=== PATIENT | female | born 1950 | race American Indian/Alaskan Native ===

== ENCOUNTER → 2020-02-19 08:21 | Outpatient (BNVA) | payer MEDICARE, MEDICAID, OTHER, SELFPAY | PROVIDERS: PCP Internal Medicine Geriatric Medicine; Referring Provider Internal Medicine Geriatric Medicine; Visit Provider Obstetrics & Gynecology | DX: N95.0 Postmenopausal bleeding (principal); N83.202 Unspecified ovarian cyst, left side | CPT/HCPCS: 99203; 99214 ==

== ENCOUNTER 2020-02-25 10:14 | Outpatient (REF) | payer MEDICARE, MEDICAID, SELFPAY ==
[2020-02-26 12:36] LABS: CA-125 8 U/mL (<35)
== END 2020-02-25 10:15 | disposition home or self-care (01) ==
LOC: HO.LAB 10:14
PROVIDERS: Visit Provider Obstetrics & Gynecology
DX: N83.202 Unspecified ovarian cyst, left side (principal)
CPT/HCPCS: 86304

== ENCOUNTER 2020-03-15 08:18 | Outpatient (REF) | payer MEDICARE, OTHER, SELFPAY ==
--- NOTE | 2020-03-15 08:23 | MM_ITS ---
EXAMINATION: MM SCREENING DIGITAL BREAST TOMOSYNTHESIS, BILATERAL CLINICAL INFORMATION: Screening. Asymptomatic. The lifetime risk of breast cancer based on the Tyrer-Cuzick Model is 4%. COMPARISON: Mammography: 12/26/2018, 05/30/2017 TECHNIQUE: Digital breast tomosynthesis is performed in both the craniocaudal and mediolateral oblique views along with computer-aided detection (CAD). Synthesized 2D images are generated from the tomosynthesis. FINDINGS: There are scattered areas of fibroglandular density (ACR BI-RADS breast composition Category b). Breast tissue composition borders on heterogeneously dense. There are the parenchymal pattern is similar to prior studies. There are scattered bilateral benign coarse round calcifications. There is no interval mass or architectural abnormality or developing density. No significant changes. MM/MM tomosynthesis screening BI IMPRESSION: No mammographic evidence of malignancy. ASSESSMENT: BI-RADS 2: Benign RECOMMENDATION: Routine annual mammography screening. This patient's information was entered into a reminder system with a target due date for their next mammogram.
== END 2020-03-15 08:19 | disposition home or self-care (01) ==
LOC: HO.MAMMO 08:18
PROVIDERS: PCP Internal Medicine Geriatric Medicine; Visit Provider Internal Medicine Geriatric Medicine
DX: Z12.31 Encounter for screening mammogram for malignant neoplasm of breast (principal)
CPT/HCPCS: 77063; 77067

== ENCOUNTER 2020-03-24 09:03 | Outpatient (REF) | payer MEDICARE, MEDICAID, OTHER, SELFPAY | END 2020-03-24 09:04 | disposition home or self-care (01) | LOC: HO.LAB 09:03 | PROVIDERS: Visit Provider Obstetrics & Gynecology | DX: N95.0 Postmenopausal bleeding (principal) | CPT/HCPCS: 58100; 88305 ==

== ENCOUNTER → 2020-04-26 13:14 | Outpatient (BNVA) | payer MEDICARE, MEDICAID, SELFPAY | PROVIDERS: Visit Provider Obstetrics & Gynecology | DX: N83.202 Unspecified ovarian cyst, left side (principal); N95.0 Postmenopausal bleeding | CPT/HCPCS: Q3014 ==

== ENCOUNTER 2020-09-20 12:50 | Outpatient (REF) | payer MEDICARE, OTHER, SELFPAY ==
--- NOTE | ~2020-09-20 | US_ITS ---
EXAMINATION: US PELVIS CLINICAL INFORMATION: Left-sided ovarian cyst. COMPARISON: Ultrasound pelvis 01/07/2020. TECHNIQUE: Transabdominal ultrasound of the pelvis is performed. FINDINGS: UTERUS: The uterus is anteverted and measures 8.3 cm in length, 3.9 cm in AP and 4.9 cm in transverse dimension. The double wall endometrial thickness is 0.4 mm. The uterus is smooth in contour and has normal myometrial echogenicity. No visible fibroid. ADNEXA: Both ovaries are visualized. There is normal color flow to the adnexa. There is no ovarian torsion. There is no pelvic ascites or fluid collection. Right ovary measures 2.0 x 1.8 x 1.1 cm. Volume 2.1 mL. The ovary appears unremarkable. Left ovary measures 6.7 x 7.1 x 4.7 cm. Volume 117.1 mL. There is an anechoic cyst measuring 4.5 x 4.5 x 4.6 cm. US/US pelvic complete IMPRESSION: Anechoic 4.6 cm cyst left ovary. Unremarkable right ovary and uterus.
== END 2020-09-20 12:51 | disposition home or self-care (01) ==
LOC: HO.US 12:50
PROVIDERS: PCP Internal Medicine Geriatric Medicine; Visit Provider Obstetrics & Gynecology
DX: N83.202 Unspecified ovarian cyst, left side (principal)
CPT/HCPCS: 76856

== ENCOUNTER → 2020-10-12 14:34 | Outpatient (BNVA) | payer MEDICARE, SELFPAY | PROVIDERS: PCP Internal Medicine Geriatric Medicine; Visit Provider Obstetrics & Gynecology | DX: N83.202 Unspecified ovarian cyst, left side (principal) | CPT/HCPCS: Q3014 ==

== ENCOUNTER 2021-01-10 13:55 | Outpatient (REF) | payer MEDICARE, SELFPAY ==
--- NOTE | ~2021-01-10 | XR_ITS ---
EXAMINATION: XR LUMBAR SPINE XR HIP, BILATERAL CLINICAL INFORMATION: Low back pain and bilateral hip pain. COMPARISON: None TECHNIQUE: 3 views lumbar spine and 2 views each hip. FINDINGS: LUMBAR SPINE: There is mild straightening of lumbar lordosis. The vertebral heights, alignment and the disc heights are normal. There is mild endplate spondylosis throughout lumbar spine. No visible acute fracture or lytic process seen. LEFT HIP: Left hip joint space is normal. No bony erosive changes or loose bodies. No fracture, sclerotic or lytic lesion. No soft tissue abnormality. RIGHT HIP: There is no visible acute fracture or dislocation. There is a small enthesophyte along the lateral acetabulum. No bony erosive changes. The soft tissues are normal. There are several phleboliths in the pelvis. XR/XR lumbar spine 2-3V IMPRESSION: LUMBAR SPINE: 1. Unremarkable lumbar spine exam. 2. Small enthesophyte along the lateral acetabulum. No visible acute fracture or dislocation seen. RIGHT HIP: In the right hip, no acute fracture or dislocation. LEFT HIP: Unremarkable left hip.
--- NOTE | ~2021-01-10 | XR_ITS ---
EXAMINATION: XR LUMBAR SPINE XR HIP, BILATERAL CLINICAL INFORMATION: Low back pain and bilateral hip pain. COMPARISON: None TECHNIQUE: 3 views lumbar spine and 2 views each hip. FINDINGS: LUMBAR SPINE: There is mild straightening of lumbar lordosis. The vertebral heights, alignment and the disc heights are normal. There is mild endplate spondylosis throughout lumbar spine. No visible acute fracture or lytic process seen. LEFT HIP: Left hip joint space is normal. No bony erosive changes or loose bodies. No fracture, sclerotic or lytic lesion. No soft tissue abnormality. RIGHT HIP: There is no visible acute fracture or dislocation. There is a small enthesophyte along the lateral acetabulum. No bony erosive changes. The soft tissues are normal. There are several phleboliths in the pelvis. XR/XR hip LT min 2V IMPRESSION: LUMBAR SPINE: 1. Unremarkable lumbar spine exam. 2. Small enthesophyte along the lateral acetabulum. No visible acute fracture or dislocation seen. RIGHT HIP: In the right hip, no acute fracture or dislocation. LEFT HIP: Unremarkable left hip.
--- NOTE | ~2021-01-10 | XR_ITS ---
EXAMINATION: XR LUMBAR SPINE XR HIP, BILATERAL CLINICAL INFORMATION: Low back pain and bilateral hip pain. COMPARISON: None TECHNIQUE: 3 views lumbar spine and 2 views each hip. FINDINGS: LUMBAR SPINE: There is mild straightening of lumbar lordosis. The vertebral heights, alignment and the disc heights are normal. There is mild endplate spondylosis throughout lumbar spine. No visible acute fracture or lytic process seen. LEFT HIP: Left hip joint space is normal. No bony erosive changes or loose bodies. No fracture, sclerotic or lytic lesion. No soft tissue abnormality. RIGHT HIP: There is no visible acute fracture or dislocation. There is a small enthesophyte along the lateral acetabulum. No bony erosive changes. The soft tissues are normal. There are several phleboliths in the pelvis. XR/XR hip RT min 2V IMPRESSION: LUMBAR SPINE: 1. Unremarkable lumbar spine exam. 2. Small enthesophyte along the lateral acetabulum. No visible acute fracture or dislocation seen. RIGHT HIP: In the right hip, no acute fracture or dislocation. LEFT HIP: Unremarkable left hip.
== END 2021-01-10 13:56 | disposition home or self-care (01) ==
LOC: HO.XRAY 13:55
PROVIDERS: Absent Provider Internal Medicine Geriatric Medicine; PCP Internal Medicine Geriatric Medicine; Visit Provider Emergency Medicine
DX: M25.551 Pain in right hip (principal); M25.552 Pain in left hip; M54.42 Lumbago with sciatica, left side
CPT/HCPCS: 72100; 73502

== ENCOUNTER 2021-02-10 10:35 | Outpatient (REF) | payer MEDICARE, SELFPAY ==
--- NOTE | ~2021-02-10 | XR_ITS ---
EXAMINATION: XR KNEE, RIGHT CLINICAL INFORMATION: Pain in right knee COMPARISON: Bilateral knee radiographs from 01/04/2016 TECHNIQUE: Four views of the right knee. FINDINGS: No acute visible fracture or dislocation. Multicompartment degenerative changes. Moderate narrowing of the lateral femorotibial compartment. Spurring of the tibial spines. Mild narrowing of the lateral patellofemoral compartment. Periarticular osteophyte along the superior pole of the patella. Joint spaces and alignment are otherwise maintained. No large knee joint effusion. Soft tissues are unremarkable. XR/XR knee RT 4V IMPRESSION: 1. No acute visible fracture or dislocation. 2. Mild to moderate multicompartment degenerative changes.
== END 2021-02-10 10:36 | disposition home or self-care (01) ==
LOC: HO.XRAY 10:35
PROVIDERS: PCP Internal Medicine Geriatric Medicine; Visit Provider Internal Medicine Geriatric Medicine
DX: M25.561 Pain in right knee (principal)
CPT/HCPCS: 73564

== ENCOUNTER 2021-03-22 07:00 | Outpatient (RCR) | payer MEDICARE, OTHER, SELFPAY | END 2021-04-20 12:39 | disposition home or self-care (01) | LOC: HO.PT 07:00 | PROVIDERS: PCP Internal Medicine Endocrinology, Diabetes & Metabolism; Visit Provider Internal Medicine Endocrinology, Diabetes & Metabolism | DX: M25.561 Pain in right knee (principal) | CPT/HCPCS: 97035; 97110; 97140; 97161; 97530 ==

== ENCOUNTER 2021-07-10 22:56 | Emergency (ER) | payer MEDICARE, OTHER, SELFPAY ==
--- NOTE | ~2021-07-10 | XR_ITS ---
EXAMINATION: XR KNEE, LEFT CLINICAL INFORMATION: Pain COMPARISON: None TECHNIQUE: Four views of the left knee. FINDINGS: No acute fracture or dislocation. Small tricompartmental marginal osteophytes. Articular surfaces are smooth. Small joint effusion. Soft tissues unremarkable. XR/XR knee LT 4V IMPRESSION: No acute fracture or dislocation.
[2021-07-10 23:21] VITALS: BP 138/66; PULSE 77; RESP 16; TEMP 36.6; O2SAT 98
[2021-07-10 23:37] VITALS: BP 138/66; PULSE 77; RESP 16; TEMP 36.6; O2SAT 98; BMI 26.4
--- NOTE | 2021-07-10 23:57 | ED_ITS ---
HPI - Extremity Injury (Lower) General Chief Complaint: Extremity Injury, Lower Stated Complaint: bones in knee crack? Time Seen by Provider: 07/10/21 23:38 Source: patient Mode of arrival: ambulatory History of Present Illness HPI Narrative: 70-year-old female presents with significant left knee pain after she attempted to sit down in a chair to approximately 15:00 this afternoon, she states she heard a crack just prior to feeling the left knee pain. Patient now reports that she is having discomfort on bearing weight and movement. She denies any fever, chills, or numbness/tingling into the distal extremity. Related Data Home Medications Medication Instructions Recorded Confirmed atenolol 25 mg tablet 25 mg PO DAILY 02/16/20 04/26/20 atorvastatin 40 mg tablet 40 mg PO DAILY 02/16/20 04/26/20 clopidogrel 75 mg tablet 75 mg PO DAILY 02/16/20 04/26/20 gabapentin 300 mg capsule 300 mg PO TID 02/16/20 04/26/20 glipizide 5 mg tablet 0 mg PO 02/16/20 04/26/20 guaifenesin 100 mg/5 mL oral liquid 200 mg PO Q4H PRN 02/16/20 04/26/20 hydrochlorothiazide 25 mg tablet 25 mg PO DAILY 02/16/20 04/26/20 losartan 100 mg tablet 100 mg PO DAILY 02/16/20 04/26/20 metformin 1,000 mg tablet 1,000 mg PO BID 02/16/20 04/26/20 pen needle, diabetic 32 gauge x #50 ea 02/16/20 04/26/20 5/32 alcohol swabs pad TOPICAL BID 02/19/20 04/26/20 lidocaine 5 % topical patch 0 patch TOPICAL 02/19/20 04/26/20 losartan 100 1 tab PO QAM 02/19/20 04/26/20 mg-hydrochlorothiazide 25 mg tablet peg [id number] 1 1 drp OPHTHALMIC (EYE) TID 02/19/20 04/26/20 %-0.2 %-0.2 % eye drops Previous Rx's Medication Instructions Recorded ketorolac 10 mg tablet 10 mg PO Q6H PRN 5 Days #7 tab 07/11/21 Allergies Allergy/AdvReac Type Severity Reaction Status Date / Time Sulfa (Sulfonamide Allergy Severe THROAT Verified 10/12/20 14:35 Antibiotics) CLOSES [SULFA (SULFONAMIDE ANTIBIOTICS)] Review of Systems Review of Systems: Pertinent positives and negatives as stated in HPI 10 point review of systems is otherwise negative. [facility] Past Medical History Source: nursing notes reviewed Medical History Diabetes Hammer toe Hypercholesteremia Hypertension Surgical History H/O section H/O knee surgery H/O tubal ligation Family History Family History Brother Prostate cancer Maternal Aunt Breast cancer Social History Social History Alcohol intake: never Advance Directives: No Sexual orientation: Straight/Heterosexual Gender identity: Female Physical Exam Vital Signs: Vital Signs: Last Vital Signs Temp 97.9 F 07/10/21 23:37 Pulse 71 07/11/21 01:09 Resp 16 07/11/21 01:09 BP 136/68 07/11/21 01:09 Pulse Ox 98 07/11/21 01:09 BMI result Body Mass Index 26.4 VITAL SIGNS: Reviewed. GENERAL: Well developed, well nourished, in no acute distress. HEAD: Normocephalic/atraumatic EYES: PERRLA, EOMI OROPHARYNX: no oral lesions noted, posterior pharynx clear LUNGS: Normal breath sounds. No adventitious sounds or accessory muscle use. SpO2<98> CARDIOVASCULAR: Regular rate and rhythm without noted murmurs ABDOMEN: Soft, non-tender, non-distended with bowel sounds. LEFT KNEE: No deformity, no swelling, no erythema/induration and no tenderness to palpation over the anterior aspect, when distracted patient has no pain on palpation over the popliteal fossa NEUROLOGIC: Alert and oriented x 4. Strength and sensation to light touch were grossly intact x 4. Course Course Course Narrative: 70-year-old female with history and clinical presentation consistent with acute on chronic arthritis as there is no evidence of infectious or traumatic injury. Patient was provided with combination analgesics as well as obtaining a left knee x-ray that was negative for any acute findings. On re-evaluation patient has had complete resolution of her left knee pain, she was provided with an [place] wrap and then discharged home in stable condition. Discharge Plan Discharge Clinical Impression: Acute pain of left knee, Arthritis Patient Disposition: Home, Self-Care Instructions: Osteoarthritis (ED), Knee Pain (ED) Additional Instructions: 1. Tylenol 1000 mg, orally, every 6 hours as needed for pain control. Do not exceed 4000 mg within 24 hours. 2. Follow-up with your primary care provider on Sunday morning. Return to the ER for worsening symptoms. Prescriptions: New ketorolac 10 mg tablet 10 mg PO Q6H PRN (Reason: pain) 5 Days Qty: 7 0RF No Action Dry Eye Relief 1-0.2-0.2 % drops 1 drp ophthalmic (eye) TID 0RF lidocaine 5 % adhesive patch,medicated 0 patch topical 0RF alcohol swabs Pads, Medicated topical BID 0RF losartan-hydrochlorothiazide 100-25 mg tablet 1 tab PO QAM 0RF atenolol 25 mg tablet 25 mg PO DAILY 0RF clopidogrel 75 mg tablet 75 mg PO DAILY 0RF gabapentin 300 mg capsule 300 mg PO TID 0RF guaifenesin 100 mg/5 mL liquid 200 mg PO Q4H PRN0RF (DME) pen needle, diabetic 32 gauge x 5/32 needle See Rx Instructions ea .ROUTE DAILY Qty: 50 0RF Rx Instructions: As directed atorvastatin 40 mg tablet 40 mg PO DAILY 0RF glipizide 5 mg tablet 0 mg PO 0RF hydrochlorothiazide 25 mg tablet 25 mg PO DAILY 0RF losartan 100 mg tablet 100 mg PO DAILY 0RF metformin 1,000 mg tablet 1,000 mg PO BID 0RF Referrals: Name,MD Howard [Primary Care Provider] - 2 days
[2021-07-11] MEDS: Acetaminophen 325 MG TABLET 975 MG PO (00:20)
[2021-07-11] MEDS: Ketorolac Tromethamine 15 MG/ML VIAL IM (00:20)
[2021-07-11 01:09] VITALS: BP 136/68; PULSE 71; RESP 16; O2SAT 98
--- NOTE | 2021-07-11 01:29 | PC.NURSE ---
LEXIE WRAP APPLIED TO LEFT KNEE.
== END 2021-07-11 01:53 | disposition home or self-care (01) ==
PROVIDERS: Emergency Provider Student in an Organized Health Care Education/Training Program; PCP Internal Medicine Geriatric Medicine
DX: M17.12 Unilateral primary osteoarthritis, left knee (principal); M25.562 Pain in left knee; Z79.899 Other long term (current) drug therapy
CPT/HCPCS: 73564; 96372; 99284; J1885

== ENCOUNTER 2021-07-27 10:30 | Outpatient (REF) | payer MEDICARE, OTHER, SELFPAY ==
--- NOTE | ~2021-07-27 | XR_ITS ---
EXAMINATION: XR knee LT 4V CLINICAL INFORMATION: Knee pain COMPARISON: Knee radiograph 07/11/2021 TECHNIQUE: 4 views of the knee XR/XR knee LT 4V FINDINGS/IMPRESSION: No acute fracture or dislocation. Joint spaces are maintained. Quadriceps tendon enthesopathy. No joint effusion. Soft tissues are unremarkable.
== END 2021-07-27 10:31 | disposition home or self-care (01) ==
LOC: HO.XRAY 10:30
PROVIDERS: PCP Internal Medicine Geriatric Medicine; Visit Provider Internal Medicine Geriatric Medicine
DX: M25.562 Pain in left knee (principal)
CPT/HCPCS: 73564

== ENCOUNTER → 2021-08-12 09:39 | Outpatient (BNVA) | payer MEDICARE, OTHER, SELFPAY | PROVIDERS: PCP Internal Medicine Geriatric Medicine; Visit Provider Physician Assistant | DX: M23.92 Unspecified internal derangement of left knee (principal) | CPT/HCPCS: 20610; 99202; J1020 ==

== ENCOUNTER 2021-08-19 12:42 | Outpatient (REF) | payer MEDICARE, OTHER, SELFPAY ==
--- NOTE | ~2021-08-19 | MM_ITS ---
EXAMINATION: BONE DENSITOMETRY CLINICAL INDICATION: Screening for osteoporosis with history of osteopenia. Postmenopausal. COMPARISON: None (current study represents initial baseline exam). TECHNIQUE: Using a [employer] DXA System (software version: 13.1) manufactured by [employer], dual-energy x-ray absorptiometry was performed of the lumbar spine and left hip. The images are of good technical quality. Summary results are attached. FINDINGS: AP SPINE L1-L4: BMD 1.174 g/cm2, Z-score 1.7, T-score 0.0, normal. LEFT FEMUR, NECK: BMD 0.786 g/cm2, Z-score -0.1, T-score -1.8, osteopenia. LEFT FEMUR, TOTAL: BMD 1.001 g/cm2, Z-score 1.4, T-score -0.1, normal. IDENTIFIED RISK FACTORS: Osteoporosis. Renal disease. Recurrent falls. Height loss. Anticonvulsants. Secondary osteoporosis. Menopause. HISTORY OF FRACTURE: Ribs MEDICATIONS: Vitamin D. MM/XR DEXA axial skeleton IMPRESSION: 1. DIAGNOSIS: Osteopenia based on the lowest T-score value of -1.8 in the femoral neck applying World Health Organization criteria. 2. 10-YEAR FRACTURE RISK PREDICTION, FRAX: Major osteoporotic fracture (clinical spine, forearm, hip or shoulder) 9.8%. Hip fracture 1.5%. 3. Treatment Recommendations: NOF guidelines recommend consideration for treatment in postmenopausal women and men age 50 and older presenting with the following: -A hip or vertebral (clinical or morphometric) fracture. -T-score less than or equal to -2.5 at the femoral neck or spine after appropriate evaluation to exclude secondary causes. -Low bone mass at the hip or spine and a 10-year fracture probability by FRAX of greater than or equal to 3% for hip fracture or greater than or equal to 20% for major osteoporotic fracture based on the [place] adapted WHO algorithm. 4. Other Recommendations: All treatment decisions require clinical judgment and consideration of individual patient factors, including patient preferences, comorbidities, previous drug use, risk factors not captured in the FRAX model (e.g. frailty, falls, vitamin D deficiency, increased bone turnover, interval significant decline in bone density) and possible under or overestimation of fracture risk by FRAX. Additional medical evaluation for secondary cause of low bone mineral density may be appropriate. FUTURE SCAN RECOMMENDATION: People with diagnosed cases of osteoporosis or at high risk for fracture should have regular bone mineral density tests. For patients eligible for Medicare, routine testing is allowed once every 2 years. The testing frequency can be increased to one year for patients who have rapidly progressing disease, those who are receiving or discontinuing medical therapy to restore bone mass, or have additional risk factors.
--- NOTE | ~2021-08-19 | MM_ITS ---
EXAMINATION: MM SCREENING DIGITAL BREAST TOMOSYNTHESIS, BILATERAL CLINICAL INFORMATION: Screening. Asymptomatic. The lifetime risk of breast cancer based on the Tyrer-Cuzick Model is 4%. COMPARISON: Mammography: 03/15/2020, 12/26/2018, 05/30/2017 TECHNIQUE: Digital breast tomosynthesis is performed in both the craniocaudal and mediolateral oblique views along with computer-aided detection (CAD). Synthesized 2D images are generated from the tomosynthesis. FINDINGS: There are scattered areas of fibroglandular density (ACR BI-RADS breast composition Category b). There are no significant masses, abnormal calcifications, or other abnormalities. Breast tissue composition borders on heterogeneously dense. Parenchymal pattern is similar to prior studies. There are scattered bilateral benign round, coarse, and ductal secretory calcifications. MM/MM tomosynthesis screening BI IMPRESSION: No mammographic evidence of malignancy. ASSESSMENT: BI-RADS 2: Benign RECOMMENDATION: Routine annual mammography screening. This patient's information was entered into a reminder system with a target due date for their next mammogram.
== END 2021-08-19 12:43 | disposition home or self-care (01) ==
LOC: HO.MAMMO 12:42
PROVIDERS: Visit Provider Internal Medicine Geriatric Medicine
DX: Z13.820 Encounter for screening for osteoporosis (principal); Z78.0 Asymptomatic menopausal state; Z12.31 Encounter for screening mammogram for malignant neoplasm of breast; M85.80 Other specified disorders of bone density and structure, unspecified site; M25.561 Pain in right knee; Z79.899 Other long term (current) drug therapy
CPT/HCPCS: 77063; 77067; 77080

== ENCOUNTER 2022-03-20 08:44 | Emergency (ER) | payer OTHER, SELFPAY ==
--- NOTE | ~2022-03-20 | CT_ITS ---
CT head/brain wo IV con CLINICAL INFORMATION: Reason for Exam Headache, HTN COMPARISON: No prior CT scan available for comparison. TECHNIQUE: Department standard protocol. This CT examination was performed using dose optimization techniques as appropriate, variously including the following: *Automated exposure control *Adjustment of mA and/or kV according to patient size (this includes techniques or standardized protocols for targeted exams where dose is matched to indication/reason for exam; i.e. extremities or head) *Use of iterative reconstruction technique DLP: 667 mGy-cm FINDINGS: CEREBRAL HEMISPHERES: There is no evidence of intra-axial or extra-axial mass, hemorrhage or acute infarct. BRAIN PARENCHYMA: Normal mensah-white matter differentiation. SUBDURAL SPACE: No bleed. BASAL GANGLIA AND PINEAL GLAND: Unremarkable VENTRICLES: Symmetric and normal in size. CEREBELLUM AND BRAINSTEM: No space-occupying mass, hemorrhage or acute infarct. CEREBELLOPONTINE ANGLES: No lesion found. ORBITS: No intraorbital mass. VESSELS: Unremarkable SKULL BASE: Unremarkable INCLUDED SINUSES AT SKULL BASE: Clear SKULL AND SKIN: No fracture or bone lesion found. CT/CT head/brain wo IV con IMPRESSION: No CT evidence of intracranial space-occupying mass, bleed or infarct. Normal CT scan does not rule out the possibility of hyperacute infarct in the first 12 hours. If patient symptoms persist may consider correlation with MRI, which is more sensitive for early acute infarct.
[2022-03-20 08:49] VITALS: BP 182/82; PULSE 79; RESP 18; TEMP 36.6; O2SAT 98; BMI 25.4
--- NOTE | 2022-03-20 10:02 | ECG_ITS ---
Test Reason : HEADACHE Blood Pressure : / mmHG Vent. Rate : 063 BPM Atrial Rate : 063 BPM P-R Int : 132 ms QRS Dur : 072 ms QT Int : 420 ms P-R-T Axes : 047 -07 042 degrees QTc Int : 429 ms Normal sinus rhythm RSR' or QR pattern in V1 suggests right ventricular conduction delay Low voltage QRS precordial leads Borderline ECG When compared with ECG of 19-JUL-2016 17:44, No significant change was found Referred By: Jenn Corey Electronically Signed By:BETTYE WAGONER MD
--- NOTE | 2022-03-20 10:11 | ED_ITS ---
HPI - Headache General Chief Complaint: Headache Stated Complaint: Stroke? Time Seen by Provider: 03/20/22 10:02 Source: patient Mode of arrival: ambulatory History of Present Illness HPI Narrative: 71-year-old female with history of hypertension and diabetes presents with 1 day of headache located at the ?top of her head? with some mild dizziness and patient took Tylenol with minor resolution but was able to sleep throughout the night. She denies any associated fever, chills, nausea, vomiting, urinary symptoms and denies any shortness of breath or chest pain/palpitations. Patient denies any visual/auditory/speech changes in states that when she woke up this morning she still had the headache although it was ?a little bit less?. Related Data Home Medications Medication Instructions Recorded Confirmed atenolol 25 mg tablet 25 mg PO DAILY 02/16/20 04/26/20 atorvastatin 40 mg tablet 40 mg PO DAILY 02/16/20 04/26/20 clopidogrel 75 mg tablet 75 mg PO DAILY 02/16/20 04/26/20 gabapentin 300 mg capsule 300 mg PO TID 02/16/20 04/26/20 glipizide 5 mg tablet 0 mg PO 02/16/20 04/26/20 guaifenesin 100 mg/5 mL oral liquid 200 mg PO Q4H PRN 02/16/20 04/26/20 hydrochlorothiazide 25 mg tablet 25 mg PO DAILY 02/16/20 04/26/20 losartan 100 mg tablet 100 mg PO DAILY 02/16/20 04/26/20 metformin 1,000 mg tablet 1,000 mg PO BID 02/16/20 04/26/20 pen needle, diabetic 32 gauge x #50 ea 02/16/20 04/26/20 alcohol swabs pad topical BID 02/19/20 04/26/20 lidocaine 5 % topical patch 0 patch topical 02/19/20 04/26/20 losartan 100 1 tab PO QAM 02/19/20 04/26/20 mg-hydrochlorothiazide 25 mg tablet peg [id number] 1 1 drp ophthalmic (eye) TID 02/19/20 04/26/20 %-0.2 %-0.2 % eye drops sitagliptin 25 mg tablet (Januvia) 25 mg PO DAILY 08/12/21 Previous Rx's Medication Instructions Recorded ketorolac 10 mg tablet 10 mg PO Q6H PRN pain 5 days #7 07/11/21 tabs Allergies Allergy/AdvReac Type Severity Reaction Status Date / Time Sulfa (Sulfonamide Allergy Severe THROAT Verified 01/10/22 11:07 Antibiotics) CLOSES [SULFA (SULFONAMIDE ANTIBIOTICS)] Review of Systems Review of Systems: Pertinent positives and negatives as stated in HPI 10 point review of systems is otherwise negative. [facility] Past Medical History Source: nursing notes reviewed Medical History Diabetes Hammer toe Hypercholesteremia Hypertension Surgical History H/O section H/O knee surgery H/O tubal ligation Family History Family History Brother Prostate cancer Maternal Aunt Breast cancer Social History Social History Alcohol intake: never Advance Directives: Yes Advance Directives Information Provided: Yes Advance Directives on File: No Sexual orientation: Straight/Heterosexual Gender identity: Female Physical Exam Vital Signs: Vital Signs: Last Vital Signs Temp 97.6 F 03/20/22 11:12 Pulse 63 03/20/22 11:12 Resp 18 03/20/22 11:12 BP 166/84 H 03/20/22 11:12 Pulse Ox 98 03/20/22 11:12 O2 Del Method 03/20/22 11:12 BMI result Body Mass Index 25.4 VITAL SIGNS: Reviewed. GENERAL: Well developed, well nourished, in no acute distress. HEAD: Normocephalic/atraumatic EYES: PERRLA, EOMI EARS: Ext canals without abnormality OROPHARYNX: no oral lesions noted, posterior pharynx clear LUNGS: Normal breath sounds. No adventitious sounds or accessory muscle use. SpO2<98> CARDIOVASCULAR: Regular rate and rhythm without noted murmurs, no JVD or lower extremity edema. ABDOMEN: Soft, non-tender, non-distended with bowel sounds. MUSCULOSKELETAL: No tenderness, deformities, or effusions noted on gross inspection. EXTREMITIES: No cyanosis, clubbing or edema. SKIN: Inspection of the skin reveals no rashes NEUROLOGIC: Alert and oriented x 4. Strength and sensation to light touch were grossly intact x 4, no facial asymmetry, no pronator drift, cranial nerves 2-12 are grossly intact, cerebellar testing is without deficit, and patient ambulates with a steady gait.. Course Course Course Narrative: 71-year-old female with history and clinical presentation suggestive of possible headache secondary to elevated blood pressure and will evaluate further with CT of the head, EKG and basic labs. There were no neurologic findings. Review of all investigations negative for acute findings other than suspected blood pressure related headache without evidence of infarct or intracranial bleed. Patient has no neurologic findings, has remained hemodynamically stable, will receive combination analgesics is otherwise discharged home in stable condition with instructions to follow-up with her primary care provider for more stringent blood pressure control. MDM - Headache Lab Data Result diagrams: 03/20/22 10:03/20/22 10: Labs: Lab Results 03/20/22 03/20/22 03/20/22 Range/Units 10:21 10: 10:26 WBC 7.2 (4.8-10.8) X10*3/uL RBC 4.32 (4.20-5.50) X10*6/uL Hgb 11.6 L (12.0-16.0) g/dl Hct 35.6 L (37.0-47.0) % MCV 82.4 (80.0-98.0) fL MCH 26.9 L (27.0-33.0) pg MCHC 32.6 (31.0-35.0) g/dl RDW 13.4 (11.0-16.0) % Plt Count 339 (160-400) X10*3/uL MPV 10.6 (9.4-12.3) fL Immature Gran % (Auto) 0.3 (0.0-0.4) % Neut % (Auto) 61.3 (45-73) % Lymph % (Auto) 28.7 (20-40) % [place] % (Auto) 8.1 (2-11) % Eos % (Auto) 1.0 (0-4) % Baso % (Auto) 0.6 (0-2) % Lymph # (Auto) 2.1 (1.2-4.9) X10*3/uL [place] # (Auto) 0.6 (0.1-1.2) X10*3/uL Eos # (Auto) 0.1 (0.0-0.4) X10*3/uL Baso # (Auto) 0.0 (0.0-0.2) X10*3/uL Abs Immat Gran (auto) 0.02 (0.00-0.03) X10*3/uL Absolute Neuts (auto) 4.4 (2.0-8.3) x10*3/uL Absolute Nucleated RBC 0.000 (0.0-0.012) X10*3/uL Nucleated RBC % (auto) 0.0 (0.0-0.2) /100WBC PT 11.0 (10.0-13.1) SEC INR 1.0 (0.9-1.1) Sodium (135-145) mmol/L Potassium (3.3-5.1) mmol/L Chloride (96-108) mmol/L Carbon Dioxide (22-29) mmol/L Anion Gap (12-20) BUN (9-16) mg/dL Creatinine (0.5-1.4) mg/dL Estim Creat Clear Calc Estimated GFR Random Glucose (60-115) mg/dL Calcium (8.4-10.2) mg/dL Total Bilirubin (0.0-1.0) mg/dL AST (5-31) U/L ALT (0-31) U/L Alkaline Phosphatase (39-117) U/L Troponin I High Sens (<3.5-17.0) ng/L Total Protein (6.5-8.0) g/dL Albumin (3.5-5.0) g/dL Urine Color Urine Appearance Urine pH (5.0-9.0) Ur Specific [place] (1.005-1.025) Urine Protein (Neg-Trace) mg/dL Urine Glucose (UA) (Negative) mg/dL Urine Ketones (Negative) mg/dL Urine Blood (Negative) Urine Nitrite (Negative) Ur Leukocyte Esterase (Negative) COVID-19 (MISTY) Negative (Negative) COVID-19 Clin Com See Note 03/20/22 03/20/22 03/20/22 Range/Units 10:26 10:26 11:54 WBC (4.8-10.8) X10*3/uL RBC (4.20-5.50) X10*6/uL Hgb (12.0-16.0) g/dl Hct (37.0-47.0) % MCV (80.0-98.0) fL MCH (27.0-33.0) pg MCHC (31.0-35.0) g/dl RDW (11.0-16.0) % Plt Count (160-400) X10*3/uL MPV (9.4-12.3) fL Immature Gran % (Auto) (0.0-0.4) % Neut % (Auto) (45-73) % Lymph % (Auto) (20-40) % [place] % (Auto) (2-11) % Eos % (Auto) (0-4) % Baso % (Auto) (0-2) % Lymph # (Auto) (1.2-4.9) X10*3/uL [place] # (Auto) (0.1-1.2) X10*3/uL Eos # (Auto) (0.0-0.4) X10*3/uL Baso # (Auto) (0.0-0.2) X10*3/uL Abs Immat Gran (auto) (0.00-0.03) X10*3/uL Absolute Neuts (auto) (2.0-8.3) x10*3/uL Absolute Nucleated RBC (0.0-0.012) X10*3/uL Nucleated RBC % (auto) (0.0-0.2) /100WBC PT (10.0-13.1) SEC INR (0.9-1.1) Sodium 140 (135-145) mmol/L Potassium 3.6 (3.3-5.1) mmol/L Chloride 100 (96-108) mmol/L Carbon Dioxide 27 (22-29) mmol/L Anion Gap 17 (12-20) BUN 20 H (9-16) mg/dL Creatinine 0.78 (0.5-1.4) mg/dL Estim Creat Clear Calc 54.7 Estimated GFR > 60 Random Glucose 196 H (60-115) mg/dL Calcium 9.8 (8.4-10.2) mg/dL Total Bilirubin 0.5 (0.0-1.0) mg/dL AST 14 (5-31) U/L ALT 14 (0-31) U/L Alkaline Phosphatase 58 (39-117) U/L Troponin I High Sens < 3.5 (<3.5-17.0) ng/L Total Protein 6.9 (6.5-8.0) g/dL Albumin 4.2 (3.5-5.0) g/dL Urine Color Yellow Urine Appearance Clear Urine pH 5.5 (5.0-9.0) Ur Specific [place] 1.020 (1.005-1.025) Urine Protein Negative (Neg-Trace) mg/dL Urine Glucose (UA) Negative (Negative) mg/dL Urine Ketones Negative (Negative) mg/dL Urine Blood Negative (Negative) Urine Nitrite Negative (Negative) Ur Leukocyte Esterase Negative (Negative) COVID-19 (MISTY) (Negative) COVID-19 Clin Com ECG Data Attestation: I personally reviewed and interpreted this ECG as follows: Prior ECG tracings: available for review Interpretation: Normal sinus rhythm, HR-63, no STEMI, MO/QRS/QTC is within normal limits. Discharge Plan Discharge Clinical Impression: Hypertension, Headache Patient Disposition: Home, Self-Care Instructions: General Headache (ED), Hypertension (ED), DASH Eating Plan (ED) Additional Instructions: 1. Resume all home medications as prescribed. 2. Recommend [id number] Tylenol 1000 mg, orally, every 6 hours as needed for headache control. Do not exceed 4000 mg within 24 hours. You will also need improved blood pressure control. 3. Please follow-up with your primary care provider by calling the office today and setting up an appointment to further discuss your blood pressure control. Return to the ER for worsening symptoms. Prescriptions: No Action ketorolac 10 mg tablet 10 mg PO Q6H PRN (Reason: pain) 5 Days Qty: 7 0RF Dry Eye Relief 1-0.2-0.2 % drops 1 drp ophthalmic (eye) TID lidocaine 5 % adhesive patch,medicated 0 patch topical alcohol swabs Pads, Medicated topical BID losartan-hydrochlorothiazide 100-25 mg tablet 1 tab PO QAM atenolol 25 mg tablet 25 mg PO DAILY clopidogrel 75 mg tablet 75 mg PO DAILY gabapentin 300 mg capsule 300 mg PO TID guaifenesin 100 mg/5 mL liquid 200 mg PO Q4H PRN (DME) pen needle, diabetic 32 gauge x needle See Rx Instructions .ROUTE DAILY Qty: 50 Rx Instructions: As directed atorvastatin 40 mg tablet 40 mg PO DAILY glipizide 5 mg tablet 0 mg PO hydrochlorothiazide 25 mg tablet 25 mg PO DAILY losartan 100 mg tablet 100 mg PO DAILY metformin 1,000 mg tablet 1,000 mg PO BID Januvia 25 mg tablet 25 mg PO DAILY Referrals: Name,MD Howard [Primary Care Provider] -
[2022-03-20 10:34] LABS: MANUAL DIFF FLAG NO
[2022-03-20 10:36] LABS: Basophils Percent Auto 0.6 % (0-2); Eosinophils Absolute Auto 0.1 X10*3/uL (0.0-0.4); Hematocrit 35.6 % (37.0-47.0); Hemoglobin 11.6 g/dl (12.0-16.0); Imm Gran Abs Auto 0.02 X10*3/uL (0.00-0.03); Imm Gran Pct Auto 0.3 % (0.0-0.4); Lymphocytes Absolute Auto 2.1 X10*3/uL (1.2-4.9); Lymphocytes Percent Auto 28.7 % (20-40); Mean Corpuscular HGB Conc 32.6 g/dl (31.0-35.0); Mean Corpuscular Hemoglobin 26.9 pg (27.0-33.0); Mean Corpuscular Volume 82.4 fL (80.0-98.0); Mean Platelet Volume 10.6 fL (9.4-12.3); Monocytes Absolute Auto 0.6 X10*3/uL (0.1-1.2); Monocytes Percent Auto 8.1 % (2-11); Neutrophils Absolute Auto 4.4 x10*3/uL (2.0-8.3); Neutrophils Percent Auto 61.3 % (45-73); Platelet Count 339 X10*3/uL (160-400); Red Blood Count 4.32 X10*6/uL (4.20-5.50); Red Cell Distribution Width 13.4 % (11.0-16.0); White Blood Count 7.2 X10*3/uL (4.8-10.8)
[2022-03-20 10:48] LABS: COVID-19 Test Negative (Negative)
[2022-03-20 11:01] LABS: Alanine Aminotransferase 14 U/L (0-31); Albumin Level 4.2 g/dL (3.5-5.0); Alkaline Phosphatase 58 U/L (39-117); Anion Gap 17 (12-20); Aspartate Amino Transferase 14 U/L (5-31); Bilirubin Total 0.5 mg/dL (0.0-1.0); Blood Urea Nitrogen 20 mg/dL (9-16); Calcium 9.8 mg/dL (8.4-10.2); Carbon Dioxide 27 mmol/L (22-29); Chloride 100 mmol/L (96-108); Creatinine Clr Calc Pharmacy 54.7; Estimated Glomerular Filt Rate > 60; Glucose Random 196 mg/dL (60-115); Potassium 3.6 mmol/L (3.3-5.1); Sodium 140 mmol/L (135-145); Total Protein 6.9 g/dL (6.5-8.0)
[2022-03-20 11:03] LABS: Troponin-I High Sensitivity < 3.5 ng/L (<3.5-17.0)
[2022-03-20 11:12] VITALS: BP 166/84; PULSE 63; RESP 18; TEMP 36.4; O2SAT 98
[2022-03-20 12:06] LABS: Appearance Urine Clear; Color Urine Yellow; Glucose Urine UA Negative (Negative); Leukocyte Esterase Urine Negative (Negative); Nitrite Urine Negative (Negative); PH 5.5 (5.0-9.0); Urine Blood Negative (Negative); Urine Ketones Negative (Negative); Urine Protein Negative (Neg-Trace)
== END 2022-03-20 12:34 | disposition home or self-care (01) ==
PROVIDERS: Emergency Provider Student in an Organized Health Care Education/Training Program; PCP Internal Medicine Geriatric Medicine
DX: R51.9 Headache, unspecified (principal); I10 Essential (primary) hypertension; Z20.822 Contact with and (suspected) exposure to COVID-19; Z79.899 Other long term (current) drug therapy
CPT/HCPCS: 70450; 80053; 81003; 84484; 85025; 85610; 87635; 93005; 99284

== ENCOUNTER 2022-03-29 21:21 | Emergency (ER) | payer OTHER, SELFPAY ==
--- NOTE | ~2022-03-29 | XR_ITS ---
EXAMINATION: XR CHEST CLINICAL INFORMATION: Chest pain COMPARISON: Chest radiograph 05/13/2017 TECHNIQUE: Frontal view of the chest was obtained. FINDINGS: No significant abnormality is noted involving the heart, lungs, mediastinum, bony thorax or soft tissues. XR/XR chest 1V IMPRESSION: Unremarkable examination.
[2022-03-29 21:31] VITALS: BP 177/71; PULSE 71; RESP 18; TEMP 36.1; O2SAT 100; BMI 26.6
--- NOTE | 2022-03-29 21:31 | ED_ITS ---
HPI - General Adult General Chief complaint: General Medical Stated complaint: High BP, blood sugar prob, chest pain Time Seen by Provider: 03/30/22 01:16 Related Data Home Medications Medication Instructions Recorded Confirmed atenolol 25 mg tablet 25 mg PO DAILY 02/16/20 04/26/20 atorvastatin 40 mg tablet 40 mg PO DAILY 02/16/20 04/26/20 clopidogrel 75 mg tablet 75 mg PO DAILY 02/16/20 04/26/20 gabapentin 300 mg capsule 300 mg PO TID 02/16/20 04/26/20 glipizide 5 mg tablet 0 mg PO 02/16/20 04/26/20 guaifenesin 100 mg/5 mL oral liquid 200 mg PO Q4H PRN 02/16/20 04/26/20 hydrochlorothiazide 25 mg tablet 25 mg PO DAILY 02/16/20 04/26/20 losartan 100 mg tablet 100 mg PO DAILY 02/16/20 04/26/20 metformin 1,000 mg tablet 1,000 mg PO BID 02/16/20 04/26/20 pen needle, diabetic 32 gauge x #50 ea 02/16/20 04/26/2032 alcohol swabs pad topical BID 02/19/20 04/26/20 lidocaine 5 % topical patch 0 patch topical 02/19/20 04/26/20 losartan 100 1 tab PO QAM 02/19/20 04/26/20 mg-hydrochlorothiazide 25 mg tablet peg [id number] 1 1 drp ophthalmic (eye) TID 02/19/20 04/26/20 %-0.2 %-0.2 % eye drops sitagliptin 25 mg tablet (Januvia) 25 mg PO DAILY 08/12/21 Previous Rx's Medication Instructions Recorded ketorolac 10 mg tablet 10 mg PO Q6H PRN pain 5 days #7 07/11/21 tabs Allergies Allergy/AdvReac Type Severity Reaction Status Date / Time Sulfa (Sulfonamide Allergy Severe THROAT Verified 01/10/22 11:07 Antibiotics) CLOSES [SULFA (SULFONAMIDE ANTIBIOTICS)] [facility] Past Medical History Medical History Diabetes Hammer toe Hypercholesteremia Hypertension Surgical History H/O section H/O knee surgery H/O tubal ligation Family History Family History Brother Prostate cancer Maternal Aunt Breast cancer Social History Social History Alcohol intake: former Smoked in Last 30 Days: No Use of substances other than those prescribed or required for medical reasons: No Advance Directives: No Sexual orientation: Straight/Heterosexual Gender identity: Female Physical Exam ED Vital Signs: Vital Signs - 24 hr 03/30/22 00:46 03/30/22 01:33 03/30/22 01:54 Temperature 97.9 F 97.7 F Pulse Rate 71 67 Respiratory Rate 16 16 Blood Pressure 174/72 H 145/72 H Pulse Oximetry 99 99 Oxygen Delivery Method Room Air 03/30/22 04:01 Temperature 97.8 F Pulse Rate 64 Respiratory Rate 15 Blood Pressure 144/66 H Pulse Oximetry 100 Oxygen Delivery Method Room Air BMI result Body Mass Index 26.6 Course Course Course Narrative: triage -c/o BS 342 and c/o BP 177/103 -pt c/o nausea and CP. CP started 1 hr ago while sitting down, at thsi time pain c/o pressure, no pain, c/o blurred vision bilaterally -pt took 10mg glipizide after checking her BS around 730pm. pt walked to the ED 30 minutes -vitals BP 177/71, HR 68, O2 99RA -pt takes losartan 125mg ? atenolol 5mg, pt states she takes her meds as prescribed PE: clear lung sounds, HR around 70, anxious appearing, hands shaking Medications Administered Discontinued Medications Generic Name Dose Route Start Last Admin Trade Name Jaret PRN Reason Stop Dose Admin Acetaminophen 650 mg 03/30/22 00:28 03/30/22 00:38 Acetaminophen 325 Mg Tablet PO 03/30/22 00:29 650 mg ONCE ONE Administration Medical Decision Making Lab Data Result diagrams: 03/29/22 23:31 03/29/22 23:31 Labs: Lab Results 03/29/22 03/29/22 03/29/22 Range/Units 23:31 23:31 23:31 WBC 12.9 H (4.8-10.8) X10*3/uL RBC 4.52 (4.20-5.50) X10*6/uL Hgb 12.2 (12.0-16.0) g/dl Hct 37.2 (37.0-47.0) % MCV 82.3 (80.0-98.0) fL MCH 27.0 (27.0-33.0) pg MCHC 32.8 (31.0-35.0) g/dl RDW 13.7 (11.0-16.0) % Plt Count 354 (160-400) X10*3/uL MPV 10.8 (9.4-12.3) fL Immature Gran % (Auto) 0.5 H (0.0-0.4) % Neut % (Auto) 75.2 H (45-73) % Lymph % (Auto) 17.0 L (20-40) % [place] % (Auto) 6.3 (2-11) % Eos % (Auto) 0.5 (0-4) % Baso % (Auto) 0.5 (0-2) % Lymph # (Auto) 2.2 (1.2-4.9) X10*3/uL [place] # (Auto) 0.8 (0.1-1.2) X10*3/uL Eos # (Auto) 0.1 (0.0-0.4) X10*3/uL Baso # (Auto) 0.1 (0.0-0.2) X10*3/uL Abs Immat Gran (auto) 0.06 H (0.00-0.03) X10*3/uL Absolute Neuts (auto) 9.7 H (2.0-8.3) x10*3/uL Absolute Nucleated RBC 0.000 (0.0-0.012) X10*3/uL Nucleated RBC % (auto) 0.0 (0.0-0.2) /100WBC Sodium 140 (135-145) mmol/L Potassium 3.8 (3.3-5.1) mmol/L Chloride 100 (96-108) mmol/L Carbon Dioxide 25 (22-29) mmol/L Anion Gap 19 (12-20) BUN 21 H (9-16) mg/dL Creatinine 0.89 (0.5-1.4) mg/dL Estim Creat Clear Calc 46.9 Estimated GFR > 60 POC Glucose (60-115) mg/dL Random Glucose 170 H (60-115) mg/dL Calcium 9.9 (8.4-10.2) mg/dL Total Bilirubin 0.6 (0.0-1.0) mg/dL Direct Bilirubin 0.2 (0.0-0.5) mg/dL AST 18 (5-31) U/L ALT 20 (0-31) U/L Alkaline Phosphatase 66 (39-117) U/L Troponin I High Sens < 3.5 (<3.5-17.0) ng/L Total Protein 7.5 (6.5-8.0) g/dL Albumin 4.5 (3.5-5.0) g/dL Acetone, Qual Negative (Negative) 03/30/22 03/30/22 Range/Units 02:01 02:25 WBC (4.8-10.8) X10*3/uL RBC (4.20-5.50) X10*6/uL Hgb (12.0-16.0) g/dl Hct (37.0-47.0) % MCV (80.0-98.0) fL MCH (27.0-33.0) pg MCHC (31.0-35.0) g/dl RDW (11.0-16.0) % Plt Count (160-400) X10*3/uL MPV (9.4-12.3) fL Immature Gran % (Auto) (0.0-0.4) % Neut % (Auto) (45-73) % Lymph % (Auto) (20-40) % [place] % (Auto) (2-11) % Eos % (Auto) (0-4) % Baso % (Auto) (0-2) % Lymph # (Auto) (1.2-4.9) X10*3/uL [place] # (Auto) (0.1-1.2) X10*3/uL Eos # (Auto) (0.0-0.4) X10*3/uL Baso # (Auto) (0.0-0.2) X10*3/uL Abs Immat Gran (auto) (0.00-0.03) X10*3/uL Absolute Neuts (auto) (2.0-8.3) x10*3/uL Absolute Nucleated RBC (0.0-0.012) X10*3/uL Nucleated RBC % (auto) (0.0-0.2) /100WBC Sodium (135-145) mmol/L Potassium (3.3-5.1) mmol/L Chloride (96-108) mmol/L Carbon Dioxide (22-29) mmol/L Anion Gap (12-20) BUN (9-16) mg/dL Creatinine (0.5-1.4) mg/dL Estim Creat Clear Calc Estimated GFR POC Glucose 124 H (60-115) mg/dL Random Glucose (60-115) mg/dL Calcium (8.4-10.2) mg/dL Total Bilirubin (0.0-1.0) mg/dL Direct Bilirubin (0.0-0.5) mg/dL AST (5-31) U/L ALT (0-31) U/L Alkaline Phosphatase (39-117) U/L Troponin I High Sens < 3.5 (<3.5-17.0) ng/L Total Protein (6.5-8.0) g/dL Albumin (3.5-5.0) g/dL Acetone, Qual (Negative) Discharge Plan Discharge Clinical Impression: Hypertension, Chest pain Patient Disposition: Home, Self-Care Instructions: Chest Pain (DC), Hypertension (ED) Prescriptions: No Action ketorolac 10 mg tablet 10 mg PO Q6H PRN (Reason: pain) 5 Days Qty: 7 0RF Dry Eye Relief 1-0.2-0.2 % drops 1 drp ophthalmic (eye) TID lidocaine 5 % adhesive patch,medicated 0 patch topical alcohol swabs Pads, Medicated topical BID losartan-hydrochlorothiazide 100-25 mg tablet 1 tab PO QAM atenolol 25 mg tablet 25 mg PO DAILY clopidogrel 75 mg tablet 75 mg PO DAILY gabapentin 300 mg capsule 300 mg PO TID guaifenesin 100 mg/5 mL liquid 200 mg PO Q4H PRN (DME) pen needle, diabetic 32 gauge x 5/32 needle See Rx Instructions .ROUTE DAILY Qty: 50 Rx Instructions: As directed atorvastatin 40 mg tablet 40 mg PO DAILY glipizide 5 mg tablet 0 mg PO hydrochlorothiazide 25 mg tablet 25 mg PO DAILY losartan 100 mg tablet 100 mg PO DAILY metformin 1,000 mg tablet 1,000 mg PO BID Januvia 25 mg tablet 25 mg PO DAILY Referrals: Name,MD Howard [Primary Care Provider] - Interventions: ED Discharge Assessment Last Done: 03/30/22 05:20 Discharge Date/Time: 03/30/22 05:21
--- NOTE | 2022-03-29 21:37 | ECG_ITS ---
Test Reason : CHEST PAIN Blood Pressure : / mmHG Vent. Rate : 065 BPM Atrial Rate : 065 BPM P-R Int : 130 ms QRS Dur : 074 ms QT Int : 428 ms P-R-T Axes : 053 005 050 degrees QTc Int : 445 ms Normal sinus rhythm Normal ECG When compared with ECG of 20-MAR-2022 10:14, No significant change was found Referred By: Sheila Dowell Electronically Signed By:BETTYE WAGONER MD
[2022-03-29 23:41] LABS: MANUAL DIFF FLAG NO
[2022-03-29 23:47] LABS: Basophils Absolute Auto 0.1 X10*3/uL (0.0-0.2); Basophils Percent Auto 0.5 % (0-2); Eosinophils Absolute Auto 0.1 X10*3/uL (0.0-0.4); Eosinophils Percent Auto 0.5 % (0-4); Hematocrit 37.2 % (37.0-47.0); Hemoglobin 12.2 g/dl (12.0-16.0); Imm Gran Abs Auto 0.06 X10*3/uL (0.00-0.03); Imm Gran Pct Auto 0.5 % (0.0-0.4); Lymphocytes Absolute Auto 2.2 X10*3/uL (1.2-4.9); Mean Corpuscular HGB Conc 32.8 g/dl (31.0-35.0); Mean Corpuscular Volume 82.3 fL (80.0-98.0); Mean Platelet Volume 10.8 fL (9.4-12.3); Monocytes Absolute Auto 0.8 X10*3/uL (0.1-1.2); Monocytes Percent Auto 6.3 % (2-11); Neutrophils Absolute Auto 9.7 x10*3/uL (2.0-8.3); Neutrophils Percent Auto 75.2 % (45-73); Platelet Count 354 X10*3/uL (160-400); Red Blood Count 4.52 X10*6/uL (4.20-5.50); Red Cell Distribution Width 13.7 % (11.0-16.0); White Blood Count 12.9 X10*3/uL (4.8-10.8)
[2022-03-29 23:53] LABS: Acetone, serum QL Negative (Negative)
[2022-03-29 23:59] LABS: Alanine Aminotransferase 20 U/L (0-31); Albumin Level 4.5 g/dL (3.5-5.0); Alkaline Phosphatase 66 U/L (39-117); Anion Gap 19 (12-20); Aspartate Amino Transferase 18 U/L (5-31); Bilirubin Direct 0.2 mg/dL (0.0-0.5); Bilirubin Total 0.6 mg/dL (0.0-1.0); Blood Urea Nitrogen 21 mg/dL (9-16); Calcium 9.9 mg/dL (8.4-10.2); Carbon Dioxide 25 mmol/L (22-29); Chloride 100 mmol/L (96-108); Creatinine Clr Calc Pharmacy 46.9; Estimated Glomerular Filt Rate > 60; Glucose Random 170 mg/dL (60-115); Potassium 3.8 mmol/L (3.3-5.1); Sodium 140 mmol/L (135-145); Total Protein 7.5 g/dL (6.5-8.0)
[2022-03-30 00:01] LABS: Troponin-I High Sensitivity < 3.5 ng/L (<3.5-17.0)
[2022-03-30] MEDS: Acetaminophen 325 MG TABLET 650 MG PO (00:38)
[2022-03-30 00:46] VITALS: BP 174/72; PULSE 71; TEMP 36.6; O2SAT 99
--- OUTSIDE RECORDS SUMMARY | 2022-03-30 01:16 | XMS_ITS | Continuity of Care Document ---
:1950 Author Organization [facility] Address [address] [place] [id number]- Care Team Providers Name Role Phone Name Howard BRENNER Primary Care Physician Encounter [facility] [place] Date(s): 10/15/19 - 11/20/19 [place] [id number]- [facility] Attending Physician: Howard Lovett MD Admitting Physician: Howard Lovett MD Referring Physician: Dina Samaniego MD Allergies, Adverse Reactions, Alerts Substance Reaction Severity Status sulfa drugs Active
--- OUTSIDE RECORDS SUMMARY | 2022-03-30 01:16 | XMS_ITS | Continuity of Care Document ---
:1950 Author Organization [facility] Address [address] [place] [address], [address] Floor, [address] [place] [id number]- Care Team Providers Name Role Phone Name Howard BRENNER Primary Care Physician Encounter [facility] [place] Date(s): 10/07/19 - 10/14/19 [facility] [address] [place] [address], 3rd [facility], [address] [place] [address]- [facility] Attending Physician: Dina Samaniego MD Referring Physician: Howard Lovett MD Allergies, Adverse Reactions, Alerts Substance Reaction Severity Status sulfa drugs Active
--- OUTSIDE RECORDS SUMMARY | 2022-03-30 01:16 | XMS_ITS | Continuity of Care Document ---
:1950 Author Organization [facility] Address [address] [facility], 3rd [facility], [address] [place] [id number]- Care Team Providers Name Role Phone Name Howard BRENNER Primary Care Physician Encounter [facility] [place] Date(s): 08/17/20 - 09/16/20 [facility] [address] [place], [address]rd Floor, [address] [place] [address] Attending Physician: Kamryn Pompa Admitting Physician: Kamryn Pompa Referring Physician: Kamryn Pompa Allergies, Adverse Reactions, Alerts Substance Reaction Severity Status sulfa drugs Active Medications Atenolol By Mouth, Daily, 0 Refills, Maintenance, 05/20/20 8:40:00 EST, Partial fill upon patient request if the prescription is for a schedule II opioid drug. Start Date: 05/20/20 Status: OrderedGlipiZIDE By Mouth, Daily, 0 Refills, Maintenance, 05/20/20 8:43:00 EST, Partial fill upon patient request if the prescription is for a schedule II opioid drug. Start Date: 05/20/20 Status: Orderedlosartan 125mg losartan 125mg, Refills 0, Maintenance, 05/20/20 8:39:00 EST, Supply Start Date: 05/20/20 Status: Orderedmetformin 1,000mg BID metformin 1,000mg BID, Refills 0, Maintenance, 05/20/20 8:40:00 EST, Supply Start Date: 05/20/20 Status: Orderedomeprazole 20mg omeprazole 20mg, Refills 0, Maintenance, 05/20/20 8:41:00 EST, Supply Start Date: 05/20/20 Status: OrderedPlavix 75 mg oral tablet 75 mg, 1, tablet, By Mouth, Daily, Refills 0, Maintenance, 05/20/20 8:40:00 EST, Partial fill upon patient request if the prescription is for a schedule II opioid drug. Start Date: 05/20/20 Status: Orderedpravastatin pravastatin, Refills 0, Maintenance, 05/20/20 8:42:00 EST, Supply Start Date: 05/20/20 Status: Ordered
--- OUTSIDE RECORDS SUMMARY | 2022-03-30 01:16 | XMS_ITS | Continuity of Care Document ---
:1950 Author Organization [facility] Address [address] [place] [address], 3rd Floor, [address] [place] [id number]- Care Team Providers Name Role Phone Name Howard BRENNER Primary Care Physician [place] [facility] [place] 10[place]19 [facility] [address] [place] [address], 3rd [facility], [address] [place] [id number]- [facility] Attending Physician: Dina Samaniego MD Admitting Physician: Dina Samaniego MD Referring Physician: Name Howard BRENNER Allergies, Adverse Reactions, Alerts Substance Reaction Severity Status sulfa drugs Active
--- OUTSIDE RECORDS SUMMARY | 2022-03-30 01:16 | XMS_ITS | Continuity of Care Document ---
:[address] [facility] Address [address] [place] [id number]- Care Team Providers Name Role Phone Name Howard BRENNER Primary Care Physician Encounter [facility] [place] Date(s): 11/03/19 - 12/03/19 [place] [id number]- [facility] Attending Physician: Kamryn Pompa Admitting Physician: trKamryn Referring Physician: Admtr, Ar8 Allergies, Adverse Reactions, Alerts Substance Reaction Severity Status sulfa drugs Active
--- OUTSIDE RECORDS SUMMARY | 2022-03-30 01:16 | XMS_ITS | Continuity of Care Document ---
:1950 Author Organization [facility] Address [address] [place] [id number]- Care Team Providers Name Role Phone Name Howard BRENNER Primary Care Physician [place] [facility] [place]19 - 12/03/[address] [address]- [facility] Attending Physician: Howard Lovett MD Admitting Physician: Name Howard BRENNER Referring Physician: Name Howard BRENNER Allergies, Adverse Reactions, Alerts Substance Reaction Severity Status sulfa drugs Active
[2022-03-30 01:33] VITALS: BP 145/72; PULSE 67; RESP 16; TEMP 36.5; O2SAT 99
--- NOTE | 2022-03-30 01:34 | PC.NURSE ---
Pt's is at bedside, pt has left ankle +1 enema. pt V/S are stable and lungs sounds are clear. +skin turgor. will continue to monitor.
--- NOTE | 2022-03-30 01:46 | ED.GENADULT ---
HPI - General Adult General Chief complaint: General Medical Stated complaint: High BP, blood sugar prob, chest pain Time Seen by Provider: 03/30/22 01:16 Source: patient and family Mode of arrival: ambulatory Limitations: no limitations History of Present Illness HPI narrative: 71-year-old female came in for evaluation of high blood pressure and chest pain. Patient with known history of high blood pressure taking losartan 100 mg and atenolol 5 mg daily, patient is compliant with her medication, been sustaining high blood pressure lately. Patient felt light mid chest tightness. With no radiation, lasted for about 15 minutes started 6 hours ago, pain has resolved completely now a blood pressure has improved work she is in the emergency department, no SOB, no CP at this point. Related Data Home Medications Medication Instructions Recorded Confirmed atenolol 25 mg tablet 25 mg PO DAILY 02/16/20 04/26/20 atorvastatin 40 mg tablet 40 mg PO DAILY 02/16/20 04/26/20 clopidogrel 75 mg tablet 75 mg PO DAILY 02/16/20 04/26/20 gabapentin 300 mg capsule 300 mg PO TID 02/16/20 04/26/20 glipizide 5 mg tablet 0 mg PO 02/16/20 04/26/20 guaifenesin 100 mg/5 mL oral liquid 200 mg PO Q4H PRN 02/16/20 04/26/20 hydrochlorothiazide 25 mg tablet 25 mg PO DAILY 02/16/20 04/26/20 losartan 100 mg tablet 100 mg PO DAILY 02/16/20 04/26/20 metformin 1,000 mg tablet 1,000 mg PO BID 02/16/20 04/26/20 pen needle, diabetic 32 gauge x #50 ea 02/16/20 04/26/20 5/32 alcohol swabs pad topical BID 02/19/20 04/26/20 lidocaine 5 % topical patch 0 patch topical 02/19/20 04/26/20 losartan 100 1 tab PO QAM 02/19/20 04/26/20 mg-hydrochlorothiazide 25 mg tablet peg [id number] 1 1 drp ophthalmic (eye) TID 02/19/20 04/26/20 %-0.2 %-0.2 % eye drops sitagliptin 25 mg tablet (Januvia) 25 mg PO DAILY 08/12/21 Previous Rx's Medication Instructions Recorded ketorolac 10 mg tablet 10 mg PO Q6H PRN pain 5 days #7 07/11/21 tabs Allergies Allergy/AdvReac Type Severity Reaction Status Date / Time Sulfa (Sulfonamide Allergy Severe THROAT Verified 01/10/22 11:07 Antibiotics) CLOSES [SULFA (SULFONAMIDE ANTIBIOTICS)] Review of Systems Review of Systems: All other systems are reviewed and are negative Constitutional: Reports as per HPI and Reports no additional constitutional complaints Eyes: Reports as per HPI and Reports no additional eye complaints Reports system reviewed and no additional complaints, except as documented Cardiovascular: Reports as per HPI and Reports no additional cardiovascular complaints Respiratory: Reports as per HPI and Reports no additional respiratory complaints Gastrointestinal: Reports as per HPI and Reports no additional gastrointestinal complaints Genitourinary: Reports no additional female genitourinary complaints Musculoskeletal: Reports no additional musculoskeletal complaints Skin/Breast: Reports system reviewed and no additional complaints, except as docu Psychiatric: Reports no additional psychiatric complaints Endocrine: Reports no additional endocrine complaints Hematologic/Lymphatic: Reports no additional hematologic/lymphatic complaints Allergic/Immunologic: Reports no additional allergic/immunologic complaints Reports system reviewed and no additional complaints, except as documented and Reports Abnormal speech present [facility] Past Medical History Medical History Diabetes Hammer toe Hypercholesteremia Hypertension Surgical History H/O section H/O knee surgery H/O tubal ligation Family History Family History Brother Prostate cancer Maternal Aunt Breast cancer Social History Social History Alcohol intake: former Smoked in Last 30 Days: No Use of substances other than those prescribed or required for medical reasons: No Advance Directives: No Sexual orientation: Straight/Heterosexual Gender identity: Female Physical Exam ED Vital Signs: Vital Signs - 24 hr 03/29/22 21:31 03/30/22 00:46 03/30/22 01:33 Temperature 97.0 F 97.9 F 97.7 F Pulse Rate 71 71 67 Respiratory Rate 18 16 Blood Pressure 177/71 H 174/72 H 145/72 H Pulse Oximetry 100 99 99 Oxygen Delivery Method Room Air Room Air 03/30/22 01:54 03/30/22 04:01 Temperature 97.8 F Pulse Rate 64 Respiratory Rate 16 15 Blood Pressure 144/66 H Pulse Oximetry 100 Oxygen Delivery Method Room Air BMI result Body Mass Index 26.6 Vital signs have been reviewed as appeared to be correct. Blood pressure normal. Heart rate normal. Respiration rate normal. Temperature normal. Oxygen saturation normal. Appearance: Alert. Oriented X3. No acute distress. Head: Normal external exam. Normocephalic. Atraumatic. No Roach signs noted. No raccoon eyes noted Eyes: PERRLA. EOMI. Conjunctiva and sclera normal. Eyelids normal. ENT: TM's Normal. Pharynx normal. Uvula midline. Moist mucous membranes. No trismus noted. No drooling noted. No muffled voice noted. Neck: Normal inspection. Neck supple. FROM. No adenopathy. Thyroid Normal. No meningeal signs. No neck mass noted. CVS: Normal heart rate and rhythm. Heart sound normal. No murmurs noted. Pulses normal throughout. Respiratory: No respiratory distress. Painless inspiration. Breath sounds normal. No wheezes/rales/rhonchi noted. Chest nontender. No accessory muscle usage noted or decreased air movement noted. Abdomen: Soft and nontender. Bowel sounds normal in all 4 quadrants. No distention noted. No organomegaly noted. No visible injury noted. Back: No CVA tenderness. Full range of motion noted. Skin: Skin warm and dry. Normal skin color. Normal skin turgor. No rashes/lesions/lacerations noted. Extremities: No lower extremity edema. Extremities exhibit normal range of motion. Extremities nontender. Neuro: Oriented X 3. Cranial nerve exam: II-XII are grossly intact No motor deficit. No sensory deficit. Reflexes normal. Course Course Course Narrative: 71-year-old female came in for evaluation of elevated high blood pressure at home despite patient is compliant with her medication patient takes losartan/atenolol. Patient been evaluated also for chest pain with -2 troponins, leukocytosis which could be reactionary and anxiety related. unremarkable EKG, blood pressure improved without intervention in the emergency department. Patient will be safe to discharge home and follow-up with PCP. Medications Administered Discontinued Medications Generic Name Dose Route Start Last Admin Trade Name Freq PRN Reason Stop Dose Admin Acetaminophen 650 mg 03/30/22 00:28 03/30/22 00:38 Acetaminophen 325 Mg Tablet PO 03/30/22 00:29 650 mg ONCE ONE Administration Medical Decision Making Lab Data Lab results reviewed: Yes I reviewed the patient's lab results. Result diagrams: 03/29/22 23:31 03/29/22 23:31 Labs: Lab Results 03/29/22 03/29/22 03/29/22 Range/Units 23:31 23:31 23:31 WBC 12.9 H (4.8-10.8) X10*3/uL RBC 4.52 (4.20-5.50) X10*6/uL Hgb 12.2 (12.0-16.0) g/dl Hct 37.2 (37.0-47.0) % MCV 82.3 (80.0-98.0) fL MCH 27.0 (27.0-33.0) pg MCHC 32.8 (31.0-35.0) g/dl RDW 13.7 (11.0-16.0) % Plt Count 354 (160-400) X10*3/uL MPV 10.8 (9.4-12.3) fL Immature Gran % (Auto) 0.5 H (0.0-0.4) % Neut % (Auto) 75.2 H (45-73) % Lymph % (Auto) 17.0 L (20-40) % [place] % (Auto) 6.3 (2-11) % Eos % (Auto) 0.5 (0-4) % Baso % (Auto) 0.5 (0-2) % Lymph # (Auto) 2.2 (1.2-4.9) X10*3/uL [place] # (Auto) 0.8 (0.1-1.2) X10*3/uL Eos # (Auto) 0.1 (0.0-0.4) X10*3/uL Baso # (Auto) 0.1 (0.0-0.2) X10*3/uL Abs Immat Gran (auto) 0.06 H (0.00-0.03) X10*3/uL Absolute Neuts (auto) 9.7 H (2.0-8.3) x10*3/uL Absolute Nucleated RBC 0.000 (0.0-0.012) X10*3/uL Nucleated RBC % (auto) 0.0 (0.0-0.2) /100WBC Sodium 140 (135-145) mmol/L Potassium 3.8 (3.3-5.1) mmol/L Chloride 100 (96-108) mmol/L Carbon Dioxide 25 (22-29) mmol/L Anion Gap 19 (12-20) BUN 21 H (9-16) mg/dL Creatinine 0.89 (0.5-1.4) mg/dL Estim Creat Clear Calc 46.9 Estimated GFR > 60 POC Glucose (60-115) mg/dL Random Glucose 170 H (60-115) mg/dL Calcium 9.9 (8.4-10.2) mg/dL Total Bilirubin 0.6 (0.0-1.0) mg/dL Direct Bilirubin 0.2 (0.0-0.5) mg/dL AST 18 (5-31) U/L ALT 20 (0-31) U/L Alkaline Phosphatase 66 (39-117) U/L Troponin I High Sens < 3.5 (<3.5-17.0) ng/L Total Protein 7.5 (6.5-8.0) g/dL Albumin 4.5 (3.5-5.0) g/dL Acetone, Qual Negative (Negative) 03/30/22 03/30/22 Range/Units 02:01 02:25 WBC (4.8-10.8) X10*3/uL RBC (4.20-5.50) X10*6/uL Hgb (12.0-16.0) g/dl Hct (37.0-47.0) % MCV (80.0-98.0) fL MCH (27.0-33.0) pg MCHC (31.0-35.0) g/dl RDW (11.0-16.0) % Plt Count (160-400) X10*3/uL MPV (9.4-12.3) fL Immature Gran % (Auto) (0.0-0.4) % Neut % (Auto) (45-73) % Lymph % (Auto) (20-40) % [place] % (Auto) (2-11) % Eos % (Auto) (0-4) % Baso % (Auto) (0-2) % Lymph # (Auto) (1.2-4.9) X10*3/uL [place] # (Auto) (0.1-1.2) X10*3/uL Eos # (Auto) (0.0-0.4) X10*3/uL Baso # (Auto) (0.0-0.2) X10*3/uL Abs Immat Gran (auto) (0.00-0.03) X10*3/uL Absolute Neuts (auto) (2.0-8.3) x10*3/uL Absolute Nucleated RBC (0.0-0.012) X10*3/uL Nucleated RBC % (auto) (0.0-0.2) /100WBC Sodium (135-145) mmol/L Potassium (3.3-5.1) mmol/L Chloride (96-108) mmol/L Carbon Dioxide (22-29) mmol/L Anion Gap (12-20) BUN (9-16) mg/dL Creatinine (0.5-1.4) mg/dL Estim Creat Clear Calc Estimated GFR POC Glucose 124 H (60-115) mg/dL Random Glucose (60-115) mg/dL Calcium (8.4-10.2) mg/dL Total Bilirubin (0.0-1.0) mg/dL Direct Bilirubin (0.0-0.5) mg/dL AST (5-31) U/L ALT (0-31) U/L Alkaline Phosphatase (39-117) U/L Troponin I High Sens < 3.5 (<3.5-17.0) ng/L Total Protein (6.5-8.0) g/dL Albumin (3.5-5.0) g/dL Acetone, Qual (Negative) Imaging Data Chest x-ray: Attestation: I personally reviewed and interpreted this imaging study as follows: Radiologist's impression: Unremarkable examination. ECG Data Attestation: I personally reviewed and interpreted this ECG as follows: Interpretation: Normal sinus rhythm at 65 beats per minutes, left axis deviation, normal intervals, no change from previous EKG. Discharge Plan Discharge Clinical Impression: Hypertension, Chest pain Patient Disposition: Home, Self-Care Instructions: Chest Pain (DC), Hypertension (ED) Prescriptions: No Action ketorolac 10 mg tablet 10 mg PO Q6H PRN (Reason: pain) 5 Days Qty: 7 0RF Dry Eye Relief 1-0.2-0.2 % drops 1 drp ophthalmic (eye) TID lidocaine 5 % adhesive patch,medicated 0 patch topical alcohol swabs Pads, Medicated topical BID losartan-hydrochlorothiazide 100-25 mg tablet 1 tab PO QAM atenolol 25 mg tablet 25 mg PO DAILY clopidogrel 75 mg tablet 75 mg PO DAILY gabapentin 300 mg capsule 300 mg PO TID guaifenesin 100 mg/5 mL liquid 200 mg PO Q4H PRN (DME) pen needle, diabetic 32 gauge x 5/32 needle See Rx Instructions .ROUTE DAILY Qty: 50 Rx Instructions: As directed atorvastatin 40 mg tablet 40 mg PO DAILY glipizide 5 mg tablet 0 mg PO hydrochlorothiazide 25 mg tablet 25 mg PO DAILY losartan 100 mg tablet 100 mg PO DAILY metformin 1,000 mg tablet 1,000 mg PO BID Januvia 25 mg tablet 25 mg PO DAILY Referrals: Name,MD Howard [Primary Care Provider] -
[2022-03-30 01:54] VITALS: RESP 16
[2022-03-30 02:29] LABS: Glucose, Whole Blood 124 mg/dL (60-115)
[2022-03-30 02:34] LABS: Troponin-I High Sensitivity < 3.5 ng/L (<3.5-17.0)
[2022-03-30 04:01] VITALS: BP 144/66; PULSE 64; RESP 15; TEMP 36.6; O2SAT 100
== END 2022-03-30 05:21 | disposition home or self-care (01) ==
PROVIDERS: Emergency Medicine; Emergency Provider Emergency Medicine; PCP Internal Medicine Geriatric Medicine
DX: I10 Essential (primary) hypertension (principal); R07.9 Chest pain, unspecified; E11.9 Type 2 diabetes mellitus without complications; E78.5 Hyperlipidemia, unspecified; Z79.02 Long term (current) use of antithrombotics/antiplatelets; Z79.84 Long term (current) use of oral hypoglycemic drugs; Z79.899 Other long term (current) drug therapy
CPT/HCPCS: 36415; 71045; 80048; 80076; 82009; 82947; 84484; 85025; 93005; 99283; 99285

== ENCOUNTER 2022-05-11 11:06 | Outpatient (REF) | payer MEDICARE, SELFPAY ==
--- NOTE | ~2022-05-11 | XR_ITS ---
EXAMINATION: XR CHEST CLINICAL INFORMATION: Respiratory crackles in the right lung base. Question pneumonia. COMPARISON: Chest radiograph dated 03/29/2022. TECHNIQUE: 2 views of the chest were obtained. FINDINGS: The lungs are clear. The cardiomediastinal silhouette is normal in size. There is no pleural effusion or pneumothorax. No acute osseous abnormality. XR/XR chest 2V IMPRESSION: No acute cardiopulmonary findings.
== END 2022-05-11 11:07 | disposition home or self-care (01) ==
LOC: HO.XRAY 11:06
PROVIDERS: PCP Pediatrics; Visit Provider Pediatrics
DX: R09.89 Other specified symptoms and signs involving the circulatory and respiratory systems (principal)
CPT/HCPCS: 71046

== ENCOUNTER 2022-06-29 10:52 | Outpatient (REF) | payer OTHER, MEDICAID, SELFPAY ==
--- NOTE | ~2022-06-29 | XR_ITS ---
EXAMINATION: XR CERVICAL SPINE CLINICAL INFORMATION: Chronic pain radiating to the shoulders. COMPARISON: Radiographs dated 01/24/2019. TECHNIQUE: Frontal, odontoid, bilateral oblique and lateral views of the cervical spine are obtained. FINDINGS: Vertebral body heights and alignment are normal. There is mild posterior disc space narrowing at C4-C5. The remaining spaces are well-maintained. No acute fracture or spondylolisthesis is seen. The posterior elements are intact. There is left neural foraminal narrowing at C3-C4, bilateral right neural foraminal narrowing at C4-C5 and right neural foraminal narrowing C5-C6. The dens and C7-T1 interface are normal. There is no prevertebral soft tissue swelling. XR/XR cervical spine 5V IMPRESSION: 1. There is very mild degenerative disc disease at C4-C5. 2. There is multi-level bilateral neural foraminal narrowing, as detailed.
--- NOTE | ~2022-06-29 | XR_ITS ---
EXAMINATION: XR RIBS, LEFT CLINICAL INFORMATION: Left lower rib cage pain. COMPARISON: Chest radiographs dated 05/11/2022. TECHNIQUE: 3 views of the left ribs were obtained. FINDINGS: Lungs are clear. No consolidation, pneumothorax, or pleural effusion. The cardiomediastinal silhouette and pulmonary vasculature are normal. Osseous structures are unremarkable. Ribs are intact. No fractures are identified. XR/XR ribs LT 2V IMPRESSION: Unremarkable examination.
== END 2022-06-29 10:53 | disposition home or self-care (01) ==
LOC: HO.XRAY 10:52
PROVIDERS: PCP Internal Medicine Geriatric Medicine; Visit Provider Internal Medicine
DX: R07.81 Pleurodynia (principal); M54.2 Cervicalgia
CPT/HCPCS: 71100; 72050

== ENCOUNTER → 2022-07-28 09:50 | Outpatient (BNVA) | payer OTHER, MEDICAID, SELFPAY | PROVIDERS: PCP Internal Medicine Geriatric Medicine; Visit Provider Nurse Practitioner Family | DX: Z13.89 Encounter for screening for other disorder (principal) ==

== ENCOUNTER → 2022-09-27 14:20 | Outpatient (BNVA) | payer OTHER, MEDICAID, SELFPAY | PROVIDERS: PCP Internal Medicine Geriatric Medicine; Referring Provider Internal Medicine Geriatric Medicine; Visit Provider Internal Medicine ==

== ENCOUNTER → 2022-10-26 07:42 | Outpatient (REF) | payer OTHER, MEDICAID, SELFPAY ==
--- NOTE | ~2022-10-26 | NM_ITS ---
Exercise Myocardial perfusion study Indication: Precordial chest pain Technique: The patient was brought in for an exercise perfusion study on 10/26/2022. Patient performed exercise as per Simeon protocol and was injected 25 mCi of sestamibi was given intravenously one target HR was achieved. Images were obtained using the SPECT gamma camera interlaced with the gating device. Images were obtained in supine position. Resting perfusion study was performed on 10/30/2022. Patient was administered 25 mCi of sestamibi intravenously at rest. Images were then obtained in supine position. Images obtained with and without CT attenuation. Total DLP 85 mGy-cm. Images were processed with the software and compared side to side in short axis, horizontal long axis and vertical long axis views. Findings: The stress perfusion study showed non attenuated images show minimal thinning of the basal lateral wall of the LV myocardium. Remainder of the LV myocardium is normally perfused. Attenuation corrected images show normal uptake of radiotracer in all segments of LV myocardium. The gated study shows normal LV systolic function with calculated LVEF of 75%. LV cavity is normal in size. The gated study shows normal systolic wall thickening and contraction of all segments. There is no transient ischemic dilation. Resting study shows non attenuated images show no changes in perfusion pattern compared to stress perfusion study. Attenuated corrected images show mildly reduced uptake in the apex of the LV myocardium.. Gating at rest reveals normal systolic wall motion with ejection fraction at 70%. The findings are consistent with normal myocardial perfusion. NM/NM cardiolite stress test Impression: 1. Normal myocardial perfusion 2. Gated LVEF is 70% 3. Transient ischemic dilatation not present Stress EKG is suggestive of ischemia
--- NOTE | 2022-10-26 07:45 | CA_ITS ---
Acquisition Time: 2022-10-26 09:18:48 Total Exercise Time: 00:05:00 Test Indications: CP, SOB Medications: SEE H Protocol: PAULETTE Max HR: 160 BPM 105% of Pred: 151 BPM Max BP: 188/068 mmHG Max Work Load: 5.9 METS Exercise stress test exercise 5 min of Paulette protocol (stage 2 reduced speed to 2mph) achieiving 105% MPHR, with mild SOB, no chest discomfort, without arrhythymias, with resting hypertension, normotensive response to exercise, with EKG changes meeting criteria for ischemia. Nuclear images pending. Test reviewed with Dr. Desir. Referred By: Erick Vicente Overread By: YUKO PENA
--- NOTE | 2022-10-26 07:45 | CA_ITS ---
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 Study Quality: Fair ECG Rhythm: Sinus Conclusions: - 1. Normal LV systolic function with impaired relaxation filling pattern 2. Normal cardiac valvular Dopplers 3. Normal RV systolic pressure 4. No pericardial effusion Findings Procedure Information Contrast agent, definity, is being given per protocol without apparent complications. Left Ventricle Normal left ventricular size, thickness, and systolic function. The visually estimated ejection fraction is between 65-70%. Spectral Doppler is indicative of an impaired relaxation filling pattern. E/E prime ratio is between 8 and 15 consistent with indeterminate filling pressures. Right Ventricle Normal right ventricular cavity size and systolic function. Atria Both atria are normal in size. Interatrial shunt cannot be excluded. Aortic Valve There is mild calcification of the aortic valve. There is no aortic valve stenosis. There is no aortic valve regurgitation. Mitral Valve There is mild anterior and posterior mitral leaflet thickening. There is mild mitral annular calcification. There is trace mitral valve regurgitation. There is no mitral valve stenosis. Pulmonic Valve The pulmonic valve was not well visualized. Tricuspid Valve Normal tricuspid valve structure. There is trace tricuspid valve regurgitation. The right ventricular systolic pressure is normal. The right ventricular systolic pressure is 26 mmHg. Normal right atrial pressure. There is no evidence of pulmonary hypertension. Great Vessels All visible segments of the aorta are normal in size. The pulmonary artery was not well visualized. Venous The inferior vena cava is normal in size and collapses greater than 50% with inspiration. Pericardium/Pleural There is no evidence of pericardial effusion. Prior Study Comparison No prior study available for comparison. Measurements 2D Linear Measurements IVSd: 0.96 0.6-0.9/0.6-1.0 cm LVIDd: 4.05 3.9-5.3/4.2-5.9 cm LVIDd Index: 2.65 2.4-3.2/2.2-3.1 cm/m2 LVIDs: 2.52 2.0-3.6 cm LVPWd: 0.87 0.7-1.1 cm LA Diam: 3.10 2.7-3.8/3.0-4.0 cm LAIDs Index: 2.03 1.5-2.3 cm/m2 LV Mass: 142.23 67-162/88-224 g LV Mass Index: 92.96 43-95/49-115 g/m2 LVOT Diam: 1.90 3.0+(-)1.3 cm 2D Systolic Function EF 4C: 66.00 >55% EF 2C: 66.30 >55% EF BiP: 66.50 >55% Mitral Valve MV Pk E: 0.79 MV PK A: 0.99 MV Decel Time: 293.00 E/A: 0.80 E'Lateral: 5.87 E'Medial: 4.68 E/E' Med: 16.90 E/E' Lat: 13.50 PHT: 86.00 MVA PHT: 2.56 Decel Davis: 2.70 Aortic Valve AoV Pk Gigi: 1.52 AoV Mn Gigi: 0.91 AoV VTI: 0.34 AoV Pk Grad: 9.00 Aov Mn Grad: 4.00 NESTOR Cont.VTI: 2.28 LVOT LVOT Pk Gigi: 1.07 LVOT Mn Gigi: 0.66 LVOT VTI: 0.27 LVOT Pk Grad: 5.00 LVOT Mn Grad: 2.00 LVOT Diam: 1.90 LVOT Area: 2.84 Diastolic Function MV Pk E: 0.79 MV Pk A: 0.99 E/A: 0.80 E'Medial: 4.68 E/E' Med: 16.90 E' Laterial: 5.87 E/E' Lat: 13.50 Tricuspid Valve TR Pk Gigi: 2.39 TR Pk Grad: 23.00 RA Press: 3.00 RVSP: 26.00 Great Vessels Aorta Ao Asc: 3.20 2.1-3.4 cm Updated in Other Vendor System with Status of Final Fred Ross MD electronically signed on 10/26/2022 4:01:28 PM with status of Final
== END ==
LOC: HO.CARD 07:42
PROVIDERS: PCP Internal Medicine Geriatric Medicine; Visit Provider Internal Medicine
DX: R07.2 Precordial pain (principal); I25.10 Atherosclerotic heart disease of native coronary artery without angina pectoris
CPT/HCPCS: 78452; 93017; 93306; A9500; Q9957

== ENCOUNTER 2023-01-24 14:25 | Outpatient (AMB) | payer OTHER, MEDICAID, SELFPAY ==
[2023-01-24 14:37] VITALS: BP 118/60; PULSE 70; BMI 25.5
--- NOTE | 2023-01-24 14:37 | MHC.OFFVIS ---
Intake Vital Signs 01/24/23 14:37 Height 4 ft 11 in Weight 126 lb 1.671 oz BMI 25.5 BP 118/60 Blood Pressure Location Lt brachial Position Sitting Pulse 70 Intake Visit Reasons: s/p echo/ stress Intake Note: follow up testing Supervisor Furnace Process Required: Yes Supervisor Furnace Process Language: Shipping And Receiving Associate Name: Herman [id number] Accompanied by: Self / Same As Patient Allergies Sulfa (Sulfonamide Antibiotics) [SULFA (SULFONAMIDE ANTIBIOTICS)] Allergy (Severe, Verified 01/24/23 14:39) THROAT CLOSES Medication List - Last Reconciled 01/24/23 by Erick Vicente MD acetaminophen 500 mg PO Q6H PRN alcohol swabs pad topical BID amlodipine 5 mg PO QAM atenolol 25 mg PO DAILY atorvastatin 40 mg PO DAILY clopidogrel 75 mg PO DAILY diclofenac sodium 1% grams topical empagliflozin (Jardiance) 25 mg PO DAILY gabapentin 300 mg PO TID glipizide 5 mg PO guaifenesin 200 mg PO Q4H PRN ketorolac 10 mg PO Q6H PRN 5 days lidocaine 5% 0 patches topical lidocaine-prilocaine 2.5-2.5 % grams topical losartan-hydrochlorothiazide 100-25 mg 1 tab PO QAM metformin 1,000 mg PO BID pantoprazole 40 mg PO QAM peg [id number] 1-0.2-0.2 % 1 drp ophthalmic (eye) TID pen needle, diabetic As directed HPI HPI Comments History of Present Illness Details Kimberly returns for follow-up. Recently seen in consultation regarding chest discomfort and shortness of breath. No documented coronary disease myocardial infarction or cardiomyopathy. However, she has got multiple cardiovascular risk factors including diabetes, hypertension, dyslipidemia. She underwent workup with echocardiogram and stress test. Now she states that she feels okay. She really has not had any further chest pain since last visit. Otherwise, getting along okay. [facility] Medical History Diabetes Hammer toe Hypercholesteremia Hypertension Surgical History H/O section H/O knee surgery H/O tubal ligation Family History Brother Prostate cancer Maternal Aunt Breast cancer Social History Alcohol intake: former Sexual orientation: Straight/Heterosexual Gender identity: Female Female Reproductive History Menstrual Age of Menarche: 15 Review of Systems Const Denies weakness ENT Denies dizziness Card Denies chest pain, Denies chest pain with activity, Denies syncope, Denies rapid heart rate, Denies pedal edema, Denies edema, Denies leg edema, Denies lightheadedness, Denies palpitations, Denies dyspnea, Denies dyspnea on exertion and Denies orthopnea Resp Denies cough, Denies dyspnea and Denies dyspnea on exertion GI Denies hematochezia and Denies change in stool character Musc Denies abnormal gait, Denies muscle cramps, Denies muscle weakness, Denies numbness, Denies radiating pain into limb and Denies tingling Neuro Denies abnormal gait, Denies dizziness, Denies syncope, Denies numbness, Denies tingling and Denies weakness Endo Denies palpitations Physical Exam Vital Signs: Last Vital Signs Pulse 70 01/24/23 14:37 BP 118/60 01/24/23 14:37 BMI result Body Mass Index 25.5 Const General: comfortable and no acute distress Orientation/consciousness: patient oriented x3 HEENT Other: Unremarkable Head: Yes normal to inspection Neck Neck: Yes normal visual inspection Chest Chest palpation & inspection: normal inspection of the chest Resp Auscultation: clear to auscultation bilaterally Cardio Palpation: normal PMI Heart sounds: S1 normal heart sound present, S2 normal heart sound present, no gallops, no murmurs and no rubs GI Palpation (GI): Soft to palpation Back/Spine/Pelvis Other: unremarkable Skin General skin exam: no rashes or lesions noted Neuro General: patient oriented x3 Extrem General: Yes normal to inspection Psych Mental Status: mental status grossly normal Assessment & Plan Assessment & Plan (1) Precordial chest pain: Code(s): R07.2 - Precordial pain (2) SOB (shortness of breath): Code(s): R06.02 - Shortness of breath (3) Diabetes: Code(s): E11.9 - Type 2 diabetes mellitus without complications (4) Hypertension: Code(s): I10 - Essential (primary) hypertension (5) Hypercholesteremia: Code(s): E78.00 - Pure hypercholesterolemia, unspecified Plan Cardiac studies reviewed. EKG with sinus rhythm at 65/Min; no significant ST-T changes and otherwise unremarkable. Echocardiogram with LVEF of 65-70%; mild diastolic dysfunction; mild mitral annular calcification/leaflet thickening; mild aortic valve calcification. In the exercise stress test, she was able to exercise 5 minutes on Simeon protocol and reached target heart rate but no chest discomfort. There was suggestion of ischemia on the EKG but the perfusion component was normal. Overall, no clear evidence of obstructive CAD based on the above. Also, she has not had any further chest pains or in fact any symptoms at all. Mainly recommend aggressive risk factor modification. If any recurrence of symptoms, then possibly consider coronary CTA. Otherwise, we will see her in 1 year. In the interim, to call with concerns. Coding Level of Care Code Est Pt Level 3 (89562) Diagnoses Precordial chest pain R07.2 SOB (shortness of breath) R06.02 Diabetes E11.9 Hypertension I10 Hypercholesteremia E78.00
== END 2023-01-24 15:08 | disposition home or self-care (01) ==
PROVIDERS: Visit Provider Internal Medicine
DX: R07.2 Precordial pain (principal); R06.02 Shortness of breath; E11.9 Type 2 diabetes mellitus without complications; I10 Essential (primary) hypertension; E78.00 Pure hypercholesterolemia, unspecified
CPT/HCPCS: 99213

== ENCOUNTER → 2023-01-24 14:25 | Outpatient (BNVA) | payer OTHER, MEDICAID, SELFPAY | PROVIDERS: Visit Provider Internal Medicine ==

== ENCOUNTER 2023-04-23 08:53 | Outpatient (REF) | payer OTHER, MEDICAID, SELFPAY ==
[2023-04-23 12:17] LABS: Creatinine Urine 65.67 mg/dL; Microalbum/Creatinine Ratio Ur 21.3 ug/mg cr (<30)
== END 2023-04-23 08:54 | disposition home or self-care (01) ==
LOC: HO.HHCL 08:53
PROVIDERS: Visit Provider Internal Medicine Geriatric Medicine
DX: E11.69 Type 2 diabetes mellitus with other specified complication (principal)
CPT/HCPCS: 82043; 82570

== ENCOUNTER 2023-08-02 13:08 | Outpatient (REF) | payer OTHER, MEDICAID, SELFPAY ==
[2023-08-03 13:56] LABS: BV Int Neg Control Negative (Negative); BV Int Pos Control Positive (Positive)
== END 2023-08-02 13:09 | disposition home or self-care (01) ==
LOC: HO.LAB 13:08
PROVIDERS: PCP Internal Medicine Geriatric Medicine; Visit Provider Advanced Practice Midwife
DX: Z01.419 Encounter for gynecological examination (general) (routine) without abnormal findings (principal); N89.8 Other specified noninflammatory disorders of vagina
CPT/HCPCS: 87480; 87510; 87660

== ENCOUNTER 2023-08-02 13:08 | Outpatient (AMB) | payer OTHER, MEDICAID, SELFPAY ==
--- NOTE | 2023-08-02 13:11 | MHC.OFFVIS ---
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 She is doing well with concerns: external itching due to her medications. Attempting to eat a healthy diet with calcium and vitamin D and stays active with exercise. Currently sexually active. STI testing offered; she declines. Last mammogram; 2021. Colonoscopy is UTD. Denies any family history of ovarian or colon cancer. FH maternal aunt-breat cancer. [facility] Medical History Hypercholesteremia Diabetes Hypertension Hammer toe Surgical History H/O tubal ligation H/O knee surgery H/O section Family History Brother Prostate cancer Maternal Aunt Breast cancer Social History Alcohol intake: former Sexual orientation: Straight/Heterosexual Gender identity: Female Female Reproductive History Menstrual Age of Menarche: 15 Total pregnancies: 5 Full term: 3 Number of Living Children: 3 Date of Mammogram: 08/19/21 (Birad 2) Date of last Bone Density Screenin08/19/21 Review of Systems Const All systems reviewed & are unremarkable except as noted in HPI and below Reports as per HPI Eyes Reports no additional complaints ENT Reports no additional complaints Card Reports no additional complaints Resp Reports no additional complaints GI Reports as per HPI and Reports no additional complaints Reports as per HPI Musc Reports no additional complaints Skin/Breast Reports as per HPI Neuro Reports no additional complaints Psych Reports no additional complaints Endo Reports no additional complaints Sai/Lymph Reports no additional complaints Aller/Immun Reports no additional complaints Physical Exam Vital Signs: Last Vital Signs BP 106/64 08/02/23 13:12 BMI result Body Mass Index 24.6 Const General: cooperative, healthy appearing, no acute distress, well developed and alert Orientation/consciousness: patient oriented x3 HEENT Head: Yes normal to inspection Eyes General: appearance normal, both eyes and all related structures Neck Neck: Yes normal visual inspection Thyroid: Thyroid normal Chest Chest palpation & inspection: normal inspection of the chest and other (no puckering, dimpling, peau de orange, retraction, discharge, masses) Breast/axilla inspection: normal inspection of the breasts Breast/axilla palpation: normal palpation of the breasts Resp Effort & Inspection: normal respiratory effort GI Inspection: Yes normal to inspection Palpation (GI): Soft to palpation Rectal Exam - Female: deferred General: Yes bladder normal to palpation External Female Exam: normal external appearance, normal appearance of the urethra and other ( Bilateral labial erythema) Speculum Exam - Vagina: normal appearance of the vagina, normal palpation, normal vaginal discharge and vagina atrophic Speculum Exam - Cervix: normal appearance of the cervix and normal palpation Bimanual exam- vagina & uterus: normal bimanual exam, normal palpation, uterine size normal, bladder normal to palpation, normal palpation and non-tender Bimanual Exam- Adnexa, other: no masses Skin General skin exam: no rashes or lesions noted Rashes: no rashes Neuro General: patient oriented x3 Cognition (Neuro): normal cognition Extrem General: Yes normal to inspection Psych Attitude: cooperative Thought process: Normal thought process present Assessment & Plan Assessment & Plan (1) Encounter for well woman exam with routine gynecological exam: Code(s): Z01.419 - Encounter for gynecological examination (general) (routine) without abnormal findings Plan Discussed: Current recommendations for pap smears per ASCCP guidelines. Breast awareness, periodic self breast exams and yearly mammogram. Maintain a healthy lifestyle, well balanced diet including Calcium 1,200 mg and Vitamin D 600 IU daily, and routine exercise. Contact the office with any postmenopausal bleeding. Await BV panel results. Patient verbalizes understanding and agrees to the plan of care. She was given opportunity to ask questions and all questions were answered to the best of my ability. RTO in 1-2 year for annual primary care nurse exam. This note is constructed using voice recognition software. While every effort has been made to ensure accuracy, milling machine tender errors may have been included. Orders: Orders MM tomosynthesis screening BI Today Z12.31 - Encounter for screening mammogram for malignant neoplasm of breast Bacterial Vaginosis Panel Today N89.8 - Other specified noninflammatory disorders of vagina Coding Level of Care Code Est Pt Prev Care >65y(37741) Diagnoses Encounter for well woman exam with routine gynecological exam Z01.419
[2023-08-02 13:12] VITALS: BP 106/64; BMI 24.6
== END 2023-08-02 13:42 | disposition home or self-care (01) ==
PROVIDERS: PCP Internal Medicine Geriatric Medicine; Visit Provider Advanced Practice Midwife
DX: Z01.419 Encounter for gynecological examination (general) (routine) without abnormal findings (principal)
CPT/HCPCS: 99397

== ENCOUNTER 2023-08-28 08:44 | Outpatient (REF) | payer MEDICARE, SELFPAY ==
[2023-08-28 12:10] LABS: Alanine Aminotransferase 15 U/L (0-31); Albumin Level 4.3 g/dL (3.5-5.0); Alkaline Phosphatase 82 U/L (39-117); Anion Gap 13 (12-20); Aspartate Amino Transferase 16 U/L (5-31); Bilirubin Total 0.6 mg/dL (0.0-1.0); Blood Urea Nitrogen 22 mg/dL (9-16); Carbon Dioxide 28 mmol/L (22-29); Chloride 104 mmol/L (96-108); Cholesterol 146 mg/dL (<200); Estimated Glomerular Filt Rate > 60; Glucose Random 143 mg/dL (60-115); HDL Cholesterol 57 mg/dL (>40); LDL Cholesterol Calculated 55 mg/dL (<100); Potassium 4.2 mmol/L (3.3-5.1); Sodium 141 mmol/L (135-145); Total Protein 7.7 g/dL (6.5-8.0); Triglycerides 172 mg/dL (<150)
[2023-08-28 12:40] LABS: Vitamin B12 265 pg/mL (200-900)
== END 2023-08-28 08:45 | disposition home or self-care (01) ==
LOC: HO.HHCL 08:44
PROVIDERS: Visit Provider Internal Medicine Geriatric Medicine
DX: E11.69 Type 2 diabetes mellitus with other specified complication (principal); E11.42 Type 2 diabetes mellitus with diabetic polyneuropathy; E78.00 Pure hypercholesterolemia, unspecified
CPT/HCPCS: 36415; 80053; 80061; 82607

== ENCOUNTER 2023-08-31 12:57 | Outpatient (REF) | payer MEDICARE, SELFPAY ==
--- NOTE | ~2023-08-31 | MM_ITS ---
EXAMINATION: MM SCREENING DIGITAL BREAST TOMOSYNTHESIS, BILATERAL CLINICAL INFORMATION: Screening. Asymptomatic. COMPARISON: Mammography: This study is compared with prior exams dating back to 2019. TECHNIQUE: Digital breast tomosynthesis is performed in both the craniocaudal and mediolateral oblique views along with computer-aided detection (CAD). Synthesized 2D images are generated from the tomosynthesis. FINDINGS: The breasts are heterogeneously dense, which may obscure small masses (ACR BI-RADS breast composition Category c). There are no significant masses, abnormal calcifications, or other abnormalities. There are scattered, bilateral benign calcifications. MM/MM tomosynthesis screening BI IMPRESSION: No mammographic evidence of malignancy. ASSESSMENT: BI-RADS BI-RADS 2 - Benign Findings RECOMMENDATION: Routine annual mammography screening. 1 year F/U This examination should not preclude the clinical evaluation of a suspicious palpable abnormality. This patient's information was entered into a reminder system with a target due date for their next mammogram.
== END 2023-08-31 12:58 | disposition home or self-care (01) ==
LOC: HO.MAMMO 12:57
PROVIDERS: PCP Internal Medicine; Visit Provider Advanced Practice Midwife
DX: Z12.31 Encounter for screening mammogram for malignant neoplasm of breast (principal)
CPT/HCPCS: 77063; 77067

== ENCOUNTER → 2023-08-31 13:15 | Outpatient (BNV) | payer MEDICARE, SELFPAY | PROVIDERS: PCP Internal Medicine; Visit Provider Radiology Diagnostic Radiology | DX: Z12.31 Encounter for screening mammogram for malignant neoplasm of breast (principal) | CPT/HCPCS: 77063; 77067 ==

== ENCOUNTER 2023-11-26 12:04 | Outpatient (REF) | payer MEDICARE, SELFPAY ==
--- NOTE | ~2023-11-26 | XR_ITS ---
EXAMINATION: XR HIP, RIGHT CLINICAL INFORMATION: Order states pain of right hip, no trauma. Pain with every step and with internal/external rotation. Patient states 2.5 weeks of pain, denies injury. Unable to get leg full lateral for frog. COMPARISON: 01/10/2021 TECHNIQUE: Two views of the right hip. FINDINGS: Right hip alignment maintained. Mild degenerative changes in the right hip with mild hypertrophic change and joint space narrowing. Degenerative changes on limited images of the lower lumbar spine. XR/XR hip RT min 2V IMPRESSION: Mild degenerative changes in the right hip. This study was presented today November 28, 2023 for interpretation. Stat results provided at this time as requested by referring provider.
== END 2023-11-26 12:05 | disposition home or self-care (01) ==
LOC: HO.HHCX 12:04
PROVIDERS: Visit Provider Nurse Practitioner Family
DX: M25.551 Pain in right hip (principal)
CPT/HCPCS: 73502

== ENCOUNTER 2023-11-26 15:15 | Outpatient (REF) | payer MEDICARE, SELFPAY ==
--- NOTE | ~2023-11-26 | US_ITS ---
EXAMINATION: US PELVIS CLINICAL INFORMATION: Ovarian mass-left COMPARISON: 09/20/2020 TECHNIQUE: Ultrasound of the pelvis is performed using transabdominal transducer with Doppler. Transvaginal imaging was not performed. FINDINGS: Uterus: The uterus is anteverted and measures 8.5 x 3.4 x 5.1 cm. Calcifications within the myometrium may reflect fibroids. The double wall endometrial thickness is 0.3 mm. Adnexa: The right ovary is not visualized, no adnexal masses. In the left adnexa, there is a 5.7 x 5.0 x 3.0 cm hypoechoic lesion with possible cystic components. There is normal arterial and venous spectral waveforms in this lesion. Its unclear if this represents the ovary with a mixed cystic and solid component on transabdominal imaging. Of note a similar appearing structure was seen in the left ovary on the prior exam from 09/20/2020. US/US pelvic complete IMPRESSION: 1. In the left adnexa, there is a 5.7 x 5.0 x 3.0 cm hypoechoic lesion with possible cystic components. Its unclear if this represents the left ovary with a mixed cystic and solid component on transabdominal imaging. Of note, a similar appearing structure was seen in the left ovary on the prior exam from 09/20/2020. Recommend further evaluation with MRI of the pelvis with and without contrast. 2. The right ovary is not visualized.
== END 2023-11-26 15:16 | disposition home or self-care (01) ==
LOC: HO.US 15:15
PROVIDERS: PCP Nurse Practitioner Family; Visit Provider Nurse Practitioner Family
DX: N83.8 Other noninflammatory disorders of ovary, fallopian tube and broad ligament (principal)
CPT/HCPCS: 76856

== ENCOUNTER 2023-12-31 09:48 | Outpatient (AMB) | payer MEDICARE, SELFPAY ==
[2023-12-31 10:11] VITALS: BP 122/70; BMI 23.6
--- NOTE | 2023-12-31 10:11 | A.OFFVIS_ITS ---
Vital Signs 12/31/23 10:11 Height 4 ft 11 in Weight 117 lb BMI 23.6 BP 122/70 Intake Visit Reasons: Pelvic pain Court Messenger Required: No Information Interpreted: non-clinical & clinical Department Traffic Freight Router: Department Traffic Freight Router Present (Sophia CASSIDY) Accompanied by: Spouse Allergies Sulfa (Sulfonamide Antibiotics) [SULFA (SULFONAMIDE ANTIBIOTICS)] Allergy (Severe, Verified 12/31/23 10:16) THROAT CLOSES Post menopausal: Yes HPI Comments Details: Presenting complaining of a months history of pelvic pain. The patient went to the emergency room at call a [facility] when she had a CT scan and according to her, the report is not available had a left adnexal mass. Addition the patient went to the emergency room at [facility] had another CT scan which showed a left adnexal mass measuring 6.2 x 3.2 x 3.5 cm complex cystic and solid likely ovarian origin Pelvic ultrasound done in 12/11 showed the following: IMPRESSION: 1. In the left adnexa, there is a 5.7 x 5.0 x 3.0 cm hypoechoic lesion with possible cystic components. Its unclear if this represents the left ovary with a mixed cystic and solid component on transabdominal imaging. Of note, a similar appearing structure was seen in the left ovary on the prior exam from 09/20/2020. Recommend further evaluation with MRI of the pelvis with and without contrast. 2. The right ovary is not visualized [facility] Medical History Hypercholesteremia Diabetes Hypertension Hammer toe Surgical History H/O tubal ligation H/O knee surgery H/O section Family History Brother Prostate cancer Maternal Aunt Breast cancer Social History Alcohol intake: former Sexual orientation: Straight/Heterosexual Gender identity: Female Female Reproductive History Menstrual Age of Menarche: 15 Review of Systems Const All systems reviewed & are unremarkable except as noted in HPI and below Physical Exam Vital Signs: Last Vital Signs BP 122/70 12/31/23 10:11 BMI result Body Mass Index 23.6 General: Yes no CVA tenderness External Female Exam: normal external appearance and normal appearance of the urethra Speculum Exam - Vagina: normal appearance of the vagina, normal palpation, no lesions and no masses Speculum Exam - Cervix: normal appearance of the cervix, normal palpation, no lesions, no masses and nontender Bimanual exam- vagina & uterus: normal bimanual exam, normal palpation, uterine size normal, normal palpation, uterine shape normal, No Cervical tenderness present and non-tender Bimanual Exam- Adnexa, other: Other (Left adnexal enlargement) Back/Spine/Pelvis Back: no CVA tenderness Assessment & Plan Assessment & Plan (1) Adnexal mass: Comment: Left complex and solid 6.2 cm Code(s): N94.89 - Other specified conditions associated with female genital organs and menstrual cycle Category: Medical Plan: Discussed with the patient the results the ultrasound and CT scan findings. Differential diagnosis of the finding discussed with the patient including but not limited to benign adnexal pathology, premalignant or malignant. CA 125 and CEA and CA 19-9 ordered and the patient was referred to multi operation machine operator Oncology. All questions answered, the patient verbalized understanding Orders: Orders Carbohydrate Antigen 19-9 Today N83.299 - Other ovarian cyst, unspecified side CA-125 Today N83.299 - Other ovarian cyst, unspecified side Carcinoembryonic Antigen Today N83.299 - Other ovarian cyst, unspecified side Referrals Gynecologic Oncology Referral N83.299 - Other ovarian cyst, unspecified side Coding Level of Care Code Est Pt Level 3 (98054) Diagnoses Adnexal mass N94.89
== END 2023-12-31 12:39 | disposition home or self-care (01) ==
LOC: HO.HWS 09:49
PROVIDERS: PCP Nurse Practitioner Family; Visit Provider Obstetrics & Gynecology
DX: N94.89 Other specified conditions associated with female genital organs and menstrual cycle (principal)
CPT/HCPCS: 99213

== ENCOUNTER 2023-12-31 09:48 | Outpatient (REF) | payer MEDICARE, SELFPAY ==
[2024-01-01 10:13] LABS: CA-125 9 U/mL (<35)
[2024-01-02 12:13] LABS: Carbohydrate Antigen 19-9 8 U/mL (<34)
== END 2023-12-31 09:49 | disposition home or self-care (01) ==
LOC: HO.LAB 09:48
PROVIDERS: PCP Nurse Practitioner Family; Visit Provider Obstetrics & Gynecology
DX: N83.299 Other ovarian cyst, unspecified side (principal); N94.89 Other specified conditions associated with female genital organs and menstrual cycle
CPT/HCPCS: 36415; 82378; 86301; 86304; 99212

== ENCOUNTER 2024-01-17 08:22 | Outpatient (AMB) | payer MEDICARE, SELFPAY ==
--- NOTE | 2024-01-17 08:26 | MHC.OFFVIS ---
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 Kelsey from the [facility] for right sided back pain with right sided sciatica that began October,. Patient reports, since then, pain has traveled to her entire lower back as well as her right shoulder. Patient denies prior injuries to her back as well as trying steroids or physical therapy. Allergies Sulfa (Sulfonamide Antibiotics) [SULFA (SULFONAMIDE ANTIBIOTICS)] Allergy (Severe, Verified 01/17/24 08:35) THROAT CLOSES HPI Comments Details: She says November 19 started to have right sided lower back pain, that she had to go to different ERs. She says xray done at [facility], showed arthritis. Hip xray per record showed mild DJD. PCP didn't think it was the hip and therefore, referred to us. She denies trauma or inciting injuries. The pain takes the whole thing indicating that pain has also affected arms, left side, all over . More specifically goes to groin and thigh. She reports leg swelling. History of DM. On gabapentin on neuropathy, feet numbness. She has tried lidoderm patches. She was also found to have left adnexal mass. Seen by OBGYN. Further workup being done. [facility] Medical History Hypercholesteremia Diabetes Hypertension Hammer toe Surgical History H/O tubal ligation H/O knee surgery H/O section Family History Brother Prostate cancer Maternal Aunt Breast cancer Social History Alcohol intake: former Sexual orientation: Straight/Heterosexual Gender identity: Female Female Reproductive History Menstrual Age of Menarche: 15 Review of Systems Const All systems reviewed & are unremarkable except as noted in HPI and below Physical Exam Vital Signs: BMI result Body Mass Index 23.6 Constitutional: Patient appears to be in no acute distress, well nourished and well developed. Patient was appropriately conversant and oriented. Good historian. MSK: No specific abnormalities found on inspection of the spine and all extremities. No pain with palpation over the lumbar area. No tenderness in GT. Tender on right SI joint. Lumbar ROM was full. Bilateral hip, knee and ankle ROM WNL. No ligamentous laxity or crepitance. No increased effusion. Straight-leg raising test negative. FABERE test positive right. Strength is 5/5 in all muscle groups tested. No increased tone noted. Neurological: Neurologic examination of the upper and lower extremities was nonfocal with intact sensation, muscle stretch reflexes and without focal motor deficits . Cortes?s negative bilaterally. Babinski was down going bilaterally. Clonus was negative. Gait is non-antalgic without loss of balance. Results Reviewed Results Reviewed: Ordering Physician: SUNSHINE ARAUJO NP Date of Service: 01/10/21 Procedure(s): XR lumbar spine 2-3V Accession Number(s): [id number] cc: SUNSHINE ARAUJO NP~ EXAMINATION: XR LUMBAR SPINE XR HIP, BILATERAL CLINICAL INFORMATION: Low back pain and bilateral hip pain. COMPARISON: None TECHNIQUE: 3 views lumbar spine and 2 views each hip. FINDINGS: LUMBAR SPINE: There is mild straightening of lumbar lordosis. The vertebral heights, alignment and the disc heights are normal. There is mild endplate spondylosis throughout lumbar spine. No visible acute fracture or lytic process seen. LEFT HIP: Left hip joint space is normal. No bony erosive changes or loose bodies. No fracture, sclerotic or lytic lesion. No soft tissue abnormality. RIGHT HIP: There is no visible acute fracture or dislocation. There is a small enthesophyte along the lateral acetabulum. No bony erosive changes. The soft tissues are normal. There are several phleboliths in the pelvis. XR/XR lumbar spine 2-3V IMPRESSION: LUMBAR SPINE: 1. Unremarkable lumbar spine exam. 2. Small enthesophyte along the lateral acetabulum. No visible acute fracture or dislocation seen. RIGHT HIP: In the right hip, no acute fracture or dislocation. LEFT HIP: Unremarkable left hip. I reviewed records from the following: OBGYN Pain management Assessment & Plan Assessment & Plan (1) Sacroiliac joint dysfunction of right side: Code(s): M53.3 - Sacrococcygeal disorders, not elsewhere classified Category: Medical (2) Right lumbar radiculitis: Code(s): M54.16 - Radiculopathy, lumbar region Category: Medical (3) Degenerative joint disease of right hip: Code(s): M16.11 - Unilateral primary osteoarthritis, right hip Category: Medical Qualifiers: Osteoarthritis type: primary Qualified Code(s): M16.11 - Unilateral primary osteoarthritis, right hip Plan Her tenderness today is focal on right SI joint. Discussed with sacroiliac joint dysfunction is with patient. Offered referral to PT but she defers. She would rather go straight to injection. Referring to pain management for right SI joint injection under ultrasound or fluoroscopy. Ruling out lumbar radiculitis. Getting lumbar x-rays today to evaluate for foraminal stenosis right L5-S1. X-ray does show mild DJD. Patient complains of hip pain that goes into groin. Assessment and plan discussed with patient, and patient was agreeable. All questions were answered thoroughly. Belkis Morrison MD, ANDIE Board Certified, [place] Board [employer] and Rehabilitation (ABPMR) Board Certified, [place] Board [employer] Electro[employer] (ABEM) Orders: Orders XR lumbar spine 2-3V Today M54.9 - Dorsalgia, unspecified Referrals Pain Management Referral M53.3 - Sacrococcygeal disorders, not elsewhere classified Coding Level of Care Code New Pt Level 4 (59646) Diagnoses Sacroiliac joint dysfunction of right side M53.3 Right lumbar radiculitis M54.16 Primary osteoarthritis of right hip M16.11 Osteoarthritis type: primary
[2024-01-17 08:27] VITALS: BMI 23.6
== END 2024-01-17 08:57 | disposition home or self-care (01) ==
PROVIDERS: PCP Nurse Practitioner Family; Visit Provider Physical Medicine & Rehabilitation
DX: M53.3 Sacrococcygeal disorders, not elsewhere classified (principal); M54.16 Radiculopathy, lumbar region; M16.11 Unilateral primary osteoarthritis, right hip
CPT/HCPCS: 99203; 99213

== ENCOUNTER 2024-01-17 08:22 | Outpatient (REF) | payer MEDICARE, SELFPAY ==
--- NOTE | ~2024-01-17 | XR_ITS ---
EXAMINATION: XR LUMBOSACRAL SPINE CLINICAL INFORMATION: Dorsalgia COMPARISON: None available. TECHNIQUE: Three views of the lumbosacral spine. FINDINGS: Degenerative changes are present in the spine with scoliosis convex to the right. Changes are most prominent in the lower thoracic spine and from L1 through L3. There is relative sparing from L3 through S1. No bony destructive lesions or fractures are seen. XR/XR lumbar spine 2-3V IMPRESSION: Degenerative changes and scoliosis as described above. Electronically signed by: Lucius Snow MD 01/28/2024 09:31 AM EDT
== END 2024-01-17 08:23 | disposition home or self-care (01) ==
LOC: HO.HOSX 08:22
PROVIDERS: PCP Nurse Practitioner Family; Visit Provider Physical Medicine & Rehabilitation
DX: M53.3 Sacrococcygeal disorders, not elsewhere classified (principal); M54.16 Radiculopathy, lumbar region; M16.11 Unilateral primary osteoarthritis, right hip; M54.31 Sciatica, right side
CPT/HCPCS: 72100; 99202

== ENCOUNTER 2024-01-22 13:18 | Outpatient (AMB) | payer MEDICARE, SELFPAY ==
--- NOTE | 2024-01-22 13:25 | MHC.OFFVIS ---
Vital Signs 01/22/24 13:26 Height 4 ft 11 in Weight 116 lb BMI 23.4 BP 118/60 Blood Pressure Location Lt brachial Position Sitting Pulse 70 Pulse Source Monitor Intake Visit Reasons: 1 year f/u Allergies Sulfa (Sulfonamide Antibiotics) [SULFA (SULFONAMIDE ANTIBIOTICS)] Allergy (Severe, Verified 01/17/24 08:35) THROAT CLOSES Medication List - Last Reconciled 01/22/24 by Erick Vicente MD acetaminophen 500 mg PO Q6H PRN amlodipine 5 mg PO QAM atenolol 25 mg PO DAILY atorvastatin 40 mg PO DAILY clopidogrel 75 mg PO DAILY empagliflozin (Jardiance) 25 mg PO DAILY gabapentin 300 mg PO TID glipizide 5 mg PO losartan-hydrochlorothiazide 100-25 mg 1 tab PO QAM metformin 1,000 mg PO BID pantoprazole 40 mg PO QAM pen needle, diabetic As directed HPI Comments Details: Kimberly returns for follow-up. Originally seen in consultation regarding chest discomfort and shortness of breath. No documented coronary disease myocardial infarction or cardiomyopathy. However, she has got multiple cardiovascular risk factors including diabetes, hypertension and dyslipidemia. She underwent workup with echocardiogram and stress test. She is still describing episodes of chest pain in different areas including the chest, shoulders, clavicle, arms extra. Lot of it could be musculoskeletal, but not clear. [facility] Medical History Hypercholesteremia Diabetes Hypertension Hammer toe Surgical History H/O tubal ligation H/O knee surgery H/O section Family History Brother Prostate cancer Maternal Aunt Breast cancer Social History Alcohol intake: former Sexual orientation: Straight/Heterosexual Gender identity: Female Female Reproductive History Menstrual Age of Menarche: 15 Review of Systems Const Denies weakness ENT Denies dizziness Card Denies chest pain, Denies chest pain with activity, Denies syncope, Denies rapid heart rate, Denies pedal edema, Denies edema, Denies leg edema, Denies lightheadedness, Denies palpitations, Denies dyspnea, Denies dyspnea on exertion and Denies orthopnea Resp Denies cough, Denies dyspnea and Denies dyspnea on exertion GI Denies hematochezia and Denies change in stool character Musc Denies abnormal gait, Denies muscle cramps, Denies muscle weakness, Denies numbness, Denies radiating pain into limb and Denies tingling Neuro Denies abnormal gait, Denies dizziness, Denies syncope, Denies numbness, Denies tingling and Denies weakness Endo Denies palpitations Physical Exam Vital Signs: Last Vital Signs Pulse 70 01/22/24 13:26 BP 118/60 01/22/24 13:26 BMI result Body Mass Index 23.4 Const General: comfortable and no acute distress Orientation/consciousness: patient oriented x3 HEENT Other: Unremarkable Head: Yes normal to inspection Neck Neck: Yes normal visual inspection Chest Chest palpation & inspection: normal inspection of the chest Resp Auscultation: clear to auscultation bilaterally Cardio Palpation: normal PMI Heart sounds: S1 normal heart sound present, S2 normal heart sound present, no gallops, no murmurs and no rubs GI Palpation (GI): Soft to palpation Back/Spine/Pelvis Other: unremarkable Skin General skin exam: no rashes or lesions noted Neuro General: patient oriented x3 Extrem General: Yes normal to inspection Psych Mental Status: mental status grossly normal Office Procedures EKG Details: EKG with underlying sinus rhythm at 70/Min; no significant ST-T changes and otherwise [place]remark[place] [address]-[id number], Complete Assessment & Plan Assessment & Plan (1) Precordial chest pain: Code(s): R07.2 - Precordial pain Category: Medical (2) Diabetes: Code(s): E11.9 - Type 2 diabetes mellitus without complications Category: Medical (3) Hypertension: Code(s): I10 - Essential (primary) hypertension Category: Medical (4) Hypercholesteremia: Code(s): E78.00 - Pure hypercholesterolemia, unspecified Category: Medical Plan Cardiac studies reviewed. Baseline EKGs unremarkable. Echocardiogram with LVEF of 65-70%; mild diastolic dysfunction; mild mitral annular calcification/leaflet thickening; mild aortic valve calcification. In the exercise stress test, she was able to exercise 5 minutes on Simeon protocol and reached target heart rate but no chest discomfort. There was suggestion of ischemia on the EKG, but the perfusion component was normal. Overall, multiple risk factors for coronary disease, atypical chest pain, stress test findings as above with positive EKG but negative perfusion. Will get coronary CTA for further evaluation. Total time spent including review of data, counseling, documentation, coordination of care-31 minutes. Orders: Orders CT Cardiac Coronary Angio Today I25.10 - Atherosclerotic heart disease of [place] coronary artery without angina pectoris, R07.2 - Precordial pain Basic Metabolic Panel Today R07.2 - Precordial pain Coding Level of Care Code Est Pt Level 4 (10379) Diagnoses Precordial chest pain R07.2 Diabetes E11.9 Hypertension I10 Hypercholesteremia E78.00 CPT Codes EKG - CPT: 81572-Brfieziedbuwbnedm, Complete ([id number])
[2024-01-22 13:26] VITALS: BP 118/60; PULSE 70; BMI 23.4
== END 2024-01-22 13:50 | disposition home or self-care (01) ==
PROVIDERS: PCP Nurse Practitioner Family; Visit Provider Internal Medicine
DX: R07.2 Precordial pain (principal); E11.9 Type 2 diabetes mellitus without complications; I10 Essential (primary) hypertension; E78.00 Pure hypercholesterolemia, unspecified
CPT/HCPCS: 93010; 99214

== ENCOUNTER → 2024-01-22 13:18 | Outpatient (BNVA) | payer MEDICARE, SELFPAY | PROVIDERS: PCP Nurse Practitioner Family; Visit Provider Internal Medicine | DX: R07.2 Precordial pain (principal); E11.9 Type 2 diabetes mellitus without complications; E78.00 Pure hypercholesterolemia, unspecified; I10 Essential (primary) hypertension | CPT/HCPCS: 93005; 99212 ==

== ENCOUNTER 2024-02-12 08:41 | Outpatient (REF) | payer MEDICARE, SELFPAY ==
--- NOTE | ~2024-02-12 | XR_ITS ---
EXAMINATION: CERVICAL SPINE, LEFT SHOULDER CLINICAL INFORMATION: Left anterior shoulder pain and left-sided cervical algia COMPARISON: None available. TECHNIQUE: 4 view cervical spine, 4 views left shoulder FINDINGS: Shoulder: Some mild degenerative changes are seen at the AC joint with some minimal sclerosis at the inferior glenoid without significant glenohumeral narrowing. No tendinous calcifications. No fractures or dislocations. C-spine: There is no prevertebral soft tissue swelling, fractures or subluxations. There is some minimal degenerative changes seen with some minimal disc space narrowing at C4-C5 and to a lesser extent C5-C6. There is 2 mm of anterolisthesis of C6 upon C7. XR/XR cervical spine 3V IMPRESSION: Mild degenerative changes in the shoulder and cervical spine as described above. Mild anterolisthesis of C6 upon C7. Electronically signed by: Lucius Snow MD 02/12/2024 11:06 AM EDT
--- NOTE | ~2024-02-12 | XR_ITS ---
EXAMINATION: CERVICAL SPINE, LEFT SHOULDER CLINICAL INFORMATION: Left anterior shoulder pain and left-sided cervical algia COMPARISON: None available. TECHNIQUE: 4 view cervical spine, 4 views left shoulder FINDINGS: Shoulder: Some mild degenerative changes are seen at the AC joint with some minimal sclerosis at the inferior glenoid without significant glenohumeral narrowing. No tendinous calcifications. No fractures or dislocations. C-spine: There is no prevertebral soft tissue swelling, fractures or subluxations. There is some minimal degenerative changes seen with some minimal disc space narrowing at C4-C5 and to a lesser extent C5-C6. There is 2 mm of anterolisthesis of C6 upon C7. XR/XR shoulder LT min 2V IMPRESSION: Mild degenerative changes in the shoulder and cervical spine as described above. Mild anterolisthesis of C6 upon C7. Electronically signed by: Lucius Snow MD 02/12/2024 11:06 AM EDT
== END 2024-02-12 08:42 | disposition home or self-care (01) ==
LOC: HO.HHCX 08:41
PROVIDERS: Visit Provider Nurse Practitioner Family
DX: M25.512 Pain in left shoulder (principal); M54.2 Cervicalgia
CPT/HCPCS: 72040; 73030

== ENCOUNTER 2024-02-18 11:31 | Outpatient (REF) | payer MEDICARE, SELFPAY ==
[2024-02-18 13:46] LABS: Anion Gap 15 (12-20); Blood Urea Nitrogen 17 mg/dL (9-16); Calcium 10.5 mg/dL (8.4-10.2); Carbon Dioxide 24 mmol/L (22-29); Chloride 107 mmol/L (96-108); Estimated Glomerular Filt Rate > 60; Glucose Random 141 mg/dL (60-115); Sodium 142 mmol/L (135-145)
== END 2024-02-18 11:32 | disposition home or self-care (01) ==
LOC: HO.HHCL 11:31
PROVIDERS: Visit Provider Internal Medicine
DX: R07.2 Precordial pain (principal)
CPT/HCPCS: 36415; 80048

== ENCOUNTER 2024-02-21 09:05 | Outpatient (AMB) | payer MEDICARE, SELFPAY ==
--- NOTE | 2024-02-21 09:15 | A.OFFVIS_ITS ---
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 She was initially seen in our office last year as noted below with no further follow up. Patient was referred back to our office for chronic low back pain with sciatica. However, patient reports left shoulder pain has been more significant. She also reports undergoing recent uneventful oophorectomy 3 weeks ago at [facility]. 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 Her left lower quadrant wound incision with skin glue is healing well. Left shoulder pain radiates to the neck and left upper extremity with mild weakness. She also reports lower back pain with radiation to the left leg posteriorly is associated numbness and tingling and left hip pain radiates to the groin. Recent imaging reviewed with patient and her family and noted for degenerative changes of left shoulder and spine with scoliosis convex to the right. Pain affects her daily functioning, ROM, mobility, sleep and social activities. She is interested to undergo therapeutic injection for her left shoulder as initial steps. Denies any fever or chills, abdominal pain, dizziness, chest pain, shortness of breaths, bladder or bowel dysfunction or saddle anesthesia. Oswestry Low Back Disability Score=43 (complete disability) PRIOR 07/28/22: Patient is a pleasant 71 years old female with a history of diabetes and depression presents today for chronic neck pain that radiates to both of her shoulders. Patient reports many years of chronic neck pain and has been managed in [place] with physical therapy, cortisone injections, and acupuncture over 8 years ago. Denies history of whiplash injury or any recent trauma, injury or falls. Neck pain is axial with radiation to both of her shoulders but not her elbows, hands, or fingers. Her pain is worse with flexion than extension and lateral movements as well as cold weather changes. Patient reports severe pain while washing her dishes with prolonged looking down or sitting upright, watching TV. Reports occasional headaches and tenderness in her occipital regions bilaterally. Pain is described as intermittent stabbing, lancinating, dull, sore, hurting, aching, heavy, tiring and exhausting. Pain interferes with her daily activities, functions, mood, sleep and social activities. She has tried to manage her pain with Tylenol, gabapentin, lidocaine, ketorolac, magnesium spray, ice and heat applications. Currently, she reports being active with physical therapy and establishing independence with home exercise therapy. Cervical spine xray showed degenerative disc disease at C4-C5 and multi-level bilateral neural foraminal narrowing. Denies previous chiropractic manipulation, deep tissue massage, aqua therapy or TENS unit. Patient denies any fever, cough, vision changes, shortness of breaths, chest pain, gait issues, bladder or bowel incontinence or saddle anesthesia. Patient's recent A1C was 06/19/22 was 7.9. Denies episodes of hypo or hyperglycemia. She is also has been taking Plavix for over 15 years but cannot state what for. Patient denies any history of stroke, TIA, DVTs but reports high cholesterol and diabetes. 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 Chart review noted for multiple ER visits for HTN and chest pain. [facility] Medical History Hypercholesteremia Diabetes Hypertension Hammer toe Surgical History H/O tubal ligation H/O knee surgery H/O section Family History Brother Prostate cancer Maternal Aunt Breast cancer Social History Alcohol intake: former Sexual orientation: Straight/Heterosexual Gender identity: Female Female Reproductive History Menstrual Age of Menarche: 15 Review of Systems Const All systems reviewed & are unremarkable except as noted in HPI and below Physical Exam On exam today: Appears afebrile. Alert and oriented. Mood and affect appropriate. Follows and participates in conversation appropriately. Respiratory effort is unlabored. No cough. No nasal discharge. Able to transition from sit to stand unassisted. Ambulates with bilaterally normal heel strike and toe off. Able to stand and walk on toes and heels. Neck Neck: Yes normal visual inspection, Yes no lymphadenopathy, Yes no meningeal signs, Yes supple, No anterior neck swelling, Yes no JVD and No prominent dorsocervical fat pad GI Inspection: Yes normal to inspection, No distended and Yes scar (LLQ wound incision w/skin glue intact, healing well. No erythema or redness) Palpation (GI): Soft to palpation, nontender and no guarding General: Yes no CVA tenderness Back/Spine/Pelvis Other: Mild groin pain bilaterally, left>right with I/E hip rotations. Back: no CVA tenderness Cervical Spine: normal cervical lordosis, cervical muscular tenderness, pain with cervical ROM, No Cervical spine scars present, No Cervical spine tenderness and No step off deformity Thoracic/Lumbar Spine: thoracic and lumbar spine normal to inspection, Lasegue's sign positive bilateral and diffuse, pain with thoraco-lumbar ROM, paraspinal muscle tenderness, thoraco-lumbar ROM limited, thoracic spinal tenderness (lower thoracic) and lumbar spinal tenderness (L3-S1) Pelvis: buttock tenderness on the left Sacroiliac joints: bilaterally tender to palpation Neuro General: no meningeal signs Extrem General: Yes capillary refill normal, Yes no pedal edema and Yes no calf tenderness Left upper extremity: shoulder/upper arm (Limited ROM due to pain.) Details: tenderness Location: of the A-C joint, over the biceps tendon and over the subacromial bursa and crepitus; no swelling, no ecchymosis, no deformity and no unsual warmth Results Reviewed Results Reviewed: XR CERVICAL SPINE 06/29/22 CLINICAL INFORMATION: Chronic pain radiating to the shoulders. FINDINGS: Vertebral body heights and alignment are normal. There is mild posterior disc space narrowing at C4-C5. The remaining spaces are well-maintained. No acute fracture or spondylolisthesis is seen. The posterior elements are intact. There is left neural foraminal narrowing at C3-C4, bilateral right neural foraminal narrowing at C4-C5 and right neural foraminal narrowing C5-C6. The dens and C7-T1 interface are normal. There is no prevertebral soft tissue swelling. IMPRESSION: 1. There is very mild degenerative disc disease at C4-C5. 2. There is multi-level bilateral neural foraminal narrowing, as detailed. CERVICAL SPINE, LEFT SHOULDER 02/12/24 CLINICAL INFORMATION: Left anterior shoulder pain and left-sided cervical algia FINDINGS: Shoulder: Some mild degenerative changes are seen at the AC joint with some minimal sclerosis at the inferior glenoid without significant glenohumeral narrowing. No tendinous calcifications. No fractures or dislocations. C-spine: There is no prevertebral soft tissue swelling, fractures or subluxations. There is some minimal degenerative changes seen with some minimal disc space narrowing at C4-C5 and to a lesser extent C5-C6. There is 2 mm of anterolisthesis of C6 upon C7. IMPRESSION: Mild degenerative changes in the shoulder and cervical spine as described above. Mild anterolisthesis of C6 upon C7. XR LUMBOSACRAL SPINE 02/12/24 CLINICAL INFORMATION: Dorsalgia FINDINGS: Degenerative changes are present in the spine with scoliosis convex to the right. Changes are most prominent in the lower thoracic spine and from L1 through L3. There is relative sparing from L3 through S1. No bony destructive lesions or fractures are seen. IMPRESSION: Degenerative changes and scoliosis as described above. Assessment & Plan Assessment & Plan (1) Degenerative joint disease of right hip: Code(s): M16.11 - Unilateral primary osteoarthritis, right hip Category: Medical Qualifiers: Osteoarthritis type: primary Qualified Code(s): M16.11 - Unilateral primary osteoarthritis, right hip (2) Right lumbar radiculitis: Code(s): M54.16 - Radiculopathy, lumbar region Category: Medical (3) Chronic left shoulder pain: Code(s): M25.512 - Pain in left shoulder; G89.29 - Other chronic pain Category: Medical (4) Sacroiliitis: Code(s): M46.1 - Sacroiliitis, not elsewhere classified Category: Medical (5) Lumbar degenerative disc disease: Code(s): M51.369 - Other intervertebral disc degeneration, lumbar region without mention of lumbar back pain or lower extremity pain Category: Medical (6) Low back pain: Code(s): M54.50 - Low back pain, unspecified Category: Medical Plan Patient presents today with multiple pain generators, including lower back pain with bilateral sciatica symptoms, worse on the left, left hip pain, sacroiliac joint pain, and most severe left shoulder pain. Limited back exam today due to pain after recent abdominal LLQ surgery with well healing incision. Patient would like to undergo interventional treatments for left shoulder pain as initial steps. Schedule left shoulder intra-articular steroid injection with local and fluoroscopy. Expectations, risks and benefits were reviewed. Patient is aware she will be contacted to schedule this procedure. All questions were answered and the patient is in agreement of plan. Follow-up after injections and sooner as needed. Coding Level of Care Code Est Pt Level 4 (93555) Complex EM visit Add On G2211 Diagnoses Primary osteoarthritis of right hip M16.11 Osteoarthritis type: primary Right lumbar radiculitis M54.16 Chronic left shoulder pain M25.512; G89.29 Sacroiliitis M46.1 Lumbar degenerative disc disease M51.369 Low back pain M54.50
[2024-02-21 09:21] VITALS: BP 172/79; PULSE 74; O2SAT 97; BMI 23.0
== END 2024-02-21 09:40 | disposition home or self-care (01) ==
PROVIDERS: PCP Nurse Practitioner Family; Visit Provider Nurse Practitioner Family
DX: M16.11 Unilateral primary osteoarthritis, right hip (principal); M54.16 Radiculopathy, lumbar region; M25.512 Pain in left shoulder; G89.29 Other chronic pain; M46.1 Sacroiliitis, not elsewhere classified; M51.369 Other intervertebral disc degeneration, lumbar region without mention of lumbar back pain or lower extremity pain; M54.50 Low back pain, unspecified
CPT/HCPCS: 99214; G2211

== ENCOUNTER → 2024-02-21 09:05 | Outpatient (BNVA) | payer MEDICARE, SELFPAY | PROVIDERS: PCP Nurse Practitioner Family; Visit Provider Nurse Practitioner Family | DX: M16.11 Unilateral primary osteoarthritis, right hip (principal); M54.16 Radiculopathy, lumbar region; M25.512 Pain in left shoulder; M46.1 Sacroiliitis, not elsewhere classified; M51.369 Other intervertebral disc degeneration, lumbar region without mention of lumbar back pain or lower extremity pain; M54.50 Low back pain, unspecified; G89.29 Other chronic pain | CPT/HCPCS: 99212 ==

== ENCOUNTER 2024-05-16 13:25 | Outpatient (REF) | payer MEDICARE, SELFPAY ==
--- NOTE | ~2024-05-16 | XR_ITS ---
EXAMINATION: XR SHOULDER, LEFT CLINICAL INFORMATION: Status post fall onto left upper body with localized pain over left scapula. COMPARISON: Left shoulder radiographs dated 02/12/2024. TECHNIQUE: Three views of the left shoulder. FINDINGS: No acute fracture or dislocation. Mild acromioclavicular osteophyte arthritis, unchanged. No glenohumeral joint space narrowing or marginal osteophytes. No osseous erosion. No abnormal soft tissue calcification. XR/XR shoulder LT min 2V IMPRESSION: 1. No acute fracture or dislocation. 2. Mild acromioclavicular osteoarthritis, unchanged. Electronically signed by: Lit Avina MD 05/16/2024 02:30 PM PATRICIA OGLESBY
== END 2024-05-16 13:26 | disposition home or self-care (01) ==
LOC: HO.HHCX 13:25
PROVIDERS: Visit Provider Internal Medicine
DX: M25.512 Pain in left shoulder (principal); G89.11 Acute pain due to trauma
CPT/HCPCS: 73030

== ENCOUNTER 2024-05-27 06:25 | Outpatient (REF) | payer MEDICARE, SELFPAY ==
--- NOTE | ~2024-05-27 | FL_ITS ---
EXAMINATION: FLUOROSCOPY GUIDANCE FOR NEEDLE PLACEMENT CLINICAL INFORMATION: M25.512 - Pain in left shoulder COMPARISON: None available. TECHNIQUE: Intraoperative fluoroscopy guidance for treatment, left shoulder. 1 static image obtained, nondiagnostic. Patient's positioning, prone. FINDINGS: Nondiagnostic intraoperative fluoroscopy guidance, left shoulder. FLUOROSCOPY TIME: 0.2 minutes. DOSE AREA PRODUCT: 0.474 uGy-m2 (microgray-meter squared) FL/FL guidance in treatment room IMPRESSION: Nondiagnostic Intraoperative fluoroscopy guidance for treatment procedure in the left shoulder. Electronically signed by: Gabriel Davidson MD 06/05/2024 09:35 AM PATRICIA
== END 2024-05-27 06:26 | disposition home or self-care (01) ==
LOC: CF 06:25
PROVIDERS: Visit Provider Anesthesiology
DX: M25.512 Pain in left shoulder (principal); G89.29 Other chronic pain
CPT/HCPCS: 20610; J2003; J2795; J3301; Q9967

== ENCOUNTER 2024-05-27 13:11 | Outpatient (AMB) | payer MEDICARE, SELFPAY ==
[2024-05-27 13:28] VITALS: BP 127/62; PULSE 80; O2SAT 98
--- NOTE | 2024-05-27 13:28 | MHC.OFFVIS ---
Vital Signs 05/27/24 13:28 05/27/24 14:16 BP 127/62 146/75 H Blood Pressure Location Rt brachial Rt brachial Position Sitting Sitting Pulse 80 76 Pulse Source Pulse Oximeter Pulse Oximeter Pulse Oximetry (%) 98 99 Oxygen Delivery Method Room Air Room Air Comment Pre procedure Post Procedure Intake Visit Reasons: LEFT INTRA-ARTICULAR SHOULDER INJECTION Allergies Sulfa (Sulfonamide Antibiotics) [SULFA (SULFONAMIDE ANTIBIOTICS)] Allergy (Severe, Verified 02/21/24 09:23) THROAT CLOSES PFSH Medical History Hypercholesteremia Diabetes Hypertension Hammer toe Surgical History H/O tubal ligation H/O knee surgery H/O section Family History Brother Prostate cancer Maternal Aunt Breast cancer Social History Alcohol intake: former Sexual orientation: Straight/Heterosexual Gender identity: Female Female Reproductive History Menstrual Age of Menarche: 15 Physical Exam Vital Signs: Last Vital Signs Pulse 76 05/27/24 14:16 BP 146/75 H 05/27/24 14:16 Pulse Ox 99 05/27/24 14:16 Oxygen Delivery Method Room Air 05/27/24 14:16 Assessment & Plan Assessment & Plan (1) Degenerative joint disease of right hip: Code(s): M16.11 - Unilateral primary osteoarthritis, right hip Category: Medical Qualifiers: Osteoarthritis type: primary Qualified Code(s): M16.11 - Unilateral primary osteoarthritis, right hip (2) Right lumbar radiculitis: Code(s): M54.16 - Radiculopathy, lumbar region Category: Medical (3) Chronic left shoulder pain: Code(s): M25.512 - Pain in left shoulder; G89.29 - Other chronic pain Category: Medical (4) Sacroiliitis: Code(s): M46.1 - Sacroiliitis, not elsewhere classified Category: Medical (5) Lumbar degenerative disc disease: Code(s): M51.369 - Other intervertebral disc degeneration, lumbar region without mention of lumbar back pain or lower extremity pain Category: Medical (6) Low back pain: Code(s): M54.50 - Low back pain, unspecified Category: Medical Plan Intra-articular left shoulder joint steroid injection. Informed consent was explained to the patient. All questions were explained and? answered.? The patient was taken inside the operating room where he was positioned left lateral decubitus on the operating table.? Time-out was performed delineating correct site, side, the nature of the procedure, patient's allergy, preoperative antibiotic if needed.? All operating room staff was participating in OR time-out procedure.? The patient stated his name. The patient was positioned prone on the operating table. The C-arm was brought over the operating field and the picture of left shoulder joint was obtained on the screen.? The skin was anesthetized using 2% lidocaine at the trochanter area.? 22 gauge 3.5 in needle was inserted through the skin and advanced to the left shoulder joint joint silhouette on anterior posterior view.? When needle entered the joint the injection of the contrast was performed demonstrating intra-articular spread of the contrast.? After that 4 cc of ropivacaine 0.5% mixed with Kenalog 30 mg was injected into the area.? The needle was removed sterile dressing was applied. The patient tolerated procedure well. Orders: Orders FL guidance in treatment room Today G89.29 - Other chronic pain, M25.512 - Pain in left shoulder Coding Level of Care Code Procedure Only Diagnoses Primary osteoarthritis of right hip M16.11 Osteoarthritis type: primary Right lumbar radiculitis M54.16 Chronic left shoulder pain M25.512; G89.29 Sacroiliitis M46.1 Lumbar degenerative disc disease M51.369 Low back pain M54.50
[2024-05-27 14:16] VITALS: BP 146/75; PULSE 76; O2SAT 99
== END 2024-05-27 14:20 | disposition home or self-care (01) ==
LOC: HO.PMCPRC 13:11
PROVIDERS: PCP Nurse Practitioner Family; Visit Provider Anesthesiology
DX: M25.512 Pain in left shoulder (principal); G89.29 Other chronic pain
CPT/HCPCS: 20610; 77002

== ENCOUNTER 2024-06-07 13:41 | Outpatient (REF) | payer MEDICARE, SELFPAY ==
[2024-06-08 11:42] LABS: Bacterial Vaginosis PCR NEGATIVE (Negative); Candida Group PCR DETECTED (Not Detect); Candida glab krusei PCR NOT DETECTED (Not Detect); Trichomonas vaginalis PCR NOT DETECTED (Not Detect)
== END 2024-06-07 13:42 | disposition home or self-care (01) ==
LOC: HO.HHCLNP 13:41
PROVIDERS: Visit Provider Family Medicine
DX: B37.31 Acute candidiasis of vulva and vagina (principal); R39.9 Unspecified symptoms and signs involving the genitourinary system
CPT/HCPCS: 81515; 87086

== ENCOUNTER 2024-06-12 13:18 | Outpatient (AMB) | payer MEDICARE, SELFPAY ==
[2024-06-12 13:20] VITALS: BP 128/62; PULSE 70; BMI 24.2
--- NOTE | 2024-06-12 13:20 | A.OFFVIS_ITS ---
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: No Allergies Sulfa (Sulfonamide Antibiotics) [SULFA (SULFONAMIDE ANTIBIOTICS)] Allergy (Severe, Verified 06/12/24 13:23) THROAT CLOSES Medication List - Last Reconciled 06/12/24 by Erendira Rowley, IVETTE-C acetaminophen 500 mg PO Q6H PRN amlodipine 5 mg PO QAM atenolol 25 mg PO DAILY atorvastatin 40 mg PO DAILY clopidogrel 75 mg PO DAILY empagliflozin (Jardiance) 25 mg PO DAILY gabapentin 300 mg PO TID glipizide 5 mg PO glipizide ER 2.5 mg PO DAILY losartan 100 mg PO QAM metformin 1,000 mg PO BID pantoprazole 40 mg PO QAM pen needle, diabetic As directed HPI HPI f/up CTA [facility]: Details: Kimberly is a 73-year-old female past medical history of hypertension, hyperlipidemia, diabetes who underwent cardiac evaluation for chest discomfort. She recently had a CTA of the coronary arteries and now presents for follow-up. Today she reports that she she does have soreness in the chest and shoulders at times. Overall this symptom is better than when previously reported. She has some shortness of breath with exertional activities which is unchanged. No palpitations, lightheadedness, presyncope, syncope, falls. No PND, orthopnea or edema. No chest discomfort clearly brought on by exertion. She reports compliance with meds. Does only light physical activities. [facility] Medical History Hypercholesteremia Diabetes Hypertension Hammer toe Surgical History H/O tubal ligation H/O knee surgery H/O section Family History Brother Prostate cancer Maternal Aunt Breast cancer Social History Alcohol intake: former Sexual orientation: Straight/Heterosexual Gender identity: Female Female Reproductive History Menstrual Age of Menarche: 15 Review of Systems Const All systems reviewed & are unremarkable except as noted in HPI and below ENT Denies dizziness Card Denies chest pain, Denies chest pain at rest, Denies chest pain with activity, Denies rapid heart rate, Denies pedal edema, Denies edema, Denies leg edema, Denies lightheadedness, Denies palpitations, Denies dyspnea, Denies dyspnea on exertion and Denies orthopnea Resp Denies cough, Denies dyspnea and Denies dyspnea on exertion GI Denies hematochezia and Denies change in stool character Musc Denies abnormal gait, Denies limited range of motion, Denies muscle cramps, Denies muscle weakness, Denies numbness, Denies radiating pain into limb, Denies stiffness and Denies tingling Neuro Denies abnormal gait, Denies dizziness, Denies numbness and Denies tingling Endo Denies palpitations Physical Exam Vital Signs: Last Vital Signs Pulse 70 06/12/24 13:20 BP 128/62 06/12/24 13:20 BMI result Body Mass Index 24.2 Const General: cooperative, healthy appearing, comfortable and no acute distress Orientation/consciousness: patient oriented x3 Neck Neck: Yes normal visual inspection and Yes no JVD Resp Effort & Inspection: normal respiratory effort Auscultation: clear to auscultation bilaterally, no crackles, no rales, no rhonchi and no wheezes Cardio Jugular venous distension: no JVD Rate: regular rate Rhythm: regular rhythm Heart sounds: S1 normal heart sound present, S2 normal heart sound present, no murmurs and no rubs Neuro General: patient oriented x3 Extrem General: Yes normal to inspection, No no pedal edema and No calf tenderness Psych Appearance: grossly normal Mental Status: mental status grossly normal Speech and movement: Normal speech and movement present Assessment & Plan Assessment & Plan (1) Precordial chest pain: Code(s): R07.2 - Precordial pain Category: Medical Plan: Reports of atypical sounding chest discomfort. EKG done on last visit showed sinus rhythm with no acute ST or T-wave abnormalities. Echocardiogram done 10/26/2022 showed EF 65-70%, no significant valve abnormalities and no regional wall motion abnormalities. Exercise nuclear stress test 10/26/2022 with exercise 5 minutes, no anginal symptoms, EKGs with changes meeting criteria for ischemia however normal myocardial perfusion imaging. For further evaluation he underwent a CTA of the coronary arteries on 02/27/2024 showing mild nonobstructive coronary artery disease in the left main, proximal to mid LAD, proximal left circumflex and OM1. Test results reviewed with her in detail. Finding of mild coronary artery disease discussed. Signs and symptoms of true angina reviewed. She is not on aspirin but she is on Plavix. She is on atorvastatin with ideal LDL goal less than 70. She is also on atenolol. Vital signs well controlled. No med changes made at this time. Cardiology follow-up 1 year, sooner if needed (2) Coronary arteriosclerosis: Comment: CTA of the coronary arteries 02/27/2024, left main mild stenosis, percentage listed 25-49%, proximal to mid LAD 1-24% stenosis, distal 1-24% stenosis, proximal circumflex 1-24% stenosis, OM1 1 -24% stenosis Code(s): I25.10 - Atherosclerotic heart disease of [place] coronary artery without angina pectoris Category: Medical Plan: Mild nonobstructive coronary artery disease (3) Hypertension: Code(s): I10 - Essential (primary) hypertension Category: Medical Plan: Well controlled at present. Continue atenolol, losartan, amlodipine. (4) Hypercholesteremia: Code(s): E78.00 - Pure hypercholesterolemia, unspecified Category: Medical Plan: [place] LDL goal less than 70 in patient with diabetes and CAD. Labs done 08/28/2023 showed LDL 55. Continue atorvastatin 40 mg daily. Plan Time spent on chart review, documentation, interview and assessment Coding Level of Care Code Est Pt Level 4 (67635) Complex EM visit Add On G2211 Diagnoses Precordial chest pain R07.2 Coronary arteriosclerosis I25.10 Hypertension I10 Hypercholesteremia E78.00 Time Spent (min) 28
--- OUTSIDE RECORDS SUMMARY | 2024-06-12 15:38 | XMS_ITS | Clinical Summary ---
Author Organization [employer] [facility] Address [address] [place] [address] Care Team Providers Care Hot Kettle Tender Name Role Phone Laura Jones MD Primary Care Provider Surgical History Surgery Date Site/Laterality Comments HAND SURGERY Left PROCEDURE: HISTORICAL HAND SURGERY; COMMENT: carpal tunnel EYE SURGERY Bilateral PROCEDURE: HISTORICAL EYE SURGERY; COMMENT: blepharoplasty FOOT SURGERY Bilateral PROCEDURE: HISTORICAL FOOT SURGERY; COMMENT: hammer toes SECTION PROCEDURE: HISTORICAL ; COMMENT: x3 COLONOSCOPY 05/03/2015 PROCEDURE: HISTORICAL COLONOSCOPY; COMMENT: colon polyps, polypectomy-told to repeat in 3 years; no report Medical History Medical History Date Comments Essential hypertension 12/27/2017 DX:Essent ial hypertension Hyperlipidemia 12/27/2017 DX:Hyperlipidemi a TIA (transient ischemic attack) 12/27/2017 DX:TIA (transient ischemic attack); COMMENT: X3 (2002) DJD (degenerative joint dise ase) of knee 02/25/2018 DX:DJD (degenerative joint d isease) of knee; COMMENT: left Type 2 diabetes mellitus wit h cataract (CMS/HCC) 02/25/2018 DX:Type 2 diabetes mellitus with cataract (HCC) Cataract 02/25/2018 DX:Cataract Diabetic neuropathy (CMS/HCC) 12/27/2017 DX :Diabetic neuropathy (HCC) GERD (gastroesophageal reflux disease) 02/25/2018 DX:GERD (gastroesophageal reflux disease) Colon polyps 02/25/2018 DX:Colon polyps; COMMENT: 04/2015, told to repeat in 3 years Diabetes mellitus with neuro logical manifestation (CMS/HCC) 02/25/2018 DX:Diabetes mellitus with neurological manifestation (HCC) Family History Medical History Relation Name Comments Other cancer Aunt Coronary artery disease Brother Diabetes Brother Hypertension Brother Diabetes Daughter Hypertension Daughter Arthritis Father Hypertension Father CAD Other: Other Mother heart, ulcers Other cancer Other niece Coronary artery disease Sister (2 s isters) Diabetes Sister Hypertension Sister Relation Name Status Comments Aunt Brother Daughter Alive Father Mother Other niece Alive Sister Son 1 Alive Son 2 Alive Social History Tobacco Use Types Packs/Day Years Used Date Smoking Tobacco: Never Smokeless Tobacco: Never Sex and Gender Information Value Date Recorded Sex Assigned at Not on file Gender Identity Not on file Sexual Orientation Not on file Obstetrics History Plan of Treatment Health Maintenance Due Date Last Done Comments Breast Cancer Screening 1950 DTaP,Tdap,and Td Vaccines (1 - Tdap) 11/30/1971 Zoster Vaccines (1 of 2) 2002 Pneumococcal Vaccine: 65+ Ye ars (1 of 1 - PCV) 2017 COVID-19 Vaccine ( - 2023-2 5 season) 2024 Influenza Vaccine (#1) 2024 03/04/2018 RSV Immunization Patients 60 + Years Old (1 - 1-dose 75+ series) 11/30/2027 HIB Vaccines Aged Out No longer eligi ble based on patient's age to complete this topic HPV Vaccines Aged Out No longer eligi ble based on patient's age to complete this topic Hepatitis A Vaccines Aged Out No long er eligible based on patient's age to complete this topic Hepatitis B Vaccines Aged Out No long er eligible based on patient's age to complete this topic IPV Vaccines Aged Out No longer eligi ble based on patient's age to complete this topic MMR Vaccines Aged Out No longer eligi ble based on patient's age to complete this topic Meningococcal ACWY Vaccine Aged Out N o longer eligible based on patient's age to complete this topic RSV Immunization Patients Un fredo 20 months Aged Out No longer eligible b ased on patient's age to complete this topic Varicella Vaccines Aged Out No longer eligible based on patient's age to complete this topic Care Teams Hot Kettle Tender Relationship Specialty Start Date End Date Laura Jones MD [address] [place] [id number] PCP - General Internal Medicine 12/14/17
== END 2024-06-12 13:44 | disposition home or self-care (01) ==
PROVIDERS: PCP Nurse Practitioner Family; Visit Provider Nurse Practitioner Family
DX: R07.2 Precordial pain (principal); I25.10 Atherosclerotic heart disease of native coronary artery without angina pectoris; I10 Essential (primary) hypertension; E78.00 Pure hypercholesterolemia, unspecified
CPT/HCPCS: 99214; G2211

== ENCOUNTER → 2024-06-12 13:18 | Outpatient (BNVA) | payer MEDICARE, SELFPAY | PROVIDERS: PCP Nurse Practitioner Family; Visit Provider Nurse Practitioner Family | DX: R07.2 Precordial pain (principal); I25.10 Atherosclerotic heart disease of native coronary artery without angina pectoris; I10 Essential (primary) hypertension; E78.00 Pure hypercholesterolemia, unspecified | CPT/HCPCS: 99212 ==

== ENCOUNTER 2024-06-17 12:59 | Outpatient (AMB) | payer MEDICARE, SELFPAY ==
--- NOTE | 2024-06-17 13:02 | A.OFFVIS_ITS ---
Vital Signs 06/17/24 13:05 Height 4 ft 11 in Weight 118 lb BMI 23.8 BP 133/60 Blood Pressure Location Lt brachial Position Sitting Pulse 83 Pulse Source Pulse Oximeter Intake Visit Reasons: LEFT INTRA-ARTICULAR SHOULDER INJECTION Intake Note: Pain today 8/10 Varnishing Unit Operator Required: No Accompanied by: Spouse Allergies Sulfa (Sulfonamide Antibiotics) [SULFA (SULFONAMIDE ANTIBIOTICS)] Allergy (Severe, Verified 06/17/24 13:06) THROAT CLOSES HPI Comments Details: Patient presents today to assess response to left shoulder intra-articular steroid injection on 05/27/[address] Devi. Patient reports 100% pain relief since procedure with increased left shoulder ROM, decreased pain, improvement in sleep and functioning. She reports increased right shoulder pain with movements, lifting, cold weather or sleeping on right side. Right shoulder pain is rated at 8/10 and radiates into her right biceps area. Denies any weakness, numbness or tingling, swelling, locking or popping sounds. Denies any recent cough, cold, infection, fever or other significant changes in medical history since last office visit. Past Procedures: 05/27/24: Left shoulder intra-articular steroid injection-100% ongoing pain relief PRIOR: Patient presents today for follow up for left shoulder pain. She was initially seen in our office last year as noted below with no further follow up. Patient was referred back to our office for chronic low back pain with sciatica. Howev er, patient reports left shoulder pain has been more significant. She also reports undergoing recent uneventful oophorectomy 3 weeks ago [address] [facility]. 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 Her left lower quadrant wound incision with skin glue is healing well. Left shoulder pain radiates to the neck and left upper extremity with mild weakness. She also reports lower back pain with radiation to the left leg posteriorly is associated numbness and tingling and left hip pain radiates to the groin. Recent imaging reviewed with patient and her family and noted for degenerative changes of left shoulder and spine with scoliosis convex to the right. Pain affects her daily functioning, ROM, mobility, sleep and social activities. She is interested to undergo therapeutic injection for her left shoulder as initial steps. Denies any fever or chills, abdominal pain, dizziness, chest pain, shortness of breaths, bladder or bowel dysfunction or saddle anesthesia. Oswestry Low Back Disability Score=43 (complete disability) PRIOR 07/28/22: Patient is a pleasant 71 years old female with a history of diabetes and depression presents today for chronic neck pain that radiates to both of her shoulders. Patient reports many years of chronic neck pain and has been managed in [place] with physical therapy, cortisone injections, and acupuncture over 8 years ago. Denies history of whiplash injury or any recent trauma, injury or falls. Neck pain is axial with radiation to both of her shoulders but not her elbows, hands, or fingers. Her pain is worse with flexion than extension and lateral movements as well as cold weather changes. Patient reports severe pain while washing her dishes with prolonged looking down or sitting upright, watching TV. Reports occasional headaches and tenderness in her occipital regions bilaterally. Pain is described as intermittent stabbing, lancinating, dull, sore, hurting, aching, heavy, tiring and exhausting. Pain interferes with her daily activities, functions, mood, sleep and social activities. She has tried to manage her pain with Tylenol, gabapentin, lidocaine, ketorolac, magnesium spray, ice and heat applications. Currently, she reports being active with physical therapy and establishing independence with home exercise therapy. Cervical spine xray showed degenerative disc disease at C4-C5 and multi-level bilateral neural foraminal narrowing. Denies previous chiropractic manipulation, deep tissue massage, aqua therapy or TENS unit. Patient denies any fever, cough, vision changes, shortness of breaths, chest pain, gait issues, bladder or bowel incontinence or saddle anesthesia. Patient's recent A1C was 06/19/22 was 7.9. Denies episodes of hypo or hyperglycemia. She is also has been taking Plavix for over 15 years but cannot state what for. Patient denies any history of stroke, TIA, DVTs but reports high cholesterol and diabetes. Patient also requests referral to our [facility] group as she use to see corn husk baler back [place] for many years but has not established this here since moving to [place] 8 years ago. Chart review noted for multiple ER visits for HTN and chest pain. [facility] Medical History Hypercholesteremia Diabetes Hypertension Hammer toe Surgical History H/O tubal ligation H/O knee surgery H/O section Family History Brother Prostate cancer Maternal Aunt Breast cancer Social History Alcohol intake: former Sexual orientation: Straight/Heterosexual Gender identity: Female Female Reproductive History Menstrual Age of Menarche: 15 Review of Systems Const All systems reviewed & are unremarkable except as noted in HPI and below Physical Exam Vital Signs: Last Vital Signs Pulse 83 06/17/24 13:05 BP 133/60 06/17/24 13:05 BMI result Body Mass Index 23.8 On exam today: Appears afebrile. Alert and oriented. Mood and affect appropriate. Follows and participates in conversation appropriately. Respiratory effort is unlabored. No cough. Able to transition from sit to stand unassisted. Ambulates with bilaterally normal heel strike and toe off. Able to stand and walk on toes and heels. Neck Neck: Yes normal visual inspection, Yes no lymphadenopathy, Yes supple, No anterior neck swelling, Yes no JVD and No prominent dorsocervical fat pad Extrem Right upper extremity: shoulder/upper arm (Limited ROM due to pain, worse with internal rotation. Empty can negative.) Details: normal to inspection, tenderness Location: of the A-C joint, over the biceps tendon and over the subacromial bursa and crepitus; no swelling, no ecchymosis, no deformity and no unusual warmth Left upper extremity: shoulder/upper arm Details: inspection abnormal, normal ROM and crepitus; no tenderness, no swelling and no ecchymosis Results Reviewed Results Reviewed: CERVICAL SPINE, LEFT SHOULDER 02/12/24 CLINICAL INFORMATION: Left anterior shoulder pain and left-sided cervical algia FINDINGS: Shoulder: Some mild degenerative changes are seen at the AC joint with some minimal sclerosis at the inferior glenoid without significant glenohumeral narrowing. No tendinous calcifications. No fractures or dislocations. C-spine: There is no prevertebral soft tissue swelling, fractures or subluxations. There is some minimal degenerative changes seen with some minimal disc space narrowing at C4-C5 and to a lesser extent C5-C6. There is 2 mm of anterolisthesis of C6 upon C7. IMPRESSION: Mild degenerative changes in the shoulder and cervical spine as described above. Mild anterolisthesis of C6 upon C7. XR SHOULDER, RIGHT 01/24/2019 CLINICAL INFORMATION: Right shoulder pain FINDINGS: Minimal degenerative spurring of the greater tuberosity and inferomedial aspect of the humeral head. Mild acromioclavicular osteoarthritis. No fracture. Normal alignment. No suspicious soft tissue calcification or bone lesion. IMPRESSION: Mild glenohumeral and acromioclavicular osteoarthritis. Assessment & Plan Assessment & Plan (1) Bilateral shoulder pain: Code(s): M25.511 - Pain in right shoulder; M25.512 - Pain in left shoulder Category: Medical (2) Osteoarthritis of shoulders, bilateral: Code(s): M19.011 - Primary osteoarthritis, right shoulder; M19.012 - Primary osteoarthritis, left shoulder Category: Medical Plan Patient is 3 weeks s/p left shoulder steroid injection with complete pain relief, increased ROM, improved functioning and sleep on the left. Patient will monitor her left shoulder symptoms and notify our office when her pain returns to baseline. Patient is aware that she can not receive another injection in this area for another three months. Schedule right shoulder intra-articular steroid injection with local and fluoroscopy for chronic right shoulder pain due to OA. Expectations, risks and benefits were reviewed. Patient is aware she will be contacted to schedule this procedure. All questions were answered and the patient is in agreement of plan. Follow-up after injection and sooner as needed. Coding Level of Care Code Est Pt Level 4 (43564) Complex EM visit Add On G2211 Diagnoses Bilateral shoulder pain M25.511; M25.512 Osteoarthritis of shoulders, bilateral M19.011; M19.012
[2024-06-17 13:05] VITALS: BP 133/60; PULSE 83; BMI 23.8
--- OUTSIDE RECORDS SUMMARY | 2024-06-17 13:53 | XMS_ITS | Encounter Summary ---
Author Organization [employer] Address [address] [place] [address] Care Team Providers Care Configuration Technician Name Role Phone Name, Howard BRENNER Primary Care Provider [phone] Reason for Visit * Reason Onset Date Comments Results 07/03/2022 Encounter Details Date Type Department Care Team (Late st Contact Info) Description 07/03/2022 Telephone [facility] MEDICINE [address] [place], [place] [id number] Name, MD Howard [address] [place] [address] Results Social History Tobacco Use Types Packs/Day Years Used Date Smoking Tobacco: Never Passive Smoke Exposure: Never Smokeless Tobacco: Never Alcohol Use Standard Drinks/Week Comments Never 0 (1 standard drink = 0.6 oz pur e alcohol) Depression Answer Date Recorded Patient Health Questionnaire-9 Score 0 06/19/2022 Depression Answer Date Recorded Patient Health Questionnaire-2 Score 0 06/19/2022 Comments Unknown Sex and Gender Information Value Date Recorded Sex Assigned at Female 03/20/2022 10:29 AM EDT Legal Sex Female 10:29 AM EDT Gender Identity Female 03/20/2022 10:29 AM EDT Sexual Orientation Straight 03/20/2022 10 :29 AM EDT COVID-19 Exposure Response Date Recorded In the last 10 days, have yo u been in contact with someone who was confirmed or suspected to have Coronavirus/COVID-19? No / Unsure 06/29/2022 9:30 AM EST documented as of this encounter Miscellaneous Notes * Telephone Encounter - Brigette Toribio RN - 07/11/2022 10:46 AM EST Returned call to pt regarding message below. Pt informed of XR results and Dr Arguello's recommendations. Pt states rib pain is better but states since fall 3 weeks ago, she has intermittent SOB. Pt thinks it's d/t her rib pain that restricts her ability to inspirate. Pt agrees to appt on 07/19/22 todiscuss her SOB. Pt declined any sooner appts. Pt then requested a f/u with PCP to discuss her XR results of her cervical OA and PCP recommendations. Pt agrees to see PCP on 08/02/22. Appt reminders sent to pt. * Telephone Encounter - Aura Can RN - 07/05/2022 1:21 PM EST Reports printed and sent to HIM to scan for provider to review. * Telephone Encounter - Kyle Plascencia - 07/03/2022 3:56 PM EST Tc from pt requesting a call back regarding xray results Please contact pt at [phone] documented in this encounter Plan of Treatment Upcoming Encounters Date Type Department Care Team (Late st Contact Info) Description 11/28/2024 10:00 AM EDT Office Visit [facility] ADULT DENTAL [address] [place] [address] Anna, Ting [address] [place] [address] documented as of this encounter Visit Diagnoses Not on filedocumented in this encounter Additional Health Concerns Assessment Noted Time PHQ-9 Depression Total Score: 0 06/19/19 23 2:59 PM EST documented as of this encounter Care Teams Configuration Technician Relationship Specialty Start Date End Date Name, MD Howard [address] [place] [address] PCP - General Family Medicine 03/13/19 documented as of this encounter
--- OUTSIDE RECORDS SUMMARY | 2024-06-17 13:53 | XMS_ITS | Encounter Summary ---
Author Organization [employer] [facility] Address [address] [place] [address] Care Team Providers Care Interior Horticulturist Name Role Phone Name, Howard BRENNER Primary Care Provider [phone] Encounter Details Date Type Department Care Team (Late Contact Info) Description 10/23/2022 Abstract [facility] MEDICINE [address] [place], [place] [phone] Name, MD Howard [address] [place] [address] Social History Tobacco Use Types Packs/Day Years [...] suspected to have Coronavirus/COVID-19? No / Unsure 10/12/2022 9:29 AM EDT documented as of this encounter Plan of Treatment Upcoming Encounters Date Type Department Care Team (Late Contact Info) Description 11/28/2024 10:00 AM EDT Office Visit [facility] ADULT DENTAL [address] [place], [place] [phone] Ting Castillo [address] [place] [address] documented as of this encounter Procedures Procedure Name Priority Date/Time Associated Diagnosis Comments COLONOSCOPY Routine 10/26/2015 10:13 AM EDT documented in this encounter Results * Colonoscopy (10/26/2015 10:13 AM EDT) Colonoscopy Normal Normal Narrative Radha Henry - 10/26/2015 10:13 AM EDT Recommended 5 year follow up Historical Provider HEALTH MAINTENANCE Final Result documented in this encounter Visit Diagnoses Not on filedocumented in this encounter Additional Health Concerns Assessment Noted Time PHQ-9 Depression Total Score: 0 06/19/19 23 2:59 PM EST documented as of this encounter Care Teams Interior Horticulturist Relationship Specialty Start Date End Date Name, MD Howard [address] [place] [address] PCP - General Family Medicine 03/13/19 documented as of this encounter
--- OUTSIDE RECORDS SUMMARY | 2024-06-17 13:53 | XMS_ITS | Encounter Summary ---
Author Organization [employer] Address [address] [facility] 7t [place] [address] Care Team Providers Care Poultry Packer Name Role Phone Name, Howard BRENNER Primary Care Provider [phone] Encounter Details Date Type Department Care Team ([facility] Contact Info) Description 06/01/2022 Orders Only [facility] MED & PEDS [address] [place], [place] [phone] Cynthia Yun LPN Social History Tobacco Use Types Packs/Day Years Used Date Smoking Tobacco: Never Alcohol Use Standard Drinks/Week Comments Never 0 (1 standard drink = 0.6 oz pur e alcohol) Comments Unknown Sex and Gender Information Value [...] suspected to have Coronavirus/COVID-19? No / Unsure 05/11/2022 9:46 AM EST documented as of this encounter Plan of Treatment Upcoming Encounters Date Type Department Care Team (Late Contact Info) Description 11/28/2024 10:00 AM EDT Office Visit [facility] ADULT DENTAL [address] [place], [place] [phone] Anna, Ting [address] [place], [place] [phone] documented as of this encounter Procedures Procedure Name Priority Date/Time Associated Diagnosis Comments XR CERVICAL SPINE 5 VIEW Routine 06/29/2022 11:27 AM EST XR RIBS 2 VIEWS LEFT Routine 06/29/2022 11:27 AM EST documented in this encounter Results * XR Ribs 2 Views Left (06/29/2022 11:27 AM EST) Anatomical Region Laterality Modality Rib, Abdomen Left Radiographic Lucrecia ging 06/29/2022 11:2 7 AM EST Narrative 07/04/2022 6:18 PM EST ? [facility] ?[address] ?[place] [address] ?XRay Report ? Signed ? Patient: Kimberly Randhawa ?MR#: [id number] ?? [id number] ? : 1950 ?Acct:[id number] ? Age/Sex: 71 / F ?ADM Date: 06/29/22 ? Loc: HO.XRAY ? Attending Dr: Rubin Arguello MD ? Ordering Physician: Rubin Arguello MD ?? Date of Service: 06/29/22 ?? Procedure(s): XR ribs LT 2V ?? Accession Number(s): [id number] ? cc: Rubin Arguello MD ? EXAMINATION: ?? XR RIBS, LEFT ? CLINICAL INFORMATION: ?? Left lower rib cage pain. ? COMPARISON: ?? Chest radiographs dated 05/11/2022. ? TECHNIQUE: ?? 3 views of the left ribs were obtained. ? FINDINGS: ?? Lungs are clear. No consolidation, pneumothorax, or pleural effusion. ?? The cardiomediastinal silhouette and pulmonary vasculature are normal. ? Osseous structures are unremarkable. Ribs are intact. No fractures are ?? identified. ? XR/XR ribs LT 2V ?? IMPRESSION: ?? Unremarkable examination. ? Dictated By: ?Jaya Montana MD ? Signed By: ?<Electronically signed by Jaya Montana MD in OV> ? 07/04/221814 ? DD/ ? TD/TT: ? Registered Nurse Step Down: JOVITA ? Procedure Note Pilar, Ishan - 10/09/2022 [facility] [address] [place] [address]. [place] [address] XRay Report Signed Patient: Marlena Randhawa#: [id number] : 3Acct:[id number] Age/Sex: 71 / FADM Date: 06/29/22 Loc: HO.SAIKELSEY Attending Dr: Rubin Arguello MD Ordering Physician: Rubin Arguello MD Date of Service: 06/29/22 Procedure(s): XR ribs LT 2V Accession Number(s): [id number] cc: Rubin Arguello MD EXAMINATION: XR RIBS, LEFT CLINICAL INFORMATION: Left lower rib cage pain. COMPARISON: Chest radiographs dated 05/11/2022. TECHNIQUE: 3 views of the left ribs were obtained. FINDINGS: Lungs are clear. No consolidation, pneumothorax, or pleural effusion. The cardiomediastinal silhouette and pulmonary vasculature are normal. Osseous structures are unremarkable. Ribs are intact. No fractures are identified. XR/XR ribs LT 2V IMPRESSION: Unremarkable examination. Dictated By: Jaya Montana MD Signed By: <Electronically signed by Jaya Montana MD in OV> 07/04/22 1815 DD/ 1127 TD/TT: Registered Nurse Step Down: JOVITA [facility] External Provider IMG XR PROCEDURES Edited Result - Final * XR Cervical Spine 5 View (06/29/2022 11:27 AM EST) Anatomical Region Laterality Modality Spine, C-spine Radiographic Lucrecia ging 06/29/2022 11:2 7 AM EST Narrative 07/04/2022 8:39 PM EST ? [facility] ?[address] ?[place] [address] ?XRay Report ? Signed ? Patient: Elvira Mauricio,Kimberly ?MR#: [id number] ? : 1950 ?Acct:[id number] ? Age/Sex: 71 / F ?ADM Date: // ? Loc: HO.XRAY ? Attending Dr: Rubin Arguello MD ? Ordering Physician: Rubin Arguello MD ?? Date of Service: 06/29/22 ?? Procedure(s): XR cervical spine 5V ?? Accession Number(s): [id number] ? cc: Rubin Arguello MD ? EXAMINATION: ?? XR CERVICAL SPINE ? CLINICAL INFORMATION: ?? Chronic pain radiating to the shoulders. ? COMPARISON: ?? Radiographs dated 01/24/2019. ? TECHNIQUE: ?? Frontal, odontoid, bilateral oblique and lateral views of the cervical ?? spine are obtained. ? FINDINGS: ?? Vertebral body heights and alignment are normal. There is mild ?? posterior disc space narrowing at C4-C5. The remaining spaces are ?? well-maintained. No acute fracture or spondylolisthesis is seen. The ?? posterior elements are intact. There is left neural foraminal narrowing ?? at C3-C4, bilateral right neural foraminal narrowing at C4-C5 and right ?? neural foraminal narrowing C5-C6. The dens and C7-T1 interface are ?? normal. There is no prevertebral soft tissue swelling. ? XR/XR cervical spine 5V ?? IMPRESSION: ? 1. There is very mild degenerative disc disease at C4-C5. ? 2. There is multi-level bilateral neural foraminal narrowing, as ?? detailed. ? Dictated By: ?Jaya Montana MD ? Signed By: ?<Electronically signed by Jaya Montana MD in OV> ? 07/04/222035 ? DD/ 26 ? TD/TT: ? Registered Nurse Step Down: JOVITA ? Procedure Note Pilar, Ishan - 07/04/[address] [address] XRay Report Signed Patient: Marlena Randhawa#: [id number] : 3Acct:[id number] Age/Sex: 71 / FADM Date: 06/29/22 Loc: JACQUELYN Attending Dr: Rubin Arguello MD Ordering Physician: Rubin Arguello MD Date of Service: 06/29/22 Procedure(s): XR cervical spine 5V Accession Number(s): [id number] cc: Rubin Arguello MD EXAMINATION: XR CERVICAL SPINE CLINICAL INFORMATION: Chronic pain radiating to the shoulders. COMPARISON: Radiographs dated 01/24/2019. TECHNIQUE: Frontal, odontoid, bilateral oblique and lateral views of the cervical spine are obtained. FINDINGS: Vertebral body heights and alignment are normal. There is mild posterior disc space narrowing at C4-C5. The remaining spaces are well-maintained. No acute fracture or spondylolisthesis is seen. The posterior elements are intact. There is left neural foraminal narrowing at C3-C4, bilateral right neural foraminal narrowing at C4-C5 and right neural foraminal narrowing C5-C6. The dens and C7-T1 interface are normal. There is no prevertebral soft tissue swelling. XR/XR cervical spine 5V IMPRESSION: 1. There is very mild degenerative disc disease at C4-C5. 2. There is multi-level bilateral neural foraminal narrowing, as detailed. Dictated By: Jaya Montana MD Signed By: <Electronically signed by Jaya Montana MD in OV> 07/04/222035 DD/ 1127 TD/TT: Registered Nurse Step Down: JOVITA Authoranton Provider Result Type Result Stat [facility] External Provider IMG XR PROCEDURES Edited Result - Final documented in this encounter Visit Diagnoses Not on filedocumented in this encounter Care Teams Poultry Packer Relationship Specialty Start Date End Date Name, MD Howard [address] [place] [address] PCP - General Family Medicine 03/13/19 documented as of this encounter
--- OUTSIDE RECORDS SUMMARY | 2024-06-17 13:53 | XMS_ITS | Encounter Summary ---
Author Organization [employer] Address [address] [place] [address] Care Team Providers Care Commercial Service Technician Name Role Phone Name, Howard BRENNER Primary Care Provider [phone] Encounter Details Date Type Department Care Team (Latest Contact Info) Description 05/22/2024 10:00 AM EST Office Visit [facility] [address] [place], [place] [phone] Olvin Pimentel MD [address] [place], [place] [phone] Acute conjunctivitis of left eye, unspecified acute conjunctivitis type (Primary Dx) Social History Tobacco Use Types Packs/Day Years Used Date Smoking Tobacco: Never Passive Smoke Exposure: Never Smokeless Tobacco: Never Alcohol Use Standard Drinks/Week Comments Never 0 (1 standard drink = 0.6 oz pur e alcohol) Depression Answer Date Recorded Patient Health Questionnaire-9 Score 6 08/27/2023 Patient Health Questionnaire-9 Score 6 08/27/2023 Last PHQ-9: Questionnaire Data Not on file 0 08/27/2023 Housing Stability Answer Date Recorded What is your housing situation today? I have rosaline bello 08/27/[address] you li ve. Do you have problems with any of the following? None of the above 08/27/2023 Food Insecurity Answer Date Recorded Within the past 12 months, y ou worried that your food would run out before you got money to buy more: Never True 08/27/2023 Within the past 12 months,th e food you bought just didn't last and you didn't have enough money to get more: Never True 12/2023 Transportation Answer Date Recorded In the past 12 months, has l ack of transportation kept you from medical appts, meetings, work or from getting things needed for daily living? Yes, it has kept me from medical appointments or getting medications. 08/27/2023 Utilities Answer Date Recorded In the past 12 months, has t he electric, gas, oil or water company threatened to shut off services in your home? No 08/27/2023 Depression Answer Date Recorded Patient Health Questionnaire-2 Score 2 08/27/2023 Comments Unknown Sex and Gender Information Value Date Recorded Sex Assigned at Female 03/20/2022 10:29 AM EDT Legal Sex Female 10:29 AM EDT Gender Identity Female 03/20/2022 10:29 AM EDT Sexual Orientation Straight 03/20/2022 10 :29 AM EDT documented as of this encounter Last Filed Vital Signs Vital Sign Reading Time Taken Comments Blood Pressure 146/79 05/22/2024 9:24 AM EST Pulse 78 05/22/2024 9:24 AM EST Temperature 36.1 ??C (96.9 ??F) 05/22/2024 9:24 AM ES T Respiratory Rate 18 05/22/2024 9:24 AM EST Oxygen Saturation 94% 05/22/2024 9:24 AM EST Inhaled Oxygen Concentration - - Weight 55.3 kg (122 lb) 05/22/2024 9:24 AM EST Height 149.9 cm (4' 11 ) 05/22/2024 9:24 AM EST Body Mass Index 24.64 05/22/2024 9:24 AM EST documented in this encounter Progress Notes * Olvin Pimentel MD - 05/22/2024 10:00 AM EST Subjective History was provided by the patient. Kimberly Mauricio is a 73 y.o. female who presents for evaluation of 3-day duration of left eyelid edema, left conjunctival injection, and itching. Woke up this morning with purulent discharge. Denies URI symptoms. Denies cough or congestion. Denies F/C/N/V/D. Denies eye pain or vision change. Objective Vitals: 05/22/24923 BP: (!) 146/79 BP Location: Right arm Patient Position: Sitting BP Cuff Size: Adult Pulse: 78 Resp: 18 Temp: 96.9 ??F (36.1 ??C) TempSrc: Temporal SpO2: 94% Weight: 122 lb (55.3 kg) Height: 4' 11 (1.499 m) Physical Exam Vitals reviewed. Constitutional: Appearance: Normal appearance. She is normal weight. HENT: Head: Normocephalic and atraumatic. Right Ear: Tympanic membrane, ear canal and external ear normal. Left Ear: Tympanic membrane, ear canal and external ear normal. Nose: Nose normal. No congestion or rhinorrhea. Mouth/Throat: Mouth: Mucous membranes are dry. Pharynx: Oropharynx is clear. No oropharyngeal exudate or posterior oropharyngeal erythema. Eyes: Extraocular Movements: Extraocular movements intact. Pupils: Pupils are equal, round, and reactive to light. Comments: Mild left conjunctival injection; left upper/lower eyelid edema without erythema. Cardiovascular: Rate and Rhythm: Normal rate and regular rhythm. Heart sounds: Normal heart sounds. Pulmonary: Effort: Pulmonary effort is normal. Breath sounds: Normal breath sounds. Musculoskeletal: General: Normal range of motion. Cervical back: Normal range of motion and neck supple. Lymphadenopathy: Cervical: No cervical adenopathy. Skin: General: Skin is warm and dry. Neurological: General: No focal deficit present. Mental Status: She is alert and oriented to person, place, and time. Mental status is at baseline. Psychiatric: Mood and Affect: Mood normal. Behavior: Behavior normal. Thought Content: Thought content normal. Judgment: Judgment normal. Diagnoses and all orders for this visit: Acute conjunctivitis of left eye, unspecified acute conjunctivitis type (Primary) - erythromycin (Romycin) 5 MG/GM ophthalmic ointment; Apply to affected eye(s) 4 times daily for 7 days. Apply Amount per Dose: 0.25 inch (~0.5 cm) per dose. Patient with a clinical presentation of left eye conjunctivitis Normal pulmonary exam and no respiratory distress No clinical evidence of septal or preseptal cellulitis Discussed supportive care with ample hydration, sleep position and rest Encouraged warm compress prn Rx Erythromycin ophthalmic ointment OTC supportive medications reviewed Advised to contact the clinic if no improvement of symptoms Indications for UC/ER use reviewed documented in this encounter Plan of Treatment Upcoming Encounters Date Type Department Care Team (Late st Contact Info) Description 11/28/2024 10:00 AM EDT Office Visit [facility] ADULT DENTAL [address] [place] [address] Ting Castillo [address] [place] [address] documented as of this encounter Visit Diagnoses Diagnosis Acute conjunctivitis of left eye, unspecified acute conjunctivitis type- Primary documented in this encounter Additional Health Concerns Assessment Noted Time PHQ-9 Depression Total Score: 6 08/27/19 24 3:42 PM EDT documented as of this encounter Care Teams Commercial Service Technician Relationship Specialty Start Date End Date Name, MD Howard [address] [place] [address] PCP - General Family Medicine 03/13/19 documented as of this encounter
--- OUTSIDE RECORDS SUMMARY | 2024-06-17 13:53 | XMS_ITS | Encounter Summary ---
Author Organization [employer] [facility] Address [address] [facility] [address] h Floor [place] [phone] Care Team Providers Care Podiatric Physician Name Role Phone Name, Howard BRENNER Primary Care Provider [phone] Encounter Details Date Type Department Care Team (Latest Contact Info) Description 10/13/2021 Abstract [facility] CONVERSIONS Dental, Provider, DDS Social History Tobacco Use Types Packs/Day Years Used Date Smoking Tobacco: Never Assessed Comments Unknown Sex and Gender Information Value [...] Description 11/28/2024 10:00 AM EDT Office Visit [facility] ADULT DENTAL [address] [place] [address] Anna, Ting [address] [place] [address] documented as of this encounter Visit Diagnoses Not on filedocumented in this encounter Care Teams Podiatric Physician Relationship Specialty Start Date End Date Name, MD Howard [address] [place] [address] PCP - General Family Medicine 03/13/19 documented as of this encounter
--- OUTSIDE RECORDS SUMMARY | 2024-06-17 13:53 | XMS_ITS | Encounter Summary ---
Author Organization [employer] [facility] Address [address] [facility] [address]t [place] [address] Care Team Providers Care Physical Therapist Center Manager Name Role Phone Name, Howard BRENNER Primary Care Provider [phone] Encounter Details Date Type Department Care Team (Late Contact Info) Description 05/12/2022 Orders Only [facility] [address] [place] [address] Arlene Simon LPN Social History Tobacco Use Types Packs/Day [...] Description 11/28/2024 10:00 AM EDT Office Visit [facility] ADULT DENT[facility] [address] [place] [address] Anna, Ting [address] [place] [address] documented as of this encounter Visit Diagnoses Not on filedocumented in this encounter Care Teams Physical Therapist Center Manager Relationship Specialty Start Date End Date Name, MD Howard [address] [place] [address] PCP - General Family Medicine 03/13/19 documented as of this encounter
--- OUTSIDE RECORDS SUMMARY | 2024-06-17 13:54 | XMS_ITS | Clinical Summary ---
Author Organization [facility] [facility] Address [address] [place] [address] Care Team Providers Care Grizzlyman Name Role Phone Laura Jones MD Primary [...] age to complete this topic Care Teams Grizzlyman Relationship Specialty Start Date End Date Laura Jones MD [address] [place] [id number] PCP - General Internal Medicine 12/14/17
--- OUTSIDE RECORDS SUMMARY | 2024-06-17 13:54 | XMS_ITS | Clinical Summary ---
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 Name Role Phone Name, Howard BRENNER Primary Care Provider [phone] Allergies Active Allergy Reactions Criticality Noted Date Comments Sulfa Antibiotics 05/03/2015 Other reaction(s): swelling of throat Medications Diclofenac Sodium (Voltaren) 1 % gelIndications:Chr onic neck pain Apply once a day to the affected area 150 g 2 07/20/19 23 Active Lancet Devices (TRUEdraw Lancing Device) [facility] Use to test blood sugar 3 to 4 times per day 1 each 10/13/19 23 Active ramelteon (Rozerem) 8 MG tabletIndications: Insomnia, unspecified type TAKE 1 TABLET BY MOUTH AT BEDTIME 30 tablet 1 01/19/20 23 Active TRUEplus Lancets 33G misc TEST BLOOD SUGAR THREE OR FOUR TIMES DAILY 100 each 11 03/12/20 23 Active OneTouch Ultra test strip TEST BLOOD SUGAR 3 TO 4 TIMES PER DAY 100 strip 11 04/24/20 23 Active Blood Glucose Monitoring Suppl (ONE TOUCH ULTRA 2) w/Device kit TEST BLOOD SUGAR TWICE DAILY 1 kit 06/01/19 24 Active topiramate (Topamax) 25 MG tablet TAKE 1/2 TABLET BY MOUTH EVERY DAY AT BEDTIME FOR 1 WEEK THEN INCREASE TO TAKE 1 TABLET BY MOUTH EVERY DAY AT BEDTIME 08/08/19 24 Active Jardiance 25 MG TAKE 1 TABLET BY MOUTH EVERY MORNING 30 tablet 11 10/12/19 24 Active Multiple Vitamin (Multivitamin) tablet TAKE 1 TABLET BY MOUTH EVERY MORNING 90 tablet 3 10/17/19 24 Active atorvastatin (Lipitor) 40 MG tabletIndications: High cholesterol TAKE 1 TABLET BY MOUTH AT BEDTIME 90 tablet 3 10/17/19 24 Active losartan (Cozaar) 100 MG tabletIndications: Hypertension, unspecified type TAKE 1 TABLET BY MOUTH EVERY MORNING 90 tablet 3 10/17/19 24 Active metFORMIN (Glucophage) 1000 MG tablet TAKE 1 TABLET BY MOUTH TWICE DAILY IN THE MORNING AND AT BEDTIME WITH FOOD 180 tablet 3 10/17/19 24 Active gabapentin (Neurontin) 300 MG capsule TAKE 1 CAPSULE BY MOUTH ONCE DAILY 30 capsule 5 12/06/19 24 Active lidocaine (Lidoderm) 5 % patchIndications:A cute right-sided low back pain with right-sided sciatica Apply 1 patch topically Once per day. Remove & discard patch within 12 hours or as directed by MD. 30 patch 2 12/10/19 24 025 Active amLODIPine (Norvasc) 5 MG tablet TAKE 1 TABLET BY MOUTH EVERY MORNING 90 tablet 3 01/31/20 24 Active diazePAM (Valium) 2 MG tabletIndications: Muscle spasm Take 1 tablet (2 mg) by mouth if needed in the morning and at bedtime for muscle spasms (for muscle spasm) for up to 5 days. 10 tablet 02/11/20 24 Active nabumetone (Relafen) 500 MG tablet Take 1 tablet (500 mg) by mouth 2 times daily. 60 tablet 2 02/12/20 24 025 Active atenolol (Tenormin) 25 MG tabletIndications: Hypertension, unspecified type TAKE 1 TABLET BY MOUTH EVERY MORNING 90 tablet 1 02/29/20 24 Active glipiZIDE XL (Glucotrol XL) 2.5 MG 24 hr tablet TAKE 1 TABLET BY MOUTH EVERY DAY IN THE MORNING. DO NOT BREAK, CRUSH, DISSOLVE OR CHEW 30 tablet 11 03/05/20 24 Active methocarbamol (Robaxin) 750 MG tablet Take 1 tablet (750 mg) by mouth if needed in the morning, at noon, and at bedtime for muscle spasms. 30 tablet 1 03/05/20 24 Active pantoprazole (ProtoNix) 40 MG EC tabletIndications: Heartburn TAKE 1 TABLET BY MOUTH EVERY MORNING 90 tablet 1 03/28/20 24 Active clopidogrel (Plavix) 75 MG tablet TAKE 1 TABLET BY MOUTH EVERY MORNING 90 tablet 1 04/29/20 24 Active naproxen sodium (Aleve) 220 MG tabletIndications: Acute pain of left shoulder due to trauma Take 1 tablet (220 mg) by mouth if needed in the morning and at bedtime for mild pain. 30 tablet 1 05/16/20 24 Active clotrimazole (Lotrimin) 1 % vaginal creamIndications:V ulvovaginal Candidiasis Insert one applicator per vagina at bedtime for 7 nights 45 g 06/07/19 25 Active erythromycin (Romycin) 5 MG/GM ophthalmic ointmentIndication s:Acute conjunctivitis of left eye, unspecified acute conjunctivitis type Apply to affected eye(s) 4 times daily for 7 days. Apply Amount per Dose: 0.25 inch (~0.5 cm) per dose. 3.5 g 05/22/19 25 025 Active Problems Problem Noted Date Diagnosed Date Normal oral exam 05/29/2024 Open fracture of tooth 03/19/2024 Chronic bilateral low back pain with right-sided sciatica 03/05/2024 Left anterior shoulder pain 02/11/2024 Assessment & Plan (02/13/2024 5:44 PM EDT): Films of neck and left shoulder ordered, pt cannot recall any trauma or change in activity but msk tension is sig enough to keep pt awake, has follow up tomorrow with pcp. Muscle spasm 02/11/2024 Assessment & Plan (02/13/2024 5:46 PM EDT): Due to palpable muscle spasm, reviewed options, possible nerve entrapment in which case pt may benefit from PT, prednisone/or cortisone injection Due to severity of muscle spasm and associated pain low dose diazepam offered.. risks including over use, dependence reviewed. X-rays will be scheduled for tomorrow Ovarian mass, left 11/26/2023 Pain of right hip 11/26/2023 Assessment & Plan (11/27/2023 12:21 PM EDT): Concerning for occult fracture, x-ray ordered, consider CT if negative. Reviewed options for pain management, pt would like to try a stronger medication. PRN usage reviewed. Risks/benefits reviewed Hearing loss of right ear due to cerumen impacti on 11/26/2023 Assessment & Plan (11/27/2023 12:21 PM EDT): Ear irrigated in clinic with relief Continuous RLQ abdominal pain 11/20/2023 Assessment & Plan (11/20/2023 2:38 PM EDT): 72 year old diabetic female with a pNhx significant fir diverticulosis here with c/o new onset of moderate to severe RLQ abdominal pain intensity 8-10/10. On exam patient is tender to palaption RLQ, no rebound or guarding . Etiology ? Acute diverticulitis Given the severity of the pain , she needs to be evaluated in the ER. Needs a CT of abdomen and CBC as well as CRP. Will likely need admission for antibiotic treatment Pt will be transported by her to [facility] ER. Diabetic polyneuropathy 08/27/2023 Generalized gingival recession 02/28/2023 Missing teeth, acquired 02/28/2023 History of TIAs 10/12/2022 Chronic neck pain 07/19/2022 Overview (07/19/2022): Voltaren gel for pain, recheck X-ray and referral to pain clinic Assessment & Plan (07/19/2022 11:57 AM EST): PT has known DDD/ DJD probably exacerbated by recent falls. No neurologcal symptoms. Counseled to use gabapentin every night as opposed to PRN use tylenol 100mg BID x1 week and then PRN. Use diclofenac gell once per day x 1 week then PRN. Recommended walk in clinic acupuncture. Refer to PT and FU with PCP. Cyst of ovary 07/18/2022 Assessment & Plan (11/27/2023 12:20 PM EDT): Stat ultrasound ordered, may need MRI Tremor 07/18/2022 Dental plaque on multiple teeth 07/13/2022 Solar urticaria 07/15/2018 Cataract 02/25/2018 Colon polyps 02/25/2018 Overview (11/23/2023): 04/2015, told to repeat in 3 years Diabetes mellitus with neurological manifestatio n 02/25/2018 DJD (degenerative joint disease) of knee 018 Overview (11/23/2023): left Hyperlipidemia 12/27/2017 TIA (transient ischemic attack) 12/27/2017 Overview (11/23/2023): X3 (1994, 2002) Age-related nuclear cataract of both eyes 2017 Presbyopia 10/11/2017 Type 2 diabetes mellitus 11/06/2016 Essential hypertension 05/03/2015 Gastroesophageal reflux disease without esophagi tis 05/03/2015 Resolved Problems Problem Noted Date Diagnosed Date Resolved Date Accidental fall 07/18/2022 10/12/2022 Contusion of rib 07/18/2022 10/12/2022 Assessment & Plan (07/19/2022 11:56 AM EST): No rib fracture, reassurance. Counseled to put heat to affected area, take Tylenol PRN. Contusion of upper limb 07/18/202209/19 Laceration of right forearm 07/18/2022 10/12/2022 Postmenopausal bleeding 07/18/202209/19 Respiratory crackles at right lung base 05/11/2022 10/12/2022 Encounters Date Type Department Care Team Description 06/17/2024 1:45 PM EST Office Visit [facility] [address] [place] [phone] Name, MD Howard Type 2 diabetes mellitus with other specified complication, without long-term current use of insulin ([facility]) 06/17/2024 Travel 06/07/2024 10:20 AM EST Office Visit [facility] [address] [place] [phone] Olvin Pimentel MD Vaginal candidiasis 06/07/2024 Travel 05/29/2024 1:00 PM EST Office Visit [facility] [address] [place] [address] Anna, Ting Missing teeth, acquired (Primary Dx); Dental plaque on multiple teeth; Normal oral exam 05/22/2024 10:00 AM EST Office Visit [facility] [address] [phone] Olvin Pimentel MD Acute conjunctivitis of left eye, unspecified acute conjunctivitis type (Primary Dx) 05/19/2024 [facility] [address] [phone] Juana Donnelly MD 05/19/2024 Telephone [facility] [address] [place] [phone] Howard Lovett MD Nurse Triage 05/16/2024 1:00 PM EST [facility] [address] [address] Juana Donnelly MD Acute pain of left shoulder due to trauma (Primary Dx) 04/29/2024 Refill [facility] [address] [place], [place] [phone] NameHoward MD 03/28/2024 Refill [facility] [address] [place] [phone] Howard Lovett MD Heartburn 03/21/[address] [address] Edgar Wilhelm [place] oumou recalls 03/19/2024 2:00 PM EDT Office Visit [facility] [address] [place] [phone] Keshav Ricketts DDS Open fracture of tooth, sequela (Primary Dx) 03/19/2024 11:30 AM EDT Office Visit [facility] [address] [place] [phone] Keshav Ricketts DDS Open fracture of tooth, initial encounter (Primary Dx) from Last 3 Months Immunizations Name Administration Dates Next Due Influenza injectable quadriv alent IIV4 with preservative 03/13/2017,05/03/2015 Influenza, High Dose Seasona l, Preservative Free 03/31/2019,03/04/2018 Influenza, seasonal, injecta ble, preservative free 02/10/2016 Pfizer Covid-19 Vaccine 12+ 06/13/2021,,12/01/2020 Pneumococcal Conjugate PCV 13 03/31/2019 Pneumococcal Polysaccharide PPSV23 03/13/2017 Tdap 05/03/2015 Social History Tobacco Use Types Packs/Day Years Used Date Smoking Tobacco: Never Passive Smoke Exposure: Never Smokeless Tobacco: Never Tobacco Cessation:Counseling Given: Not Answered Alcohol Use Standard Drinks/Week Comments Never 0 (1 standard drink = 0.6 oz pur e alcohol) Depression Answer Date Recorded Patient Health Questionnaire-9 Score 6 08/27/2023 Patient Health Questionnaire-9 Score 6 08/27/2023 Last PHQ-9: Questionnaire Data Not on file 0 08/27/2023 Housing Stability Answer Date Recorded What is your housing situation today? I have rosaline eugenia 08/27/[address] you li [...] Orientation Straight 03/20/2022 10 :29 AM EDT Last Filed Vital Signs Vital Sign Reading Time Taken Comments Blood Pressure 130/60 06/17/2024 1:44 PM EST Pulse 79 06/17/2024 1:44 PM EST Temperature 36.9 ??C (98.5 ??F) 06/17/2024 1:44 PM ES T Respiratory Rate 18 06/17/2024 1:44 PM EST Oxygen Saturation 98% 06/17/2024 1:44 PM EST Inhaled Oxygen Concentration - - Weight 53.5 kg (118 lb) 06/17/2024 1:44 PM EST Height 149.9 cm (4' 11 ) 06/17/2024 1:44 PM EST Body Mass Index 23.83 06/17/2024 1:44 PM EST Plan of Treatment Upcoming Encounters Date Type Department Care Team (Late st Contact Info) Description 11/28/2024 10:00 AM EDT Office Visit [facility] [address] [place] [address] Anna, Ting [address] [place] [address] Health Maintenance Due Date Last Done Comments CT Colonography 1950 FIT DNA/Cologuard 1950 FIT 1950 FOBT 1950 Sigmoidoscopy 1950 Alcohol/Substance Use Screening 1964 Hepatitis C Screening 1970 Zoster Vaccines (1 of 2) 2002 RSV Patients and Patients Aged 60 years or older (1 - Risk 60-74 years 1-dose series) 2012 Colonoscopy 10/25/2020 10/26/2015 Colorectal Cancer Screening 10/25/2020 Pneumococcal Vaccine: 65+ Years (3 of 3 - PPSV23 or PCV20) 03/13/2022 03/31/2019, 03/13/2017 Dental Oral Exam 08/31/2023 02/28/2023, , 07/13/2022 COVID-19 Vaccine ( season) 2024 06/13/2021, 12/28/2020, 12/01/2020 Influenza Vaccine (#1) 2024 9, 03/04/2018, 03/13/2017, Additional history exists Diabetes: Urine Protein Screening 04/23/2024 04/23/2023, 01/05/2021, 07/15/2019 Depression Screening 08/26/2024 08/27/2023, 04/08/20 24 Diabetes: Foot Exam 08/26/2024 08/27/2023, 08/27/2023, 08/27/2023, Additional history exists SDOH Screening 08/26/2024 08/27/2023 Lipid Panel 08/27/2024 08/28/2023, 020 05/2022, 01/05/2021 Diabetes: Hemoglobin A1C 09/15/2024 025, 02/12/2024, 08/27/2023, Additional history exists Dental Prophylaxis 11/27/2024 05/29/2024, 0 10/29/2023, 02/28/2023, Additional history exists Eye Exam 03/02/2025 03/02/2023 DTaP/Tdap/Td Vaccines (2 - Td or Tdap) 05/03/2025 05/03/2015 Dental X-Ray: Bitewings 05/30/2025 05/29/2024, 07/13 Tobacco Screening 06/07/2025 06/07/2024 Dental X-Ray: Full Mouth 07/14/2025 07/13/2022 Mammogram 08/30/2025 08/31/2023, 040 05/2021, 08/19/2021, Additional history exists HIB Vaccines Aged Out No longer eligi [...] patient's age to complete this topic Meningococcal Vaccine Aged Out No nickie linda eligible based on patient's age to complete this topic RSV under 20 months Aged Out No longe r eligible based on patient's age to complete this topic Rotavirus Vaccines Aged Out No longer eligible based on patient's age to complete this topic Procedures Procedure Name Priority Date/Time Associated Diagnosis Comments POCT GLUCOSE Routine 06/17/2024 1:47 PM EST Type 2 diabetes mellitus with other specified complication, without long-term current use of insulin ([facility]) POCT GLYCATED HEMOGLOBIN, TOTAL Routine 06/17/2024 1:47 PM EST Type 2 diabetes mellitus with other specified complication, without long-term current use of insulin ([facility]) BACTERIAL VAGINOSIS PANEL Routine 06/07/2024 10:59 AM EST Vaginal candidiasis CULTURE, URINE, ROUTINE Routine 06/07/2024 10:59 AM EST Vaginal candidiasis POCT URINALYSIS DIPSTICK Routine 06/07/2024 9:56 AM EST Vaginal candidiasis INTRAORAL - PERIAPICAL EACH ADDITIONAL RADIOGRAPHIC IMAGE Routine 05/29/2024 1:00 PM EST Missing teeth, acquired Dental plaque on multiple teeth PROPHYLAXIS - ADULT Routine 05/29/2024 1 :00 PM EST INTRAORAL - PERIAPICAL EACH ADDITIONAL RADIOGRAPHIC IMAGE Routine 05/29/2024 1:00 PM EST INTRAORAL - PERIAPICAL FIRST RADIOGRAPHIC IMAGE Routine 05/29/2024 1:00 PM EST BITEWINGS - 4 RADIOGRAPHIC IMAGES Routine 05/29/2024 1:00 PM EST ORAL HYGIENE INSTRUCTIONS Routine 05/29/2024 1:00 PM EST XR SHOULDER 2+ VIEWS LEFT Routine 05/16/2024 1:25 PM EST Acute pain of left shoulder due to trauma 13 EXTRACTION, ERUPTED TOOTH OR EXPOSED ROOT (ELEVATION AND/OR FORCEPS REMOVAL) Routine 03/19/2024 2:00 PM EDT ADJUNCTIVE GENERAL SERVICES - UNCLASSIFIED TREATMENT - PALLIATIVE TREATMENT OF DENTAL PAIN - PER VISIT Routine 03/19/2024 11:30 AM EDT INTRAORAL - PERIAPICAL FIRST RADIOGRAPHIC IMAGE Routine 03/19/2024 11:30 AM EDT BI MAMMOGRAM SCREENING TOMOSYNTHESIS BILATERAL Routine 08/31/2023 1:20 PM EDT LIPID PANEL, STANDARD Routine 08/28/2023 8:50 AM EDT Type 2 diabetes mellitus with other specified complication, without long-term current use of insulin ([facility]) Diabetic polyneuropathy associated with other specified diabetes mellitus ([facility]) High cholesterol ALBUMIN, RANDOM URINE W/CREATININE Routine 04/23/2023 8:58 AM EST DIABETES EYE EXAM Routine 03/02/2023 PERIODIC ORAL EVALUATION - ESTABLISHED PATIENT Routine 02/28/2023 8:00 AM EDT DIAGNOSTIC - DIAGNOSTIC IMAGING - INTRAORAL - COMPREHENSIVE SERIES OF RADIOGRAPHIC IMAGES Routine 07/13/2022 11:00 AM EST Dental plaque on multiple teeth HM COLONOSCOPY Routine 10/26/2015 10:13 AM EDT from Last 3 Months or Most Recently Relevant to Health Maintenance Results * (ABNORMAL) POCT HGB A1C (06/17/2024 1:47 PM EST) Hemoglobin A1C 8.7(A) 4.0 - 6.0 % QC Media Lot # [id number] Lot# Expiration Date [id number] Blood 06/17/2024 1:47 PM EST us Howard Lovett MD POINT OF CARE TEST ENTER/EDIT OR DERABLES Final Result * POCT Glucose (06/17/2024 1:47 PM EST) Glucose Blood, POC 165 60 - 200 mg/dL QC Media Lot # [id number] Lot# Expiration Date 53,025 Blood Capillary blood specimen / Unknown 06/17/2024 1:47 PM EST us Howard Lovett MD POINT OF CARE TEST ENTER/EDIT OR DERABLES Final Result * (ABNORMAL) Bacterial Vaginosis Panel (06/07/2024 10:59 AM EST) TRICHOMONAS VAGINALIS DETECTION BY PCR NOT DETECTED Not Detect [facility] BACTERIAL VAGINOSIS DETECTION BY PCR NEGATIVE Negative [facility] Comment:The BV organism targ ets of the Xpert Xpress MVP test can becommensal in women; Xpert Xpress MVP positive results forbacterial vaginosis should be considered in conjunction withother clinical and patient information to determine thedisease status. Organisms that are not detected by the XpertXpress MVP test have also been reported to be associatedwith BV and aerobic vaginitis.The Xpert Xpress MVP test performance has not been evaluatedin patients under the age of 14. NICOLE GROUP DETECTION BY PCR DETECTED(A) Not Detect [facility] Nicole glab krusei PCR NOT DETECTED Not Detect [facility] Swab Vaginal structure / Unknown 06/07/2024 10:59 AM EST 06/07/2024 1:43 PM EST Olvin Pimentel MD LAB MICROBIOLOGY - GENERAL ORDER MELINA Final Result Performing Organization Address [facility] Co de Phone Number [facility] [address] [place] [phone] * Culture, Urine, Routine (06/07/2024 10:59 AM EST) Urine Urine specimen obtained by clean catch procedure / Unknown 06/07/2024 10:59 AM EST 06/07/2024 1:43 PM EST Comment:UACC Narrative [facility] - 06/08/2024 12:59 PM EST Urine Culture Report Result Urine Culture 10,000 to 50,000 cfu/ml Urine Culture Mixed bacterial kinza characteristic of Urine Culture urogenital contamination. Specimen Source: Urine clean catch Olvin Pimentel MD LAB MICROBIOLOGY - GENERAL ORDER MELINA Final Result Performing Organization Address [facility] Co de Phone Number [facility] [address] [place] [phone] * POCT Urinalysis (06/07/2024 9:56 AM EST) Color, UA Yellow Clarity, UA Clear Glucose, UA 4+ >500 Comment:1000mg Bilirubin, UA Negative Ketones, UA Positive Comment:trace Spec Grav, UA 1.010 Blood, UA Negative Negative, None Detected pH, UA 5.5 Protein, UA Negative Urobilinogen, UA 0.2 Leukocytes, UA Negative Negative, Rare, Trace Nitrite, UA Negative Negative, None Detected Appearance, UA clear QC Media Lot # [id number] Lot# Expiration Date Urine 06/07/2024 9:56 AM EST us Olvin Pimentel MD POINT OF CARE TEST ENTER/EDIT OR DERABLES Final Result * XR Shoulder 2+ Views Left (05/16/2024 1:25 PM EST) Anatomical Region Laterality Modality Upper Extremities, Shoulder Left Radi ographic Imaging 05/16/2024 1:25 PM EST Narrative 05/16/2024 2:33 PM EST ?[facility] ?[address] ?[place] [address] ?XRay Report ? Signed ? Patient: Kimberly Randhawa ?MR#: [id number] ?? [id number] ? : 1950 ?Acct:[id number] ? Age/Sex: 73 / F ?ADM Date: 05/16/24 ? Loc: HO.HHCX ? Attending Dr: Juana Donnelly MD ? Ordering Physician: Juana Donnelly MD ?? Date of Service: 05/16/24 ?? Procedure(s): XR shoulder LT min 2V ?? Accession Number(s): [id number] ? cc: Juana Donnelly MD ? EXAMINATION: ?? XR SHOULDER, LEFT ? CLINICAL INFORMATION: ?? Status post fall onto left upper body with localized pain over left ?? scapula. ? COMPARISON: ?? Left shoulder radiographs dated 02/12/2024. ? TECHNIQUE: ?? Three views of the left shoulder. ? FINDINGS: ?? No acute fracture or dislocation. Mild acromioclavicular osteophyte ?? arthritis, unchanged. No glenohumeral joint space narrowing or marginal ?? osteophytes. No osseous erosion. No abnormal soft tissue calcification. ? XR/XR shoulder LT min 2V ?? IMPRESSION: ?? 1. No acute fracture or dislocation. ?? 2. Mild acromioclavicular osteoarthritis, unchanged. ? Electronically signed by: ??Lit Avina MD ??05/16/2024 02:30 PM EST ?? RP ? Dictated By: ?Lit Avina MD ? Signed By: ?<Electronically signed by Lit Avina MD in OV> ?05/16/24 1430 ? DD/ 1325 ? TD/TT: 05/16/24 1340 ? Facialist: SR ? Procedure Note Donotuseinterpreter, Image - 05/16/2024 [facility] [address] [place] [address] XRay Report Signed Patient: Marlena Randhawa#: [id number] : 3Acct:[id number] Age/Sex: 73 / FADM Date: 05/16/24 Loc: HO.HHCX Attending Dr: Juana Donnelly MD Ordering Physician: Juana Donnelly MD Date of Service: 05/16/24 Procedure(s): XR shoulder LT min 2V Accession Number(s): [id number] cc: Juana Donnelly MD EXAMINATION: XR SHOULDER, LEFT CLINICAL INFORMATION: Status post fall onto left upper body with localized pain over left scapula. COMPARISON: Left shoulder radiographs dated 02/12/2024. TECHNIQUE: Three views of the left shoulder. FINDINGS: No acute fracture or dislocation. Mild acromioclavicular osteophyte arthritis, unchanged. No glenohumeral joint space narrowing or marginal osteophytes. No osseous erosion. No abnormal soft tissue calcification. XR/XR shoulder LT min 2V IMPRESSION: 1. No acute fracture or dislocation. 2. Mild acromioclavicular osteoarthritis, unchanged. Electronically signed by: Lit Avina MD 05/16/2024 02:30 PM [facility] Dictated By: Lit Avina MD Signed By: <Electronically signed by Lit Avina MD in OV> 05/16/24 1430 DD/ 1325 TD/TT: 05/16/24 1340 Facialist: SR Juana Donnelly MD IMG XR PROCEDURES Final Resul t * BI Mammogram Screening Tomosynthesis Bilateral (08/31/2023 1:20 PM EDT) Anatomical Region Laterality Modality Breast Bilateral Mammography 08/31/2023 1:20 PM EDT Narrative 09/27/2023 10:20 PM EDT ? [place] [facility] ? [address] ?[place] [address] ? Mammography Report ? Signed ? Patient: Elvira Mauricio,Kimberly ?MR#: [id number] ?? [id number] ? : 1950 ?Acct:[id number] ? Age/Sex: 72 / F ?ADM Date: 08/31/23 ? Loc: HO.MAMMO ? Attending Dr: Kelsie Simpson CNM ? Ordering Physician: Kelsie Simpson CNArleth ?Results: 2Beni ?? gn Findings ? Date of Service: 08/31/23 ?Follow Up: 1 Year From Orig ?? inal Mammogram ? Procedure(s): MM tomosynthesis screening BI ?? Accession Number(s): [id number] ? cc: Rubin Arguello MD; Kelsei Simpson CNM ? EXAMINATION: ?? MM SCREENING DIGITAL BREAST TOMOSYNTHESIS, BILATERAL ? CLINICAL INFORMATION: ? Screening. Asymptomatic. ? COMPARISON: ?? Mammography: This study is compared with prior exams dating back to ?? 2019. ? TECHNIQUE: ?? Digital breast tomosynthesis is performed in both the craniocaudal and ?? mediolateral oblique views along with computer-aided detection (CAD). ?? Synthesized 2D images are generated from the tomosynthesis. ? FINDINGS: ?? The breasts are heterogeneously dense, which may obscure small masses ?? (ACR BI-RADS breast composition Category c). ? There are no significant masses, abnormal calcifications, or other ?? abnormalities. ?? There are scattered, bilateral benign calcifications. ? MM/MM tomosynthesis screening BI ?? IMPRESSION: ?? No mammographic evidence of malignancy. ? ASSESSMENT: ? BI-RADS BI-RADS 2 - Benign Findings ? RECOMMENDATION: ?? Routine annual mammography screening. ? 1 year F/U ? This examination should not preclude the clinical evaluation of a ?? suspicious palpable abnormality. ? This patient's information was entered into a reminder system with a ?? target due date for their next mammogram. ? Dictated By: ?Beronica Holguin MD ? Signed By: ?<Electronically signed by Beronica Holguin MD in OV> ? 09/27/232215 ? DD/ 1320 ? TD/TT: ? Facialist: ? Procedure Note Ishan Quezada - 09/27/2023 Crist[facility] [address] [place] [address] Mammography Report Signed Patient: Marlena Randhawa#: [id number] : 3Acct:[id number] Age/Sex: 72 / FADM Date: 08/31/23 Loc: HO.MAMMO Attending Dr: Kelsie Simpson CNM Ordering Physician: Kelsie Simpsonesults: 2Beni gn Findings Date of Service: 08/31/23Follow Up: 1 Year From Orig inal Mammogram Procedure(s): MM tomosynthesis screening BI Accession Number(s): [id number] cc: Rubin Arguello MD; Kelsie Simpson CNM EXAMINATION: MM SCREENING DIGITAL BREAST TOMOSYNTHESIS, BILATERAL CLINICAL INFORMATION: Screening. Asymptomatic. COMPARISON: Mammography: This study is compared with prior exams dating back to 2019. TECHNIQUE: Digital breast tomosynthesis is performed in both the craniocaudal and mediolateral oblique views along with computer-aided detection (CAD). Synthesized 2D images are generated from the tomosynthesis. FINDINGS: The breasts are heterogeneously dense, which may obscure small masses (ACR BI-RADS breast composition Category c). There are no significant masses, abnormal calcifications, or other abnormalities. There are scattered, bilateral benign calcifications. MM/MM tomosynthesis screening BI IMPRESSION: No mammographic evidence of malignancy. ASSESSMENT: BI-RADS BI-RADS 2 - Benign Findings RECOMMENDATION: Routine annual mammography screening. 1 year F/U This examination should not preclude the clinical evaluation of a suspicious palpable abnormality. This patient's information was entered into a reminder system with a target due date for their next mammogram. Dictated By: Beronica Holguin MD Signed By: <Electronically signed by Beronica Holguin MD in OV> 09/27/23 2216 DD/ 1320 TD/TT: Facialist: [facility] External Provider IMG BI PROCEDURES Edited Result - Final * (ABNORMAL) Lipid Panel, Standard (08/28/2023 8:50 AM EDT) Triglycerides 172(H) <150 mg/dL [facility] Comment:Desirable Triglyceri de: less than 150 mg/dLBorderline High Triglyceride 150-199 mg/dLHigh Triglyceride: 200-499 mg/dLVery High Triglyceride: greater than or equal to 5OO mg/dL Cholesterol 146 <200 mg/dL [facility] Comment:Desirable Cholestero l: less than 200 mg/dLBorderline High Cholesterol: 200-239 mg/dLHigh Cholesterol: greater than 239 mg/dL LDL Cholesterol Calculated 55 <100 mg/dL [facility] Comment:Desirable LDL: less than 100 mg/dLNear Optimal/Above Optimal LDL: 110- 129 mg/dLBorderline High LDL: 130-159 mg/dLHigh LDL: 160-189 mg/dLVery High LDL: greater than or equal to 190 mg/dL HDL Cholesterol 57 >40 mg/dL [facility] Comment:Desirable HDL: great er than 40 mg/dL Note: This HDL assay may give artificially low results in patients with liver disease. Blood Venous blood specimen / Unknown 08/28/2023 8:50 AM EDT 08/28/2023 11:20 AM EDT us Howard Lovett MD LAB BLOOD ORDERABLES Final Resul t Performing Organization Address [facility] Co de Phone Number [facility] [address] [place] [address] [phone] * Albumin, Random Urine W/Creatinine (04/23/2023 8:58 AM EST) Creatinine, Urine 65.67 mg/dL [facility] Microalbumin Urine 14.0 mg/L [facility] Microalbum Creatinine Ratio Ur 21.3 <30 ug/mg cr [facility] Comment:Albumin/Creatinine R atio Reference Ranges: Normal: < 30 ug/mg creatinine Microalbuminuria: 30 - 300 ug/mg creatinineClinical Albuminuria: > 300 ug/mg creatinine 04/23/2023 8:58 AM EST 04/23/2023 11:06 AM EST us Howard Lovett MD LAB URINE ORDERABLES Final Resul t Performing Organization Address [facility] Co de Phone Number [facility] [address] [place] [phone] * Diabetes Eye Exam (03/02/2023) Eye Exam Normal Normal us Howard Lovett MD HEALTH MAINTENANCE Final Result * Hm Colonoscopy (10/26/2015 10:13 AM EDT) Colonoscopy Normal Normal Narrative Radha Henry - 10/26/2015 10:13 AM EDT Recommended 5 year follow up us Chi Provider HEALTH MAINTENANCE Final Result from Last 3 Months or Most Recently Relevant to Health Maintenance Insurance [facility] STANDARD [facility] MEDICARE ADVANTAGE HMO [facility] DENTAL - N FULL (MEDICAID) Care Teams Art Studio Teacher Relationship Specialty Start Date End Date Name, MD Howard [address] [place] [address] [place] [address] PCP - General Family Medicine 03/13/19
--- OUTSIDE RECORDS SUMMARY | 2024-06-17 13:54 | XMS_ITS | Encounter Summary ---
Author Organization [employer] Address [address] [facility] 7t [place] [address] Care Team Providers Care Hull Molder Name Role Phone Name, Howard BRENNER Primary Care Provider [phone] Encounter Details Date Type Department Care Team (Late st Contact Info) Description 11/27/2023 Orders Only [facility] [address] [place], [place] [phone] ProviderAlon MD Social History Tobacco Use Types Packs/Day Years [...] Description 11/28/2024 10:00 AM EDT Office Visit [facility]ULT [facility] [address] [place] [address] Anna Ting [address] [place] [address] documented as of this encounter Procedures Procedure Name Priority Date/Time Associated Diagnosis Comments CT ABDOMEN PELVIS W CONTRAST Routine 11/20/2023 4:12 PM EDT documented in this encounter Results * CT Abdomen Pelvis w/ Contrast (11/20/2023 4:12 PM EDT) Anatomical Region Laterality Modality Body, Pelvis, Abdomen Computed T omography us Historical Provider MD BOGGS CT PROCEDURES Final R esult documented in this encounter Visit Diagnoses Not on filedocumented in this encounter Additional Health Concerns Assessment Noted Time PHQ-9 Depression Total Score: 6 08/27/19 24 3:42 PM EDT documented as of this encounter Care Teams Hull Molder Relationship Specialty Start Date End Date Name, MD Howard [address] [place] [address] PCP - General Family Medicine 03/13/19 documented as of this encounter
--- OUTSIDE RECORDS SUMMARY | 2024-06-17 13:54 | XMS_ITS | Encounter Summary ---
Author Organization [employer] [facility] Address [address] [facility] [address] h Floor [place] [id number] Care Team Providers Care Insurance Marketing Specialist Name Role Phone Name, Howard BRENNER Primary Care Provider [phone] Encounter Details Date Type Department Care Team (Latest Contact Info) Description 09/29/2020 Abstract [facility] CONVERSIONS Dental, Provider, DDS Social History Tobacco [...] Description 11/28/2024 10:00 AM EDT Office Visit [facility] ADULT DENTAL [address] [place] [address] Anna, Ting [address] [place] [address] documented as of this encounter Visit Diagnoses Not on filedocumented in this encounter Care Teams Insurance Marketing Specialist Relationship Specialty Start Date End Date Name, MD Howard [address] [place] [address] PCP - General Family Medicine 03/13/19 documented as of this encounter
--- OUTSIDE RECORDS SUMMARY | 2024-06-17 13:54 | XMS_ITS | Encounter Summary ---
Author Organization [employer] Address [address] [facility] 7t [place] [address] Care Team Providers Care Engineering Equipment Operator Name Role Phone Name, Howard BRENNER Primary Care Provider [phone] Encounter Details Date Type Department Care Team (Latest Contact Info) Description 06/07/2024 Travel Social History Tobacco Use Types Packs/Day Years [...] Description 11/28/2024 10:00 AM EDT Office Visit [facility] ADULT D[facility] [address] [place] [address] Anna, Ting [address] [place] [address] documented as of this encounter Visit Diagnoses Not on filedocumented in this encounter Additional Health Concerns Assessment Noted Time PHQ-9 Depression Total Score: 6 08/27/19 24 3:42 PM EDT documented as of this encounter Care Teams Engineering Equipment Operator Relationship Specialty Start Date End Date Name, MD Howard [address] [place] [address] PCP - General Family Medicine 03/13/19 documented as of this encounter
--- OUTSIDE RECORDS SUMMARY | 2024-06-17 13:54 | XMS_ITS | Encounter Summary ---
Author Organization [employer] Address [address] [facility] 7t [place] [address] Care Team Providers Care Title I Math Tutor Name Role Phone Name, Howard BRENNER Primary Care Provider [phone] Reason for Visit * Reason Comments Follow-up Encounter Details Date Type Department Care Team ([facility] st Contact Info) Description 06/17/2024 1:45 PM EST Office Visit [facility] [address] [place], [place] [phone] Name, MD Howard [address] [place] [address] Type 2 diabetes mellitus with other specified complication, without long-term current use of insulin ([facility]) Social History Tobacco Use Types Packs/Day Years [...] Mass Index 23.83 06/17/2024 1:44 PM EST documented in this encounter Plan of Treatment Upcoming Encounters Date Type Department Care Team (Late st Contact Info) Description 11/28/2024 10:00 AM EDT Office Visit [facility] [address] [place] [address] Anna Ting [address] [place] [address] documented as of this encounter Procedures Procedure Name Priority Date/Time Associated Diagnosis Comments POCT GLYCATED HEMOGLOBIN, TOTAL Routine 06/17/2024 1:47 PM EST Type 2 diabetes mellitus with other specified complication, without long-term current use of insulin ([facility]) POCT GLUCOSE Routine 06/17/2024 1:47 PM EST Type 2 diabetes mellitus with other specified complication, without long-term current use of insulin ([facility]) documented in this encounter Results * POCT Glucose (06/17/2024 1:47 PM EST) Glucose Blood, POC 165 60 - 200 mg/dL QC Media Lot # [id number] Lot# Expiration Date 53,025 Blood Capillary blood specimen / Unknown 06/17/2024 1:47 PM EST Howard Lovett MD POINT OF CARE TEST ENTER/EDIT OR DERABLES Final Result * (ABNORMAL) POCT HGB A1C (06/17/2024 1:47 PM EST) Hemoglobin A1C 8.7(A) 4.0 - 6.0 % QC Media Lot # [id number] Lot# Expiration Date 101,826 Blood 06/17/2024 1:47 PM EST Howard Lovett MD POINT OF CARE TEST ENTER/EDIT OR DERABLES Final Result documented in this encounter Visit Diagnoses Diagnosis Type 2 diabetes mellitus with other specified complication, without long-term current use of insulin ([facility]) documented in this encounter Additional Health Concerns Assessment Noted Time PHQ-9 Depression Total Score: 6 08/27/19 24 3:42 PM EDT documented as of this encounter Care Teams Title I Math Tutor Relationship Specialty Start Date End Date Name, MD Howard [address] [place] [address] PCP - General Family Medicine 03/13/19 documented as of this encounter
--- OUTSIDE RECORDS SUMMARY | 2024-06-17 13:54 | XMS_ITS | Encounter Summary ---
Author Organization [employer] Address [address] [facility] [address] [place] [address] Care Team Providers Care Body And Fender Mechanic Name Role Phone Name, Howard BRENNER Primary Care Provider [phone] Encounter Details Date Type Department Care Team (Late st Contact Info) Description 05/19/2024 Telephone [facility] [address] [place], [place] [phone] Juana Donnelly MD [address] [place], [place] [phone] Social History Tobacco Use Types Packs/Day Years [...] AM EDT documented as of this encounter Miscellaneous Notes * Telephone Encounter - Luma Simon RN - 05/19/2024 1:17 PM EST TC placed to pt regarding message below per Dr. Donnelly. Pt verbalized understanding. No questions or concerns expressed at this time. Pt to F/U as needed. ----- Message from Juana Donnelly MD sent at 05/19/2024 12:23 PM EST ----- Please inform Kimberly her left shoulder x ray did not demonstrate any fracture or swelling of her leftshoulder blade. 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 documented in this encounter Plan of Treatment Upcoming Encounters Date Type Department Care Team (Late st Contact Info) Description 11/28/2024 10:00 AM EDT Office Visit [facility] ADULT [facility] [address] [place] [address] Royer Castilloaris [address] [place] [address] documented as of this encounter Visit Diagnoses Not on filedocumented in this encounter Additional Health Concerns Assessment Noted Time PHQ-9 Depression Total Score: 6 08/27/19 24 3:42 PM EDT documented as of this encounter Care Teams Body And Fender Mechanic Relationship Specialty Start Date End Date Name, MD Howard [address] [place] [address] PCP - General Family Medicine 03/13/19 documented as of this encounter
--- OUTSIDE RECORDS SUMMARY | 2024-06-17 13:54 | XMS_ITS | Encounter Summary ---
Author Organization [employer] Address [address] [facility] 7[address] [place] [address] Care Team Providers Care Millinery Designer Name Role Phone Name, Howard BRENNER Primary Care Provider [phone] Reason for Visit * Reason Comments UTI Encounter Details Date Type Department Care Team ([facility] st Contact Info) Description 06/07/2024 10:20 AM EST Office Visit [facility] [address] [place], [place] [phone] Olvin Pimentel MD [address] [place], [place] [phone] Vaginal candidiasis Social History Tobacco Use Types Packs/Day Years [...] Sign Reading Time Taken Comments Blood Pressure 153/76 06/07/2024 9:44 AM EST Pulse 83 06/07/2024 9:44 AM EST Temperature 36.8 ??C (98.2 ??F) 06/07/2024 9:44 AM ES T Respiratory Rate 16 06/07/2024 9:44 AM EST Oxygen Saturation 98% 06/07/2024 9:44 AM EST Inhaled Oxygen Concentration - - Weight 54.5 kg (120 lb 4 oz) 06/07/2024 9:44 AM EST Height 149.9 cm (4' 11 ) 06/07/2024 9:44 AM EST Body Mass Index 24.29 06/07/2024 9:44 AM EST documented in this encounter Progress Notes * Olvin Pimentel MD - 06/07/2024 10:20 AM EST Subjective History was provided by the patient. Kimberly Mauricio is a 73 y.o. female who presents for evaluation of vaginal itching and discharge for 3-4 days. Denies dysuria or hematuria. Discharge described as thick and white. Foul-smelling. Denies F/C/N/V/D. Denies abdominal pain. Last Hgb A1c 8.2 (01/2024); recent dental work, but denies using antibiotic recently. Objective Vitals: 06/07/24 0944 BP: (!) 153/76 BP Location: Left arm Patient Position: Sitting BP Cuff Size: Adult Pulse: 83 Resp: 16 Temp: 98.2 ??F (36.8 ??C) TempSrc: Temporal SpO2: 98% Weight: 120 lb 4 oz (54.5 kg) Height: 4' 11 (1.499 m) Physical Exam Vitals reviewed. Constitutional: Appearance: Normal appearance. She is normal weight. HENT: Head: Normocephalic and atraumatic. Right Ear: External ear normal. Left Ear: External ear normal. Nose: Nose normal. Mouth/Throat: Mouth: Mucous membranes are moist. Pharynx: Oropharynx is clear. Eyes: Extraocular Movements: Extraocular movements intact. Conjunctiva/sclera: Conjunctivae normal. Cardiovascular: Rate and Rhythm: Normal rate and regular rhythm. Heart sounds: Normal heart sounds. Pulmonary: Effort: Pulmonary effort is normal. Breath sounds: Normal breath sounds. Abdominal: General: Abdomen is flat. There is no distension. Palpations: Abdomen is soft. Tenderness: There is no abdominal tenderness. There is no right CVA tenderness, left CVA tenderness, guarding or rebound. Genitourinary: Comments: Wet Mount (with MAKSIM): No Clue cells or Trich. Hyphae noted. Musculoskeletal: General: Normal range of motion. Cervical back: Normal range of motion and neck supple. Skin: General: Skin is warm and dry. Neurological: General: No focal deficit present. Mental Status: She is alert and oriented to person, place, and time. Mental status is at baseline. Psychiatric: Mood and Affect: Mood normal. Behavior: Behavior normal. Thought Content: Thought content normal. Judgment: Judgment normal. Office Visit on 06/07/2024 Component Date Value Ref Range Status Color, UA 06/07/2024 Yellow Final Clarity, UA 06/07/2024 Clear Final Glucose, UA 06/07/2024 4+ >500 Final 1000mg Bilirubin, UA 06/07/2024 Negative Final Ketones, UA 06/07/2024 Positive Final trace Spec Grav, UA 06/07/2024 1.010 Final Blood, UA 06/07/2024 Negative Negative, None Detected Final pH, UA 06/07/2024 5.5 Final Protein, UA 06/07/2024 Negative Final Urobilinogen, UA 06/07/2024 0.2 Final Leukocytes, UA 06/07/2024 Negative Negative, Rare, Trace Final Nitrite, UA 06/07/2024 Negative Negative, None Detected Final Appearance, UA 06/07/2024 clear Final QC Media Lot # 06/07/2024 [id number] Final Lot# Expiration Date 06/07/2024 93,025 Final Kimberly was seen today for uti. Diagnoses and all orders for this visit: Vaginal candidiasis - POCT Urinalysis - Culture, Urine, Routine - clotrimazole (Lotrimin) 1 % vaginal cream; Insert one applicator per vagina at bedtime for 7 nights - Bacterial Vaginosis Panel Patient presents to [facility] with S/Sx of vaginal Candidiasis Wet mount evidence of hyphae Glucosuria, but reports BS 180 this AM Negative blood, leukocytes, and nitrite on POC UA today Patient currently on Jardiance Discussed increased risk of Candidiasis with Jardiance, but also informed the risk is increased with uncontrolled diabetes Encouraged to discuss further with PCP for shared decision making Will treat with Gyne-Lotrimin 1% suppository Send out VB panel Potential adverse effects of the medication reviewed Indications for UC/ER use reviewed Advised to contact the clinic if any worsening or persistent symptoms documented in this encounter Plan of Treatment Upcoming Encounters Date Type Department Care Team (Late st Contact Info) Description 11/28/2024 10:00 AM EDT Office Visit [facility] [address] [place] [address] Anna, Ting [address] [place] [address] documented as of this encounter Procedures Procedure Name Priority Date/Time Associated Diagnosis Comments BACTERIAL VAGINOSIS PANEL Routine 06/07/2024 10:59 AM EST Vaginal candidiasis CULTURE, URINE, ROUTINE Routine 06/07/2024 10:59 AM EST Vaginal candidiasis POCT URINALYSIS DIPSTICK Routine 06/07/2024 9:56 AM EST Vaginal candidiasis documented in this encounter Results * (ABNORMAL) Bacterial Vaginosis Panel (06/07/2024 10:59 AM EST) TRICHOMONAS VAGINALIS DETECTION BY PCR NOT DETECTED Not Detect [facility] BACTERIAL VAGINOSIS DETECTION BY PCR NEGATIVE Negative [facility] Comment:The BV organism targ ets of [...] GROUP DETECTION BY PCR DETECTED(A) Not Detect [facility] Nicole glab krusei PCR NOT DETECTED Not Detect [facility] Swab Vaginal structure / Unknown 06/07/2024 10:59 AM EST 06/07/2024 1:43 PM EST Olvin Pimentel MD LAB MICROBIOLOGY - GENERAL ORDER MELINA Final Result Performing Organization Address City/[facility] Co de Phone Number [facility] [address] [place] [phone] * Culture, Urine, Routine (06/07/2024 10:59 AM EST) Urine Urine specimen obtained by clean catch procedure / Unknown 06/07/2024 10:59 AM EST 06/07/2024 1:43 PM EST Comment:UACC Narrative [facility] - 06/08/2024 12:59 PM EST Urine Culture Report Result Urine Culture 10,000 to 50,000 cfu/ml Urine Culture Mixed bacterial kinza characteristic of Urine Culture urogenital contamination. Specimen Source: Urine clean catch Olvin Pimentel MD LAB MICROBIOLOGY - GENERAL ORDER MELINA Final Result Performing Organization Address [facility] Co de Phone Number [facility] [address] [place] [phone] * POCT Urinalysis (06/07/2024 9:56 AM [...] Expiration Date Urine 06/07/2024 9:56 AM EST Olvin Pimentel MD POINT OF CARE TEST ENTER/EDIT OR DERABLES Final Result documented in this encounter Visit Diagnoses Diagnosis Vaginal candidiasis Candidiasis of vulva and vagina documented in this encounter Additional Health Concerns Assessment Noted Time PHQ-9 Depression Total Score: 6 08/27/19 24 3:42 PM EDT documented as of this encounter Care Teams Millinery Designer Relationship Specialty Start Date End Date Name, MD Howard [address] [place] [address] PCP - General Family Medicine 03/13/19 documented as of this encounter
--- OUTSIDE RECORDS SUMMARY | 2024-06-17 13:54 | XMS_ITS | Encounter Summary ---
Author Organization [employer] Address [address] [facility] 7t [place] [address] Care Team Providers Care Pole Truck Driver Name Role Phone Name, Howard BRENNER Primary Care Provider [phone] Encounter Details Date Type Department Care Team (Latest Contact Info) Description 06/17/2024 Travel Social History Tobacco Use Types Packs/Day [...] 11/28/2024 10:00 AM EDT Office Visit [facility]ULT [facility] [address] [place] [address] Anna, Tnig [address] [place] [address] documented as of this encounter Visit Diagnoses Not on filedocumented in this encounter Additional Health Concerns Assessment Noted Time PHQ-9 Depression Total Score: 6 08/27/19 24 3:42 PM EDT documented as of this encounter Care Teams Pole Truck Driver Relationship Specialty Start Date End Date Name, MD Howard [address] [place] [address] PCP - General Family Medicine 03/13/19 documented as of this encounter
--- OUTSIDE RECORDS SUMMARY | 2024-06-17 13:54 | XMS_ITS | Encounter Summary ---
Author Organization [employer] Address [address] [facility] 7t [place] [address] Care Team Providers Care House Superintendent Name Role Phone Name, Howard BRENNER Primary Care Provider [phone] Reason for Visit * Reason Comments Routine Cleaning Dental Exam x-rays Encounter Details Date Type Department Care Team (Late st Contact Info) Description 05/29/2024 1:00 PM EST Office Visit [facility] [address], [place] [phone] Anna, Ting [address] [place] [address] Missing teeth, acquired (Primary Dx); Dental plaque on multiple teeth; Normal oral exam Social History Tobacco Use Types Packs/Day Years [...] Sign Reading Time Taken Comments Blood Pressure 138/70 05/29/2024 1:01 PM EST Pulse - - Temperature - - Respiratory Rate - - Oxygen Saturation - - Inhaled Oxygen Concentration - - Weight - - Height - - Body Mass Index - - documented in this encounter Progress Notes * Ting Castillo - 05/29/2024 1:00 PM EST Patient ID: Kimberly Mauricio is a 73 y.o. female. Time Out: Timeout Date: 05/29/24, Timeout Time: 1307 (P. Exam, X-rays, prophy, Perio chart) Location: [facility] Tooth: Maxilla and Mandible Procedure: Exam, X-rays, Prophylaxis, and Perio chart Verified the above with patient, medical billing assistant, and provider. Confirmed via patient's chart, intraorally and by radiographs. Roll Hauler: not applicable Medical Hx: Vitals: Blood pressure 138/70. Medications, Med Hx reviewed with patient and updated in chart. Treatment Provided Dental procedures in this visit D1330 - ORAL HYGIENE INSTRUCTIONS (Completed) Service provider: Ting Castillo [place] provider: Keshav Ricketts DDS D0274 - BITEWINGS - 4 RADIOGRAPHIC IMAGES (Completed) Service provider: Ting Castillo [place] provider: Keshav Ricketts DDS D0220 - INTRAORAL - PERIAPICAL FIRST RADIOGRAPHIC IMAGE (Completed) Service provider: Ting Castillo Billing provider: Keshav Ricketts DDS D0230 - INTRAORAL - PERIAPICAL EACH ADDITIONAL RADIOGRAPHIC IMAGE (Completed) Service provider: Ting Castillo Billing provider: Keshav Ricketts DDS D1110 - PROPHYLAXIS - ADULT (Completed) Service provider: Ting Castillo Billing provider: Keshav Ricketts DDS D0230 - INTRAORAL - PERIAPICAL EACH ADDITIONAL RADIOGRAPHIC IMAGE (Completed) Service provider: Ting Castillo Billing provider: Keshav Ricketts DDS Instruments Used: Ultrasonic Scalers and Prophy angle Fluoride: N/A Oral Cancer Screening: No lesions Head/Neck Exam: raised moles on face Calculus: trace Plaque: Light, Moderate, and Generalized Stain: discolored teeth Bleeding: Light Gingiva: Recession- generalized and [place]: Good Perio Chart: Completed Oral hygiene instructions provided to patient including brushing technique and flossing. Recommendations: [place] two times daily, modified castro technique, Floss daily, Electric toothbrush, Soft bristle toothbrush, [place] Tongue, Anti-sensitivity toothpaste Recall Frequency: 6 mo NV: 6 mo. dian Hygienist: Ting Castillo RDH * Keshav Ricketts DDS - 05/29/2024 1:00 PM EST Dental procedures in this visit D1330 - ORAL HYGIENE INSTRUCTIONS (Completed) Service provider: Ting Castillo Billing provider: Keshav Ricketts DDS D0274 - BITEWINGS - 4 RADIOGRAPHIC IMAGES (Completed) Service provider: Ting Castillo Billing provider: Keshav Ricketts DDS D0220 - INTRAORAL - PERIAPICAL FIRST RADIOGRAPHIC IMAGE (Completed) Service provider: Ting Castillo Billing provider: Keshav Ricketts DDS D0230 - INTRAORAL - PERIAPICAL EACH ADDITIONAL RADIOGRAPHIC IMAGE (Completed) Service provider: Ting Castillo Billing provider: Keshav Ricketts DDS D1110 - PROPHYLAXIS - ADULT (Completed) Service provider: Ting Castillo Billing provider: Keshav Ricketts DDS D0230 - INTRAORAL - PERIAPICAL EACH ADDITIONAL RADIOGRAPHIC IMAGE (Completed) Service provider: Ting Catsillo [place] provider: Keshav Ricketts DDS Patient ID: Kimberly Mauricio is a 73 y.o. female. Time Out: Timeout Date: 05/29/24, Timeout Time: 1307 (P. Exam, X-rays, prophy, Perio chart) Location: [facility] Tooth: Maxilla and Mandible Procedure: Exam, X-rays, and Prophylaxis Verified the above with patient, medical billing assistant, and provider. Confirmed via patient's chart, intraorally and by radiographs. Roll Hauler: not applicable Chief Complaint Patient presents with Routine Cleaning Dental Exam x-rays Medical Hx: Vitals: Blood pressure 138/70. Past Medical History: Diagnosis Date Arthritis Diabetes mellitus ([facility]) High cholesterol Hypertension Medications: Outpatient Encounter Medications as of 05/29/2024 Medication Sig Dispense Refill amLODIPine (Norvasc) 5 MG tablet TAKE 1 TABLET BY MOUTH EVERY MORNING 90 tablet 3 atenolol (Tenormin) 25 MG tablet TAKE 1 TABLET BY MOUTH EVERY MORNING 90 tablet 1 atorvastatin (Lipitor) 40 MG tablet TAKE 1 TABLET BY MOUTH AT BEDTIME 90 tablet 3 Blood Glucose Monitoring Suppl (ONE TOUCH ULTRA 2) w/Device kit TEST BLOOD SUGAR TWICE DAILY 1 kit 0 clopidogrel (Plavix) 75 MG tablet TAKE 1 TABLET BY MOUTH EVERY MORNING 90 tablet 1 diazePAM (Valium) 2 MG tablet Take 1 tablet (2 mg) by mouth if needed in the morning and at bedtimefor muscle spasms (for muscle spasm) for up to 5 days. 10 tablet 0 Diclofenac Sodium (Voltaren) 1 % gel Apply once a day to the affected area 150 g 2 erythromycin (Romycin) 5 MG/GM ophthalmic ointment Apply to affected eye(s) 4 times daily for 7 days. Apply Amount per Dose: 0.25 inch (~0.5 cm) per dose. 3.5 g 0 gabapentin (Neurontin) 300 MG capsule TAKE 1 CAPSULE BY MOUTH ONCE DAILY 30 capsule 5 glipiZIDE XL (Glucotrol XL) 2.5 MG 24 hr tablet TAKE 1 TABLET BY MOUTH EVERY DAY IN THE MORNING. DONOT BREAK, CRUSH, DISSOLVE OR CHEW 30 tablet 11 Jardiance 25 MG TAKE 1 TABLET BY MOUTH EVERY MORNING 30 tablet 11 Lancet Devices (TRUEdraw Lancing Device) [facility] Use to test blood sugar 3 to 4 times per day 1 each 0 lidocaine (Lidoderm) 5 % patch Apply 1 patch topically Once per day. Remove & discard patch within 12 hours or as directed by MD. 30 patch 2 losartan (Cozaar) 100 MG tablet TAKE 1 TABLET BY MOUTH EVERY MORNING 90 tablet 3 metFORMIN (Glucophage) 1000 MG tablet TAKE 1 TABLET BY MOUTH TWICE DAILY IN THE MORNING AND AT BEDTIME WITH FOOD 180 tablet 3 methocarbamol (Robaxin) 750 MG tablet Take 1 tablet (750 mg) by mouth if needed in the morning, at noon, and at bedtime for muscle spasms. 30 tablet 1 Multiple Vitamin (Multivitamin) tablet TAKE 1 TABLET BY MOUTH EVERY MORNING 90 tablet 3 nabumetone (Relafen) 500 MG tablet Take 1 tablet (500 mg) by mouth 2 times daily. 60 tablet 2 naproxen sodium (Aleve) 220 MG tablet Take 1 tablet (220 mg) by mouth if needed in the morning and at bedtime for mild pain. 30 tablet 1 OneTouch Ultra test strip TEST BLOOD SUGAR 3 TO 4 TIMES PER DAY 100 strip 11 pantoprazole (ProtoNix) 40 MG EC tablet TAKE 1 TABLET BY MOUTH EVERY MORNING 90 tablet 1 ramelteon (Rozerem) 8 MG tablet TAKE 1 TABLET BY MOUTH AT BEDTIME 30 tablet 1 topiramate (Topamax) 25 MG tablet TAKE 1/2 TABLET BY MOUTH EVERY DAY AT BEDTIME FOR 1 WEEK THEN INCREASE TO TAKE 1 TABLET BY MOUTH EVERY DAY AT BEDTIME TRUEplus Lancets 33G misc TEST BLOOD SUGAR THREE OR FOUR TIMES DAILY 100 each 11 No facility-administered encounter medications on file as of 05/29/2024. Objective HPI Asymptomatic Head and Neck Exam: Lymph Nodes, Lips, Palate, Buccal Mucosa, Floor of Mouth, Tongue, Tonsils, Alveolar Ridges, Oropharynx, Salivary Ducts, and Vestibules Details: Skin WNL OCS: negative Dental Exam As charted Multiple missing teeth Large confucianist and fixed prosthesis functioning well Reference tooth chart for additional findings. Oral Cancer Risk: Low Risk Oral Hygiene Instructions: [place] two times daily, modified castro technique, Floss daily, Electric toothbrush, Soft bristle toothbrush, [place] Tongue Caries Risk Assessment: Low- no risk factor Assessment/Plan HARSHA X rays Prophy Recall Patient tolerated procedure well, all questions answered and expressed understanding. Dismissed in good condition. NV: 6 mos recall Custom Wood Stair Builder: Ting Castillo RDH Dentist: Keshav Ricketts DDS documented in this encounter Plan of Treatment Upcoming Encounters Date Type Department Care Team (Late st Contact Info) Description 11/28/2024 10:00 AM EDT Office Visit [facility] [address] [place] [address] Ting Castillo [address] [place] [address] Scheduled Orders Name Type Priority Associated Diagnoses Orde r Schedule ORAL HYGIENE INSTRUCTIONS Dental Routine 1 Occurrences starting 05/29/2024 documented as of this encounter Procedures Procedure Name Priority Date/Time Associated Diagnosis Comments PROPHYLAXIS - ADULT Routine 05/29/2024 1 :00 PM EST ORAL HYGIENE INSTRUCTIONS Routine 05/29/2024 1:00 PM EST INTRAORAL - PERIAPICAL FIRST RADIOGRAPHIC IMAGE Routine 05/29/2024 1:00 PM EST INTRAORAL - PERIAPICAL EACH ADDITIONAL RADIOGRAPHIC IMAGE Routine 05/29/2024 1:00 PM EST Missing teeth, acquired Dental plaque on multiple teeth INTRAORAL - PERIAPICAL EACH ADDITIONAL RADIOGRAPHIC IMAGE Routine 05/29/2024 1:00 PM EST BITEWINGS - 4 RADIOGRAPHIC IMAGES Routine 05/29/2024 1:00 PM EST documented in this encounter Visit Diagnoses Diagnosis Missing teeth, acquired- Primary Dental plaque on multiple teeth Normal oral exam documented in this encounter Additional Health Concerns Assessment Noted Time PHQ-9 Depression Total Score: 6 08/27/19 24 3:42 PM EDT documented as of this encounter Care Teams House Superintendent Relationship Specialty Start Date End Date Name, MD Howard [address] [place] [address] PCP - General Family Medicine 03/13/19 documented as of this encounter
--- OUTSIDE RECORDS SUMMARY | 2024-06-17 13:54 | XMS_ITS | Encounter Summary ---
Author Organization [employer] Address [address] [facility] 7t [place] [address] Care Team Providers Care Fisher Oyster Name Role Phone Name, Howard BRENNER Primary Care Provider [phone] Reason for Visit * Reason Onset Date Comments Nurse Triage 05/19/2024 Encounter Details Date Type Department Care Team (Late st Contact Info) Description 05/19/2024 Telephone [facility] [address] [place], [place] [phone] Name, MD Howard [address] [place] [address] Nurse Triage Social History Tobacco Use Types Packs/Day Years [...] encounter Miscellaneous Notes * Telephone Encounter - Cristin Obrien RN - 05/19/2024 11:34 AM EST Call returned to Kimberly Mauricio to triage below. Denies any elevated BS. States called in for eye discharge from left eye x 3 days. No redness of eye or eyelid. No pain or itching. Reports mild blurred vision. Pt advised of disposition, agrees to seek [facility] for exam as no sick on site availability on teams at time of call. Reviewed [place] operating hours and that wait times vary. Reviewed home care advise, ER precautions and reasons to call back. Protocol Used: Eye - Pus or Discharge (Adult) Protocol-Based Disposition: Go to Office or Video Visit Now Positive Triage Question: * Blurred vision * All higher-acuity triage questions were negative Care Advice Discussed: * Reassurance and Education - Probable Bacterial Conjunctivitis * Reasons To Call Back - You become worse * Telephone Encounter - Vincent Araujo - 05/19/2024 10:34 AM EST Symptom: High Blood Sugar - Caller Reports Outcome: Schedule a same-day appointment or talk to a nurse or provider today Reason: Caller denied all higher acuity questions The caller accepted this outcome. documented in this encounter Plan of Treatment Upcoming Encounters Date Type Department Care Team (Late st Contact Info) Description 11/28/2024 10:00 AM EDT Office Visit [facility] [address] [place] [address] Royer Castilloaris [address] [place] [address] documented as of this encounter Visit Diagnoses Not on filedocumented in this encounter Additional Health Concerns Assessment Noted Time PHQ-9 Depression Total Score: 6 08/27/19 24 3:42 PM EDT documented as of this encounter Care Teams Fisher Oyster Relationship Specialty Start Date End Date Name, MD Howard [address] [place] [address] PCP - General Family Medicine 03/13/19 documented as of this encounter
== END 2024-06-17 13:18 | disposition home or self-care (01) ==
PROVIDERS: PCP Nurse Practitioner Family; Visit Provider Nurse Practitioner Family
DX: M25.511 Pain in right shoulder (principal); M25.512 Pain in left shoulder; M19.011 Primary osteoarthritis, right shoulder; M19.012 Primary osteoarthritis, left shoulder
CPT/HCPCS: 99214; G2211

== ENCOUNTER → 2024-06-17 12:59 | Outpatient (BNVA) | payer MEDICARE, SELFPAY | PROVIDERS: PCP Nurse Practitioner Family; Visit Provider Nurse Practitioner Family | DX: M19.011 Primary osteoarthritis, right shoulder (principal); M19.012 Primary osteoarthritis, left shoulder | CPT/HCPCS: 99212 ==

== ENCOUNTER 2024-06-27 09:14 | Outpatient (REF) | payer MEDICARE, SELFPAY ==
--- OUTSIDE RECORDS SUMMARY | 2024-06-27 09:37 | XMS_ITS | Encounter Summary ---
Author Organization [employer] Address [address] [facility] 7[address] [place] [address] Care Team Providers Care Metal Dresser Name Role Phone Name, Howard BRENNER Primary Care Provider [phone] Reason for Visit * Reason Onset Date Comments Results 07/03/2022 Encounter Details Date Type Department Care Team (Late st Contact Info) Description 07/03/[address] [facility] MED[facility] [address] [place], [place] [phone] Name, MD Howard [address] [place] [address] Results Social History Tobacco Use Types Packs/Day [...] regarding xray results Please contact pt at [phone] documented in this encounter Plan of Treatment Upcoming Encounters Date Type Department Care Team (Late st Contact Info) Description 11/28/2024 10:00 AM EDT Office Visit [facility]ULT D[facility] [address] [place] [address] Anna, Ting [address] [place] [address] documented as of this encounter Visit Diagnoses Not on filedocumented in this encounter Additional Health Concerns Assessment Noted Time PHQ-9 Depression Total Score: 0 06/19/19 23 2:59 PM EST documented as of this encounter Care Teams Metal Dresser Relationship Specialty Start Date End Date Name, MD Howard [address] [place] [address] PCP - General Family Medicine 03/13/19 documented as of this encounter
--- OUTSIDE RECORDS SUMMARY | 2024-06-27 09:38 | XMS_ITS | Encounter Summary ---
Author Organization [employer] [facility] Address [address] [facility] 7t h Floor [place] [id number] Care Team Providers Care Brick Catcher Name Role Phone Name, Howard BRENNER Primary Care Provider [phone] Encounter Details Date Type Department Care Team (Latest Contact Info) Description 10/13/2021 Abstract [facility] CONVERSIONS Dental, Provider, DDS Social History [...] 10:00 AM EDT Office Visit [facility] [address] [place] [address] Anna, Ting [address] [place] [address] documented as of this encounter Visit Diagnoses Not on filedocumented in this encounter Care Teams Brick Catcher Relationship Specialty Start Date End Date Name, MD Howard [address] [place] [address] PCP - General Family Medicine 03/13/19 documented as of this encounter
--- OUTSIDE RECORDS SUMMARY | 2024-06-27 09:38 | XMS_ITS | Encounter Summary ---
Author Organization [employer] [facility] Address [address] [facility] 7t [place] [address] Care Team Providers Care Cigar Packer And Sorter Name Role Phone Name, Howard BRENNER Primary Care Provider Encounter Details Date Type Department Care Team (Late Contact Info) Description 05/12/2022 Orders Only [facility] [address] [place] [address] Arlene Simon LPN Social History Tobacco Use [...] Description 11/28/2024 10:00 AM EDT Office Visit [facility] [address] [place] [address] Anna, Ting [address] [place] [address] documented as of this encounter Visit Diagnoses Not on filedocumented in this encounter Care Teams Cigar Packer And Sorter Relationship Specialty Start Date End Date Name, MD Howard [address] [place] [address] PCP - General Family Medicine 03/13/19 documented as of this encounter
--- OUTSIDE RECORDS SUMMARY | 2024-06-27 09:38 | XMS_ITS | Encounter Summary ---
Author Organization [employer] [facility] Address [address] [facility] 7t h Floor [place] [id number] Care Team Providers Care Collar Shaper Operator Name Role Phone Name, Howard BRENNER Primary Care Provider [phone] Encounter Details Date Type Department Care Team (Latest Contact Info) Description 09/29/2020 Abstract [facility] CONVERSIONS Dental, Provider, DDS Social History [...] Description 11/28/2024 10:00 AM EDT Office Visit [facility]ULT [facility] [address] [place] [address] Anna, Ting [address] [place] [address] documented as of this encounter Visit Diagnoses Not on filedocumented in this encounter Care Teams Collar Shaper Operator Relationship Specialty Start Date End Date Name, MD Howard [address] [place] [address] PCP - General Family Medicine 03/13/19 documented as of this encounter
--- OUTSIDE RECORDS SUMMARY | 2024-06-27 09:38 | XMS_ITS | Encounter Summary ---
Author Organization [employer] [facility] Address [address] [facility] 7t [place] [address] Care Team Providers Care Bowling Ball Marker Name Role Phone Name, Howard BRENNER Primary Care Provider [phone] Encounter Details Date Type Department Care Team (Late Contact Info) Description 10/23/2022 Abstract [facility] MED[facility] [address] [place], [place] [phone] Name, MD Howard [address] [place] [address] Social History Tobacco Use Types Packs/Day Years [...] [facility] ADULT D[facility] [address] [place], [place] [phone] Ting Castillo [address] [place] [address] documented as of this encounter Procedures Procedure [...] documented as of this encounter Care Teams Bowling Ball Marker Relationship Specialty Start Date End Date Name, MD Howard [address] [place] [address] PCP - General Family Medicine 03/13/19 documented as of this encounter
--- OUTSIDE RECORDS SUMMARY | 2024-06-27 09:38 | XMS_ITS | Encounter Summary ---
Author Organization [employer] Address [address] [facility] 7t [place] [address] Care Team Providers Care Manager Intensive Care Name Role Phone Name, Howard BRENNER Primary Care Provider [phone] Encounter Details Date Type Department Care Team ([facility] Contact Info) Description 06/01/2022 Orders Only [facility] [address] [place], [place] [phone] Cynthia Yun LPN Social History Tobacco Use [...] Description 11/28/2024 10:00 AM EDT Office Visit [facility] ADULT DENT[facility] [address] [place], [place] [phone] Anna, Ting [address] [place], [place] [phone] documented as of this encounter Procedures Procedure [...] EST Narrative 07/04/2022 6:18 PM EST ? [facility] ?[address] ?[place] [address] ?XRay Report ? Signed ? Patient: Kimberly Randhawa ?MR#: [id number] ?? [id number] ? : 1950 ?Acct:[id number] ? Age/Sex: 71 / F ?ADM Date: 06/29/22 ? Loc: HO.XRAY ? Attending Dr: Rubin Arguello MD ? Ordering Physician: Rubin Arguello MD ?? Date of Service: 06/29/22 ?? Procedure(s): XR ribs LT 2V ?? Accession Number(s): [id number] ? cc: Rubin Arguello MD ? EXAMINATION: [...] ? 07/04/221814 ? DD/ ? TD/TT: ? Network Management Specialist: JOVITA ? Procedure Note Pilar, Ishan - 10/09/2022 [facility] [address] [place] [address]. [place] [address] XRay Report Signed Patient: Marlena Randhawa#: [id number] : 3Acct:[id number] Age/Sex: 71 / FADM Date: 06/29/22 Loc: HO.SAIKELSEY Attending Dr: Rubin Arguello MD Ordering Physician: Rubin Arguello MD Date of Service: 06/29/22 Procedure(s): XR ribs LT 2V Accession Number(s): [id number] cc: Rubin Arguello MD EXAMINATION: XR RIBS, [...] in OV> 07/04/22 1815 DD/ 1127 TD/TT: Network Management Specialist: JOVITA [facility] External Provider IMG XR PROCEDURES Edited Result - Final * XR Cervical Spine 5 View (06/29/2022 11:27 AM EST) Anatomical Region Laterality Modality Spine, C-spine Radiographic Lucrecia ging 06/29/2022 11:2 7 AM EST Narrative 07/04/2022 8:39 PM EST ? [facility] ?[address] ?[place] [address] ?XRay Report ? Signed ? Patient: Elvira Mauricio,Kimberly ?MR#: [id number] ?? [id number] ? : 1950 ?Acct:[id number] ? Age/Sex: 71 / F ?ADM Date: // ? Loc: HO.XRAY ? Attending Dr: Rubin Arguello MD ? Ordering Physician: Rubin Arguello MD ?? Date of Service: 06/29/22 ?? Procedure(s): XR cervical spine 5V ?? Accession Number(s): [id number] ? cc: Rubin Arguello MD ? EXAMINATION: [...] 07/04/222035 ? DD/ 26 ? TD/TT: ? Network Management Specialist: JOVITA ? Procedure Note Pilar, Ishan - 07/04/[address] [address] XRay Report Signed Patient: Marlena Randhawa#: [id number] : 3Acct:[id number] Age/Sex: 71 / FADM Date: 06/29/22 Loc: JACQUELYN Attending Dr: Rubin Arguello MD Ordering Physician: Rubin Arguello MD Date of Service: 06/29/22 Procedure(s): XR cervical spine 5V Accession Number(s): [id number] cc: Rubin Arguello MD EXAMINATION: XR CERVICAL [...] MD in OV> 07/04/222035 DD/ 1127 TD/TT: Network Management Specialist: JOVITA [facility] Provider Result Type Result Stat [facility] External Provider IMG XR PROCEDURES Edited Result - Final documented in this encounter Visit Diagnoses Not on filedocumented in this encounter Care Teams Manager Intensive Care Relationship Specialty Start Date End Date Name, MD Howard [address] [place] [address] PCP - General Family Medicine 03/13/19 documented as of this encounter
--- OUTSIDE RECORDS SUMMARY | 2024-06-27 09:39 | XMS_ITS | Clinical Summary ---
Author Organization [employer] [facility] Address [address] [place] [address] Care Team Providers Care Electric Crane Operator Name Role Phone Laura Jones MD Primary [...] age to complete this topic Care Teams Electric Crane Operator Relationship Specialty Start Date End Date Laura Jones MD [address] [place] [address] PCP - General Internal Medicine 12/14/17
--- OUTSIDE RECORDS SUMMARY | 2024-06-27 09:39 | XMS_ITS | Encounter Summary ---
Author Organization [employer] Address [address] [facility] [address] [place] [address] Care Team Providers Care Photo Manager Name Role Phone Name, Howard BRENNER Primary Care Provider [phone] Encounter Details Date Type Department Care Team [...] Description 11/28/2024 10:00 AM EDT Office Visit [facility]ULT D[facility] [address] [place] [address] Anna, Ting [address] [place] [address] documented as of this encounter Visit Diagnoses Not on filedocumented in this encounter Additional Health Concerns Assessment Noted Time PHQ-9 Depression Total Score: 6 08/27/19 24 3:42 PM EDT documented as of this encounter Care Teams Photo Manager Relationship Specialty Start Date End Date Name, MD Howard [address] [place] [address] PCP - General Family Medicine 03/13/19 documented as of this encounter
--- OUTSIDE RECORDS SUMMARY | 2024-06-27 09:39 | XMS_ITS | Encounter Summary ---
Author Organization [employer] Address [address] [facility] 7t [place] [address] Care Team Providers Care Multi Purpose Machine Operator Name Role Phone Name, Howard BRENNER Primary Care Provider [phone] Reason for Visit * Reason Comments Routine Cleaning Dental Exam x-rays Encounter Details Date Type Department Care Team (Late st Contact Info) Description 05/29/2024 1:00 PM EST Office Visit [facility] [address], [place] [phone] Anna, Ting [address] [place] [address] Missing teeth, acquired (Primary Dx); Dental plaque [...] (P. Exam, X-rays, prophy, Perio chart) Location: [facility] Tooth: Maxilla and Mandible Procedure: Exam, X-rays, Prophylaxis, and Perio chart Verified the above with patient, career services assistant, and provider. Confirmed via patient's chart, intraorally and by radiographs. Anime Designer: not applicable Medical Hx: Vitals: Blood pressure [...] teeth Bleeding: Light Gingiva: Recession- generalized and [place]: Good Perio Chart: Completed Oral hygiene instructions provided to patient including brushing technique and flossing. Recommendations: [place] two times daily, modified castro technique, Floss daily, Electric toothbrush, Soft bristle toothbrush, [place] Tongue, Anti-sensitivity toothpaste Recall Frequency: 6 mo [...] RADIOGRAPHIC IMAGE (Completed) Service provider: Ting Castillo [place] provider: Keshav Ricketts DDS Patient ID: Kimberly Mauricio is a 73 y.o. female. Time Out: Timeout Date: 05/29/24, Timeout Time: 1307 (P. Exam, X-rays, prophy, Perio chart) Location: [facility] Tooth: Maxilla and Mandible Procedure: Exam, X-rays, and Prophylaxis Verified the above with patient, career services assistant, and provider. Confirmed via patient's chart, intraorally and by radiographs. Anime Designer: not applicable Chief Complaint Patient presents with Routine Cleaning Dental Exam x-rays Medical Hx: Vitals: Blood pressure 138/70. Past Medical History: Diagnosis Date Arthritis Diabetes mellitus ([facility]) High cholesterol Hypertension Medications: Outpatient Encounter Medications [...] tablet 11 Lancet Devices (TRUEdraw Lancing Device) [facility] Use to test blood sugar 3 to [...] Exam As charted Multiple missing teeth Large hindu and fixed prosthesis functioning well Reference tooth chart for additional findings. Oral Cancer Risk: Low Risk Oral Hygiene Instructions: [place] two times daily, modified castro technique, Floss daily, Electric toothbrush, Soft bristle toothbrush, [place] Tongue Caries Risk Assessment: Low- no risk factor Assessment/Plan HARSHA X rays Prophy Recall Patient tolerated procedure well, all questions answered and expressed understanding. Dismissed in good condition. [place]: 6 mos recall [employer] Handling Plant Operator: Ting Castillo RDH Dentist: Keshav Ricketts DDS documented in this encounter Plan of Treatment Upcoming Encounters Date Type Department Care Team (Late st Contact Info) Description 11/28/2024 10:00 AM EDT Office Visit [facility] [address] [place] [address] Ting Castillo [address] [place] [address] Scheduled Orders Name Type Priority Associated Diagnoses [...] documented as of this encounter Care Teams Multi Purpose Machine Operator Relationship Specialty Start Date End Date Name, MD Howard [address] [place] [address] PCP - General Family Medicine 03/13/19 documented as of this encounter
--- OUTSIDE RECORDS SUMMARY | 2024-06-27 09:39 | XMS_ITS | Encounter Summary ---
Author Organization [employer] Address [address] [facility] 7t [place] [address] Care Team Providers Care Nurse Anesthetist Name Role Phone Name, Howard BRENNER Primary Care Provider [phone] Encounter Details Date Type Department Care Team (Late st Contact Info) Description 11/27/2023 Orders Only [place] [address] [place], [place] [phone] ProviderAlon MD Social History Tobacco Use Types [...] Description 11/28/2024 10:00 AM EDT Office Visit [facility] ADULT D[facility] [address] [place] [address] Anna Ting [address] [place] [address] documented as of this encounter Procedures Procedure [...] documented as of this encounter Care Teams Nurse Anesthetist Relationship Specialty Start Date End Date Name, MD Howard [address] [place] [address] PCP - General Family Medicine 03/13/19 documented as of this encounter
--- OUTSIDE RECORDS SUMMARY | 2024-06-27 09:39 | XMS_ITS | Encounter Summary ---
Author Organization [employer] Address [address] [facility] 7t [place] [address] Care Team Providers Care Chiller Hand Name Role Phone Name, Howard BRENNER Primary Care Provider [phone] Encounter Details Date Type Department Care Team [...] Office Visit [facility] ADULT D[facility] [address] [place] [address] Anna, Ting [address] [place] [address] documented as of this encounter Visit Diagnoses Not on filedocumented in this encounter Additional Health Concerns Assessment Noted Time PHQ-9 Depression Total Score: 6 08/27/19 24 3:42 PM EDT documented as of this encounter Care Teams Chiller Hand Relationship Specialty Start Date End Date Name, MD Howard [address] [place] [address] PCP - General Family Medicine 03/13/19 documented as of this encounter
--- OUTSIDE RECORDS SUMMARY | 2024-06-27 09:39 | XMS_ITS | Encounter Summary ---
Author Organization [employer] Address [address] [facility] [address] [place] [address] Care Team Providers Care Forms Builder Name Role Phone Name, Howard BRENNER Primary Care Provider [phone] Reason for Visit * Reason Comments UTI Encounter Details Date Type Department Care Team ([facility] st Contact Info) Description 06/07/2024 10:20 AM EST Office Visit [facility] [address] [place], [place] [phone] Olvin Pimentel MD [address] [place], [place] [phone] Vaginal candidiasis Social History Tobacco Use Types [...] Bacterial Vaginosis Panel Patient presents to [facility] with S/Sx of vaginal Candidiasis Wet mount [...] Visit [facility] ADULT [facility] [address] [place] [address] Nana, Ting [address] [place] [address] documented as of this encounter Procedures Procedure [...] DETECTION BY PCR NOT DETECTED Not Detect [facility] BACTERIAL VAGINOSIS DETECTION BY PCR NEGATIVE Negative [facility] Comment:The BV organism targ ets of [...] GROUP DETECTION BY PCR DETECTED(A) Not Detect [facility] Nicole glab krusei PCR NOT DETECTED Not Detect [facility] Swab Vaginal structure / Unknown 06/07/2024 10:59 AM EST 06/07/2024 1:43 PM EST Olvin Pimentel MD LAB MICROBIOLOGY - GENERAL ORDER MELINA Final Result Performing Organization Address City/[facility] Co de Phone Number [facility] [address] [place] [phone] * Culture, Urine, Routine (06/07/2024 10:59 AM EST) Urine Urine specimen obtained by clean catch procedure / Unknown 06/07/2024 10:59 AM EST 06/07/2024 1:43 PM EST Comment:UACC Narrative [facility] - 06/08/2024 12:59 PM EST Urine Culture Report Result Urine Culture 10,000 to 50,000 cfu/ml Urine Culture Mixed bacterial kinza characteristic of Urine Culture urogenital contamination. Specimen Source: Urine clean catch Olvin Pimentel MD LAB MICROBIOLOGY - GENERAL ORDER MELINA Final Result Performing Organization Address [facility] Co de Phone Number [facility] [address] [place] [phone] * POCT Urinalysis (06/07/2024 9:56 AM [...] documented as of this encounter Care Teams Forms Builder Relationship Specialty Start Date End Date Name, MD Howard [address] [place] [phone] PCP - General Family Medicine 03/13/19 documented as of this encounter
--- OUTSIDE RECORDS SUMMARY | 2024-06-27 09:39 | XMS_ITS | Encounter Summary ---
Author Organization [employer] Address [address] [facility] 7t [place] [address] Care Team Providers Care Cigar Making Machine Supervisor Name Role Phone Name, Howard BRENNER Primary Care Provider [phone] Reason for Visit * Reason Comments Follow-up Encounter Details Date Type Department Care Team ([facility] st Contact Info) Description 06/17/2024 1:45 PM EST Office Visit [facility] [address] [place], [place] [phone] Name, MD Howard [address] [place], [place] [phone] Type 2 diabetes mellitus with other specified complication, without long-term current use of insulin ([facility]) (Primary Dx) Social History Tobacco Use Types [...] 1:44 PM EST documented in this encounter Progress Notes * Howard Lovett MD - 06/17/2024 1:45 PM EST Subjective Patient ID: Kimberly Mauricio is a 73 y.o. female who presents for Follow-up. Patient comes for a follow-up visit. She is accompanied by her . She does not bring her glucose meter. There has been worsening of hemoglobin A1c compared to previous values. She explains to me that she does not use her sulfonylurea regularly. The patient received a joint steroid injection about 2 weeks ago that caused her to have significant hyperglycemia for about 2 weeks. Review of Systems Constitutional: Negative for chills and fever. HENT: Negative for sore throat. Respiratory: Negative for cough, shortness of breath and wheezing. Cardiovascular: Negative for chest pain, palpitations and leg swelling. Gastrointestinal: Negative for abdominal pain. Visit Vitals BP 130/60 (BP Location: Left arm, Patient Position: Sitting, BP Cuff Size: Adult) Pulse 79 Temp 98.5 ??F (36.9 ??C) (Oral) Resp 18 Ht 4' 11 (1.499 m) Wt 118 lb (53.5 kg) SpO2 98% BMI 23.83 kg/m?? Smoking Status Never BSA 1.49 m?? Objective Physical Exam Constitutional: Appearance: Normal appearance. Cardiovascular: Rate and Rhythm: Normal rate and regular rhythm. Heart sounds: No murmur heard. No gallop. Pulmonary: Effort: Pulmonary effort is normal. No respiratory distress. Breath sounds: Normal breath sounds. No wheezing. Musculoskeletal: Right lower leg: No edema. Left lower leg: No edema. Neurological: Mental Status: She is alert. Lab Results Component Value Date HGBA1C 8.7 (A) 06/17/2024 HGBA1C 8.2 (A) 02/12/2024 HGBA1C 8.2 (A) 08/27/2023 HGBA1C 8.3 (A) 03/28/2023 HGBA1C 9.6 (A) 02/14/2023 HGBA1C 9.5 (A) 10/12/2022 HGBA1C 7.9 (A) 06/19/2022 Lab Results Component Value Date GLUCOSE 143 (H) 08/28/2023 NA 141 08/28/2023 K 4.2 08/28/2023 CO2 28 08/28/2023 CL 104 08/28/2023 BUN 22 (H) 08/28/2023 CREATININE 0.71 08/28/2023 Current Outpatient Medications on File Prior to Visit Medication Sig Dispense Refill amLODIPine (Norvasc) 5 [...] BY MOUTH EVERY MORNING 90 tablet 1 clotrimazole (Lotrimin) 1 % vaginal cream Insert one applicator per vagina at bedtime for 7 nights 45 g 0 diazePAM (Valium) 2 MG tablet Take 1 tablet (2 mg) by mouth if needed in the morning and at bedtimefor muscle spasms (for muscle spasm) for up to 5 days. 10 tablet 0 Diclofenac Sodium (Voltaren) 1 % gel Apply once a day to the affected area 150 g 2 gabapentin (Neurontin) 300 MG capsule TAKE 1 CAPSULE BY MOUTH ONCE DAILY 30 capsule 5 glipiZIDE XL (Glucotrol XL) 2.5 MG 24 hr tablet TAKE 1 TABLET BY MOUTH EVERY DAY IN THE MORNING. DONOT BREAK, CRUSH, DISSOLVE OR CHEW 30 tablet 11 Jardiance 25 MG TAKE 1 TABLET BY MOUTH EVERY MORNING 30 tablet 11 Lancet Devices (TRUEdraw Lancing Device) [facility] Use to test blood sugar 3 to [...] EVERY DAY AT BEDTIME TRUEplus Lancets 33G [facility] TEST BLOOD SUGAR THREE OR FOUR TIMES DAILY 100 each 11 No current facility-administered medications on file prior to visit. Assessment/Plan Diagnoses and all orders for this visit: Type 2 diabetes mellitus with other specified complication, without long-term current use of insulin (CMS/HCC) Comments: I did not change her meds, I think the steroid injection affected her blood sugar and also she doesnot use her glipizide daily. I recommended to avoid sweets and soda, used the glipizide daily and double dose of the glipizide for the week after she gets her next joint steroid injection. Check her blood sugar at home and bring her glucose meter to her next visit. I will keep her on the same dosesof her metformin and jardiance. She had one vaginal yeast infection on the days after the steroid injection and the problem has resolved. Orders: - POCT HGB A1C - POCT Glucose - Comprehensive Metabolic Panel; Future - CBC auto differential; Future - Lipid Panel, Standard; Future - Albumin, Random Urine W/Creatinine; Future documented in this encounter Plan of Treatment Upcoming Encounters Date Type Department Care Team (Late st Contact Info) Description 11/28/2024 10:00 AM EDT Office Visit [facility]ULT [facility] [address] [place] [address] Anna, Ting [address] [place] [address] Scheduled Orders Name Type Priority Associated Diagnoses Orde r Schedule Comprehensive Metabolic Panel Lab Routine Type 2 diabetes mellitus with other specified complication, without long-term current use of insulin (CMS/HCC) Expected: 06/17/2024 (Approximate), Expires: 06/17/2025 CBC auto differential Lab Routine Type 2 diabetes mellitus with other specified complication, without long-term current use of insulin (CMS/HCC) Expected: 06/17/2024 (Approximate), Expires: 06/17/2025 Lipid Panel, Standard Lab Routine Type 2 diabetes mellitus with other specified complication, without long-term current use of insulin (CMS/HCC) Expected: 06/17/2024 (Approximate), Expires: 06/17/2025 Albumin, Random Urine W/Creatinine Lab Routine Type 2 diabetes mellitus with other specified complication, without long-term current use of insulin ([facility]) Expected: 06/17/2024 (Approximate), Expires: 06/17/2025 documented as of this encounter Procedures Procedure Name Priority Date/Time Associated Diagnosis Comments POCT GLYCATED HEMOGLOBIN, TOTAL Routine 06/17/2024 1:47 PM EST Type 2 diabetes mellitus with other specified complication, without long-term current use of insulin ([facility]) POCT GLUCOSE Routine 06/17/2024 1:47 PM EST Type 2 diabetes mellitus with other specified complication, without long-term current use of insulin ([facility]) documented in this encounter Results * POCT Glucose (06/17/2024 1:47 PM EST) Glucose Blood, POC 165 60 - 200 mg/dL QC Media Lot # [id number] Lot# Expiration Date 53,025 Blood Capillary blood specimen / Unknown 06/17/2024 1:47 PM EST us Howard Lovett MD POINT OF CARE TEST ENTER/EDIT OR DERABLES Final Result * (ABNORMAL) POCT HGB A1C (06/17/2024 1:47 PM EST) Pathologist [facility] Hemoglobin A1C 8.7(A) 4.0 - 6.0 % QC Media Lot # [id number] Lot# Expiration Date [id number] Blood 06/17/2024 1:47 PM EST Howard Lovett MD POINT OF CARE TEST ENTER/EDIT OR DERABLES Final Result documented in this encounter Visit Diagnoses Diagnosis Type 2 diabetes mellitus with other specified complication, without long-term current use of insulin ([facility])- Primary documented in this encounter Additional Health Concerns Assessment Noted Time PHQ-9 Depression Total Score: 6 08/27/19 24 3:42 PM EDT documented as of this encounter Care Teams Cigar Making Machine Supervisor Relationship Specialty Start Date End Date Name, MD Howard [address] [place] [address] PCP - General Family Medicine 03/13/19 documented as of this encounter
--- OUTSIDE RECORDS SUMMARY | 2024-06-27 09:39 | XMS_ITS | Clinical Summary ---
Author Organization [employer] Address [address] [place] [address] Care Team Providers Care Franchise Consultant Name Role Phone Name, Howard BRENNER Primary Care Provider [phone] Allergies Active Allergy Reactions Criticality Noted Date Comments Sulfa Antibiotics 05/03/2015 Other reaction(s): swelling of throat Dulaglutide 06/17/2024 Vomiting and diarrhea Medications Diclofenac Sodium (Voltaren) 1 % gelIndications:Chr onic neck pain Apply once a day to the affected area 150 g 2 07/20/19 23 Active Lancet Devices (TRUEdraw Lancing Device) misc Use to test blood sugar 3 to [...] Pt will be transported by her to [facility] ER. Diabetic polyneuropathy 08/27/2023 Generalized gingival recession [...] Description 06/17/2024 1:45 PM EST Office Visit [facility] [address] [place] [address] Name, MD Howard Type 2 diabetes mellitus with other specified complication, without long-term current use of insulin ([facility]) (Primary Dx) 06/17/2024 Travel 06/07/2024 10:20 AM EST Office Visit [facility] [address] [place] [phone] Olvin Pimentel MD Vaginal candidiasis 06/07/2024 Travel 05/29/2024 1:00 PM EST Office Visit [facility] [address] [place] [address] Anna, Ting Missing teeth, acquired (Primary Dx); Dental plaque on multiple teeth; Normal oral exam 05/22/2024 10:00 AM EST Office Visit [facility] [address] [place] [address] Olvin Pimentel MD Acute conjunctivitis of left eye, unspecified acute conjunctivitis type (Primary Dx) 05/19/2024 Telephone [facility] [address] [place] [address] Juana Donnelly MD 05/19/2024 Telephone [facility] [address] [place] [address] NameHowadr MD Nurse Triage 05/16/2024 1:00 PM EST Office Visit [facility] [address] [address] Juana Donnelly MD Acute pain of left shoulder due to trauma (Primary Dx) 04/29/2024 Refill [facility] [address] [place], [place] [phone] Howard Lovett MD 03/28/2024 Refill [facility] [address] [place] [address] Howard Lovett MD Heartburn from Last 3 Months Immunizations Name Administration [...] Description 11/28/2024 10:00 AM EDT Office Visit [facility] [address] [place] [address] Royer Castilloaris [address] [place] [address] Health Maintenance Due Date Last Done Comments CT Colonography 1950 FIT DNA/Cologuard 1950 FIT 1950 FOBT 1950 Sigmoidoscopy 1950 Alcohol/Substance Use Screening 1964 Hepatitis C Screening 1970 Zoster Vaccines (1 of 2) 2002 RSV Patients and Patients Aged 60 years or older (1 - Risk 60-74 years 1-dose series) 2012 Colonoscopy 10/25/2020 10/26/2015 Colorectal Cancer Screening 10/25/2020 Dental Oral Exam 08/31/2023 02/28/2023, , 07/13/2022 COVID-19 Vaccine ( season) 2024 06/13/2021, 12/28/2020, 12/01/2020 Influenza Vaccine (#1) 2024 9, 03/04/2018, 03/13/2017, Additional history exists Pneumococcal Vaccine: 50+ Years (3 of 3 - PCV20 or PCV21) 03/31/2024 03/31/2019, 03/13/2017 Diabetes: Urine Protein Screening 04/23/2024 04/23/2023, 01/05/2021, 07/15/2019 Depression Screening 08/26/2024 08/27/2023, 08/27/19 Diabetes: Foot Exam 08/26/2024 08/27/2023, 08/27/2023, 08/27/2023, Additional history exists SDOH Screening 08/26/2024 08/27/2023 Lipid Panel 08/27/2024 08/28/2023, 02/05/2022, 01/05/2021 Diabetes: Hemoglobin A1C 09/15/2024 025, 02/12/2024, 08/27/2023, Additional history exists Dental Prophylaxis 11/27/2024 05/29/2024, 0 10/29/2023, 02/28/2023, Additional history exists Eye Exam 03/02/2025 03/02/2023 DTaP/Tdap/Td Vaccines (2 - Td or Tdap) 05/03/2025 05/03/2015 Dental X-Ray: Bitewings 05/30/2025 05/29/2024, 07/13 Tobacco Screening 06/17/2025 06/17/2024 Dental X-Ray: Full Mouth 07/14/2025 07/13/2022 Mammogram 08/30/2025 08/31/2023, 04/0 05/2021, 08/19/2021, Additional history exists HIB Vaccines [...] complication, without long-term current use of insulin ([facility]) POCT GLYCATED HEMOGLOBIN, TOTAL Routine 06/17/2024 1:47 PM EST Type 2 diabetes mellitus with other specified complication, without long-term current use of insulin ([facility]) BACTERIAL VAGINOSIS PANEL Routine 06/07/2024 10:59 AM [...] pain of left shoulder due to trauma BI MAMMOGRAM SCREENING TOMOSYNTHESIS BILATERAL Routine 08/31/2023 1:20 PM EDT LIPID PANEL, STANDARD Routine 08/28/2023 8:50 AM EDT Type 2 diabetes mellitus with other specified complication, without long-term current use of insulin ([facility]) Diabetic polyneuropathy associated with other specified diabetes mellitus ([facility]) High cholesterol ALBUMIN, RANDOM URINE W/CREATININE Routine [...] Media Lot # [id number] Lot# Expiration Date 101,712 Blood 06/17/2024 1:47 PM EST Howard Lovett MD POINT OF CARE TEST ENTER/EDIT OR DERABLES Final Result * POCT Glucose (06/17/2024 1:47 PM EST) Glucose Blood, POC 165 60 - 200 mg/dL QC Media Lot # [id number] Lot# Expiration Date Blood Capillary blood specimen / Unknown 06/17/2024 1:47 PM EST Howard Lovett MD POINT OF CARE TEST ENTER/EDIT OR DERABLES Final Result * (ABNORMAL) Bacterial Vaginosis Panel (06/07/2024 10:59 AM EST) Pathologist [facility] TRICHOMONAS VAGINALIS DETECTION BY PCR NOT DETECTED Not Detect [facility] BACTERIAL VAGINOSIS DETECTION BY PCR NEGATIVE Negative [facility] Comment:The BV organism targ ets of [...] GROUP DETECTION BY PCR DETECTED(A) Not Detect [facility] Nicole glab krusei PCR NOT DETECTED Not Detect [facility] Swab Vaginal structure / Unknown 06/07/2024 10:59 AM EST 06/07/2024 1:43 PM EST Olvin Pimentel MD LAB MICROBIOLOGY - GENERAL ORDER MELINA Final Result [facility] [address] [place] [phone] * Culture, Urine, Routine (06/07/2024 10:59 AM EST) Urine Urine specimen obtained by clean catch procedure / Unknown 06/07/2024 10:59 AM EST 06/07/2024 1:43 PM EST Comment:UACC Narrative [facility] - 06/08/2024 12:59 PM EST Urine Culture Report Result Urine Culture 10,000 to 50,000 cfu/ml Urine Culture Mixed bacterial kinza characteristic of Urine Culture urogenital contamination. Specimen Source: Urine clean catch Olvin Pimentel MD LAB MICROBIOLOGY - GENERAL ORDER MELINA Final Result [facility] [address] [place] [address] [phone] * POCT Urinalysis (06/07/2024 9:56 AM [...] PM EST Narrative 05/16/2024 2:33 PM EST ?[facility] ?[address] ?[place] [address] ?XRay Report ? Signed ? Patient: Elvira Mauricio,Kimberly ?MR#: [id number] ?? [id number] ? : 1950 ?Acct:[id number] ? Age/Sex: 73 / F ?ADM Date: 12/27/24 ? Loc: HO.HHCX ? Attending Dr: Juana Donnelly MD ? Ordering Physician: Juana Donnelly MD ?? Date of Service: 05/16/24 ?? Procedure(s): XR shoulder LT min 2V ?? Accession Number(s): [id number] ? cc: Juana Donnelly MD ? EXAMINATION: [...] ??Lit Avina MD ??05/16/2024 02:30 PM EST ? Dictated By: ?Lit Avina MD ? Signed By: ?<Electronically signed by Lit Avina MD in OV> ?05/16/24 1430 ? DD/ 1325 ? TD/TT: 05/16/24 1340 ? Hr Specialist: SR ? Procedure Note Ishan Quezada - 05/16/2024 [place] [address] XRay Report Signed Patient: Marlena Randhawa#: [id number] : 1950cct:[id number] Age/Sex: 73 / FADM Date: 05/16/24 Loc: HO.HHCX Attending Dr: Juana Donnelly MD Ordering Physician: Juana Donnelly MD Date of Service: 05/16/24 Procedure(s): XR shoulder LT min 2V Accession Number(s): [id number] cc: Juana Donnelly MD EXAMINATION: XR SHOULDER, [...] by: Lit Avina MD 05/16/2024 02:30 PM EST RP Dictated By: Lit Avina MD Signed By: <Electronically signed by Lit Avina MD in OV> 05/16/24 1430 DD/ 1325 TD/TT: 05/16/24 1340 Hr Specialist: us Juana Donnelly MD IMG XR PROCEDURES Final Resul t * BI Mammogram Screening Tomosynthesis Bilateral (08/31/2023 1:20 PM EDT) Anatomical Region Laterality Modality Breast Bilateral Mammography 08/31/2023 1:20 PM EDT Narrative 09/27/2023 10:20 PM EDT ? [facility] ? [address] ?[place] [address] ? Mammography Report ? Signed ? Patient: Elvira Mauricio,Kimberly ?MR#: [id number] ?? [id number] ? : 1950 ?Acct:[id number] ? Age/Sex: 72 / F ?ADM Date: 04/12/24 ? Loc: HO.MAMMO ? Attending Dr: Kelsie Simpson CNM ? Ordering Physician: Kelsie Simpson CNM ?Results: 2Beni ?? gn Findings ? Date of Service: 08/31/23 ?Follow Up: 1 Year From Orig ?? inal Mammogram ? Procedure(s): MM tomosynthesis screening BI ?? Accession Number(s): [id number] ? cc: Rubin Arguello MD; Kelsie Simpson CNM ? EXAMINATION: ?? MM SCREENING DIGITAL BREAST TOMOSYNTHESIS, BILATERAL ? CLINICAL INFORMATION: ? Screening. Asymptomatic. ? COMPARISON: ?? Mammography: This study is compared with prior exams dating back to ?? 2018. ? TECHNIQUE: ?? Digital breast tomosynthesis is [...] MD in OV> ? 09/27/232215 ? DD/ ? TD/TT: ? Hr Specialist: ? Procedure Note Donotuseinterpreter, Image - 09/27/2023 [facility] [address] [place], [place] [address] Mammography Report Signed Patient: Marlena Randhawa#: [id number] : 3Acct:[id number] Age/Sex: 72 / FADM Date: 08/31/23 Loc: HO.MAMMO Attending Dr: Kelsie Simpson CNM Ordering Physician: Kelsie Simpsonesults: 2Beni gn Findings Date of Service: 08/31/23Follow Up: 1 Year From Orig inal Mammogram Procedure(s): MM tomosynthesis screening BI Accession Number(s): [id number] cc: Rubin Arguello MD; Kelsie Simpson CNM [...] in OV> 09/27/23 2216 DD/ 1320 TD/TT: Hr Specialist: [facility] External Provider IMG BI PROCEDURES Edited Result - Final * (ABNORMAL) Lipid Panel, Standard (08/28/2023 8:50 AM EDT) Triglycerides 172(H) <150 mg/dL [facility] Comment:Desirable Triglyceri de: less than 150 mg/dLBorderline High Triglyceride 150-199 mg/dLHigh Triglyceride: 200-499 mg/dLVery High Triglyceride: greater than or equal to 5OO mg/dL Cholesterol 146 <200 mg/dL [facility] Comment:Desirable Cholestero l: less than 200 mg/dLBorderline High Cholesterol: 200-239 mg/dLHigh Cholesterol: greater than 239 mg/dL LDL Cholesterol Calculated 55 <100 mg/dL [facility] Comment:Desirable LDL: less than 100 mg/dLNear Optimal/Above Optimal LDL: 110- 129 mg/dLBorderline High LDL: 130-159 mg/dLHigh LDL: 160-189 mg/dLVery High LDL: greater than or equal to 190 mg/dL HDL Cholesterol 57 >40 mg/dL [facility] Comment:Desirable HDL: great er than 40 mg/dL Note: This HDL assay may give artificially low results in patients with liver disease. Blood Venous blood specimen / Unknown 08/28/2023 8:50 AM EDT 08/28/2023 11:20 AM EDT us Howard Name MD LAB BLOOD ORDERABLES Final Resul t [facility] [address] [place], [place] [phone] * Albumin, Random Urine W/Creatinine (04/23/2023 8:58 AM EST) Creatinine, Urine 65.67 mg/dL [facility] Microalbumin Urine 14.0 mg/L [facility] Microalbum Creatinine Ratio Ur 21.3 <30 ug/mg cr [facility] Comment:Albumin/Creatinine R atio Reference Ranges: Normal: < 30 ug/mg creatinine Microalbuminuria: 30 - 300 ug/mg creatinineClinical Albuminuria: > 300 ug/mg creatinine 04/23/2023 8:58 AM EST 04/23/2023 11:06 AM EST us Howard Lovett MD LAB URINE ORDERABLES Final Resul t [facility] [address] [place] [address] [phone] * Diabetes Eye Exam (03/02/2023) Eye Exam Normal Normal us Howard Lovett MD HEALTH MAINTENANCE Final Result * Hm Colonoscopy (10/26/2015 10:13 AM EDT) Colonoscopy Normal Normal Narrative Radha Henry - 10/26/2015 10:13 AM EDT Recommended 5 year follow up Alon Provider HEALTH MAINTENANCE Final Result from Last 3 Months or Most Recently Relevant to Health Maintenance Insurance [facility] STANDARD [facility] MEDICARE ADVANTAGE HMO DENTAL [facility] DENTAL - HSN FULL (MEDICAID) Care Teams Franchise Consultant Relationship Specialty Start Date End Date Name, MD Howard [address] [place] [address] [place] [address] PCP - General Family Medicine 03/13/19
[2024-06-27 11:34] LABS: MANUAL DIFF FLAG NO
[2024-06-27 11:59] LABS: Basophils Absolute Auto 0.1 X10*3/uL (0.0-0.2); Basophils Percent Auto 0.8 % (0-2); Eosinophils Absolute Auto 0.1 X10*3/uL (0.0-0.4); Eosinophils Percent Auto 1.7 % (0-4); Hematocrit 39.4 % (37.0-47.0); Hemoglobin 12.4 g/dl (12.0-16.0); Imm Gran Abs Auto 0.02 X10*3/uL (0.00-0.03); Imm Gran Pct Auto 0.3 % (0.0-0.4); Lymphocytes Percent Auto 33.3 % (20-40); Mean Corpuscular HGB Conc 31.5 g/dl (31.0-35.0); Mean Corpuscular Hemoglobin 25.7 pg (27.0-33.0); Mean Corpuscular Volume 81.7 fL (80.0-98.0); Mean Platelet Volume 10.4 fL (9.4-12.3); Monocytes Absolute Auto 0.4 X10*3/uL (0.1-1.2); Monocytes Percent Auto 7.5 % (2-11); Neutrophils Absolute Auto 3.3 x10*3/uL (2.0-8.3); Neutrophils Percent Auto 56.4 % (45-73); Platelet Count 389 X10*3/uL (160-400); Red Blood Count 4.82 X10*6/uL (4.20-5.50); Red Cell Distribution Width 15.4 % (11.0-16.0); White Blood Count 5.9 X10*3/uL (4.8-10.8)
[2024-06-27 12:21] LABS: Alanine Aminotransferase 14 U/L (0-31); Albumin Level 4.1 g/dL (3.5-5.0); Alkaline Phosphatase 67 U/L (39-117); Anion Gap 13 (12-20); Aspartate Amino Transferase 22 U/L (5-31); Bilirubin Total 0.3 mg/dL (0.0-1.0); Blood Urea Nitrogen 13 mg/dL (9-16); Calcium 9.8 mg/dL (8.4-10.2); Carbon Dioxide 23 mmol/L (22-29); Chloride 107 mmol/L (96-108); Cholesterol 153 mg/dL (<200); Estimated Glomerular Filt Rate > 60; Glucose Random 163 mg/dL (60-115); HDL Cholesterol 68 mg/dL (>40); LDL Cholesterol Calculated 60 mg/dL (<100); Potassium 3.9 mmol/L (3.3-5.1); Sodium 139 mmol/L (135-145); Total Protein 7.6 g/dL (6.5-8.0); Triglycerides 129 mg/dL (<150)
[2024-06-27 12:35] LABS: Creatinine Urine 58.67 mg/dL; Microalbum/Creatinine Ratio Ur 18.7 ug/mg cr (<30)
== END 2024-06-27 09:15 | disposition home or self-care (01) ==
LOC: HO.HHCL 09:14
PROVIDERS: Visit Provider Internal Medicine Geriatric Medicine
DX: E11.69 Type 2 diabetes mellitus with other specified complication (principal)
CPT/HCPCS: 36415; 80053; 80061; 82043; 82570; 85025

== ENCOUNTER 2024-10-15 09:24 | Outpatient (REF) | payer MEDICARE, SELFPAY ==
--- NOTE | ~2024-10-15 | XR_ITS ---
EXAMINATION: XR HIP 2 OR MORE VIEWS RIGHT HISTORY: Right hip pain since a mechanical fall 3 weeks ago. COMPARISON: Comparison is made with the prior examination dated 11/26/2023. FINDINGS: Two views of the right hip are submitted. Osseous mineralization is normal. There is no fracture or dislocation. Is mild joint space narrowing. The soft tissues are unremarkable. XR/XR hip RT min 2V IMPRESSION: Mild joint space narrowing. No evidence of fracture of the right hip. Electronically signed by: Timi Michael MD 10/15/2024 09:57 AM EDT
--- OUTSIDE RECORDS SUMMARY | 2024-10-15 10:04 | XMS_ITS | Encounter Summary ---
Author Organization [employer] Address [address] [place] [address] [address] [address] Care Team Providers Care Vice President Marketing & Development Name Role Phone Name, Howard BRENNER Primary Care Provider [phone] Reason for Visit * Reason Onset Date Comments Results 07/03/2022 Encounter Details Date Type Department Care Team (Late st Contact Info) Description 07/03/2022 Telephone [facility] [address] [place], [place] [phone] Name, MD Howard [address] [place] [address] Results Social History Tobacco Use Types Packs/Day [...] regarding xray results Please contact pt at [phone] documented in this encounter Plan of Treatment Upcoming Encounters Date Type Department Care Team (Late st Contact Info) Description 11/28/2024 10:00 AM EDT Office Visit [facility] [address] [place] [address] Anna Ting [address] [place] [address] 09/07/2025 10:00 AM EDT Medication Management [facility] [address] [place] [address] documented as of this encounter Visit Diagnoses Not on filedocumented in this encounter Additional Health Concerns Assessment Noted Time PHQ-9 Depression Total Score: 0 06/19/19 2:59 PM EST documented as of this encounter Care Teams Vice President Marketing & Development Relationship Specialty Start Date End Date Name, MD Howard [address] [place] [address] PCP - General Family Medicine 03/13/19 documented as of this encounter
== END 2024-10-15 09:25 | disposition home or self-care (01) ==
LOC: HO.HHCX 09:24
PROVIDERS: PCP Internal Medicine Geriatric Medicine; Visit Provider Family Medicine
DX: M25.551 Pain in right hip (principal)
CPT/HCPCS: 73502

== ENCOUNTER → 2024-10-15 09:25 | Outpatient (BNV) | payer MEDICARE, SELFPAY | PROVIDERS: PCP Internal Medicine Geriatric Medicine; Visit Provider Radiology Diagnostic Radiology | DX: M16.11 Unilateral primary osteoarthritis, right hip (principal) | CPT/HCPCS: 73502 ==

== ENCOUNTER 2024-11-27 09:00 | Outpatient (RCR) | payer OTHER, SELFPAY | END 2025-01-22 15:38 | disposition home or self-care (01) | LOC: HO.PT 09:00 | PROVIDERS: PCP Internal Medicine Geriatric Medicine; Visit Provider Family Medicine | DX: M25.551 Pain in right hip (principal) | CPT/HCPCS: 97110; 97116; 97140; 97162 ==

== ENCOUNTER 2024-12-18 10:00 | Outpatient (REF) | payer OTHER, SELFPAY ==
--- NOTE | ~2024-12-18 | XR_ITS ---
EXAMINATION: XR KNEE, RIGHT CLINICAL INFORMATION: knee pain and swelling COMPARISON: None available. TECHNIQUE: Four views of the right knee. FINDINGS: No fracture, dislocation, or suspicious bone lesion. Moderate to severe lateral compartment joint space narrowing with marginal osteophytic spurs and subchondral sclerosis. Compensatory widening of the medial compartment. Mild valgus angulation of the knee joint. Spurring of the tibial spines. Mild degenerative arthritis in the patellofemoral joint. Soft tissues demonstrate medial soft tissue swelling. No joint effusion. XR/XR knee RT 4V IMPRESSION: 1. No acute bony abnormalities. Medial soft tissue swelling. 2. Moderate to severe osteoarthritis in the lateral compartment. Electronically signed by: Venkatesh Blankenship MD 12/18/2024 10:40 AM EDT
--- NOTE | ~2024-12-18 | XR_ITS ---
EXAMINATION: XR LUMBAR SPINE 2-3 VIEWS HISTORY: buttock pain radiating down R leg COMPARISON: Comparison is made with the prior examination dated 01/17/2024. FINDINGS: AP, lateral, and coned down views of the lumbar spine are submitted. Osseous mineralization is normal. Five nonrib-bearing lumbar vertebral bodies are identified, maintaining normal height without evidence of fracture or spondylolisthesis. There is mild dextroscoliosis. There is mild degenerative disc disease with disc space narrowing and osteophyte formation. The posterior elements are intact. There is calcification of the abdominal aorta. XR/XR lumbar spine 2-3V IMPRESSION: Mild dextroscoliosis and degenerative disc disease. Electronically signed by: Timi Michael MD 12/18/2024 10:39 AM EDT
--- OUTSIDE RECORDS SUMMARY | 2024-12-18 10:39 | XMS_ITS | Encounter Summary ---
Author Organization [employer] Address [address] [place] [address] [address] [place] [address] Care Team Providers Care Nutrition Director Name Role Phone Name, Howard BRENNER Primary Care Provider [phone] Reason for Visit * Reason Onset Date Comments Results 07/03/2022 Encounter Details Date Type Department Care Team (Late st Contact Info) Description 07/03/2022 Telephone [facility] [address] [place], [place] [phone] Name, MD Howard [address] [place] [address] Results Social History Tobacco Use Types Packs/Day [...] regarding xray results Please contact pt at [phone] documented in this encounter Plan of Treatment Upcoming Encounters Date Type Department Care Team (Late st Contact Info) Description 06/11/2025 1:00 PM EST Office Visit [facility] [address] [place] [address] Anna, Ting [address] [place] [address] documented as of this encounter Visit Diagnoses Not on filedocumented in this encounter Additional Health Concerns Assessment Noted Time PHQ-9 Depression Total Score: 0 06/19/19 23 2:59 PM EST documented as of this encounter Care Teams Nutrition Director Relationship Specialty Start Date End Date Name, MD Howard [address] [place] [address] PCP - General Family Medicine 03/13/19 documented as of this encounter
--- OUTSIDE RECORDS SUMMARY | 2024-12-18 10:39 | XMS_ITS | Clinical Summary ---
Author Organization [facility] Address [address] [place] [address] Phone Care Team Providers Care Binder Technician Name Role Phone Name, Howard BRENNER Primary Care Provider [phone] Allergies Active Allergy Reactions Criticality Noted Date Comments Dulaglutide 06/17/2024 Vomiting and diarrhea Sulfa (Sulfonamide Antibiotics) Hives Medium 09/01/2023 Medications metFORMIN (FORTAMET) 1000 MG (OSM) 24 hr tablet Take 1,000 mg by mouth 2 (two) times a day with meals. Active empagliflozin (JARDIANCE) 10 mg tablet Take 10 mg by mouth daily. Active clopidogrel (PLAVIX) 75 mg tablet Take 75 mg by mouth daily. Active atenolol (TENORMIN) 25 MG tablet Take 25 mg by mouth daily. Active omeprazole (PRILOSEC) 20 MG tablet Take 20 mg by mouth daily. Active amLODIPine (NORVASC) 10 MG tablet Take 10 mg by mouth daily. Active therapeutic multivitamin tablet Take 1 tablet by mouth daily. Active losartan (COZAAR) 100 MG tablet Take 1 tablet by mouth every morning. 4 Active ONETOUCH ULTRA TEST Strp strips TEST BLOOD SUGAR 3 TO 4 TIMES PER DAY 4 Active gabapentin (NEURONTIN) 300 MG capsule Take 300 mg by mouth daily. Active glipiZIDE (GLUCOTROL XL) 2.5 MG 24 hr tablet Take 2.5 mg by mouth. 3 Active ONETOUCH DELICA PLUS LANCET 33 gauge Misc TEST BLOOD SUGAR THREE OR FOUR TIMES DAILY 4 Active clotrimazole-beta methasone (LOTRISONE) cream APPLY 1 GRAM TOPICALLY THREE TIMES DAILY TO AFFECTED AREA(S) OF SKIN NEEDED FOR ITCHING 4 Active atorvastatin (LIPITOR) 40 MG tablet Take 1 tablet by mouth nightly at bedtime. 4 Active acetaminophen (TYLENOL) 500 MG tablet Take 1,000 mg by mouth every 6 (six) hours as needed for pain (specific location in comments). 4 Active pantoprazole (PROTONIX) 40 MG tablet Take by mouth. 4 Active clotrimazole (GYNE-LOTRIMIN) 1 % vaginal cream Place 1 applicator (5 g total) vaginally daily. 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 Not on bernabe e 09/01/2023 Are you concerned about learning? Not on file 09/01/2023 No 09/01/2023 No 09/01/2023 Digital Access Answer Date Recorded No 09/01/2023 No 09/01/2023 Reliable internet access at home? Not on file 09/01/2023 Device with a working camera? Not on file Intimate Partner Violence Answer Date R ecorded Are you denied basic needs s uch as food, clothing, or medical care? No 02/15/2024 In the past 12 months have y ou been in a relationship with a person who hurts, threatens, or tries to control you? No 02/15/2024 Are you denied basic needs s uch as food, clothing, or medical care? No 02/15/2024 In the past 12 months have y ou been in a relationship with a person who hurts, threatens, or tries to control you? No 02/15/2024 Comments No Sex and Gender Information Value Date Recorded Sex Assigned at Female 09/01/2023 4:48 PM EDT Legal Sex Female 4:41 PM EDT Gender Identity Female 09/01/2023 4:48 PM EDT Sexual Orientation Straight 11/20/2023 4: 44 PM EDT Last Filed Vital Signs Vital Sign Reading Time Taken Comments Blood Pressure 140/80 08/04/2024 10:02 AM EDT Pulse 68 02/15/2024 3:02 AM EDT Temperature 36.2 C (97.2 F) 02/15/2024 3:02 AM EDT Respiratory Rate 18 02/15/2024 3:02 AM EDT Oxygen Saturation 97% 02/15/2024 3:02 AM EDT Inhaled Oxygen Concentration - - Weight 52.2 kg (115 lb) 02/15/2024 12:42 AM EDT Height 149.9 cm (4' 11 ) 02/15/2024 12:42 AM EDT Body Mass Index 23.23 02/15/2024 12:42 AM EDT Plan of Treatment Health Maintenance Due Date Last Done Comments DEPRESSION SCREENING 1964 HEPATITIS C SCREENING 1970 COLOGUARD 1997 COLONOSCOPY 1997 COLORECTAL CANCER SCREENING 1997 FIT TEST 1997 FOBT 1997 SIGMOIDOSCOPY 1997 VIRTUAL COLONOSCOPY 1997 ZOSTER VACCINES (1 of 2) 2002 RSV VACCINE (1 - Risk 60-74 years 1-dose series) 2012 OSTEOPOROSIS SCREENING INITI AL (ONE-TIME) 2017 MAMMOGRAM 12/27/2020 12/27/2018 DIABETIC EYE EXAM 01/10/2024 COVID-19 VACCINE (4 - 2023-2 5 season) 2024 06/13/2021, 12/28/2020, 12/01/2020 PNEUMOCOCCAL VACCINES (50+ years) (3 of 3 - PCV20 or PCV21) 03/31/2024 03/31/2019, 03/13/2017 CREATININE LEVEL 11/19/2024 11/20/2023, 09/01/2023 POTASSIUM LEVEL 11/19/2024 11/20/2023, 09/01/2023 HEMOGLOBIN A1C 12/15/2024 06/17/2024, 02/12/2024, 08/27/2023 BLOOD PRESSURE 02/04/2025 08/04/2024 Adult Td,Tdap Booster 05/03/2025 05/03/2015 SMOKING STATUS SCREENING (On ce After 26 Yrs) Completed 08/04/2024 HEPATITIS A VACCINES Aged Out No long er eligible based on patient's age to complete this topic HIB VACCINES Aged Out No longer eligi ble based on patient's age to complete this topic MENINGOCOCCAL VACCINES (ACWY) Aged Out No longer eligible based on patient's age to complete this topic MENINGOCOCCAL VACCINES (B) Aged Out N o longer eligible based on patient's age to complete this topic Medical Devices Not on file Procedures Procedure Name Priority Date/Time Associated Diagnosis Comments BASIC METABOLIC PANEL STAT 11/20/2023 5:06 PM EDT from Last 3 Months or Most Recently Relevant to Health Maintenance Results * (ABNORMAL) Basic metabolic panel (11/20/2023 5:06 PM EDT) SODIUM 141 133 - 146 mmol/L [facility] CHLORIDE 104 96 - 108 mmol/L [facility] POTASSIUM 3.6 3.3 - 5.1 mmol/L [facility] CO2 25 21 - 35 mmol/L [facility] BUN 14 6 - 19 mg/dL [facility] CREATININE 0.50 0.5 - 1.5 mg/dL [facility] GLUCOSE 241(H) 70 - 99 mg/dL [facility] CALCIUM 9.5 8.4 - 10.3 mg/dL [facility] EGFR 101 >59 mL/min/1.7 3m2 [facility] Comment:Estimated glomerular filtration rate calculated using the CKD-EPI refit equation. ANION GAP 16 10 - 20 mmol/L [facility] Blood 11/20/2023 5:06 PM EDT 11/20/2023 5:18 PM EDT us Kaleb Snow MD LAB BLOOD ORDERABLES Fin al Result [facility] [address] [place] [address] from Last 3 Months or Most Recently Relevant to Health Maintenance Insurance [facility] MEDICARE REPLACEMENT [facility] PARTIAL MEDICARE PART A & [facility] MEDICARE REPLACEMENT [facility] PARTIAL MEDICARE PART A & B [facility] AAR MEDICARE REPLACEMENT [facility] PARTIAL MEDICARE PART A & B [facility] MEDICARE REPLACEMENT [facility] PARTIAL MEDICARE PART A & [facility] MEDICARE REPLACEMENT [facility] PARTIAL MEDICARE PART A & [facility] [place] [id number] [place] [address] PARTIAL MEDICARE PART A & B [facility] Advance Directives For more information, please contact: [phone] (9AM - 5PM [facility], Sunday-Sunday) Documents on File Type Date Recorded Patient Bond Analyst Expl anation Healthcare Proxy 01/29/2024 HEALTHCARE PROXY 01/29/2024 Care Teams Binder Technician Relationship Specialty Start Date End Date Name, MD Howard [address] [place] [address] PCP - General 09/01/23 Additional Source Comments The information contained in this document represents components of the legal health record. It is not the complete legal health record.[facility]
--- OUTSIDE RECORDS SUMMARY | 2024-12-18 10:39 | XMS_ITS | Clinical Summary ---
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) Cataract 02/25/2018 DX:Cataract Diabetic neuropathy (CMS/HCC V24, CMS/HCC V28) 12/27/2017 DX:Diabetic neuropathy (HCC) GERD (gastroesophageal reflux disease) 02/25/2018 DX:GERD (gastroesophageal reflux disease) Colon polyps 02/25/2018 DX:Colon polyps; COMMENT: 04/2015, told to repeat in 3 years Diabetes mellitus with neuro logical manifestation (CMS/HCC V24, CMS/HCC V28) 02/25/2018 DX:Diabetes mellitus with neurological manifestation (HCC) [...] Date Smoking Tobacco: Never Smokeless Tobacco: Never Comments Unknown Sex and Gender Information Value Date Recorded Sex Assigned at Not on file Legal Sex Female 12:17 AM EST Gender Identity Not on file Sexual Orientation Not on file Obstetrics History Plan of Treatment Health Maintenance Due Date Last Done Comments Breast Cancer Screening 1950 DTaP,Tdap,and Td Vaccines (1 - Tdap) 11/30/1971 Pneumococcal Vaccine: 50+ Ye ars (1 of 1 - PCV) 2002 Zoster Vaccines (1 of 2) 2002 COVID-19 Vaccine (1 - 2023-2 5 season) 2024 Depression Screening 05/21/2024 Influenza Vaccine (#1) 2025 03/04/2018 RSV Immunization Adult Patie nts (1 - 1-dose 75+ series) 11/30/2027 HIB [...] patient's age to complete this topic Meningococcal B Vaccine Aged Out No l onger eligible based on patient's age to complete this topic RSV Immunization Patients Un fredo 20 months Aged Out No longer eligible b ased on patient's age to complete this topic Varicella Vaccines Aged Out No longer eligible based on patient's age to complete this topic Care Teams Nylon Operator Relationship Specialty Start Date End Date Laura Jones MD [address] [place] [address] PCP - General Internal Medicine 12/14/17
== END 2024-12-18 10:01 | disposition home or self-care (01) ==
LOC: HO.HHCX 10:00
PROVIDERS: Visit Provider Family Medicine
DX: M79.604 Pain in right leg (principal); M25.561 Pain in right knee; M25.461 Effusion, right knee
CPT/HCPCS: 72100; 73564

== ENCOUNTER → 2024-12-18 10:00 | Outpatient (BNV) | payer OTHER, SELFPAY | PROVIDERS: Visit Provider Radiology Diagnostic Radiology | DX: M17.11 Unilateral primary osteoarthritis, right knee (principal); M51.360 Other intervertebral disc degeneration, lumbar region with discogenic back pain only | CPT/HCPCS: 72100; 73564 ==

== ENCOUNTER 2024-12-29 10:16 | Outpatient (AMB) | payer OTHER, SELFPAY ==
--- NOTE | 2024-12-29 10:31 | A.OFFVIS_ITS ---
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 Patient reports ongoing pain for 2 months. She express that her pain starts at the right glute and it moves down to her right knee. Her pain is worse when she is bending her knee. Patient has tried pain medication with mild relief. 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 Elvira Mauricio is a 74-year-old female who presents to the office today for pain that begins in the right buttock and extends down to the right knee. She also endorses numbness and tingling in the entire right lower extremity. She has been seen by multiple providers for this such as physiatry which recommended cortisone injection and referral to pain management. Additionally, she has an appointment with neuro for evaluation of the same concern. At her last appointment with physiatry physical therapy and cortisone injection were discussed. Patient decided to avoid physical therapy at that time and a referral to pain management was made for the injection. Patient states that she began physical therapy roughly 2 days ago. When asked why she had not followed up with pain management she reports that it took 2 months for an appointment to be seen. and therfore declind followup. [facility] Medical History Hypercholesteremia Diabetes Hypertension Hammer toe Surgical History H/O tubal ligation H/O knee surgery H/O section Family History Brother Prostate cancer Maternal Aunt Breast cancer Social History Alcohol intake: former Sexual orientation: Straight/Heterosexual Gender identity: Female Female Reproductive History Menstrual Age of Menarche: 15 Review of Systems Const All systems reviewed & are unremarkable except as noted in HPI and below Physical Exam Vital Signs: BMI result Body Mass Index 23.8 Const General: cooperative, healthy appearing and no acute distress Resp Effort & Inspection: normal respiratory effort and able to speak in complete sentences Extrem Other: Right hip: Full hip ROM in all planes no groin pain reported with range of motion. No tenderness to palpation over the greater trochanteric bursa. 5/5 strength with resisted hip flexion, knee extension, abduction, and abduction. Able to perform straight leg raise. NVI. Right knee: Mild joint effusion. No tenderness to palpation along the medial or lateral joint lines. Full knee extension and flexion. NVI. Psych Appearance: grossly normal Mental Status: mental status grossly normal Attitude: cooperative Assessment & Plan Assessment & Plan (1) Lumbar degenerative disc disease: Code(s): M51.369 - Other intervertebral disc degeneration, lumbar region without mention of lumbar back pain or lower extremity pain Category: Medical (2) Low back pain: Code(s): M54.50 - Low back pain, unspecified Category: Medical (3) Right lumbar radiculitis: Code(s): M54.16 - Radiculopathy, lumbar region Category: Medical Plan Ms. Elvira Mauricio is a 74-year-old female who presents to the office today for pain that begins in the right buttock and extends down to the right knee. She also endorses numbness and tingling in the entire right lower extremity. She has been seen by multiple providers for this such as physiatry which recommended cortisone injection and referral to pain management. Additionally, she has an appointment with neuro for evaluation of the same concern. At her last appointment with physiatry physical therapy and cortisone injection were discussed. Patient decided to avoid physical therapy at that time and a referral to pain management was made for the injection. Patient states that she began physical therapy roughly 2 days ago. When asked why she had not followed up with pain management she reports that it took 2 months for an appointment to be seen. and therfore declind followup. While in the office today, I educated the patient that she has documented right lower extremity radiculitis and degenerative joint disease of her lumbar spine. She should follow up with a military technology specialist fist. After reading Dr. Casillas's last office note and recommendation of injection. I have again, referred the patient to pain management. Unfortunately this is not an orthopedic related issue. However, the patient does arthritis in the right knee. We discussed the role of cortisone injection for right knee pain. However, the patient reports that she would like to defer at this time. She will follow up with Orthopedics p.r.n., sooner if needed. X-rays of bilateral knee standing which were obtained while in the office today and were reviewed by me, Margarita Branch PA-C, revealed osteoarthritis. Orders: Orders XR knee standing BI Today M25.569 - Pain in unspecified knee XR Knee Geo 1or 2V Today M25.569 - Pain in unspecified knee Referrals Pain Management Referral M53.3 - Sacrococcygeal disorders, not elsewhere classified, M54.16 - Radiculopathy, lumbar region Coding Level of Care Code Est Pt Level 3 (76873) Diagnoses Lumbar degenerative disc disease M51.369 Low back pain M54.50 Right lumbar radiculitis M54.16
[2024-12-29 10:38] VITALS: BMI 23.8
--- OUTSIDE RECORDS SUMMARY | 2024-12-29 10:54 | XMS_ITS | Clinical Summary ---
Author Organization [facility] Address [address] [place] [address] Phone Care Team Providers Care Human Resources Associate Name Role Phone Name, Howard BRENNER Primary Care Provider [phone] Allergies Active Allergy Reactions Criticality Noted Date [...] of blood transfusion See media for documentation Alevism Type 2 diabetes mellitus without complications 0 [...] EDT) SODIUM 141 133 - 146 mmol/L [facility] CHLORIDE 104 96 - 108 mmol/L [facility] POTASSIUM 3.6 3.3 - 5.1 mmol/L [facility] CO2 25 21 - 35 mmol/L [facility] BUN 14 6 - 19 mg/dL [facility] CREATININE 0.50 0.5 - 1.5 mg/dL [facility] GLUCOSE 241(H) 70 - 99 mg/dL [facility] CALCIUM 9.5 8.4 - 10.3 mg/dL [facility] EGFR 101 >59 mL/min/1.7 3m2 [facility] Comment:Estimated glomerular filtration rate calculated using the CKD-EPI refit equation. ANION GAP 16 10 - 20 mmol/L [facility] Blood 11/20/2023 5:06 PM EDT 11/20/2023 5:18 PM EDT us Kaleb Snow MD LAB BLOOD ORDERABLES Fin al Result [facility] [address] [place] [address] from Last 3 Months or Most Recently Relevant to Health Maintenance Insurance [facility] MEDICARE REPLACEMENT FORMERLY [facility] PARTIAL MEDICARE PART A & B [facility] MEDICARE REPLACEMENT FORMERLY [facility] PARTIAL MEDICARE PART A & B [facility] AAR MEDICARE REPLACEMENT FORMERLY [facility] PARTIAL MEDICARE PART A & B [facility] MEDICARE REPLACEMENT FORMERLY [facility] PARTIAL MEDICARE PART A & B [facility] MEDICARE [facility]PLACEMENT FORMERLY [facility] PARTIAL MEDICARE PART A & B [facility] [place] [address] [place] [address] PARTIAL MEDICARE PART A & B [facility] Advance Directives For more information, please contact: [phone] (9AM - 5PM [facility], Sunday-Sunday) Documents on File Type Date Recorded Patient Carroter Expl anation Healthcare Proxy 01/29/2024 HEALTHCARE PROXY 01/29/2024 Care Teams Human Resources Associate Relationship Specialty Start Date End Date Name, MD Howard [address] [place] [id number] PCP - General 09/01/23 Additional Source Comments The information contained in this document represents components of the legal health record. It is not the complete legal health record.[facility]
--- OUTSIDE RECORDS SUMMARY | 2024-12-29 10:54 | XMS_ITS | Encounter Summary ---
Author Organization [employer] Address [address] [place] [address] [address] [place] [address] Care Team Providers Care Litigation Partner Name Role Phone Name, Howard BRENNER Primary Care Provider [phone] Reason for Visit * Reason Onset Date Comments Results 07/03/2022 Encounter Details Date Type Department Care Team (Late st Contact Info) Description 07/03/2022 Telephone [facility] MEDICINE [address] [place], [place] [id number] Name, MD Howard [address] [place] [address] Results Social History Tobacco Use Types Packs/Day [...] regarding xray results Please contact pt at [phone] documented in this encounter Plan of Treatment Upcoming Encounters Date Type Department Care Team (Late st Contact Info) Description 06/11/2025 1:00 PM EST Office Visit [facility] ADULT DENTAL [address] [place] [address] Anna, Ting [address] [place] [address] documented as of this encounter Visit Diagnoses Not on filedocumented in this encounter Additional Health Concerns Assessment Noted Time PHQ-9 Depression Total Score: 0 06/19/19 23 2:59 PM EST documented as of this encounter Care Teams Litigation Partner Relationship Specialty Start Date End Date Name, MD Howard [address] [place] [address] PCP - General Family Medicine 03/13/19 documented as of this encounter
--- OUTSIDE RECORDS SUMMARY | 2024-12-29 10:54 | XMS_ITS | Clinical Summary ---
Author Organization [employer] [facility] Address [address] [place] [address] Care Team Providers Care Profile Grinder Technician Name Role Phone Laura Jones MD Primary [...] age to complete this topic Care Teams Profile Grinder Technician Relationship Specialty Start Date End Date Laura Jones MD [address] [place] [address] PCP - General Internal Medicine 12/14/17
== END 2024-12-29 10:47 | disposition home or self-care (01) ==
LOC: HO.HOS 10:17
PROVIDERS: Visit Provider Physician Assistant
DX: M51.369 Other intervertebral disc degeneration, lumbar region without mention of lumbar back pain or lower extremity pain (principal); M54.50 Low back pain, unspecified; M54.16 Radiculopathy, lumbar region
CPT/HCPCS: 99213

== ENCOUNTER 2024-12-29 10:22 | Outpatient (REF) | payer OTHER, SELFPAY ==
--- NOTE | ~2024-12-29 | XR_ITS ---
EXAMINATION: XR KNEES ANTEROPOSTERIOR STANDING BILATERAL HISTORY: M25.569 - Pain in unspecified knee COMPARISON: Comparison is made with the prior examination of the right knee dated 12/18/2024 and the prior examination of the left knee dated 07/27/2021. FINDINGS: Standing AP views of both knees are submitted. There is severe osteoarthritis of the lateral compartment of the right knee with joint space narrowing and osteophyte formation. The medial and lateral compartments of the left knee are maintained. XR/XR knee standing BI IMPRESSION: Severe osteoarthritis of the lateral compartment of the right knee. Electronically signed by: Timi Michael MD 12/29/2024 01:27 PM EDT
== END 2024-12-29 10:23 | disposition home or self-care (01) ==
LOC: HO.HOSX 10:22
PROVIDERS: Visit Provider Physician Assistant
DX: M51.16 Intervertebral disc disorders with radiculopathy, lumbar region (principal); M25.561 Pain in right knee; M25.461 Effusion, right knee; M54.50 Low back pain, unspecified; M53.3 Sacrococcygeal disorders, not elsewhere classified
CPT/HCPCS: 73565; 99212

== ENCOUNTER → 2024-12-29 10:25 | Outpatient (BNV) | payer OTHER, SELFPAY | PROVIDERS: Visit Provider Radiology Diagnostic Radiology | DX: M17.11 Unilateral primary osteoarthritis, right knee (principal) | CPT/HCPCS: 73565 ==

== ENCOUNTER 2025-01-27 08:40 | Outpatient (REF) | payer OTHER, SELFPAY ==
--- OUTSIDE RECORDS SUMMARY | 2025-01-22 13:45 | XMS_ITS | Encounter Summary ---
Author Organization [employer] Address [address] [facility] 7 [place] [address] Care Team Providers Care Apartment Leasing Agent Name Role Phone Name, Howard BRENNER Primary Care Provider [phone] Reason for Referral * Consultation (Routine) - Pending Review Specialty Diagnoses / Procedures Referred By Bc camejo Referred To Contact Gastroenterology Diagnoses Health care maintenance Maddie Null FNP [address] [place] [address] Phone: tel: fax: Referral ID Status Reason Start Date Expiration Date Visits Requested Visits Authorized [id number] Pending Review Specialty Services Required 01/25/2025 01/25/2026 1 1 * Consultation (Routine) - Authorized Specialty Diagnoses / Procedures Referred By Bc camejo Referred To Contact Pharmacy Diagnoses Type 2 diabetes mellitus with other specified complication, without long-term current use of insulin ([facility]) Maddie Null FNP [address] [place] [address] Phone: tel: fax: Referral ID Status Reason Start Date Expiration Date Visits Requested Visits Authorized [id number] Authorized Consult and Treat 01/25/2025 01/25/2026 6 6 Encounter Details Date Type Department Care Team (Late st Contact Info) Description 01/22/2025 1:45 PM EDT Office Visit [facility] [address] [place] [address] Maddie Null FNP [address] [place] [address] Type 2 diabetes mellitus with other specified complication, without long-term current use of insulin ([facility]) (Primary Dx); Health care maintenance; Anxiety Social History Tobacco Use Types Packs/Day Years Used Date Smoking Tobacco: Never Passive Smoke Exposure: Never Smokeless Tobacco: Never Tobacco Cessation:Counseling Given: Not Answered Alcohol Use Standard Drinks/Week Comments Never 0 (1 standard drink = 0.6 oz pur e alcohol) Depression Answer Date Recorded Patient Health Questionnaire-9 Score 9 01/22/2025 Patient Health Questionnaire-9 Score 9 01/22/2025 Last PHQ-9: Questionnaire Data Not on file 0 01/22/2025 Housing Stability Answer Date Recorded What is your housing situation today? I have rosaline bello 01/14/[address] you li ve. Do you have problems with any of the following? None of the above 01/14/2025 Food Insecurity Answer Date Recorded Within the past 12 months, y ou worried that your food would run out before you got money to buy more: Never True 01/14/2025 Within the past 12 months,th e food you bought just didn't last and you didn't have enough money to get more: Never True Transportation Answer Date Recorded In the past 12 months, has l ack of transportation kept you from medical appts, meetings, work or from getting things needed for daily living? No 01/14/2025 Utilities Answer Date Recorded In the past 12 months, has t he electric, gas, oil or water company threatened to shut off services in your home? No 01/14/2025 Depression Answer Date Recorded Patient Health Questionnaire-2 Score 2 01/22/2025 Internet Access Answer Date Recorded Internet Access Q1 Yes 01/14/2025 Internet Access Q2 Not on file 01/14/2025 Comments Unknown Sex and Gender Information Value Date Recorded Sex Assigned at Female 03/20/2022 10:29 AM EDT Legal Sex Female 10:29 AM EDT Gender Identity Female 03/20/2022 10:29 AM EDT Sexual Orientation Straight 03/20/2022 10 :29 AM EDT documented as of this encounter Last Filed Vital Signs Vital Sign Reading Time Taken Comments Blood Pressure 132/62 01/22/2025 1:54 PM EDT Pulse 73 01/22/2025 1:54 PM EDT Temperature 36.4 C (97.6 F) 01/22/2025 1:54 PM EDT Respiratory Rate 16 01/22/2025 1:54 PM EDT Oxygen Saturation 95% 01/22/2025 1:54 PM EDT Inhaled Oxygen Concentration - - Weight 54.4 kg (120 lb) 01/22/2025 1:54 PM EDT Height 149.9 cm (4' 11 ) 01/22/2025 1:54 PM EDT Body Mass Index 24.24 01/22/2025 1:54 PM EDT documented in this encounter Functional Status * Over the past 2 weeks, how often have you been bothered by any of the following problems? Question Answer Date of Assessment Author Patient Health Questionnaire -2 Score 2 01/22/2025 2:28 PM EDT Samantha Parra MA * Little interest or pleasure in doing things Answer Date of Assessment Author Several days 01/22/2025 2:28 PM EDT Samantha Martinez MA * Feeling down, depressed, or hopeless Answer Date of Assessment Author Several days 01/22/2025 2:28 PM EDT Samantha Martinez MA * Trouble falling or staying asleep, or sleeping too much Answer Date of Assessment Author Nearly every day 01/22/2025 2:28 PM EDT Samantha Hinson Ma, MA * Feeling tired or having little energy Answer Date of Assessment Author Several days 01/22/2025 2:28 PM EDT Samantha Martinez MA * Poor appetite or overeating Answer Date of Assessment Author Several days 01/22/2025 2:28 PM EDT Samantha Martinez MA * Feeling bad about yourself - or that you are a failure or have let yourself or your family down Answer Date of Assessment Author Not at all 01/22/2025 2:28 PM EDT Samantha Martinez MA * Trouble concentrating on things, such as reading the newspaper or watching television Answer Date of Assessment Author Several days 01/22/2025 2:28 PM EDT Samantha Martinez MA * Moving or speaking so slowly that other people could have noticed? Or the opposite - being so fidgety or restless that you have been moving around a lot more than usual. Answer Date of Assessment Author Several days 01/22/2025 2:28 PM EDT Samantha Martinez MA * Thoughts that you would be better off or hurting yourself in some way Answer Date of Assessment Author Not at all 01/22/2025 2:28 PM EDT Samantah Martinez MA * Patient Health Questionnaire-9 Score Answer Date of Assessment Author 9 01/22/2025 2:28 PM EDT Samantha Martinez MA * How difficult have these problems made it for you to do your work, take care of things at home, or get along with other people? Answer Date of Assessment Author Somewhat difficult 01/22/2025 2:28 PM EDT Samantha Parra MA * Over the last 2 weeks, how often have you been bothered by any of the following problems? Question Answer Date of Assessment Author Feeling nervous, anxious, or on edge 1 01/22/2025 2:28 PM EDT Samantha Parra MA Not being able to stop or control worrying 1 01/22/2025 2:28 PM EDT Samantha Parra MA Worrying too much about different things 1 01/22/2025 2:28 PM EDT Samantha Parra MA Trouble relaxing 1 01/22/2025 2:28 PM EDT Samantha Arriola MA Being so restless that it is hard to sit still 0 01/22/2025 2:28 PM EDT Samantha Parra MA Becoming easily annoyed or irritable 1 01/22/2025 2:28 PM EDT Samantha Parra MA Feeling afraid as if somethi ng awful might happen 1 01/22/2025 2:28 PM EDT Samantha Parra MA ASHLEY-7 Total Score 6 01/22/2025 2:28 PM EDT Samantha Parra MA documented as of this encounter Progress Notes * Maddie Chaka, ALYSHA - 01/22/2025 1:45 PM EDT Subjective: Kimberly Mauricio is a 74 y.o. female who presents to the office for chronic disease Hx of hypertension , TIA, diabetes and hyperlipidemia Current concern: Genital Itching - Recurrent episodes of genital itching, occurred four times prior to the visit - Associated with use of Jardiance - Treated with topical creams prescribed during previous episodes - No itching or discharge on the day of the visit, but had symptoms in the past days Problem List[1] Surgical History[2] Family History[3] Social History Living situation: Lives in an apartment Safety:No fire arms in the home. Working smoke and fire alarm. Reports home and environment safe Employment/Education: Unemployed Diet/exercise: Eats variety of food including fruits and vegetables. Routine exercise Dental: [facility] dental Vision: Cataract surgery pending Last menstrual period: Menopausal. No bleeding Mammogram: -Last mammogram performed in 2023, approximately one year ago. Patient reminded to schedule mamogram for this yr Colonoscopy: Reports last colonoscopy was 7 years ago and normal. Reports shows polyp was excised, and repeat colonoscopy was advised in 5 years. Mental health: Reports experiencing some anxiety, not currently seeing a therapist. Would like a BHreferral. Denies SI, harming self or others Allergies[4] Current Medications[5] Health Maintenance Topic Date Due Hepatitis C Screening Never done Zoster Vaccines (1 of 2) Never done RSV Patients and Patients Aged 60 years or older (1 - Risk 60-74 years 1-dose series) Never done Colorectal Cancer Screening 10/25/2020 Pneumococcal Vaccine: 50+ Years (3 of 3 - PCV20 or PCV21) 03/31/2024 Diabetes: Foot Exam 08/26/2024 COVID-19 Vaccine (4 - 2024- season) 2025 Influenza Vaccine (1) 01/19/2025 Eye Exam 03/02/2025 Diabetes: Hemoglobin A1C 04/23/2025 DTaP/Tdap/Td Vaccines (2 - Td or Tdap) 05/03/2025 Lipid Panel 06/27/2025 Diabetes: Urine Protein Screening 06/27/2025 Depression Monitoring 07/22/2025 Mammogram 08/30/2025 SDOH Screening 01/14/2026 Tobacco Screening 01/22/2026 Alcohol/Substance Use Screening 01/22/2026 RSV under 20 months Aged Out HIB Vaccines Aged Out Hepatitis B Vaccines Aged Out IPV Vaccines Aged Out Hepatitis A Vaccines Aged Out Meningococcal Vaccine Aged Out Rotavirus Vaccines Aged Out HPV Vaccines Aged Out Meningococcal B Vaccine Aged Out Review of Systems Constitutional: Negative for activity change, appetite change, fatigue and fever. HENT: Negative for congestion, ear discharge, ear pain, rhinorrhea and sore throat. Eyes: Negative for discharge, redness and itching. Respiratory: Negative for cough, shortness of breath and wheezing. Cardiovascular: Negative for chest pain. Gastrointestinal: Negative for abdominal pain, blood in stool, constipation, diarrhea, nausea and vomiting. Endocrine: Negative for polydipsia and polyuria. Genitourinary: Negative for decreased urine volume, difficulty urinating, dyspareunia, hematuria and menstrual problem. Musculoskeletal: Negative for arthralgias, gait problem and joint swelling. Skin: Negative for rash. Allergic/Immunologic: Negative for environmental allergies and food allergies. Neurological: Negative for dizziness, weakness and headaches. Hematological: Does not bruise/bleed easily. Psychiatric/Behavioral: Negative for behavioral problems, sleep disturbance and suicidal ideas. Thepatient is nervous/anxious. Vitals: 01/22/25 1354 BP: 132/62 BP Location: Left arm Patient Position: Sitting BP Cuff Size: Adult Pulse: 73 Resp: 16 Temp: 97.6 ??F (36.4 ??C) TempSrc: Oral SpO2: 95% Weight: 120 lb (54.4 kg) Height: 4' 11 (1.499 m) Physical Exam Constitutional: Appearance: Normal appearance. HENT: Head: Normocephalic and atraumatic. Right Ear: Tympanic membrane, ear canal and external ear normal. Left Ear: Tympanic membrane, ear canal and external ear normal. Nose: Nose normal. No congestion. Mouth/Throat: Mouth: Mucous membranes are moist. Pharynx: Oropharynx is clear. Eyes: Extraocular Movements: Extraocular movements intact. Pupils: Pupils are equal, round, and reactive to light. Cardiovascular: Rate and Rhythm: Normal rate and regular rhythm. Pulses: Normal pulses. Heart sounds: Normal heart sounds. No murmur heard. Pulmonary: Effort: Pulmonary effort is normal. Breath sounds: Normal breath sounds. No wheezing. Chest: Chest wall: No tenderness. Abdominal: General: Abdomen is flat. Bowel sounds are normal. Palpations: Abdomen is soft. Tenderness: There is no guarding or rebound. Musculoskeletal: General: Normal range of motion. Cervical back: Normal range of motion. Right lower leg: No edema. Left lower leg: No edema. Skin: General: Skin is warm and dry. Capillary Refill: Capillary refill takes 2 to 3 seconds. Findings: No bruising. Neurological: General: No focal deficit present. Mental Status: She is alert and oriented to person, place, and time. Cranial Nerves: No cranial nerve deficit. Sensory: No sensory deficit. Psychiatric: Mood and Affect: Mood normal. Behavior: Behavior normal. Thought Content: Thought content normal. Judgment: Judgment normal. Visit Diagnoses Type 2 diabetes mellitus with other specified complication, without long-term current use of insulin ([facility]) - Primary Glucose Blood, POC 161 mg/dL Hemoglobin A1C Date Value Ref Range Status 01/22/2025 8.2 (A) 4.0 - 5.7 % Final 06/17/2024 8.7 (A) 4.0 - 6.0 % Final 02/12/2024 8.2 (A) 4.0 - 6.0 % Final 08/27/2023 8.2 (A) 4.0 - 6.0 % Final Discuss with patient the effect of Type 2 diabetes mellitus with suboptimal glycemic control, contributing to increased risk of complications including neuropathy and pruritus. Sustained Hyperglycemia and use of Jardiance leads to increased sugar elimination via urine increasing the risk of yeast infection in the genital area. Discussed referral to [facility] with patient and agreed Referred to CDTM (Collaborative Drug Therapy Management) pharmacy team for closer monitoring and management of diabetes medications and glycemic control. Advised to maintain blood glucose within target range. Encouraged regular exercise and dietary management. Plan Take your medications as directed and keep all your medical appointments Eat healthy and focus on healthyfood choices daily fruits, vegetables, grains, low fat milk, low carbohydrate and fat. Maintain healthy weight as this will lower your risk for many health problems. Pay attention to your feet Relevant Orders POCT Glucose (Completed) POCT Hgb A1c (Completed) Referral to Pharmacy [facility] Health care maintenance Hx of colonoscopy wt polypectomy 2011 Relevant Orders Referral to Gastroenterology Anxiety and Depression ASHLEY-7 Total Score: 6 (01/22/2025 2:28 PM) Patient Health Questionnaire-9 Score: 9 (01/22/2025 2:28 PM) Discussed referral to therapist, patient agreed and was seen on the floor This note was drafted using Ambient (AI) technology. The patient/patient's guardian has been informed and has consented to the use of this technology: Yes BLUEPRINT TRACER Resident Attestation: I,Marga ENCARNACION , have reviewed the resident's note and agree with the assessment & plan of care as documented above. [1] Patient Active Problem List Diagnosis Essential hypertension Type 2 diabetes mellitus without complications (CMS/HCC) Dental plaque on multiple teeth Age-related nuclear cataract of both eyes Cyst of ovary Gastroesophageal reflux disease without esophagitis Presbyopia Solar urticaria Tremor Chronic neck pain History of TIAs Generalized gingival recession Missing teeth, acquired Diabetic polyneuropathy (CMS/HCC) Continuous RLQ abdominal pain Cataract Colon polyps Diabetes mellitus with neurological manifestation (CMS/HCC) DJD (degenerative joint disease) of knee Hyperlipidemia TIA (transient ischemic attack) Ovarian mass, left Pain of right hip Hearing loss of right ear due to cerumen impaction Left anterior shoulder pain Muscle spasm Chronic bilateral low back pain with right-sided sciatica Open fracture of tooth Normal oral exam ASHLEY (generalized anxiety disorder) [2] No past surgical history on file. [3] No family history on file. [4] Allergies Allergen Reactions Sulfa Antibiotics Other reaction(s): swelling of throat Trulicity [Dulaglutide] Vomiting and diarrhea [5] Current Outpatient Medications Medication Sig Dispense Refill acetaminophen (Tylenol 8 Hour) 650 MG ER tablet Take 1 tablet (650 mg) by mouth every 8 (eight) hours if needed for mild pain. Do not crush, chew, or split. 60 tablet 2 amLODIPine (Norvasc) 5 MG tablet TAKE 1 TABLET BY MOUTH EVERY MORNING 90 tablet 1 atenolol (Tenormin) 25 MG tablet TAKE 1 TABLET BY MOUTH EVERY MORNING 90 tablet 1 atorvastatin (Lipitor) 40 MG tablet TAKE 1 TABLET BY MOUTH AT BEDTIME 90 tablet 3 baclofen (Lioresal) 10 MG tablet Take 1 tablet (10 mg) by mouth if needed in the morning, at noon, and at bedtime for muscle spasms. 60 tablet 2 Blood Glucose Monitoring Suppl (ONE TOUCH ULTRA 2) w/Device kit TEST BLOOD SUGAR TWICE DAILY 1 kit 0 Blood Pressure kit Use once a day 1 kit 0 clopidogrel (Plavix) 75 MG tablet TAKE 1 TABLET BY MOUTH EVERY MORNING 90 tablet 1 clotrimazole (Lotrimin) 1 % vaginal cream Insert one applicator per vagina at bedtime for 7 nights 45 g 0 clotrimazole-betamethasone (Lotrisone) cream Apply 1 Application. topically if needed in the morning, at noon, and at bedtime (itch). Diclofenac Sodium (Voltaren) 1 % gel Apply once a day to the affected area 150 g 2 empagliflozin (Jardiance) 25 MG TAKE 1 TABLET BY MOUTH EVERY MORNING 90 tablet 3 gabapentin (Neurontin) 300 MG capsule TAKE 1 CAPSULE BY MOUTH ONCE DAILY 30 capsule 5 glipiZIDE XL (Glucotrol XL) 2.5 MG 24 hr tablet TAKE 1 TABLET BY MOUTH EVERY DAY IN THE MORNING. DONOT BREAK, CRUSH, DISSOLVE OR CHEW 30 tablet 11 Lancet Devices (TRUEdraw Lancing Device) misc Use to test blood sugar 3 to 4 times per day 1 each 0 Lancets (SportStreamuch Delica Plus [id number]) misc TEST BLOOD SUGAR THREE OR FOUR TIMES DAILY 100 each 11 losartan (Cozaar) 100 MG tablet TAKE 1 TABLET BY MOUTH EVERY MORNING 90 tablet 3 meloxicam (Mobic) 7.5 MG tablet Take 1 tablet by mouth if needed at bedtime for pain. metFORMIN (Glucophage) 1000 MG tablet TAKE 1 TABLET BY MOUTH TWICE DAILY IN THE MORNING AND AT BEDTIME WITH FOOD 180 tablet 3 Multiple Vitamin (Multivitamin) tablet TAKE 1 TABLET BY MOUTH EVERY MORNING 90 tablet 1 naproxen (Naprosyn) 500 MG tablet TAKE 1 TABLET BY MOUTH TWICE DAILY IN THE MORNING AND AT BEDTIME NEEDED FOR MILD OR MODERATE PAIN 30 tablet 0 OneTouch Ultra Test test strip TEST BLOOD SUGAR 3 TO 4 TIMES PER DAY 100 strip 11 pantoprazole (ProtoNix) 40 MG EC tablet TAKE 1 TABLET BY MOUTH EVERY MORNING 90 tablet 1 No current facility-administered medications for this visit. documented in this encounter Plan of Treatment Upcoming Encounters Date Type Department Care Team (Late st Contact Info) Description 02/05/2025 10:15 AM EDT Office Visit [facility] [address] [place] [address] Graciela Dailey MD [address] [place] [address] 06/11/2025 1:00 PM EST Office Visit [facility] ADULT DENTAL [address] [place] [address] Royer Castilloaris [address] [place] [address] Scheduled Referrals Name Type Priority Associated Diagnoses Order Schedule Referral to Pharmacy CDTM Outpatient Referral Routine Type 2 diabetes mellitus with other specified complication, without long-term current use of insulin ([facility]) Ordered: 01/25/2025 Referral to Gastroenterology Outpatient Referral Routine Health care maintenance Expected: 01/25/2025 (Approximate), Expires: 01/25/2026 documented as of this encounter Procedures Procedure Name Priority Date/Time Associated Diagnosis Comments POCT GLYCATED HEMOGLOBIN, TOTAL Routine 01/22/2025 1:56 PM EDT Type 2 diabetes mellitus with other specified complication, without long-term current use of insulin ([facility]) POCT GLUCOSE Routine 01/22/2025 1:55 PM EDT Type 2 diabetes mellitus with other specified complication, without long-term current use of insulin ([facility]) documented in this encounter Results * (ABNORMAL) POCT Hgb A1c (01/22/2025 1:56 PM EDT) Pathologist [facility] [place] Hemoglobin A1C 8.2(A) 4.0 - 5.7 % QC Media Lot # [id number] Lot# Expiration Date 353 Blood 01/22/2025 1:56 PM EDT Maddie ENCARNACION POINT OF CARE TEST ENTER/EDIT ORDERABLES Final Result * POCT Glucose (01/22/2025 1:55 PM EDT) Pathologist [facility] [place] Glucose Blood, POC 161 60 - 200 mg/dL QC Media Lot # [id number] Lot# Expiration Date [id number] Blood Capillary blood specimen / Unknown 01/22/2025 1:55 PM EDT Result [facility] Maddie Null FIELD AUTOMOBILE ADJUSTER POINT OF CARE TEST ENTER/EDIT ORDERABLES Final Result documented in this encounter Visit Diagnoses Diagnosis Type 2 diabetes mellitus with other specified complication, without long-term current use of insulin ([facility])- Primary Health care maintenance Anxiety Anxiety state, unspecified documented in this encounter Additional Health Concerns Assessment Noted Time PHQ-9 Depression Total Score: 9 01/23/20 25 2:28 PM EDT documented as of this encounter Care Teams Apartment Leasing Agent Relationship Specialty Start Date End Date Name, MD Howard [address] [place] [address] PCP - General Family Medicine 03/13/19 documented as of this encounter
--- NOTE | 2025-01-27 08:45 | EMG_ITS ---
Chief complaint: Right leg pain Reason for referral: NCV/ EMG Referred by: Cynthia Morales DO Procedure done: Nerve conduction study was performed. EMG was performed on the right leg and paraspinals. Right tibial and peroneal motor studies were performed right superficial peroneal and sural sensory studies were performed tibial H-reflex was obtained an EMG needle examination was performed. Impression: Right lower lumbar radiculopathy MTDD
--- OUTSIDE RECORDS SUMMARY | 2025-01-27 09:48 | XMS_ITS | Encounter Summary ---
Author Organization [employer] Address [address] [place] [address] [address] [place] [address] Care Team Providers Care Hospice Administrator Name Role Phone Name, Howard BRENNER Primary Care Provider [phone] Encounter Details Date Type Department Care Team (Latest Contact Info) Description 09/29/2020 Abstract [facility] CONVERSION[facility] Dental, Provider, DDS Social History Tobacco [...] Description 02/05/2025 10:15 AM EDT Office Visit [facility] MEDICINE [address] [place] [address] Graciela Dailey MD [address] [place] [address] 06/11/2025 1:00 PM EST Office Visit [facility] ADULT DENTAL [address] [place] [address] Ting Castillo [address] [place] [address] documented as of this encounter Visit Diagnoses Not on filedocumented in this encounter Care Teams Hospice Administrator Relationship Specialty Start Date End Date Name, MD Howard [address] [place] [address] PCP - General Family Medicine 03/13/19 documented as of this encounter
--- OUTSIDE RECORDS SUMMARY | 2025-01-27 09:48 | XMS_ITS | Encounter Summary ---
Author Organization [employer] Address [address] [facility] [address] h Floor [place] [id number] Care Team Providers Care Hull Molder Name Role Phone Name, Howard BRENNER Primary Care Provider [phone] Encounter Details Date Type Department Care Team (Late Contact Info) Description 05/12/2022 Orders Only [facility] [address] [place], [place] [phone] Arlene Simon LPN Social History Tobacco Use [...] Department Care Team (Late Contact Info) Description 02/05/2025 10:15 AM EDT Office Visit [facility] MED[facility] [address] [place] [address] Graciela Dailey MD [address] [place] [address] 06/11/2025 1:00 PM EST Office Visit [facility] ADULT DENTAL [address] [place] [address] Ting Castillo [address] [place] [address] documented as of this encounter Visit Diagnoses Not on filedocumented in this encounter Care Teams Hull Molder Relationship Specialty Start Date End Date Name, MD Howard [address] [place] [address] PCP - General Family Medicine 03/13/19 documented as of this encounter
--- OUTSIDE RECORDS SUMMARY | 2025-01-27 09:48 | XMS_ITS | Encounter Summary ---
Author Organization [employer] Address [address] [facility] 7t [place] [address] Care Team Providers Care Library Page Name Role Phone Name, Howard BRENNER Primary Care Provider [phone] Encounter Details Date Type Department Care Team ([facility] Contact Info) Description 06/01/2022 Orders Only [facility] CHC MED & PEDS [address] [place], [place] [phone] Cynthia Yun LPN Social History Tobacco Use [...] Upcoming Encounters Date Type Department Care Team ([facility] Contact Info) Description 02/05/2025 10:15 AM EDT Office Visit [facility] MEDICINE [address] [place] [address] Graciela Dailey MD [address] [place] [address] 06/11/2025 1:00 PM EST Office Visit [facility] ADULT DENTAL [address] [place] [address] Ting Castillo [address] [place] [address] documented as of this encounter Procedures Procedure [...] AM EST Narrative 07/04/2022 6:18 PM EST [facility] [address] [place] [address] XRay Report Signed Patient: Kimberly Randhawa MR#: [id number] : 1950 Acct:[id number] Age/Sex: 71 / F ADM Date: 06/29/22 Loc: HO.XRAY Attending Dr: Rubin Arguello MD Ordering Physician: Rubin Arguello MD Date of Service: 06/29/22 Procedure(s): XR ribs LT 2V Accession Number(s): [id number] cc: Rubin Arguello MD EXAMINATION: XR RIBS, [...] in OV> 07/04/22 1815 DD/ 1127 TD/TT: [place] Dresser: [facility] Procedure Note Donotuseinterpreter, Image - 10/09/[address] [address] XRay Report Signed Patient: Kimberly RandhawaMR#: [id number] : 1950cct:[id number] Age/Sex: 71 / FADM Date: 06/29/22 Loc: HODesXRKELSEY Attending Dr: Rubin Arguello MD Ordering Physician: Rubin Arguello MD Date of Service: 06/29/22 Procedure(s): XR ribs LT 2V Accession Number(s): [id number] cc: Rubin Arguello MD EXAMINATION: XR RIBS, [...] signed by Jaya Montana MD in OV> 07/04/225 DD/ 1127 TD/TT: [place] Dresser: JOVITA [facility] External Provider IMG XR PROCEDURES Edited Result - Final * XR Cervical Spine 5 View (06/29/2022 11:27 AM EST) Anatomical Region Laterality Modality Spine, C-spine Radiographic Lucrecia ging 06/29/2022 11:2 7 AM EST Narrative 07/04/2022 8:39 PM EST [address] [address] XRay Report Signed Patient: Kimberly Randhawa MR#: [id number] : 1950 Acct:[id number] Age/Sex: 71 / F ADM Date: 06/29/22 Loc: HODesXRKELSEY Attending Dr: Rubin Arguello MD Ordering Physician: Rubin Arguello MD Date of Service: 06/29/22 Procedure(s): XR cervical spine 5V Accession Number(s): [id number] cc: Rubin Arguello MD EXAMINATION: XR CERVICAL [...] Jaya Montana MD in OV> 07/04/222035 DD/ 26 TD/TT: [place] Dresser: JOVITA Procedure Note Donotuseinterpreter, Image - 07/04/2022 [place] [address] XRay Report Signed Patient: Marlena Randhawa#: [id number] : 1950cct:[id number] Age/Sex: 71 / FADM Date: 06/29/22 Loc: JACQUELYN Attending Dr: Rubin Arguello MD Ordering Physician: Rubin Arguello MD Date of Service: 06/29/22 Procedure(s): XR cervical spine 5V Accession Number(s): [id number] cc: Rubin Arguello MD EXAMINATION: XR CERVICAL [...] MD in OV> 07/04/222035 DD/ 1127 TD/TT: [place] Dresser: JOVITA [facility] External Provider IMG XR PROCEDURES Edited Result - Final documented in this encounter Visit Diagnoses Not on filedocumented in this encounter Care Teams Library Page Relationship Specialty Start Date End Date Name, MD Howard [address] [place] [address] PCP - General Family Medicine 03/13/19 documented as of this encounter
--- OUTSIDE RECORDS SUMMARY | 2025-01-27 09:48 | XMS_ITS | Encounter Summary ---
Author Organization [employer] Address [address] [place] [address] 7 [place] [address] Care Team Providers Care Pari Mutual Ticket Checker Name Role Phone Name, Howard BRENNER Primary Care Provider [phone] Reason for Visit * Reason Onset Date Comments Results 07/03/2022 Encounter Details Date Type Department Care Team (Late st Contact Info) Description 07/03/2022 Telephone [facility] MEDICINE [address] [place], [place] [phone] Name, MD Howard [address] [place] [address] Results Social History Tobacco Use Types Packs/Day [...] regarding xray results Please contact pt at [phone] documented in this encounter Plan of Treatment Upcoming Encounters Date Type Department Care Team (Late st Contact Info) Description 02/05/2025 10:15 AM EDT Office Visit [facility] MEDICINE [address] [place] [address] Graciela Dailey MD [address] [place] [address] 06/11/2025 1:00 PM EST Office Visit [facility] ADULT DENTAL [address] [place], [place] [phone] Ting Castillo [address] [place] [address] documented as of this encounter Visit Diagnoses Not on filedocumented in this encounter Additional Health Concerns Assessment Noted Time PHQ-9 Depression Total Score: 0 06/19/19 2:59 PM EST documented as of this encounter Care Teams Pari Mutual Ticket Checker Relationship Specialty Start Date End Date Name, MD Howard [address] [place] [address] PCP - General Family Medicine 03/13/19 documented as of this encounter
--- OUTSIDE RECORDS SUMMARY | 2025-01-27 09:48 | XMS_ITS | Encounter Summary ---
Author Organization [employer] Address [address] [place] [address] 7 [place] [address] Care Team Providers Care Rivet Heater Name Role Phone Name, Howard BRENNER Primary Care Provider [phone] Encounter Details Date Type Department Care Team (Latest Contact Info) Description 10/13/2021 Abstract [facility] CONVERSIONS Dental, Provider, DDS Social History Tobacco [...] Description 02/05/2025 10:15 AM EDT Office Visit [facility] MEDICINE [address] [place] [address] Graciela Dailey MD [address] [place] [address] 06/11/2025 1:00 PM EST Office Visit [facility] ADULT DENTAL [address] [place] [address] Ting Castillo [address] [place] [address] documented as of this encounter Visit Diagnoses Not on filedocumented in this encounter Care Teams Rivet Heater Relationship Specialty Start Date End Date Name, MD Howard [address] [place] [address] PCP - General Family Medicine 03/13/19 documented as of this encounter
--- OUTSIDE RECORDS SUMMARY | 2025-01-27 09:49 | XMS_ITS | Encounter Summary ---
Author Organization [facility] Address [address] [facility] [address] [place] [address] Phone Care Team Providers Care Terminal Clerk Name Role Phone Name, Howard BRENNER Primary Care Provider [phone] Encounter Details Date Type Department Care Team (Late st Contact Info) Description 01/30/2024 Procedure Pass OR Admitting Dept - Virtual Department [address] [place] [address] Social History Tobacco Use Types Packs/Day Years [...] with a working camera? Not on file Comments No Sex and Gender Information Value Date Recorded Sex Assigned at Female 09/01/2023 4:48 PM EDT Legal Sex Female 4:41 PM EDT Gender Identity Female 09/01/2023 4:48 PM EDT Sexual Orientation Straight 11/20/2023 4: 44 PM EDT documented as of this encounter Plan of Treatment Not on file documented as of this encounter Visit Diagnoses Not on filedocumented in this encounter Care Teams Terminal Clerk Relationship Specialty Start Date End Date Name, MD Howard [address] [place] [address] PCP - General 09/01/23 documented as of this encounter Additional Source Comments The information contained in this document represents components of the legal health record. It is not the complete legal health record.[facility]
--- OUTSIDE RECORDS SUMMARY | 2025-01-27 09:49 | XMS_ITS | Encounter Summary ---
Author Organization [facility] Address [address] [place] [address] Phone Care Team Providers Care Auto Parker Name Role Phone Name, Howard BRENNER Primary Care Provider [phone] Encounter Details Date Type Department Care Team (Late st Contact Info) Description 11/20/2023 Procedure Pass [facility], Ct Scan - [address] [address] Social History Tobacco Use Types Packs/Day Years Used Date Smoking Tobacco: Never Passive Smoke Exposure: Never Alcohol Use Standard Drinks/Week Comments Never [...] PM EDT documented as of this encounter Functional Status * Calculated C-SSRS Risk Score (Lifetime/Recent) Answer Date of Assessment Author No Risk Indicated 11/20/2023 4:40 PM EDT Claudia Felix RN * [place] Suicide Severity Rating Scale (Screener/Recent Self-Report) Question Answer Date of Assessment Author 1. Wish to be (Past 1 Month) No 11/20/2023 4:40 PM EDT Nell Wilkes RN 2. Non-Specific Active Suicidal Thoughts (Past 1 Month) No 11/20/2023 4:40 PM EDT Nell Wilkes RN 6. Suicidal Behavior (Lifetime) No 11/20/2023 4:40 PM EDT Nell Wilkes RN documented as of this encounter Plan of Treatment Not on file documented as of this encounter Visit Diagnoses Not on filedocumented in this encounter Care Teams Auto Parker Relationship Specialty Start Date End Date Name, MD Howard [address] [place] [address] PCP - General 09/01/23 documented as of this encounter Additional Source Comments The information contained in this document represents components of the legal health record. It is not the complete legal health record.[facility]
--- OUTSIDE RECORDS SUMMARY | 2025-01-27 09:49 | XMS_ITS | Clinical Summary ---
Author Organization [facility] Address [address] [facility] [address] [place] [address] Phone Care Team Providers Care Pattern Developer Name Role Phone Name, Howard BRENNER Primary Care Provider [phone] Allergies Active Allergy Reactions Criticality Noted Date [...] of blood transfusion See media for documentation Adventist Type 2 diabetes mellitus without complications 0 [...] 60-74 years 1-dose series) 2012 OSTEOPOROSIS SCREENING INITIAL (ONE-TIME) 2017 MAMMOGRAM 12/27/2020 12/27/2018 DIABETIC EYE EXAM 01/10/2024 PNEUMOCOCCAL VACCINES (50+ years) (3 of 3 - PCV20 or PCV21) 03/31/2024 03/31/2019, 03/13/2017 CREATININE LEVEL 11/19/2024 11/20/2023, 09/01/2023 POTASSIUM LEVEL 11/19/2024 11/20/2023, 09/01/2023 HEMOGLOBIN A1C 12/15/2024 06/17/2024, 09/2 08/2023, 08/27/2023 INFLUENZA VACCINE (#1) 2024 9, 03/04/2018, 03/13/2017, Additional history exists COVID-19 VACCINE (2024- season) 2025 06/13/2021, 12/28/2020, 12/01/2020 BLOOD PRESSURE 02/04/2025 08/04/2024 Adult Td,Tdap Booster 05/03/2025 05/03/2015 SMOKING STATUS SCREENING (Once After 26 Yrs) Completed 08/04/2024 HEPATITIS A [...] EDT) SODIUM 141 133 - 146 mmol/L [facility] CHLORIDE 104 96 - 108 mmol/L [facility] POTASSIUM 3.6 3.3 - 5.1 mmol/L [facility] CO2 25 21 - 35 mmol/L [facility] BUN 14 6 - 19 mg/dL [facility] CREATININE 0.50 0.5 - 1.5 mg/dL [facility] GLUCOSE 241(H) 70 - 99 mg/dL [facility] CALCIUM 9.5 8.4 - 10.3 mg/dL [facility] EGFR 101 >59 mL/min/1.7 3m2 [facility] Comment:Estimated glomerular filtration rate calculated using the CKD-EPI refit equation. ANION GAP 16 10 - 20 mmol/L [facility] Blood 11/20/2023 5:06 PM EDT 11/20/2023 5:18 PM EDT Kaleb Snow MD LAB BLOOD ORDERABLES Fin al Result [facility] [address] [place], [place] [phone] from Last 3 Months or Most Recently Relevant to Health Maintenance Insurance [facility] MEDICARE REPLACEMENT NET PARTIAL MEDICARE PART A & B [facility] MEDICARE REPLACEMENT [facility] PARTIAL MEDICARE PART A & B [facility] MEDICARE [facility]PLACEMENT [facility] PARTIAL MEDICARE PART A & B [facility] MEDICARE [facility]PLACEMENT [facility] PARTIAL MEDICARE PART A & B [facility] AARP MEDICARE REPLACEMENT [facility] PARTIAL MEDICARE PART A & B [facility] QMB [facility] AAR MEDICARE REPLACEMENT [facility] PARTIAL MEDICARE PART A & B [facility] Advance Directives For more information, please contact: [phone] (9AM - 5PM [facility], Sunday-Sunday) Documents on File Type Date Recorded Patient [employer]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 It is not the complete legal health record.[facility]
--- OUTSIDE RECORDS SUMMARY | 2025-01-27 09:49 | XMS_ITS | Clinical Summary ---
Author Organization [employer] [facility] Address [address] [place] [address] Care Team Providers Care Relay Shop Tester Name Role Phone Laura Jones MD Primary [...] 2002 Zoster Vaccines (1 of 2) 2002 Depression Screening 05/21/2024 COVID-19 Vaccine (1 - 2023-2 5 season) 2025 Influenza Vaccine (#1) 2025 03/04/2018 RSV Immunization [...] age to complete this topic Care Teams Relay Shop Tester Relationship Specialty Start Date End Date Laura Jones MD [address] [place] [address] PCP - General Internal Medicine 12/14/17
--- OUTSIDE RECORDS SUMMARY | 2025-01-27 09:49 | XMS_ITS | Encounter Summary ---
Author Organization [employer] Address [address] [facility] 7t [place] [address] Care Team Providers Care Newspaper Distributor Supervisor Name Role Phone Name, Howard BRENNER Primary Care Provider [phone] Encounter Details Date Type Department Care Team ([facility] Contact Info) Description 10/23/2022 Abstract [facility] MEDICINE [address] [place] [phone] Name, MD Howard [address] [place] [phone] Social History Tobacco Use Types Packs/Day Years [...] Upcoming Encounters Date Type Department Care Team ([facility] Contact Info) Description 02/05/2025 10:15 AM EDT Office Visit [facility] MEDICINE [address] [place] [phone] Graciela Dailey MD [address] [place] [address] 06/11/2025 1:00 PM EST Office Visit [facility] ADULT DENTAL [address] [place] [address] Ting Castillo [address] [place] [address] documented as of this encounter Procedures Procedure Name Priority Date/Time Associated Diagnosis Comments HM COLONOSCOPY Routine 10/26/2015 10:13 AM EDT documented in this encounter Results * Hm Colonoscopy (10/26/2015 10:13 AM EDT) Colonoscopy Normal Normal Narrative Radha Henry - 10/26/2015 10:13 AM EDT Recommended 5 year follow up us Historical Provider HEALTH MAINTENANCE Final Result documented in this encounter Visit Diagnoses Not on filedocumented in this encounter Additional Health Concerns Assessment Noted Time PHQ-9 Depression Total Score: 0 06/19/19 23 2:59 PM EST documented as of this encounter Care Teams Newspaper Distributor Supervisor Relationship Specialty Start Date End Date Name, MD Howard [address] [place], [place] [phone] PCP - General Family Medicine 03/13/19 documented as of this encounter
--- OUTSIDE RECORDS SUMMARY | 2025-01-27 09:49 | XMS_ITS | Clinical Summary ---
Author Organization [employer] Address [address] [facility] [address] [place] [address] Care Team Providers Care Director Of Sustainability Name Role Phone Name, Howard BRENNER Primary Care Provider [phone] Allergies Active Allergy Reactions Criticality Noted Date Comments Sulfa Antibiotics 05/03/2015 Other reaction(s): swelling of throat Dulaglutide 06/17/2024 Vomiting and diarrhea Medications * This document contains information received from the source organization and may not represent a complete record from that organization. [employer] (TRUEdraw Lancing Device) [facility] Use to test blood sugar 3 to 4 times per day 1 each 10/13/19 23 Active Blood Glucose Monitoring Suppl (ONE TOUCH ULTRA 2) w/Device kit TEST BLOOD SUGAR TWICE DAILY 1 kit 06/01/19 24 Active glipiZIDE XL (Glucotrol XL) 2.5 MG 24 hr tablet TAKE 1 TABLET BY MOUTH EVERY DAY IN THE MORNING. DO NOT BREAK, CRUSH, DISSOLVE OR CHEW 30 tablet 11 03/05/20 24 Active clotrimazole (Lotrimin) 1 % vaginal creamIndication s:Vulvovaginal Candidiasis Insert one applicator per vagina at bedtime for 7 nights 45 g 06/07/19 25 Active Lancets (OneTouch Delica Plus [id number]) misc TEST BLOOD SUGAR THREE OR FOUR TIMES DAILY 100 each 11 08/02/19 25 Active OneTouch Ultra Test test strip TEST BLOOD SUGAR 3 TO 4 TIMES PER DAY 100 strip 11 08/02/19 25 Active gabapentin (Neurontin) 300 MG capsule TAKE 1 CAPSULE BY MOUTH ONCE DAILY 30 capsule 5 08/30/19 25 Active atenolol (Tenormin) 25 MG tabletIndicatio ns:Hypertension , unspecified type TAKE 1 TABLET BY MOUTH EVERY MORNING 90 tablet 1 08/30/19 25 Active pantoprazole (ProtoNix) 40 MG EC tabletIndicatio ns:Heartburn TAKE 1 TABLET BY MOUTH EVERY MORNING 90 tablet 1 09/03/19 25 Active amLODIPine (Norvasc) 5 MG tablet TAKE 1 TABLET BY MOUTH EVERY MORNING 90 tablet 1 09/03/19 25 Active clotrimazole-be tamethasone (Lotrisone) cream Apply 1 Application. topically if needed in the morning, at noon, and at bedtime (itch). 08/05/19 25 Active meloxicam (Mobic) 7.5 MG tablet Take 1 tablet by mouth if needed at bedtime for pain. 08/30/19 25 Active Blood Pressure kit Use once a day 1 kit 09/12/19 25 Active losartan (Cozaar) 100 MG tabletIndicatio ns:Hypertension , unspecified type TAKE 1 TABLET BY MOUTH EVERY MORNING 90 tablet 3 09/26/19 25 Active atorvastatin (Lipitor) 40 MG tabletIndicatio ns:High cholesterol TAKE 1 TABLET BY MOUTH AT BEDTIME 90 tablet 3 09/26/19 25 Active metFORMIN (Glucophage) 1000 MG tablet TAKE 1 TABLET BY MOUTH TWICE DAILY IN THE MORNING AND AT BEDTIME WITH FOOD 180 tablet 3 09/26/19 25 Active empagliflozin (Jardiance) 25 MG TAKE 1 TABLET BY MOUTH EVERY MORNING 90 tablet 3 09/26/19 25 Active clopidogrel (Plavix) 75 MG tablet TAKE 1 TABLET BY MOUTH EVERY MORNING 90 tablet 1 10/30/19 25 Active Multiple Vitamin (Multivitamin) tablet TAKE 1 TABLET BY MOUTH EVERY MORNING 90 tablet 1 10/30/19 25 Active acetaminophen (Tylenol 8 Hour) 650 MG ER tablet Take 1 tablet (650 mg) by mouth every 8 (eight) hours if needed for mild pain. Do not crush, chew, or split. 60 tablet 2 12/19/19 25 026 Active baclofen (Lioresal) 10 MG tablet Take 1 tablet (10 mg) by mouth if needed in the morning, at noon, and at bedtime for muscle spasms. 60 tablet 2 12/19/19 25 025 Active Diclofenac Sodium (Voltaren) 1 % gelIndications: Chronic neck pain Apply once a day to the affected area 150 g 2 12/19/19 25 Active naproxen (Naprosyn) 500 MG tablet TAKE 1 TABLET BY MOUTH TWICE DAILY IN THE MORNING AND AT BEDTIME NEEDED FOR MILD OR MODERATE PAIN 30 tablet 01/09/20 25 Active naproxen (Naprosyn) 500 MG tablet Take 1 tablet (500 mg) by mouth if needed in the morning and at bedtime for mild pain or moderate pain. 30 tablet 12/19/19 25 025 Discontinued Active Problems Problem Noted Date Diagnosed Date ASHLEY (generalized anxiety disorder) 01/22/2025 Normal oral exam 05/29/2024 Open fracture of [...] Pt will be transported by her to [facility]. Diabetic polyneuropathy 08/27/2023 Generalized gingival recession [...] (degenerative joint disease) of knee 018 Overview (01/22/2025): left left Hyperlipidemia 12/27/2017 TIA (transient ischemic attack) 12/27/2017 Overview (11/23/2023): X3 (1994, 2002) Age-related nuclear cataract of both eyes 2017 Presbyopia 10/11/2017 Type 2 diabetes mellitus without complications 0 11/06/2016 Essential hypertension 05/03/2015 Gastroesophageal reflux disease [...] at right lung base 05/11/2022 10/12/2022 Encounters * This document contains information received from the source organization and may not represent a complete record from that organization. Date Type Department Care Team Description 01/22/2025 1:45 PM EDT Office Visit [facility] [address] [place] [phone] Maddie Null, ALYSHA Type 2 diabetes mellitus with other specified complication, without long-term current use of insulin ([facility]) (Primary Dx); Health care maintenance; Anxiety 01/22/2025 Travel 01/21/2025 Telephone [facility] [address] [place], [place] [phone] Howard Lovett MD Chart Prep 01/20/2025 Telephone [facility] [address] [place] [address] Howard Lovett MD pre op 01/14/2025 Patient Outreach [facility] [address] [place], [place] [phone] Howard Lovett MD Pre-visit Planning (SDOH negative, Tobacco screening negative. ) 01/07/2025 Refill [facility] [address] [place] [phone] Cynthia Morales DO 12/29/2024 Telephone [facility] [address] [place] [phone] Howard Lovett MD Durable Medical Equipment 12/18/2024 9:40 AM EDT Office Visit [facility] [address] [place] [phone] Cynthia Morales DO Right leg pain (Primary Dx); Pain and swelling of right knee; Chronic neck pain 12/18/2024 Telephone [facility] [address] [place] [phone] Cynthia Morales DO Results 12/18/2024 Travel 11/28/2024 10:00 AM EDT Office Visit [facility] [address] [place] [phone] Ting Castillo Dental plaque on multiple teeth (Primary Dx); Missing teeth, acquired; Generalized gingival recession; Gingival bleeding 10/28/2024 Refill [facility] [address] [place] [address] Howard Lovett MD from Last 3 Months Immunizations Immunization Administration Dates Next Due Influenza injectable quadriv [...] Mass Index 24.24 01/22/2025 1:54 PM EDT Plan of Treatment Upcoming Encounters Date Type Department Care Team (Late st Contact Info) Description 02/05/2025 10:15 AM EDT Office Visit [facility] [address] [place] [address] Graciela Dailey MD [address] [place] [address] 06/11/2025 1:00 PM EST Office Visit [facility] [address] [place] [address] Royer Castilloaris [address] [place] [address] Health Maintenance Due Date Last Done Comments CT Colonography 1950 FIT DNA/Cologuard 1950 FIT 1950 FOBT 1950 Sigmoidoscopy 1950 Hepatitis C Screening 1970 Zoster Vaccines (1 of 2) 2002 RSV Patients and Patients Aged 60 years or older (1 - Risk 60-74 years 1-dose series) 2012 Colonoscopy 10/25/2020 10/26/2015 Colorectal Cancer Screening 10/25/2020 Pneumococcal Vaccine: 50+ Years (3 of 3 - PCV20 or PCV21) 03/31/2024 03/31/2019, 03/13/2017 Diabetes: Foot Exam 08/26/2024 08/27/2023, 08/27/2023, 08/27/2023, Additional history exists COVID-19 Vaccine ( season) 2025 06/13/2021, 12/28/2020, 12/01/2020 Influenza Vaccine (#1) 2025 9, 03/04/2018, 03/13/2017, Additional history exists Eye Exam 03/02/2025 03/02/2023 Diabetes: Hemoglobin A1C 04/23/2025 025, 06/17/2024, 02/12/2024, Additional history exists DTaP/Tdap/Td Vaccines (2 - Td or Tdap) 05/03/2025 05/03/2015 Dental Oral Exam 06/01/2025 11/28/2024, 03/2023, 07/13/2022, Additional history exists Dental Prophylaxis 06/01/2025 11/28/2024, 0 05/29/2024, 10/29/2023, Additional history exists Diabetes: Urine Protein Screening 06/27/2025 06/27/2024, 04/23/2023, 01/05/2021, Additional history exists Lipid Panel 06/27/2025 06/27/2024, 04/0 01/2024, 06/21/2022, Additional history exists Dental X-Ray: Full Mouth 07/14/2025 07/13/2022 Depression Monitoring 07/22/2025 01/22/2025, 025 Mammogram 08/30/2025 08/31/2023, 04/0 05/2021, 08/19/2021, Additional history exists Dental X-Ray: Bitewings 2025 11/29/19 25, 05/29/2024, 07/13/2022 SDOH Screening 01/14/2026 01/14/2025 Alcohol/Substance Use Screening 01/22/2026 01/22/2025 Tobacco Screening 01/22/2026 01/22/2025 HIB Vaccines Aged Out No longer eligi [...] complication, without long-term current use of insulin ([facility]) POCT GLUCOSE Routine 01/22/2025 1:55 PM EDT Type 2 diabetes mellitus with other specified complication, without long-term current use of insulin ([facility]) XR KNEE 4+ VIEWS RIGHT Routine 9:30 AM EDT Right leg pain Pain and swelling of right knee XR LUMBAR SPINE 2-3 VIEWS Routine 12/18/2024 9:27 AM EDT Right leg pain Pain and swelling of right knee PERIODIC ORAL EVALUATION - ESTABLISHED PATIENT Routine 11/28/2024 10:00 AM EDT CASE PRESENTATION, DETAILED AND EXTENSIVE TREATMENT PLANNING Routine 11/28/2024 10:00 AM EDT Dental plaque on multiple teeth Missing teeth, acquired Generalized gingival recession Gingival bleeding ORAL HYGIENE INSTRUCTIONS Routine 11/28/2024 10:00 AM EDT Dental plaque on multiple teeth Missing teeth, acquired Generalized gingival recession Gingival bleeding PROPHYLAXIS - ADULT Routine 11/28/2024 1 0:00 AM EDT Dental plaque on multiple teeth Gingival bleeding 12,14 INTRAORAL - PERIAPICAL FIRST RADIOGRAPHIC IMAGE Routine 11/28/2024 10:00 AM EDT Dental plaque on multiple teeth Missing teeth, acquired Generalized gingival recession Gingival bleeding BITEWING - SINGLE RADIOGRAPHIC IMAGE Routine 11/28/2024 10:00 AM EDT Dental plaque on multiple teeth Missing teeth, acquired Generalized gingival recession Gingival bleeding ALBUMIN, RANDOM URINE W/CREATININE Routine 06/27/2024 9:19 AM EST Type 2 diabetes mellitus with other specified complication, without long-term current use of insulin ([facility]) LIPID PANEL, STANDARD Routine 06/27/2024 9:19 AM EST Type 2 diabetes mellitus with other specified complication, without long-term current use of insulin ([facility]) BI MAMMOGRAM SCREENING TOMOSYNTHESIS BILATERAL Routine 08/31/2023 1:20 PM EDT HM DIABETES EYE EXAM Routine 03/02/2023 INTRAORAL - COMPLETE SERIES OF RADIOGRAPHIC IMAGES Routine 07/13/2022 11:00 AM EST Dental plaque on multiple teeth HM COLONOSCOPY Routine 10/26/2015 10:13 AM EDT from Last 3 Months or Most Recently Relevant to Health Maintenance Results * (ABNORMAL) POCT Hgb A1c (01/22/2025 1:56 PM EDT) Hemoglobin A1C 8.2(A) 4.0 - 5.7 % QC Media Lot # [id number] Lot# Expiration Date [id number] Blood 01/22/2025 1:56 PM EDT [facility] POINT OF CARE TEST ENTER/EDIT ORDERABLES Final Result * POCT Glucose (01/22/2025 1:55 PM EDT) Glucose Blood, POC 161 60 - 200 mg/dL [id number] Media Lot # [id number] Lot# Expiration Date [id number] Blood Capillary blood specimen / Unknown 01/22/2025 1:55 PM EDT [facility] POINT OF CARE TEST ENTER/EDIT ORDERABLES Final Result * XR Knee 4+ Views Right (12/18/2024 9:30 AM EDT) Anatomical Region Laterality Modality Lower Extremities, Knee Right Radiogra phic Imaging 12/18/2024 9:30 AM EDT Narrative 12/18/2024 10:42 AM EDT [address] [address] XRay Report Signed Patient: Kimberly Randhawa MR#: [id number] : 1950 Acct:[id number] Age/Sex: 74 / F ADM Date: 12/18/24 Loc: HO.HHCX Attending Dr: Cynthia Morales DO Ordering Physician: Cynthia Morales DO Date of Service: 12/18/24 Procedure(s): XR knee RT 4V Accession Number(s): [id number] cc: Cynthia Morales DO EXAMINATION: XR KNEE, RIGHT CLINICAL INFORMATION: knee pain and swelling COMPARISON: None available. TECHNIQUE: Four views of the right knee. FINDINGS: No fracture, dislocation, or suspicious bone lesion. Moderate to severe lateral compartment joint space narrowing with marginal osteophytic spurs and subchondral sclerosis. Compensatory widening of the medial compartment. Mild valgus angulation of the knee joint. Spurring of the tibial spines. Mild degenerative arthritis in the patellofemoral joint. Soft tissues demonstrate medial soft tissue swelling. No joint effusion. XR/XR knee RT 4V IMPRESSION: 1. No acute bony abnormalities. Medial soft tissue swelling. 2. Moderate to severe osteoarthritis in the lateral compartment. Electronically signed by: Venkatesh Blankenship MD 12/18/2024 10:40 AM EDT Dictated By: Venkatesh Blankenship MD Signed By: <Electronically signed by Venkatesh Blankenship MD in OV> 12/18/24 1040 DD/ 0930 TD/TT: 12/18/24 1000 System Administrator: Procedure Note Donotuseinterpreter, Image - 12/18/[address] [address] XRay Report Signed Patient: Marlena Randhawa#: [id number] : 1950cct:[id number] Age/Sex: 74 / FADM Date: 12/18/24 Loc: HO.HHCX Attending Dr: Cynthia Morales DO Ordering Physician: Cynthia Morales DO Date of Service: 12/18/24 Procedure(s): XR knee RT 4V Accession Number(s): [id number] cc: Cynthia Morales DO EXAMINATION: XR KNEE, RIGHT CLINICAL INFORMATION: knee pain and swelling COMPARISON: None available. TECHNIQUE: Four views of the right knee. FINDINGS: No fracture, dislocation, or suspicious bone lesion. Moderate to severe lateral compartment joint space narrowing with marginal osteophytic spurs and subchondral sclerosis. Compensatory widening of the medial compartment. Mild valgus angulation of the knee joint. Spurring of the tibial spines. Mild degenerative arthritis in the patellofemoral joint. Soft tissues demonstrate medial soft tissue swelling. No joint effusion. XR/XR knee RT 4V IMPRESSION: 1. No acute bony abnormalities. Medial soft tissue swelling. 2. Moderate to severe osteoarthritis in the lateral compartment. Electronically signed by: Venkatesh Blankenship MD 12/18/2024 10:40 AM EDT Dictated By: Venkatesh Blankenship MD Signed By: <Electronically signed by Venkatesh Blankenship MD in OV> 12/18/24 1040 DD/ 0930 TD/TT: 12/18/24 1000 System Administrator: Cynthia Morales DO IMG XR PROCEDURES Final Resu lt * XR Lumbar Spine 2-3 Views (12/18/2024 9:27 AM EDT) Anatomical Region Laterality Modality Spine, L-spine Radiographic Lucrecia ging 12/18/2024 9:27 AM EDT Narrative 12/18/2024 10:41 [place] [address] XRay Report Signed Patient: Kimberly Randhawa MR#: [id number] : 1950 Acct:[id number] Age/Sex: 74 / F ADM Date: 12/18/24 [facility] Dr: Cynthia Morales DO Ordering Physician: Cynthia Morales DO Date of Service: 12/18/24 Procedure(s): XR lumbar spine 2-3V Accession Number(s): [id number] cc: Cynthia Morales DO EXAMINATION: XR LUMBAR SPINE 2-3 VIEWS HISTORY: buttock pain radiating down R leg COMPARISON: Comparison is made with the prior examination dated 01/17/2024. FINDINGS: AP, lateral, and coned down views of the lumbar spine are submitted. Osseous mineralization is normal. Five nonrib-bearing lumbar vertebral bodies are identified, maintaining normal height without evidence of fracture or spondylolisthesis. There is mild dextroscoliosis. There is mild degenerative disc disease with disc space narrowing and osteophyte formation. The posterior elements are intact. There is calcification of the abdominal aorta. XR/XR lumbar spine 2-3V IMPRESSION: Mild dextroscoliosis and degenerative disc disease. Electronically signed by: Timi Michael MD 12/18/2024 10:39 AM EDT RP Dictated By: Timi Michael MD Signed By: <Electronically signed by Timi Michael MD in OV> 12/18/24 1039 DD/ 0927 TD/TT: 12/18/24 1000 System Administrator: Procedure Note Donotuseinterpreter, Image - 12/18/[address] [address] XRay Report Signed Patient: Marlena Randhawa#: [id number] : 1950cct:[id number] Age/Sex: 74 / FADM Date: 12/18/24 Loc: HO.HHCX Attending Dr: Cynthia Morales DO Ordering Physician: Cynthia Morales DO Date of Service: 12/18/24 Procedure(s): XR lumbar spine 2-3V Accession Number(s): [id number] cc: Cynthia Morales DO EXAMINATION: XR LUMBAR SPINE 2-3 VIEWS HISTORY: buttock pain radiating down R leg COMPARISON: Comparison is made with the prior examination dated 01/17/2024. FINDINGS: AP, lateral, and coned down views of the lumbar spine are submitted. Osseous mineralization is normal. Five nonrib-bearing lumbar vertebral bodies are identified, maintaining normal height without evidence of fracture or spondylolisthesis. There is mild dextroscoliosis. There is mild degenerative disc disease with disc space narrowing and osteophyte formation. The posterior elements are intact. There is calcification of the abdominal aorta. XR/XR lumbar spine 2-3V IMPRESSION: Mild dextroscoliosis and degenerative disc disease. Electronically signed by: Timi Michael MD 12/18/2024 10:39 AM EDT RP Dictated By: Timi Michael MD Signed By: <Electronically signed by Timi Michael MD in OV> 12/18/24 1039 DD/ 0927 TD/TT: 12/18/24 1000 System Administrator: us Cynthia Andrew DO IMG XR PROCEDURES Final Resu lt * Albumin, Random Urine W/Creatinine (06/27/2024 9:19 AM EST) Creatinine, Urine 58.67 mg/dL [facility] Microalbumin Urine 11.0 mg/L [facility] Microalbum Creatinine Ratio Ur 18.7 <30 ug/mg cr [facility] Comment:Albumin/Creatinine R atio Reference Ranges: Normal: < 30 ug/mg creatinine Microalbuminuria: 30 - 300 ug/mg creatinineClinical Albuminuria: > 300 ug/mg creatinine Urine (Urine, Random) 06/27/2024 9:19 AM EST 06/27/2024 11:52 AM EST us Howard Lovett MD LAB URINE ORDERABLES Final Resul t Performing Organization Address City/State/[facility] Co de Phone Number [facility] [address] [place] [phone] * Lipid Panel, Standard (06/27/2024 9:19 AM EST) Triglycerides 129 <150 mg/dL [facility] Comment:Desirable Triglyceri de: less than 150 mg/dLBorderline High Triglyceride 150-199 mg/dLHigh Triglyceride: 200-499 mg/dLVery High Triglyceride: greater than or equal to 5OO mg/dL Cholesterol 153 <200 mg/dL [facility] Comment:Desirable Cholestero l: less than 200 mg/dLBorderline High Cholesterol: 200-239 mg/dLHigh Cholesterol: greater than 239 mg/dL LDL Cholesterol Calculated 60 <100 mg/dL [facility] Comment:Desirable LDL: less than 100 mg/dLNear Optimal/Above Optimal LDL: 110- 129 mg/dLBorderline High LDL: 130-159 mg/dLHigh LDL: 160-189 mg/dLVery High LDL: greater than or equal to 190 mg/dL HDL Cholesterol 68 >40 mg/dL [facility] Comment:Desirable HDL: great er than 40 mg/dL Note: This HDL assay may give artificially low results in patients with liver disease. Blood Venous blood specimen / Unknown 06/27/2024 9:19 AM EST 06/27/2024 11:30 AM EST us Howard Name MD LAB BLOOD ORDERABLES Final Resul t [facility] [address] [place] [address] [phone] * BI Mammogram Screening Tomosynthesis Bilateral (08/31/2023 1:20 PM EDT) Anatomical Region Laterality Modality Breast Bilateral Mammography 08/31/2023 1:20 PM EDT Narrative 09/27/2023 10:20 PM EDT [facility] [address] [place] [address] Mammography Report Signed Patient: Kimberly Randhawa MR#: [id number] : 1950 Acct:[id number] Age/Sex: 72 / F ADM Date: 08/31/23 Loc: HO.MAMMO Attending Dr: Kelsie Simpson CNM Ordering Physician: Kelsie Simpson CNM Results: 2Beni gn Findings Date of Service: 08/31/23 Follow Up: 1 Year From [facility] ina Mammogram Procedure(s): MM tomosynthesis screening BI Accession Number(s): [id number] cc: Rubin Arguello MD; Kelsie Simpson CNM [...] in OV> 09/27/23 2216 DD/ 1320 TD/TT: System Administrator: Procedure Note Donotuseinterpreter, Image - 09/27/2023 [facility]'[address] [place] [address] Mammography Report Signed Patient: Marlena Randhawa#: [id number] : 3Acct:[id number] Age/Sex: 72 / FADM Date: 08/31/23 Loc: AMRITA Attending Dr: Kelsie Simpson CNM Ordering Physician: Kelsie Simpsonesults: 2Beni gn Findings Date of Service: 08/31/23Follow Up: 1 Year From Orig ina Mammogram Procedure(s): MM tomosynthesis screening BI Accession Number(s): [id number] cc: Rubin Arguello MD; Kelsie Simpson CNM [...] in OV> 09/27/23 2216 DD/ 1320 TD/TT: System Administrator: [facility] External Provider IMG BI PROCEDURES Edited Result - Final * Diabetes Eye Exam (03/02/2023) Eye Exam Normal Normal Howard Lovett MD HEALTH MAINTENANCE Final Result * Colonoscopy (10/26/2015 10:13 AM EDT) Colonoscopy Normal Normal Narrative Radha Henry - 10/26/2015 10:13 AM EDT Recommended 5 year follow up Historical Provider HEALTH MAINTENANCE Final Result from Last 3 Months or Most Recently Relevant to Health Maintenance Insurance [facility] STANDARD [facility] < 65 DENTAL - N FULL (MEDICAID) [facility] Care Teams Director Of Sustainability Relationship Specialty Start Date End Date Name, MD Howard [address] [place] [address] PCP - General Family Medicine 03/13/19
--- OUTSIDE RECORDS SUMMARY | 2025-01-27 09:49 | XMS_ITS | Encounter Summary ---
Author Organization [employer] Address [address] [facility] [address] [place] [address] Care Team Providers Care School Speech Therapist Name Role Phone Name, Howard BRENNER Primary Care Provider [phone] Encounter Details Date Type Department Care Team (Late st Contact Info) Description 11/27/2023 Orders Only [facility] [address] [place], [place] [phone] Provider, MD Alon Social History Tobacco Use Types Packs/Day Years [...] t he electric, gas, oil or water [employer] threatened to shut off services in your [...] Description 02/05/2025 10:15 AM EDT Office Visit [facility] [address] [place] [phone] Graciela Dailey MD [address] [place] [phone] 06/11/2025 1:00 PM EST Office Visit [facility] [address] [place] [address] Anna, Ting [address] [place] [address] documented as of this encounter Procedures Procedure Name Priority Date/Time Associated Diagnosis Comments CT ABDOMEN PELVIS W CONTRAST Routine 11/20/2023 4:12 PM EDT documented in this encounter Results * CT Abdomen Pelvis w/ Contrast (11/20/2023 4:12 PM EDT) Anatomical Region Laterality Modality Body, Pelvis, Abdomen Computed T omography Historical Provider MD BOGGS CT PROCEDURES Final R esult documented in this encounter Visit Diagnoses Not on filedocumented in this encounter Additional Health Concerns Assessment Noted Time PHQ-9 Depression Total Score: 6 08/27/19 24 3:42 PM EDT documented as of this encounter Care Teams School Speech Therapist Relationship Specialty Start Date End Date Name, MD Howard [address] [place] [phone] PCP - General Family Medicine 03/13/19 documented as of this encounter
--- OUTSIDE RECORDS SUMMARY | 2025-01-27 09:49 | XMS_ITS | Encounter Summary ---
Author Organization [employer] Address [address] [place] [address] Care Team Providers Care Special Procedure Tech Name Role Phone Name, Howard BRENNER Primary Care Provider [phone] Encounter Details Date Type Department Care Team (Latest Contact Info) Description 01/22/2025 Travel Social History Tobacco Use Types Packs/Day [...] AM EDT documented as of this encounter Functional Status * Over the [...] 2:28 PM EDT Samantha Martinez MA * Patient Health Questionnaire-9 Score [...] Parra MA documented as of this encounter Plan of Treatment Upcoming Encounters Date Type Department Care Team (Late st Contact Info) Description 02/05/2025 10:15 AM EDT Office Visit [facility] MEDICINE [address] [place], [place] [phone] Graciela Dailey MD [address] [place] [address] 06/11/2025 1:00 PM EST Office Visit [facility] ADULT DENTAL [address] [place], [place] [phone] Royer Castilloaris [address] [place], [place] [phone] documented as of this encounter Visit Diagnoses Not on filedocumented in this encounter Additional Health Concerns Assessment Noted Time PHQ-9 Depression Total Score: 9 01/23/20 25 2:28 PM EDT documented as of this encounter Care Teams Special Procedure Tech Relationship Specialty Start Date End Date Name, MD Howard [address] [place], [place] [phone] PCP - General Family Medicine 03/13/19 documented as of this encounter
== END 2025-01-27 08:41 | disposition home or self-care (01) ==
LOC: HO.NEURO 08:40
PROVIDERS: PCP Internal Medicine Geriatric Medicine; Visit Provider Family Medicine
DX: M79.604 Pain in right leg (principal)
CPT/HCPCS: 95886; 95909

== ENCOUNTER → 2025-01-27 08:45 | Outpatient (BNV) | payer OTHER, SELFPAY | PROVIDERS: PCP Internal Medicine Geriatric Medicine; Visit Provider Psychiatry & Neurology Neurology | DX: M54.16 Radiculopathy, lumbar region (principal) | CPT/HCPCS: 95886; 95909 ==

== ENCOUNTER 2025-03-12 10:36 | Outpatient (AMB) | payer OTHER, SELFPAY ==
--- NOTE | 2025-03-12 10:37 | A.OFFVIS_ITS ---
Vital Signs 03/12/25 10:43 Height 4 ft 11 in Weight 122 lb BMI 24.6 BP 153/69 H Blood Pressure Location Lt brachial Position Sitting Pulse 87 Pulse Source Pulse Oximeter Pulse Oximetry (%) 99 Oxygen Delivery Method Room Air Intake Visit Reasons: LEFT SIDE SPINE RADICULOPATHY Intake Note: Pain today 0/10 Teletray Operator Required: No Accompanied by: Spouse Allergies Sulfa (Sulfonamide Antibiotics) (SULFA (SULFONAMIDE ANTIBIOTICS)) Allergy (Severe, Verified 03/12/25 13:18) THROAT CLOSES HPI Comments Details: The patient is a 74-year-old female presenting with right lumbar radiculopathy. The patient reports experiencing back pain radiating to the right leg, accompanied by tingling and numbness, for the past three months. The symptoms began following a fall on August 25, which did not result in any immediate injury but has since led to persistent discomfort. Patient denies symptoms on the left lower extremity. The pain primarily affects the right buttock, side of the right leg, lateral luo and calf, and is exacerbated by prolonged standing and relieved by leaning forward. The patient has tried various home remedies, including ibuprofen, Tylenol, heat, and gabapentin, with limited relief. A previous x-ray in November showed mild scoliosis and degenerative disc disease, and an EMG study confirmed right lumbar radiculopathy. The patient has not yet undergone an MRI, which is necessary for further evaluation and management. The patient also reports right hand numbness and tingling, which affects the entire hand and has been persistent. A previous x-ray indicated slippage at C6 upon C7 with mild degenerative changes. She denies shoulder pain today. - Onset: Pain began three months ago following a fall. - Quality: Described as radiating, with tingling and numbness. - Location: Right buttock, side of the right leg, luo, and calf. - Exacerbating factors: Prolonged standing, bending down. - Relieving factors: Leaning forward slightly alleviates the pain. - Interference: Pain interferes with sleep and daily activities. - Affect: Pain impacts sleep and daily activities, causing concern and distress. - Analgesia: Current medications include ibuprofen, Tylenol, and gabapentin, with limited relief. - Adverse Effects: No specific adverse effects from medications reported. - Activities of Daily Living: Pain limits ability to stand for long periods and perform daily tasks. - Aberrant Drug Related Behaviors: No aberrant behaviors reported. Past Procedures: 05/27/24: Left shoulder intra-articular steroid injection-100% ongoing pain relief PRIOR: Patient presents today for follow up for left shoulder pain. She was initially seen in our office last year as noted below with no further follow up. Patient was referred back to our office for chronic low back pain with sciatica. However, patient reports left shoulder pain has been more significant. She also reports undergoing recent uneventful oophorectomy 3 weeks ago at [facility]. 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 Her left lower quadrant wound incision with skin glue is healing well. Left shoulder pain radiates to the neck and left upper extremity with mild weakness. She also reports lower back pain with radiation to the left leg posteriorly is associated numbness and tingling and left hip pain radiates to the groin. Recent imaging reviewed with patient and her family and noted for degenerative changes of left shoulder and spine with scoliosis convex to the right. Pain affects her daily functioning, ROM, mobility, sleep and social activities. She is interested to undergo therapeutic injection for her left shoulder as initial steps. Denies any fever or chills, abdominal pain, dizziness, chest pain, shortness of breaths, bladder or bowel dysfunction or saddle anesthesia. Oswestry Low Back Disability Score=43 (complete disability) PRIOR 07/28/22: Patient is a pleasant 71 years old female with a history of diabetes and depression presents today for chronic neck pain that radiates to both of her shoulders. Patient reports many years of chronic neck pain and has been managed in [place] with physical therapy, cortisone injections, and acupuncture over 8 years ago. Denies history of whiplash injury or any recent trauma, injury or falls. Neck pain is axial with radiation to both of her shoulders but not her elbows, hands, or fingers. Her pain is worse with flexion than extension and lateral movements as well as cold weather changes. Patient reports severe pain while washing her dishes with prolonged looking down or sitting upright, watching TV. Reports occasional headaches and tenderness in her occipital regions bilaterally. Pain is described as intermittent stabbing, lancinating, dull, sore, hurting, aching, heavy, tiring and exhausting. Pain interferes with her daily activities, functions, mood, sleep and social activities. She has tried to manage her pain with Tylenol, gabapentin, lidocaine, ketorolac, magnesium spray, ice and heat applications. Currently, she reports being active with physical therapy and establishing independence with home exercise therapy. Cervical spine xray showed degenerative disc disease at C4-C5 and multi-level bilateral neural foraminal narrowing. Denies previous chiropractic manipulation, deep tissue massage, aqua therapy or TENS unit. Patient denies any fever, cough, vision changes, shortness of breaths, chest pain, gait issues, bladder or bowel incontinence or saddle anesthesia. Patient's recent A1C was 06/19/22 was 7.9. Denies episodes of hypo or hyperglycemia. She is also has been taking Plavix for over 15 years but cannot state what for. Patient denies any history of stroke, TIA, DVTs but reports high cholesterol and diabetes. 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 Chart review noted for multiple ER visits for HTN and chest pain. [facility] Medical History Hypercholesteremia Diabetes Hypertension Hammer toe Surgical History H/O tubal ligation H/O knee surgery H/O section Family History Brother Prostate cancer Maternal Aunt Breast cancer Social History Alcohol intake: former Sexual orientation: Straight/Heterosexual Gender identity: Female Female Reproductive History Menstrual Age of Menarche: 15 Review of Systems Const Details: - Musculoskeletal: Reports right-sided back pain radiating to the leg, with tingling and numbness, weakness of RLE. - Neurological: Reports right hand numbness and tingling affecting the entire hand. Denies bladder or bowel dysfunction or saddle anesthesia. - General: Denies recent falls after the initial incident in August. All systems reviewed & are unremarkable except as noted in HPI and below Physical Exam Vital Signs: Last Vital Signs Pulse 87 03/12/25 10:43 BP 153/69 H 03/12/25 10:43 Pulse Ox 99 03/12/25 10:43 Oxygen Delivery Method Room Air 03/12/25 10:43 BMI result Body Mass Index 24.6 On exam today: Appears afebrile. Alert and oriented. Mood and affect appropriate. Follows and participates in conversation appropriately. Respiratory effort is unlabored. No cough. Able to transition from sit to stand unassisted. Holding on to family while ambulation. Ambulates with antalgic gait, mild limping. Reports back and right leg increase with toe and heel standing on the right. Neck Neck: Yes normal visual inspection, Yes no lymphadenopathy, Yes supple, No anterior neck swelling, Yes no JVD, No prominent supraclavicular fat pad and No prominent dorsocervical fat pad General: Yes no CVA tenderness Back/Spine/Pelvis Other: Limited lumbar ROM due to pain. Lumbar flexion and extension reproduces moderate pain. No midline tenderness in cervical, thoracic or lumbar areas. Demonstrates 5/5 left and 4/5 right strength of quadriceps bilaterally as well as flexion/dorsiflexion of bilateral feet against resistance. 2+ pedal pulses bilaterally. Straight leg rise with dorsiflexion positive on the right. +1 patellar and achilles reflexes bilaterally. Facet loading test positive bilaterally. Boni sign, Leonardo?s, Pelvic compression and Stinchfield tests are positive bilaterally, right>left. No groin pain with I/E hip rotations. Valsalva maneuver negative. Back: no CVA tenderness Cervical Spine: cervical ROM normal, No Lhermitte's sign positive, loss of normal cervical lordosis, cervical muscular tenderness, pain with cervical ROM, cervical spasm and No Cervical spine tenderness Thoracic/Lumbar Spine: thoracic and lumbar spine normal to inspection, No Thoracic/lumbar spine scar(s), Lasegue's sign positive on the right and localized, pain with thoraco-lumbar ROM, paraspinal muscle tenderness, thoraco- lumbar ROM limited, Thoracic/lumbar scoliosis, No thoracic spinal tenderness and No lumbar spinal tenderness Sacroiliac joints: bilaterally tender to palpation Extrem General: Yes capillary refill normal, Yes no clubbing, cyanosis or edema and Yes no calf tenderness Results Reviewed Results Reviewed: XR LUMBAR SPINE 2-3 VIEWS 12/18/24 HISTORY: buttock pain radiating down R leg COMPARISON: Comparison is made with the prior examination dated 01/17/2024. FINDINGS: AP, lateral, and coned down views of the lumbar spine are submitted. Osseous mineralization is normal. Five nonrib-bearing lumbar vertebral bodies are identified, maintaining normal height without evidence of fracture or spondylolisthesis. There is mild dextroscoliosis. There is mild degenerative disc disease with disc space narrowing and osteophyte formation. The posterior elements are intact. There is calcification of the abdominal aorta. IMPRESSION: Mild dextroscoliosis and degenerative disc disease. NE electromyogram (EMG); NE nerve conduction velocity 01/27/25 Chief complaint: Right leg pain Procedure done: Nerve conduction study was performed. EMG was performed on the right leg and paraspinals. Right tibial and peroneal motor studies were performed right superficial peroneal and sural sensory studies were performed tibial H-reflex was obtained an EMG needle examination was performed. Impression: Right lower lumbar radiculopathy Assessment & Plan Assessment & Plan (1) Right lumbar radiculitis: Code(s): M54.16 - Radiculopathy, lumbar region Category: Medical (2) Lumbar degenerative disc disease: Code(s): M51.369 - Other intervertebral disc degeneration, lumbar region without mention of lumbar back pain or lower extremity pain Category: Medical (3) Low back pain: Code(s): M54.50 - Low back pain, unspecified Category: Medical (4) Numbness and tingling of right upper extremity: Code(s): R20.0 - Anesthesia of skin; R20.2 - Paresthesia of skin Category: Medical (5) Cervical spondylosis: Code(s): M47.812 - Spondylosis without myelopathy or radiculopathy, cervical region Category: Medical Plan The plan includes obtaining an MRI of the lumbar spine to further evaluate the right lumbar radiculopathy and assess nerve integrity and nerve compression. An EMG study of the right arm is also planned to assess the cause of the right hand numbness and tingling, with considerations for carpal tunnel syndrome or ulnar neuropathy. Depending on the MRI results, potential interventions may include injections or referral to a Neurosurgeon if significant compression is noted. All questions and concerns have been answered and patient agreed with the treatment plan. Follow up for MRI and sooner as needed. Patient was informed and verbally consented to the use of an ambient scribe for clinic note documentation during this visit. Orders: Orders MR lumbar spine wo con Today M51.369 - Other intervertebral disc degeneration, lumbar region without mention of lumbar back pain or lower extremity pain, M54.16 - Radiculopathy, lumbar region, M54.50 - Low back pain, unspecified NE nerve conduction velocity Today R20.0 - Anesthesia of skin, R20.2 - Paresthesia of skin NE electromyogram (EMG) Today R20.0 - Anesthesia of skin, R20.2 - Paresthesia of skin Coding Level of Care Code Est Pt Level 4 (03103) Complex EM visit Add On G2211 Diagnoses Right lumbar radiculitis M54.16 Lumbar degenerative disc disease M51.369 Low back pain M54.50 Numbness and tingling of right upper extremity R20.0; R20.2 Cervical spondylosis M47.812
[2025-03-12 10:43] VITALS: BP 153/69; PULSE 87; O2SAT 99; BMI 24.6
--- OUTSIDE RECORDS SUMMARY | 2025-03-12 12:47 | XMS_ITS | Encounter Summary ---
Author Organization [employer] Address [address] [place] [address] [address] [place] [address] Care Team Providers Care Band Cutter Name Role Phone Name, Howard BRENNER Primary Care Provider [phone] Reason for Visit * Reason Onset Date Comments Results 07/03/2022 Encounter Details Date Type Department Care Team (Late st Contact Info) Description 07/03/2022 Telephone [facility] MEDICINE [address] [place], [place] [phone] Name, MD Howard [address] [place] [address] Results Social History Tobacco Use Types Packs/Day [...] regarding xray results Please contact pt at [phone] documented in this encounter Plan of Treatment Upcoming Encounters Date Type Department Care Team (Late st Contact Info) Description 03/19/2025 2:00 PM EDT Medication Management [facility] MEDICINE [address] [place] [phone] Eve Serrato, PharmD [address] [place] [address] 04/21/2025 3:15 PM EST Office Visit [facility] MEDICINE [address] [place] [address] Name, MD Howard [address] [place] [address] 06/11/2025 12:45 PM EST Office Visit [facility] ADULT DENTAL [address] [place] [phone] Ting Castillo [address] [place] [address] documented as of this encounter Visit Diagnoses Not on filedocumented in this encounter Additional Health Concerns Assessment Noted Time PHQ-9 Depression Total Score: 0 06/19/19 23 2:59 PM EST documented as of this encounter Care Teams Band Cutter Relationship Specialty Start Date End Date Name, MD Howard [address] [place] [address] PCP - General Family Medicine 03/13/19 documented as of this encounter
--- OUTSIDE RECORDS SUMMARY | 2025-03-12 12:48 | XMS_ITS | Encounter Summary ---
Author Organization [employer] Address [address] [place] [address] 7[address] [place] [address] Care Team Providers Care Telephone Answerer Name Role Phone Name, Howard BRENNER Primary Care Provider [phone] Encounter Details Date Type Department Care Team ([facility] Contact Info) Description 10/23/2022 Abstract [facility] MEDICINE [address] [place] [address] [phone] Name, MD Howard [address] [place] [address] [phone] Social History Tobacco Use Types Packs/Day Years [...] Upcoming Encounters Date Type Department Care Team ([facility] Contact Info) Description 03/19/2025 2:00 PM EDT Medication Management [facility] MEDICINE [address] [place] [address] [phone] Eve Serrato, PharmD [address] [place] [address] 04/21/2025 3:15 PM EST Office Visit [facility] MEDICINE [address] [place] [address] Bony, MD Howard [address] [place] [address] 06/11/2025 12:45 PM EST Office Visit [facility] ADULT DENTAL [address] [place] [address] Royer Castilloaris [address] [place] [address] documented as of this encounter Procedures Procedure [...] documented as of this encounter Care Teams Telephone Answerer Relationship Specialty Start Date End Date Name, MD Howard [address] [place] [phone] PCP - General Family Medicine 03/13/19 documented as of this encounter
--- OUTSIDE RECORDS SUMMARY | 2025-03-12 12:48 | XMS_ITS | Encounter Summary ---
Author Organization [employer] Address [address] [place] [address] Care Team Providers Care Director Hris Name Role Phone Name, Howard BRENNER Primary Care Provider [phone] Reason for Visit * Reason Comments Med Refill Encounter Details Date Type Department Care Team (Late st Contact Info) Description 03/11/2025 Refill [facility] MED & PEDS [address] [place], [place] [phone] Name, MD Howard [address] [facility] [place], [place] [phone] Type 2 diabetes mellitus with hyperglycemia, with long-term current use of insulin (HCC) Social History Tobacco Use Types Packs/Day Years [...] 03/19/2025 2:00 PM EDT Medication Management [facility] MEDICINE [address] [place] [phone] Eve Serrato, PharmD [address] [place] [phone] 04/21/2025 3:15 PM EST Office Visit [facility] MEDICINE [address] [place] [phone] Howard Lovett MD [address] [place] [phone] 06/11/2025 12:45 PM EST Office Visit [facility] ADULT DENTAL [address] [place] [phone] Ting Castillo [address] [place] [address] documented as of this encounter Visit Diagnoses Diagnosis Type 2 diabetes mellitus with hyperglycemia, with long-term current use of insulin (HCC) documented in this encounter Additional Health Concerns Assessment Noted Time PHQ-9 Depression Total Score: 9 01/23/20 25 2:28 PM EDT documented as of this encounter Care Teams Director Hris Relationship Specialty Start Date End Date Howard Lovett MD [address] [place] [phone] PCP - General Family Medicine 03/13/19 documented as of this encounter
--- OUTSIDE RECORDS SUMMARY | 2025-03-12 12:48 | XMS_ITS | Encounter Summary ---
Author Organization [employer] Address [address] [facility] 7t [place] [address] Care Team Providers Care Car Whacker Name Role Phone Name, Howard BRENNER Primary Care Provider [phone] Encounter Details Date Type Department Care Team ([facility] Contact Info) Description 06/01/2022 Orders Only [facility] CHC MED & PEDS [address] [place], [place] [phone] Cynthia Yun LPN Social History Tobacco Use [...] Upcoming Encounters Date Type Department Care Team ([facility] Contact Info) Description 03/19/2025 2:00 PM EDT Medication Management [facility] MEDICINE [address] [place] [address] [phone] Eve Serrato, PharmD [address] [place] [address] [phone] 04/21/2025 3:15 PM EST Office Visit [facility] MEDICINE [address] [place] [address] [phone] Name, MD Howard [address] [place] [address] 06/11/2025 12:45 PM EST Office Visit [facility] ADULT DENTAL [address] [place] [address] Ting Castillo [address] [place] [address] documented as of this encounter Procedures Procedure [...] AM EST Narrative 07/04/2022 6:18 PM EST [facility] [address] [place] [address] XRay Report Signed Patient: Kimberly Randhawa MR#: [id number] : 1950 Acct:[id number] Age/Sex: 71 / F ADM Date: 06/29/22 Loc: HO.XRAY Attending Dr: Rubin Arguello MD Ordering Physician: Rubin Arguello MD Date of Service: 06/29/22 Procedure(s): XR ribs LT 2V Accession Number(s): [id number] cc: Rubin Arguello MD EXAMINATION: XR RIBS, [...] signed by Jaya Montana MD in OV> 07/04/221814 DD/ 26 TD/TT: Manager Bar: JOVITA Procedure Note Donotuseinterpreter, Image - 10/09/[address] [address] XRay Report Signed Patient: Marlena Randhawa#: [id number] : 1950cct:[id number] Age/Sex: 71 / FADM Date: 06/29/22 Loc: HO.XRAY Attending Dr: Rubin Arguello MD Ordering Physician: Rubin Arguello MD Date of Service: 06/29/22 Procedure(s): XR ribs LT 2V Accession Number(s): [id number] cc: Rubin Arguello MD EXAMINATION: XR RIBS, [...] signed by Jaya Montana MD in OV> 07/04/221814 DD/ 112 TD/TT: Manager Bar: JOVITA us [facility] External Provider IMG XR PROCEDURES Edited Result - Final * XR Cervical Spine 5 View (06/29/2022 11:27 AM EST) Anatomical Region Laterality Modality Spine, C-spine Radiographic Lucrecia ging 06/29/2022 11:2 7 AM EST Narrative 07/04/2022 8:39 PM EST [address] [address] XRay Report Signed Patient: Kimberly Randhawa MR#: [id number] : 1950 Acct:[id number] Age/Sex: 71 / F ADM Date: 06/29/22 Loc: HODesXRKELSEY Attending Dr: Rubin Arguello MD Ordering Physician: Rubin Arguello MD Date of Service: 06/29/22 Procedure(s): XR cervical spine 5V Accession Number(s): [id number] cc: Rubin Arguello MD EXAMINATION: XR CERVICAL [...] Jaya Montana MD in OV> 07/04/222035 DD/ 112 TD/TT: Manager Bar: JOVITA Procedure Note Donotuseinterpreter, Image - 07/04/[address] [address] XRay Report Signed Patient: Kimberly RandhawaMR#: [id number] : 1950cct:[id number] Age/Sex: 71 / FADM Date: 06/29/22 Loc: HOSCOTT Attending Dr: Rubin Arguello MD Ordering Physician: Rubin Arguello MD Date of Service: 06/29/22 Procedure(s): XR cervical spine 5V Accession Number(s): [id number] cc: Rubin Arguello MD EXAMINATION: XR CERVICAL [...] Jaya Montana MD in OV> 07/04/222035 DD/ TD/TT: Manager Bar: JOVITA [facility] External Provider IMG XR PROCEDURES Edited Result - Final documented in this encounter Visit Diagnoses Not on filedocumented in this encounter Care Teams Car Whacker Relationship Specialty Start Date End Date Name, MD Howard [address] [place] [address] PCP - General Family Medicine 03/13/19 documented as of this encounter
--- OUTSIDE RECORDS SUMMARY | 2025-03-12 12:48 | XMS_ITS | Clinical Summary ---
Author Organization [facility] Address [address] [place] [address] Phone Care Team Providers Care Slag Mixer Name Role Phone Name, Howard BRENNER Primary Care Provider [phone] Allergies Active Allergy Reactions Criticality Noted Date [...] of blood transfusion See media for documentation Anabaptism Type 2 diabetes mellitus without complications 0 [...] FOBT 1997 SIGMOIDOSCOPY 1997 VIRTUAL COLONOSCOPY 1997 RSV VACCINE (1 - Risk 50-74 years 1-dose series) 2002 ZOSTER VACCINES (1 of 2) 2002 OSTEOPOROSIS SCREENING INITIAL (ONE-TIME) 2017 MAMMOGRAM 12/27/2020 [...] EDT) SODIUM 141 133 - 146 mmol/L [facility] CHLORIDE 104 96 - 108 mmol/L [facility] POTASSIUM 3.6 3.3 - 5.1 mmol/L [facility] CO2 25 21 - 35 mmol/L [facility] BUN 14 6 - 19 mg/dL [facility] CREATININE 0.50 0.5 - 1.5 mg/dL [facility] GLUCOSE 241(H) 70 - 99 mg/dL [facility] CALCIUM 9.5 8.4 - 10.3 mg/dL [facility] EGFR 101 >59 mL/min/1.7 3m2 [facility] Comment:Estimated glomerular filtration rate calculated using the CKD-EPI refit equation. ANION GAP 16 10 - 20 mmol/L [facility] Blood 11/20/2023 5:06 PM EDT 11/20/2023 5:18 PM EDT Kaleb Snow MD LAB BLOOD ORDERABLES Fin al Result [facility] [address] [place], [place] [id number] from Last 3 Months or Most Recently Relevant to Health Maintenance Insurance [facility] MEDICARE REPLACEMENT NET PARTIAL MEDICARE PART A & B [facility] MEDICARE [facility]PLACEMENT ON LICENSE OF [facility] PARTIAL MEDICARE PART A & B [facility] MEDICARE [facility]PLACEMENT ON LICENSE OF [facility] PARTIAL MEDICARE PART A & B [facility] MEDICARE [facility]PLACEMENT ON LICENSE OF [facility] PARTIAL MEDICARE PART A & B [facility] AARP MEDICARE REPLACEMENT ON LICENSE OF [facility] PARTIAL MEDICARE PART A & B [facility] Q[facility] AAR MEDICARE REPLACEMENT ON LICENSE OF [facility] PARTIAL MEDICARE PART A & B [facility] QMB Advance Directives For more information, please contact: [phone] (9AM - 5PM [facility], Sunday-Sunday) Documents on File Type Date Recorded Patient Lounge Car Attendant Expl anation Healthcare Proxy 01/29/2024 HEALTHCARE PROXY 01/29/2024 Care Teams Slag Mixer Relationship Specialty Start Date End Date Name, MD Howard [address] [place] [id number] PCP - General 09/01/23 Additional Source Comments The information contained in this document represents components of the legal health record. It is not the complete legal health record.[facility]
--- OUTSIDE RECORDS SUMMARY | 2025-03-12 12:48 | XMS_ITS | Encounter Summary ---
Author Organization [employer] Address [address] [place] [address] Care Team Providers Care Cd Storage And Materials Make Up Helper Name Role Phone Name, Howard BRENNER Primary Care Provider [phone] Encounter Details Date Type Department Care Team (Late st Contact Info) Description 11/27/2023 Orders Only [facility] [address] [place], [place] [phone] Provider, MD Alon Social History Tobacco Use [...] t he electric, gas, oil or water [employer] threatened to shut off services in your [...] Description 03/19/2025 2:00 PM EDT Medication Management [facility] [address] [place] [phone] Eve Serrato, PharmD [address] [place] [phone] 04/21/2025 3:15 PM EST Office Visit [facility] [address] [place] [phone] Howard Lovett MD [address] [place] [address] 06/11/2025 12:45 PM EST Office Visit [facility] ADULT DENTAL [address] [place] [phone] Anna Ting [address] [place] [address] documented as of this encounter Procedures Procedure [...] documented as of this encounter Care Teams Cd Storage And Materials Make Up Helper Relationship Specialty Start Date End Date Name, MD Howard [address] [place] [address] PCP - General Family Medicine 03/13/19 documented as of this encounter
--- OUTSIDE RECORDS SUMMARY | 2025-03-12 12:48 | XMS_ITS | Encounter Summary ---
Author Organization [employer] Address [address]t [place] [address] Care Team Providers Care Supervisor Yard Name Role Phone Name, Howard BRENNER Primary Care Provider [phone] Reason for Visit * Reason Comments Med Refill Encounter Details Date Type Department Care Team ([facility] st Contact Info) Description 03/09/2025 Refill [facility] [address] [place], [place] [phone] Name, MD Howard [address] [place] [address] Social History Tobacco Use Types Packs/Day Years [...] Description 03/19/2025 2:00 PM EDT Medication Management [facility] [address] [place] [phone] Eve Serrato, PharmD [address] [place] [phone] 04/21/2025 3:15 PM EST Office Visit [facility] [address] [place] [phone] NameHoward MD [address] [place] [phone] 06/11/2025 12:45 PM EST Office Visit [facility] ADULT DENTAL [address] [place] [phone] Anna, Ting [address] [place] [address] documented as of this encounter Visit Diagnoses Not on filedocumented in this encounter Additional Health Concerns Assessment Noted Time PHQ-9 Depression Total Score: 9 01/23/20 25 2:28 PM EDT documented as of this encounter Care Teams Supervisor Yard Relationship Specialty Start Date End Date Howard Lovett MD [address] [place] [phone] PCP - General Family Medicine 03/13/19 documented as of this encounter
--- OUTSIDE RECORDS SUMMARY | 2025-03-12 12:48 | XMS_ITS | Encounter Summary ---
Author Organization [employer] Address [address] [place] [address] 7 [place] [address] Care Team Providers Care Industrial Analyst Name Role Phone Name, Howard BRENNER Primary Care Provider [phone] Encounter Details Date Type Department Care Team (Latest Contact Info) Description 10/13/2021 Abstract [facility] Dental, Provider, DDS Social History Tobacco [...] Description 03/19/2025 2:00 PM EDT Medication Management [facility] [address] [place] [phone] Eve Serrato, PharmD [address] [place] [phone] 04/21/2025 3:15 PM EST Office Visit [facility] [address] [place] [phone] Name, MD Howard [address] [place] [address] 06/11/2025 12:45 PM EST Office Visit [facility] [address] [place] [phone] Ting Castillo [address] [place] [address] documented as of this encounter Visit Diagnoses Not on filedocumented in this encounter Care Teams Industrial Analyst Relationship Specialty Start Date End Date Name, MD Howard [address] [place] [address] PCP - General Family Medicine 03/13/19 documented as of this encounter
--- OUTSIDE RECORDS SUMMARY | 2025-03-12 12:48 | XMS_ITS | Clinical Summary ---
Author Organization [employer] Address [address] [facility] 7[address] [place] [address] Care Team Providers Care Horse Rider Name Role Phone Name, Howard BRENNER Primary Care Provider [phone] Allergies Active Allergy Reactions Criticality Noted Date Comments Sulfa Antibiotics 05/03/2015 Other reaction(s): swelling of throat Dulaglutide 06/17/2024 Vomiting and diarrhea Medications * This document contains information received from the source organization and may not represent a complete record from that organization. [employer] (TRUEdraw Lancing Device) [facility] Use to test blood sugar 3 to 4 times per day 1 each 10/13/19 23 Active Blood Glucose Monitoring Suppl (ONE TOUCH ULTRA 2) w/Device kit TEST BLOOD SUGAR TWICE DAILY 1 kit 06/01/19 24 Active clotrimazole (Lotrimin) 1 % vaginal creamIndications: Vulvovaginal Candidiasis Insert one applicator per vagina at bedtime for 7 nights 45 g 06/07/19 25 Active Lancets (OneTouch Delica Plus [id number]) misc TEST BLOOD SUGAR THREE OR FOUR TIMES DAILY 100 each 11 08/02/19 25 Active OneTouch Ultra Test test strip TEST BLOOD SUGAR 3 TO 4 TIMES PER DAY 100 strip 11 08/02/19 25 Active clotrimazole-beta methasone (Lotrisone) cream Apply 1 Application. topically if needed in the morning, at noon, and at bedtime (itch). 08/05/19 25 Active meloxicam (Mobic) 7.5 MG tablet Take 1 tablet by mouth if needed at bedtime for pain. 08/30/19 25 Active Blood Pressure kit Use once a day 1 kit 09/12/19 25 Active losartan (Cozaar) 100 MG tabletIndications :Hypertension, unspecified type TAKE 1 TABLET BY MOUTH EVERY MORNING 90 tablet 3 09/26/19 25 Active atorvastatin (Lipitor) 40 MG tabletIndications :High cholesterol TAKE 1 TABLET BY MOUTH AT BEDTIME 90 tablet 3 09/26/19 25 Active metFORMIN (Glucophage) 1000 MG tablet TAKE 1 TABLET BY MOUTH TWICE DAILY IN THE MORNING AND AT BEDTIME WITH FOOD 180 tablet 3 09/26/19 25 Active clopidogrel (Plavix) [...] or split. 60 tablet 2 12/19/19 25 2025 Active Diclofenac Sodium (Voltaren) 1 % gelIndications:Ch ronic neck pain Apply once a day to the affected area 150 g 2 12/19/19 25 Active naproxen (Naprosyn) 500 MG tablet TAKE 1 TABLET BY MOUTH TWICE DAILY IN THE MORNING AND AT BEDTIME NEEDED FOR MILD OR MODERATE PAIN 30 tablet 01/09/20 25 Active gabapentin (Neurontin) 600 MG tabletIndications :Diabetic polyneuropathy associated with type 2 diabetes mellitus (HCC) Take 1 tablet (600 mg) by mouth at bedtime. 30 tablet 2 02/06/20 25 2025 Active baclofen (Lioresal) 10 MG tablet TAKE 1 TABLET BY MOUTH THREE TIMES DAILY IN THE MORNING, AT NOON, AND AT BEDTIME NEEDED FOR MUSCLE SPASMS 60 tablet 2 02/25/20 25 Active atenolol (Tenormin) 25 MG tabletIndications :Hypertension, unspecified type TAKE 1 TABLET BY MOUTH EVERY MORNING 90 tablet 1 03/04/20 25 Active amLODIPine (Norvasc) 5 MG tablet TAKE 1 TABLET BY MOUTH EVERY MORNING 90 tablet 1 03/04/20 25 Active pantoprazole (ProtoNix) 40 MG EC tabletIndications :Heartburn TAKE 1 TABLET BY MOUTH EVERY MORNING 90 tablet 1 03/04/20 25 Active glipiZIDE XL (Glucotrol XL) 2.5 MG 24 hr tablet TAKE 1 TABLET BY MOUTH IN THE MORNING DO NOT BREAK, CRUSH, DISSOLVE OR CHEW 30 tablet 11 03/09/20 Active glipiZIDE XL (Glucotrol XL) 2.5 MG 24 hr tablet TAKE 1 TABLET BY MOUTH EVERY DAY IN THE MORNING. DO NOT BREAK, CRUSH, DISSOLVE OR CHEW 30 tablet 11 03/05/202024 Discontinued atenolol (Tenormin) 25 MG tabletIndications :Hypertension, unspecified type TAKE 1 TABLET BY MOUTH EVERY MORNING 90 tablet 1 08/30/19 25 2024 Discontinued pantoprazole (ProtoNix) 40 MG EC tabletIndications :Heartburn TAKE 1 TABLET BY MOUTH EVERY MORNING 90 tablet 1 09/03/19 25 2024 Discontinued amLODIPine (Norvasc) 5 MG tablet TAKE 1 TABLET BY MOUTH EVERY MORNING 90 tablet 1 09/03/192024 Discontinued baclofen (Lioresal) 10 MG tablet Take 1 tablet (10 mg) by mouth if needed in the morning, at noon, and at bedtime for muscle spasms. 60 tablet 2 12/19/192024 Discontinued Active Problems Problem Noted Date Diagnosed Date Preop examination 02/05/2025 Assessment & Plan (02/05/2025 1:38 PM EDT): RCRI score is 1 which means she has a 1.1% risk Patient was instructed to be n.p.o. after midnight for the procedure Patient was instructed to take her blood pressure medications the morning of the procedure with a small sip of water Surgery should proceed as scheduled Type 2 diabetes mellitus wit h hyperglycemia, with long-term current use of insulin 02/05/2025 Assessment & Plan (02/05/2025 1:39 PM EDT): I discontinue her jardiance, patient was complaining she has been having recurrent UTIs and yeast infections. I advise to take glipizide 2.5mg every day instead of as needed and f/u with PCP Right wrist pain 02/05/2025 Assessment & Plan (02/05/2025 1:40 PM EDT): Patient reports pain but more than anything tingling and numbness sensation on hand and fingers most likely is carpal tunnel syndrome she does have a wrist brace at home I advised to use it every night and follow-up with PCP ASHLEY (generalized anxiety disorder) 01/22/2025 Normal oral [...] Pt will be transported by her to [facility] ER. Diabetic polyneuropathy 08/27/2023 Assessment & Plan (02/05/2025 10:53 AM EDT): I increase her gabapentin to 600mg at bed time, f/u with PCP Generalized gingival recession 02/28/2023 Missing teeth, acquired [...] cataract of both eyes 2017 Presbyopia 10/11/2017 Essential hypertension 05/03/2015 Gastroesophageal reflux disease without [...] crackles at right lung base 05/11/2022 10/12/2022 Type 2 diabetes mellitus wit hout complications 11/06/2016 02/05/2025 Encounters * This document contains information received from the source organization and may not represent a complete record from that organization. Date Type Department Care Team Description 03/11/2025 Refill [facility] [address] [place] [address] Howard Lovett MD Type 2 diabetes mellitus with hyperglycemia, with long-term current use of insulin (HCC) 03/09/2025 Refill [facility] [address] [place] [address] Howard Lovett MD 03/04/2025 Refill [facility] [address] [place] [address] Howard Lovett MD Hypertension, unspecified type; Heartburn 02/22/2025 Refill [facility] [address] [place] [address] Cynthia Morales DO 02/05/2025 10:15 AM EDT Office Visit [facility] [address] [place] [address] Graciela Dailey MD Type 2 diabetes mellitus with hyperglycemia, with long-term current use of insulin ([facility]) (Primary Dx); Preop examination; Diabetic polyneuropathy associated with type 2 diabetes mellitus ([facility]); Right wrist pain 02/05/2025 Travel 02/04/[address] [address] Howard Lovett MD Chart Prep 02/02/[address] [address] Eve Serrato, JaseD 01/22/2025 1:45 PM EDT Office Visit [address] [address] Maddie Null FNP Type 2 diabetes mellitus with other specified complication, without long-term current use of insulin ([facility]) (Primary Dx); Health care maintenance; Anxiety 01/22/2025 Travel 01/21/2025 Telephone [facility] [address] [place] [address] Howard Lovett MD Chart Prep 01/20/[address] [address] Howard Lovett MD pre op 01/14/2025 Patient Outreach [facility] [address] [place] [address] Howard Lovett MD Pre-visit Planning (SDOH negative, Tobacco screening negative. ) 01/07/2025 Refill [facility] [address] [place] [address] Cynthia Morales DO 12/29/[address] [address] Howard Lovett MD Durable Medical Equipment 12/18/2024 9:40 AM EDT Office Visit [facility] [address] [place] [address] Cynthia Morales DO Right leg pain (Primary Dx); Pain and swelling of right knee; Chronic neck pain 12/18/2024 Telephone [facility] [address] [place] [address] Cynthia Morales DO Results 12/18/2024 Travel from Last 3 Months Immunizations Immunization Administration [...] Sign Reading Time Taken Comments Blood Pressure 126/72 02/05/2025 10:21 AM EDT Pulse 79 02/05/2025 10:21 AM EDT Temperature 36.1 C (97 F) 02/05/2025 10:21 AM EDT Respiratory Rate 16 02/05/2025 10:21 AM EDT Oxygen Saturation 96% 02/05/2025 10:21 AM EDT Inhaled Oxygen Concentration - - Weight 55.9 kg (123 lb 3.2 oz) 02/05/2025 10:21 AM EDT Height 149.9 cm (4' 11 ) 02/05/2025 10:21 AM EDT Body Mass Index 24.88 02/05/2025 10:21 AM EDT Plan of Treatment Upcoming Encounters Date Type Department Care Team (Late st Contact Info) Description 03/19/2025 2:00 PM EDT Medication Management [facility] [address] [place] [address] Eve Serrato, PharmD [address] [place] [address] 04/21/2025 3:15 PM EST Office Visit [facility] [address] [place] [address] Name, MD Howard [address] [place] [address] 06/11/2025 12:45 PM EST [facility] Visit [facility] [address] [place] [address] Ting Castillo [address] [place] [address] Health Maintenance Due Date Last Done Comments [...] Alcohol/Substance Use Screening 01/22/2026 01/22/2025 Tobacco Screening 02/05/2026 02/05/2025 HIB Vaccines Aged Out No longer eligi [...] Procedure Name Priority Date/Time Associated Diagnosis Comments EMG Routine 01/27/2025 Right leg pain POCT GLYCATED HEMOGLOBIN, TOTAL Routine 01/22/2025 1:56 PM EDT Type 2 diabetes mellitus with other specified complication, without long-term current use of insulin ([facility]) POCT GLUCOSE Routine 01/22/2025 1:55 PM EDT Type 2 diabetes mellitus with other specified complication, without long-term current use of insulin ([facility]) XR KNEE 4+ VIEWS RIGHT Routine 9:30 AM EDT Right leg pain Pain and swelling of right knee XR LUMBAR SPINE 2-3 VIEWS Routine 12/18/2024 9:27 AM EDT Right leg pain Pain and swelling of right knee PROPHYLAXIS - ADULT Routine 11/28/2024 1 0:00 AM EDT Dental plaque on multiple teeth Gingival bleeding BITEWING - SINGLE RADIOGRAPHIC IMAGE Routine 11/28/2024 10:00 AM EDT Dental plaque on multiple teeth Missing teeth, acquired Generalized gingival recession Gingival bleeding PERIODIC ORAL EVALUATION - ESTABLISHED PATIENT Routine 11/28/2024 10:00 AM EDT ALBUMIN, RANDOM URINE W/CREATININE Routine 06/27/2024 9:19 AM EST Type 2 diabetes mellitus with other specified complication, without long-term current use of insulin ([facility]) LIPID PANEL, STANDARD Routine 06/27/2024 9:19 AM EST Type 2 diabetes mellitus with other specified complication, without long-term current use of insulin ([facility]) BI MAMMOGRAM SCREENING TOMOSYNTHESIS BILATERAL Routine 08/31/2023 1:20 PM EDT HM DIABETES EYE EXAM Routine 03/02/2023 INTRAORAL - COMPLETE SERIES OF RADIOGRAPHIC IMAGES Routine 07/13/2022 11:00 AM EST Dental plaque on multiple teeth HM COLONOSCOPY Routine 10/26/2015 10:13 AM EDT from Last 3 Months or Most Recently Relevant to Health Maintenance Results * EMG (01/27/2025) Cynthia Morales DO NEUROLOGY ORDERABLES Final R esult * (ABNORMAL) POCT Hgb A1c (01/22/2025 1:56 PM EDT) Hemoglobin A1C 8.2(A) 4.0 - 5.7 % QC Media Lot # [id number] Lot# Expiration Date 47, Blood 01/22/2025 1:56 PM EDT Maddie ENCARNACION POINT OF CARE TEST ENTER/EDIT ORDERABLES Final Result * POCT Glucose (01/22/2025 1:55 PM EDT) Glucose Blood, POC 161 60 - 200 mg/dL QC Media Lot # [id number] Lot# Expiration Date ,906,068 Blood Capillary blood specimen / Unknown 01/22/2025 1:55 PM EDT Maddie Null ORDER CONTROL CLERK BLOOD BANK POINT OF CARE TEST ENTER/EDIT ORDERABLES Final Result * XR Knee 4+ Views Right (12/18/2024 9:30 AM EDT) Anatomical Region Laterality Modality Lower Extremities, Knee Right Radiogra phic Imaging 12/18/2024 9:30 AM EDT Narrative 12/18/2024 10:42 AM EDT [facility] [address] [place] [address] XRay Report Signed Patient: Kimberly Randhawa MR#: [id number] : 1950 Acct:[id number] Age/Sex: 74 / F ADM Date: 12/18/24 [facility]: Cynthia Morales DO Ordering Physician: Cynthia Morales DO Date of Service: 12/18/24 Procedure(s): XR knee RT 4V Accession Number(s): [id number] cc: Cynthia Morales DO EXAMINATION: XR KNEE, [...] 12/18/24 1040 DD/ 0930 TD/TT: 12/18/24 1000 Lip Of Shank Cutter: Procedure Note Donotuseinterpreter, Image - 12/18/[address] [address] XRay Report Signed Patient: Marlena Randhawa#: [id number] : 3Acct:[id number] Age/Sex: 74 / FADM Date: 12/18/24 Loc: HO.CX Attending Dr: Cynthia Morales DO Ordering Physician: Cynthia Morales DO Date of Service: 12/18/24 Procedure(s): XR knee RT 4V Accession Number(s): [id number] cc: Cynthia Morales DO EXAMINATION: XR KNEE, [...] 12/18/24 1040 DD/ 0930 TD/TT: 12/18/24 1000 Lip Of Shank Cutter: Cynthia Morales DO IMG XR PROCEDURES Final Resu lt * XR Lumbar Spine 2-3 Views (12/18/2024 9:27 AM EDT) Anatomical Region Laterality Modality Spine, L-spine Radiographic Lucrecia ging 12/18/2024 9:27 AM EDT Narrative 12/18/2024 10:41 AM EDT [address] [address] XRay Report Signed Patient: Kimberly Randhawa MR#: [id number] : 1950 Acct:[id number] Age/Sex: 74 / F ADM Date: 12/18/24 Loc: HO.CX Attending Dr: Cynthia Morales DO Ordering Physician: Cynthia Morales DO Date of Service: 12/18/24 Procedure(s): XR lumbar spine 2-3V Accession Number(s): [id number] cc: Cynthia Morales DO EXAMINATION: XR LUMBAR [...] Timi Michael MD 12/18/2024 10:39 AM EDT Dictated By: Timi Michael MD Signed By: <Electronically signed by Timi Michael MD in OV> 12/18/24 1039 DD/ 0927 TD/TT: 12/18/24 1000 Lip Of Shank Cutter: Procedure Note Donotuseinterpreter, Image - 12/18/[address] [address] XRay Report Signed Patient: Kimberly RandhawaMR#: [id number] : 1950cct:[id number] Age/Sex: 74 / FADM Date: 12/18/24 Loc: HO.CX Attending Dr: Cynthia Morales DO Ordering Physician: Cynthia Morales DO Date of Service: 12/18/24 Procedure(s): XR lumbar spine 2-3V Accession Number(s): [id number] cc: Cynthia Morales DO EXAMINATION: XR LUMBAR [...] Timi Michael MD 12/18/2024 10:39 AM EDT Dictated By: Timi Michael MD Signed By: <Electronically signed by Timi Michael MD in OV> 12/18/24 1039 DD/ 0927 TD/TT: 12/18/24 1000 Lip Of Shank Cutter: Cynthia Morales DO IMG XR PROCEDURES Final Resu lt * Albumin, Random Urine W/Creatinine (06/27/2024 9:19 AM EST) Creatinine, Urine 58.67 mg/dL [facility] Microalbumin Urine 11.0 mg/L [facility] Microalbum Creatinine Ratio Ur 18.7 <30 ug/mg cr [facility] Comment:Albumin/Creatinine R atio Reference Ranges: Normal: < 30 ug/mg creatinine Microalbuminuria: 30 - 300 ug/mg creatinineClinical Albuminuria: > 300 ug/mg creatinine Urine (Urine, Random) 06/27/2024 9:19 AM EST 06/27/2024 11:52 AM EST us Howard Lovett MD LAB URINE ORDERABLES Final Resul t Performing Organization Address City/[facility] Co de Phone Number [facility] [address] [place] [phone] * Lipid Panel, Standard (06/27/2024 9:19 AM EST) Triglycerides 129 <150 mg/dL [facility] Comment:Desirable Triglyceri de: less than 150 mg/dLBorderline High Triglyceride 150-199 mg/dLHigh Triglyceride: 200-499 mg/dLVery High Triglyceride: greater than or equal to 5OO mg/dL Cholesterol 153 <200 mg/dL [facility] Comment:Desirable Cholestero l: less than 200 mg/dLBorderline High Cholesterol: 200-239 mg/dLHigh Cholesterol: greater than 239 mg/dL LDL Cholesterol Calculated 60 <100 mg/dL [facility] Comment:Desirable LDL: less than 100 mg/dLNear Optimal/Above Optimal LDL: 110- 129 mg/dLBorderline High LDL: 130-159 mg/dLHigh LDL: 160-189 mg/dLVery High LDL: greater than or equal to 190 mg/dL HDL Cholesterol 68 >40 mg/dL [facility] Comment:Desirable HDL: great er than 40 mg/dL Note: This HDL assay may give artificially low results in patients with liver disease. Blood Venous blood specimen / Unknown 06/27/2024 9:19 AM EST 06/27/2024 11:30 AM EST us Howard Lovett MD LAB BLOOD ORDERABLES Final Resul t Performing Organization Address City/[facility]/ZIP Co de Phone Number [facility] [address] [place] [phone] [phone] * BI Mammogram Screening Tomosynthesis Bilateral (08/31/2023 1:20 PM EDT) Anatomical Region Laterality Modality Breast Bilateral Mammography 08/31/2023 1:20 PM EDT Narrative 09/27/2023 10:20 PM EDT [facility] [address] [place] [address] Mammography Report Signed Patient: Kimberly Randhawa MR#: [id number] : 1950 Acct:[id number] Age/Sex: 72 / F ADM Date: 08/31/23 Loc: HO.MAMMO Attending Dr: Kelsie Simpson CNM Ordering Physician: Kelsie Simpson CNM Results: 2Beni gn Findings Date of Service: 08/31/23 Follow Up: 1 Year From Orig inal Mammogram Procedure(s): MM tomosynthesis screening BI Accession Number(s): [id number] cc: Rubin Arguello MD; Kelsie Simpson CNM [...] in OV> 09/27/23 2216 DD/ 1320 TD/TT: Lip Of Shank Cutter: Procedure Note Donotuseinterpreter, Image - 09/27/2023 [facility] [address] [place] [address] Mammography Report Signed Patient: Kimberly RandhawaMR#: [id number] : 1950cct:[id number] Age/Sex: 72 / FADM Date: 08/31/23 Loc: HO.MAMMO Attending Dr: Kelsie Simpson CNM Ordering Physician: Kelsie SimpsonMResults: 2Beni gn Findings Date of Service: 08/31/23Follow Up: 1 Year From Orig ina Mammogram Procedure(s): MM tomosynthesis screening BI Accession Number(s): [id number] cc: Rubin Arguello MD; Kelsie Simpson CNM [...] in OV> 09/27/23 2216 DD/ 1320 TD/TT: Lip Of Shank Cutter: [facility] External Provider IMG BI PROCEDURES Edited Result - Final * Diabetes Eye Exam (03/02/2023) Eye Exam Normal Normal Howard Lovett MD HEALTH MAINTENANCE Final Result * Colonoscopy (10/26/2015 10:13 AM EDT) Colonoscopy Normal Normal Narrative Radha Henry - 10/26/2015 10:13 AM EDT Recommended 5 year follow up us Historical Provider HEALTH MAINTENANCE Final Result from Last 3 Months or Most Recently Relevant to Health Maintenance Insurance [facility] STANDARD < 65 DENTAL - HSN FULL (MEDICAID) DENTAL [facility] Care Teams Horse Rider Relationship Specialty Start Date End Date Name, MD Howard [address] [place] [address] PCP - General Family Medicine 03/13/19
--- OUTSIDE RECORDS SUMMARY | 2025-03-12 12:48 | XMS_ITS | Encounter Summary ---
Author Organization [facility] Address [address] [facility] [address] [place] [address] Phone Care Team Providers Care Supervisor Cell Operation Name Role Phone Name, Howard BRENNER Primary Care Provider [phone] Encounter Details Date Type Department Care Team (Late st Contact Info) Description 01/30/2024 Procedure Pass OR Admitting Dept - Virtual Department [address] [place] [address] Social History Tobacco Use Types Packs/Day Years [...] on filedocumented in this encounter Care Teams Supervisor Cell Operation Relationship Specialty Start Date End Date Name, MD Howard [address] [place] [address] PCP - General 09/01/23 documented as of this encounter Additional Source Comments The information contained in this document represents components of the legal health record. It is not the complete legal health record.[facility]
--- OUTSIDE RECORDS SUMMARY | 2025-03-12 12:48 | XMS_ITS | Encounter Summary ---
Author Organization [employer] Address [address] [facility] [address] [place] [phone] Care Team Providers Care Brass Sorter Name Role Phone Name, Howard BRENNER Primary Care Provider [phone] Encounter Details Date Type Department Care Team ([facility] Contact Info) Description 05/12/2022 Orders Only [facility] [address] [place] [address] [phone] Arlene Simon LPN Social History Tobacco Use [...] Upcoming Encounters Date Type Department Care Team ([facility] Contact Info) Description 03/19/2025 2:00 PM EDT Medication Management [facility] [address] [place] [address] [phone] Eve Serrato, JaseD [address] [place] [phone] 04/21/2025 3:15 PM EST Office Visit [facility] [address] [place] [address] [phone] Name, MD Howard [address] [place] [address] 06/11/2025 12:45 PM EST Office Visit [facility] [address] [place] [address] Royer Castilloaris [address] [place] [address] documented as of this encounter Visit Diagnoses Not on filedocumented in this encounter Care Teams Brass Sorter Relationship Specialty Start Date End Date Name, MD Howard [address] [place] [address] PCP - General Family Medicine 03/13/19 documented as of this encounter
--- OUTSIDE RECORDS SUMMARY | 2025-03-12 12:48 | XMS_ITS | Clinical Summary ---
Author Organization [employer] [facility] Address [address] [place] [address] Care Team Providers Care Honest John Rocket Crew Member Name Role Phone Laura Jones MD Primary [...] age to complete this topic Care Teams Honest John Rocket Crew Member Relationship Specialty Start Date End Date Laura Jones MD [address] [place] [address] PCP - General Internal Medicine 12/14/17
--- OUTSIDE RECORDS SUMMARY | 2025-03-12 12:48 | XMS_ITS | Encounter Summary ---
Author Organization [employer] Address [address] [place] [address] 7 [place] [address] Care Team Providers Care Hat Body Sorter Name Role Phone Name, Howard BRENNER Primary Care Provider [phone] Encounter Details Date Type Department Care Team (Latest Contact Info) Description 09/29/2020 Abstract [facility] CONVERSIONS Dental, Provider, DDS Social History [...] Description 03/19/2025 2:00 PM EDT Medication Management [facility] [address] [place] [phone] Eve Serrato, PharmD [address] [place] [phone] 04/21/2025 3:15 PM EST Office Visit [facility] [address] [place] [phone] Name, MD Howard [address] [place] [address] 06/11/2025 12:45 PM EST Office Visit [facility] [address] [place] [phone] Ting Castillo [address] [place] [address] documented as of this encounter Visit Diagnoses Not on filedocumented in this encounter Care Teams Hat Body Sorter Relationship Specialty Start Date End Date Name, MD Howard [address] [place] [address] PCP - General Family Medicine 03/13/19 documented as of this encounter
--- OUTSIDE RECORDS SUMMARY | 2025-03-12 12:49 | XMS_ITS | Encounter Summary ---
Author Organization [facility] Address [address] [place] [address] Phone Care Team Providers Care Slag Motor Operator Name Role Phone Name, Howard BRENNER Primary Care Provider [phone] Encounter Details Date Type Department Care Team (Late st Contact Info) Description 11/20/2023 Procedure Pass [facility], Ct Scan - [address] [address] Social History Tobacco Use Types Packs/Day Years [...] 4:40 PM EDT Claudia Felix RN * [place] Suicide Severity Rating Scale (Screener/Recent Self-Report) Question [...] on filedocumented in this encounter Care Teams Slag Motor Operator Relationship Specialty Start Date End Date Name, MD Howard [address] [place] [phone] PCP - General 09/01/23 documented as of this encounter Additional Source Comments The information contained in this document represents components of the legal health record. It is not the complete legal health record.[facility]
== END 2025-03-12 11:23 | disposition home or self-care (01) ==
PROVIDERS: PCP Internal Medicine Geriatric Medicine; Visit Provider Nurse Practitioner Family
DX: M54.16 Radiculopathy, lumbar region (principal); M51.369 Other intervertebral disc degeneration, lumbar region without mention of lumbar back pain or lower extremity pain; M54.50 Low back pain, unspecified; R20.0 Anesthesia of skin; R20.2 Paresthesia of skin; M47.812 Spondylosis without myelopathy or radiculopathy, cervical region
CPT/HCPCS: 99214; G2211

== ENCOUNTER → 2025-03-12 10:36 | Outpatient (BNVA) | payer OTHER, SELFPAY | PROVIDERS: PCP Internal Medicine Geriatric Medicine; Visit Provider Nurse Practitioner Family | DX: I25.10 Atherosclerotic heart disease of native coronary artery without angina pectoris (principal); I10 Essential (primary) hypertension; E78.00 Pure hypercholesterolemia, unspecified; M54.16 Radiculopathy, lumbar region; M51.369 Other intervertebral disc degeneration, lumbar region without mention of lumbar back pain or lower extremity pain; M54.50 Low back pain, unspecified; R20.0 Anesthesia of skin; R20.2 Paresthesia of skin; M47.812 Spondylosis without myelopathy or radiculopathy, cervical region; G89.29 Other chronic pain | CPT/HCPCS: 93005; 99212 ==

== ENCOUNTER 2025-03-12 13:09 | Outpatient (AMB) | payer OTHER, SELFPAY ==
[2025-03-12 13:14] VITALS: BP 124/62; PULSE 70; BMI 24.6
--- NOTE | 2025-03-12 13:14 | A.OFFVIS_ITS ---
Vital Signs 03/12/25 13:14 Height 4 ft 11 in Weight 122 lb BMI 24.6 BP 124/62 Blood Pressure Location Lt brachial Position Sitting Pulse 70 Pulse Source Monitor Intake Visit Reasons: 9m follow up Yarn Worker Required: No Yarn Worker Services: Yarn Worker Offered & Declined [employer]p [employer]: V[employer] Present Allergies Sulfa (Sulfonamide Antibiotics) (SULFA (SULFONAMIDE ANTIBIOTICS)) Allergy (Severe, Verified 03/12/25 13:18) THROAT CLOSES Medication List - Last Reconciled 03/12/25 by Erendira Rowley NP-C acetaminophen 500 mg PO Q6H PRN amlodipine 5 mg PO QAM atenolol 25 mg PO DAILY atorvastatin 40 mg PO DAILY clopidogrel 75 mg PO DAILY gabapentin 600 mg PO ONCE glipizide ER 2.5 mg PO DAILY losartan 100 mg PO QAM metformin 1,000 mg PO BID pantoprazole 40 mg PO QAM pen needle, diabetic As directed HPI HPI 9m follow up: Details: Kimberly is a 74-year-old female past medical history of hypertension, hyperlipidemia, diabetes, nonobstructive coronary artery disease who presents for follow-up. Today she reports that she has been having an issue with sciatica and is following with the pain clinic. She is also having some tingling in her right arm and is going to be having a nerve study. She has seen Neurology. She has had no cardiac concerns. No chest discomfort at rest or with activity. She has some shortness of breath with exertional activities which is unchanged. No palpitations, lightheadedness, presyncope, syncope, falls. No PND, orthopnea or edema. She reports compliance with meds. Does only light physical activities. Significant other is present. [facility] Medical History Hypercholesteremia Diabetes Hypertension Hammer toe Surgical History H/O tubal ligation H/O knee surgery H/O section Family History Brother Prostate cancer Maternal Aunt Breast cancer Social History Alcohol intake: former Sexual orientation: Straight/Heterosexual Gender identity: Female Female Reproductive History Menstrual Age of Menarche: 15 Review of Systems Const All systems reviewed & are unremarkable except as noted in HPI and below ENT Denies dizziness Card Denies chest pain, Denies chest pain at rest, Denies chest pain with activity, Denies rapid heart rate, Denies pedal edema, Denies edema, Denies leg edema, Denies lightheadedness, Denies palpitations, Denies dyspnea, Denies dyspnea on exertion and Denies orthopnea Resp Denies cough, Denies dyspnea and Denies dyspnea on exertion GI Denies hematochezia and Denies change in stool character Musc Details: issues with sciatica and tingling in left arm Reports abnormal gait, Denies limited range of motion, Denies muscle cramps, Denies muscle weakness, Denies numbness, Denies radiating pain into limb, Denies stiffness and Denies tingling Neuro Reports abnormal gait, Denies dizziness, Denies numbness and Denies tingling Endo Denies palpitations Physical Exam Vital Signs: Last Vital Signs Pulse 70 03/12/25 13:14 BP 124/62 03/12/25 13:14 BMI result Body Mass Index 24.6 Const General: cooperative, healthy appearing, comfortable and no acute distress Orientation/consciousness: patient oriented x3 Neck Neck: Yes normal visual inspection and Yes no JVD Resp Effort & Inspection: normal respiratory effort Auscultation: clear to auscultation bilaterally, no crackles, no rales, no rhonchi and no wheezes Cardio Jugular venous distension: no JVD Rate: regular rate Rhythm: regular rhythm Heart sounds: S1 normal heart sound present, S2 normal heart sound present, no murmurs and no rubs Neuro General: patient oriented x3 Extrem General: Yes normal to inspection, No no pedal edema and No calf tenderness Psych Appearance: grossly normal Mental Status: mental status grossly normal Speech and movement: Normal speech and movement present Office Procedures EKG Details: Today, read by me, normal sinus rhythm, low-voltage QRS, artifact noted, rate 70, QTC 434 milliseconds [id number], Complete Assessment & Plan Assessment & Plan (1) Coronary arteriosclerosis: Comment: CTA of the coronary arteries 02/27/2024, left main mild stenosis, percentage listed 25-49%, proximal to mid LAD 1-24% stenosis, distal 1-24% stenosis, proximal circumflex 1-24% stenosis, OM1 1 -24% stenosis Code(s): I25.10 - Atherosclerotic heart disease of [place] coronary artery without angina pectoris Category: Medical Plan: Cardiac evaluation for atypical chest discomfort shows finding of Mild nonobstructive coronary artery disease: Echocardiogram done 10/26/2022 showed EF 65-70%, no significant valve abnormalities and no regional wall motion abnormalities. Exercise nuclear stress test 10/26/2022 with exercise 5 minutes, no anginal symptoms, EKGs with changes meeting criteria for ischemia however normal myocardial perfusion imaging. For further evaluation he underwent a CTA of the coronary arteries on 02/27/2024 showing mild nonobstructive coronary artery disease in the left main, proximal to mid LAD, proximal left circumflex and OM1. EKG today showing normal sinus rhythm, rate 70. Currently no anginal symptoms. Continue Plavix. Continue atorvastatin with ideal LDL goal less than 70. Continue atenolol. Signs and symptoms of angina reviewed. Cardiology follow-up 1 year, sooner if needed. (2) Hypertension: Code(s): I10 - Essential (primary) hypertension Category: Medical Plan: Blood pressure goal less than 130/80. Well controlled at present. No medication changes made. (3) Hypercholesteremia: Code(s): E78.00 - Pure hypercholesterolemia, unspecified Category: Medical Plan: [place] LDL goal less than 70 in patient with diabetes and CAD. Labs done 06/27/2024 LDL 60. Continue atorvastatin 40 mg daily. Plan Time spent on chart review, documentation, interview and assessment Coding Level of Care Code Est Pt Level 4 (79075) Complex EM visit Add On G2211 Diagnoses Coronary arteriosclerosis I25.10 Hypertension I10 Hypercholesteremia E78.00 CPT Codes EKG - CPT: [id number], Complete ([id number]) Time Spent (min) 28
== END 2025-03-12 13:41 | disposition home or self-care (01) ==
LOC: HO.HCS 13:10
PROVIDERS: PCP Internal Medicine Geriatric Medicine; Visit Provider Nurse Practitioner Family
DX: I25.10 Atherosclerotic heart disease of native coronary artery without angina pectoris (principal); I10 Essential (primary) hypertension; E78.00 Pure hypercholesterolemia, unspecified
CPT/HCPCS: 93010; 99214; G2211

== ENCOUNTER 2025-04-03 10:00 | Outpatient (AMB) | payer OTHER, SELFPAY ==
--- NOTE | 2025-04-03 10:02 | A.OFFVIS_ITS ---
Vital Signs 04/03/25 10:07 Height 4 ft 11 in Weight 120 lb BMI 24.2 BP 155/70 H Blood Pressure Location Rt brachial Position Sitting Pulse 78 Pulse Source Pulse Oximeter Pulse Oximetry (%) 100 Oxygen Delivery Method Room Air Intake Visit Reasons: MRI follow up Intake Note: Pain today 12/28 Office Executive Required: No Accompanied by: Spouse Allergies Sulfa (Sulfonamide Antibiotics) (SULFA (SULFONAMIDE ANTIBIOTICS)) Allergy (Severe, Verified 04/03/25 10:08) THROAT CLOSES HPI Comments Details: The patient is a 74-year-old female presenting with chronic low back pain with radiculopathy and discuss recent lumbar MRI. MRI was ordred by her Gas Turbine Assembler and completed at [facility] on 03/23/25 and showed severe right L4-5 subarticular recess stenosis due to broad bulge, 3 mm right subarticular protrusion and facet overgrowth. Impinged transiting right L5 nerve with overall moderate central canal stenosis. L1-2 through L3-4, mild disc degeneration and L2-3, L3-4 spinal canal/foraminal stenoses without neural impingement and mild L3-4 through L5-S1 facet joint arthrosis. The pain has been persistent and radiates to the right leg, correlating with recent MRI findings and previous EMG study. We discussed interventional treatments and Neurosurgical evaluation options. The patient reports she has been referred to a Neurosurgeon she gayatriives at [facility] for further evaluation and potential surgical intervention due to the severity of the stenosis and nerve impingement. She reports right sided saddle anesthesia and intermittent heaviness and weakness of right leg, denies bladder or bowel incontinence. PRIOR: The patient is a 74-year-old female presenting with right lumbar radiculopathy. The patient reports experiencing back pain radiating to the right leg, accompanied by tingling and numbness, for the past three months. The symptoms began following a fall on August 25, which did not result in any immediate injury but has since led to persistent discomfort. Patient denies symptoms on the left lower extremity. The pain primarily affects the right buttock, side of the right leg, lateral luo and calf, and is exacerbated by prolonged standing and relieved by leaning forward. The patient has tried various home remedies, including ibuprofen, Tylenol, heat, and gabapentin, with limited relief. A previous x-ray in November showed mild scoliosis and degenerative disc disease, and an EMG study confirmed right lumbar radiculopathy. The patient has not yet undergone an MRI, which is necessary for further evaluation and management. The patient also reports right hand numbness and tingling, which affects the entire hand and has been persistent. A previous x-ray indicated slippage at C6 upon C7 with mild degenerative changes. She denies shoulder pain today. - Onset: Pain began three months ago following a fall. - Quality: Described as radiating, with tingling and numbness. - Location: Right buttock, side of the right leg, luo, and calf. - Exacerbating factors: Prolonged standing, bending down. - Relieving factors: Leaning forward slightly alleviates the pain. - Interference: Pain interferes with sleep and daily activities. - Affect: Pain impacts sleep and daily activities, causing concern and distress. - Analgesia: Current medications include ibuprofen, Tylenol, and gabapentin, with limited relief. - Adverse Effects: No specific adverse effects from medications reported. - Activities of Daily Living: Pain limits ability to stand for long periods and perform daily tasks. - Aberrant Drug Related Behaviors: No aberrant behaviors reported. Past Procedures: 05/27/24: Left shoulder intra-articular steroid injection-100% ongoing pain relief PRIOR: Patient presents today for follow up for left shoulder pain. She was initially seen in our office last year as noted below with no further follow up. Patient was referred back to our office for chronic low back pain with sciatica. However, patient reports left shoulder pain has been more significant. She also reports undergoing recent uneventful oophorectomy 3 weeks ago at [facility]. 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 Her left lower quadrant wound incision with skin glue is healing well. Left shoulder pain radiates to the neck and left upper extremity with mild weakness. She also reports lower back pain with radiation to the left leg posteriorly is associated numbness and tingling and left hip pain radiates to the groin. Recent imaging reviewed with patient and her family and noted for degenerative changes of left shoulder and spine with scoliosis convex to the right. Pain affects her daily functioning, ROM, mobility, sleep and social activities. She is interested to undergo therapeutic injection for her left shoulder as initial steps. Denies any fever or chills, abdominal pain, dizziness, chest pain, shortness of breaths, bladder or bowel dysfunction or saddle anesthesia. Oswestry Low Back Disability Score=43 (complete disability) PRIOR 07/28/22: Patient is a pleasant 71 years old female with a history of diabetes and depression presents today for chronic neck pain that radiates to both of her shoulders. Patient reports many years of chronic neck pain and has been managed in [place] with physical therapy, cortisone injections, and acupuncture over 8 years ago. Denies history of whiplash injury or any recent trauma, injury or falls. Neck pain is axial with radiation to both of her shoulders but not her elbows, hands, or fingers. Her pain is worse with flexion than extension and lateral movements as well as cold weather changes. Patient reports severe pain while washing her dishes with prolonged looking down or sitting upright, watching TV. Reports occasional headaches and tenderness in her occipital regions bilaterally. Pain is described as intermittent stabbing, lancinating, dull, sore, hurting, aching, heavy, tiring and exhausting. Pain interferes with her daily activities, functions, mood, sleep and social activities. She has tried to manage her pain with Tylenol, gabapentin, lidocaine, ketorolac, magnesium spray, ice and heat applications. Currently, she reports being active with physical therapy and establishing independence with home exercise therapy. Cervical spine xray showed degenerative disc disease at C4-C5 and multi-level bilateral neural foraminal narrowing. Denies previous chiropractic manipulation, deep tissue massage, aqua therapy or TENS unit. Patient denies any fever, cough, vision changes, shortness of breaths, chest pain, gait issues, bladder or bowel incontinence or saddle anesthesia. Patient's recent A1C was 06/19/22 was 7.9. Denies episodes of hypo or hyperglycemia. She is also has been taking Plavix for over 15 years but cannot state what for. Patient denies any history of stroke, TIA, DVTs but reports high cholesterol and diabetes. Patient also requests referral to our [facility] Cardiology group as she use to see desktop operator back in [place] for many years but has not established this here since moving to [place] 8 years ago. Chart review noted for multiple ER visits for HTN and chest pain. [facility] Medical History Hypercholesteremia Diabetes Hypertension Hammer toe Surgical History H/O tubal ligation H/O knee surgery H/O section Family History Brother Prostate cancer Maternal Aunt Breast cancer Social History Alcohol intake: former Sexual orientation: Straight/Heterosexual Gender identity: Female Female Reproductive History Menstrual Age of Menarche: 15 Review of Systems Const All systems reviewed & are unremarkable except as noted in HPI and below Physical Exam Vital Signs: Last Vital Signs Pulse 78 04/03/25 10:07 BP 155/70 H 04/03/25 10:07 Pulse Ox 100 04/03/25 10:07 Oxygen Delivery Method Room Air 04/03/25 10:07 BMI result Body Mass Index 24.2 On exam today: Appears afebrile. Alert and oriented. Mood and affect appropriate. Follows and participates in conversation appropriately. Respiratory effort is unlabored. No cough. Able to transition from sit to stand unassisted. Holding on to family while ambulation. Ambulates with antalgic gait, mild limping. Reports back and right leg increase with toe and heel standing on the right. Back/Spine/Pelvis Other: Limited lumbar ROM due to pain. Lumbar flexion and extension reproduces moderate pain. No midline tenderness in cervical, thoracic or lumbar areas. Demonstrates 5/5 left and 4/5 right strength of quadriceps bilaterally as well as flexion/dorsiflexion of bilateral feet against resistance. 2+ pedal pulses bilaterally. Straight leg rise with dorsiflexion positive on the right. +1 patellar and achilles reflexes bilaterally. Facet loading test positive bilaterally. Boni sign, Leonardo?s, Pelvic compression and Stinchfield tests are positive bilaterally, right>left. No groin pain with I/E hip rotations. Valsalva maneuver is positive. Cervical Spine: cervical ROM normal, No Lhermitte's sign positive, loss of normal cervical lordosis, cervical muscular tenderness, pain with cervical ROM, cervical spasm and No Cervical spine tenderness Thoracic/Lumbar Spine: thoracic and lumbar spine normal to inspection, No Thora cic/lumbar spine scar(s), Lasegue's sign positive on the right and localized, pain with thoraco-lumbar ROM, paraspinal muscle tenderness, thoraco-lumbar ROM limited, Thoracic/lumbar scoliosis, No thoracic spinal tenderness and No lumbar spinal tenderness Sacroiliac joints: bilaterally tender to palpation Extrem General: Yes capillary refill normal, Yes no clubbing, cyanosis or edema and Yes no calf tenderness Results Reviewed Results Reviewed: XR LUMBAR SPINE 2-3 VIEWS 12/18/24 HISTORY: buttock pain radiating down R leg COMPARISON: Comparison is made with the prior examination dated 01/17/2024. FINDINGS: AP, lateral, and coned down views of the lumbar spine are submitted. Osseous mineralization is normal. Five nonrib-bearing lumbar vertebral bodies are identified, maintaining normal height without evidence of fracture or spondylolisthesis. There is mild dextroscoliosis. There is mild degenerative disc disease with disc space narrowing and osteophyte formation. The posterior elements are intact. There is calcification of the abdominal aorta. IMPRESSION: Mild dextroscoliosis and degenerative disc disease. NE electromyogram (EMG); NE nerve conduction velocity 01/27/25 Chief complaint: Right leg pain Procedure done: Nerve conduction study was performed. EMG was performed on the right leg and paraspinals. Right tibial and peroneal motor studies were performed right superficial peroneal and sural sensory studies were performed tibial H-reflex was obtained an EMG needle examination was performed. Impression: Right lower lumbar radiculopathy MR SACRUM/COCCYX WITHOUT CONTRAST 03/23/25 RAYUS INDICATION: Pain. No prior surgery. Severe low back pain. Numbness. Symptoms for 3 months. Pain radiates down the right leg. Radiculopathy. Rule out nerve impingement. COMPARISON: None. TECHNIQUE: Sacrum/coccyx MRI was performed with without contrast. 6 diagnostic sequences were obtained. FINDINGS: Sacrum and coccygeal segments are normally aligned. Sacral neural foramina are symmetric. No presacral fat abnormality or fluid collection detected. Piriformis muscles are symmetric. Pubic symphysis is congruent. Hip joints are congruent without effusion. Iliopsoas, rectus femoris, hip abductor and hamstring tendons are intact. Bones are without acute abnormality. Muscle bulk is preserved. No intraperitoneal free fluid. The bladder is normal. No focal wall thickening or diverticula. Uterus is normal. Adnexa are normal. Bowel loops are without focal dilation or wall thickening. Inguinal canals are symmetric without hernia. No adenopathy is identified. Lower lumbar spine exhibits L4-L5 disc bulging- please see same-day lumbar spine MRI report for details. IMPRESSION: 1. No sacrococcygeal abnormality identified. 2. Please see same-day lumbar spine MRI results. MRI LUMBAR SPINE WITHOUT CONTRAST 03/23/25 LILIA CLINICAL INFORMATION: Lumbar radiculopathy. Low back pain radiating down right lower extremity. TECHNICAL INFORMATION: 1. Sagittal and axial T1. 2. Sagittal and axial T2. 3. Sagittal STIR. SEDATION: None. COMPARISON: No existing relevant imaging immediately accessible. INTERPRETATION: The conus shows normal tapering and ends at L1. Included cord has normal internal signal and cauda equina is unremarkable. No spinal canal collections or intradural masses. Maintained lordotic curvature with upper lumbar dextroconvexity. Intact endplates, preserved vertebral body heights and no segmental subluxations. Anterior disc osteophytes L1-2 through L4-5. L5-S1: Mild disc degeneration and facet joint arthrosis. No significant central canal and mildly narrowed right neural foramen. L4-5: Mild disc degeneration asymmetrically greater to the right with severe left subarticular recess stenosis due to bulging disc, superimposed 3 mm protrusion and ligamentous hypertrophy. Transiting right L5 nerve at least impinged. There is mild facet joint arthrosis and overall moderate spinal canal narrowing. Neural foramina adequately patent. L3-4: Mild disc degeneration and central canal stenosis due to bulging disc, ligamentous hypertrophy and mild facet joint arthrosis. Neural foramina adequately patent. L2-3: Asymmetric disc degeneration greater to the left with anterior discosteophyte, broad bulge, ligamentous hypertrophy and mild spinal canal/left foraminal narrowing. No neural impingement. L1-2: Mild disc degeneration with anterior discosteophyte and posterior bulge. No posterior disc protrusion, significant spinal canal or foraminal narrowing. T12-L1 and T11-12: Disc height and hydration are preserved. No disc contour abnormality, spinal canal or foraminal stenosis is identified. No prevertebral/paraspinous soft tissue masses or collections . Included pelvis intact and marrow signal normal. Superior portions of sacroiliac joints show no subarticular edema, effusion or ankylosis. CONCLUSION: 1. Severe right L4-5 subarticular recess stenosis due to broad bulge, 3 mm right subarticular protrusion and facet overgrowth. Impinged transiting right L5 nerve with overall moderate central canal stenosis. 2. L1-2 through L3-4, mild disc degeneration and L2-3, L3-4 spinal canal/forami nal stenoses without neural impingement. 3. Mild L3-4 through L5-S1 facet joint arthrosis. Assessment & Plan Assessment & Plan (1) Right lumbar radiculitis: Code(s): M54.16 - Radiculopathy, lumbar region Category: Medical (2) Lumbar degenerative disc disease: Code(s): M51.369 - Other intervertebral disc degeneration, lumbar region without mention of lumbar back pain or lower extremity pain Category: Medical (3) Low back pain: Code(s): M54.50 - Low back pain, unspecified Category: Medical (4) Spinal stenosis, lumbar region with neurogenic claudication: Code(s): M48.062 - Spinal stenosis, lumbar region with neurogenic claudication Category: Medical (5) Lumbosacral spondylosis: Code(s): M47.817 - Spondylosis without myelopathy or radiculopathy, lumbosacral region Category: Medical Plan The plan is to processed with pending Neurosurgical evaluation at [facility] per roger ent for evaluation due to the severe stenosis and nerve impingement identified in the MRI and consistent with patient's symptoms. Patient will notify our office if diagnostic or therapeutic injections will be suggested by Neurosurgical team. Patient is aware to call if pain worsens or if she develops any red flag symptoms to seek emergency care. All questions and concerns have been answered and patient agreed with the treatment plan. Follow up as needed. Patient was informed and verbally consented to the use of an ambient scribe for clinic note documentation during this visit. Coding Level of Care Code Est Pt Level 3 (30818) Complex EM visit Add On G2211 Diagnoses Right lumbar radiculitis M54.16 Lumbar degenerative disc disease M51.369 Low back pain M54.50 Spinal stenosis, lumbar region with neurogenic claudication M48.062 Lumbosacral spondylosis M47.817
[2025-04-03 10:07] VITALS: BP 155/70; PULSE 78; O2SAT 100; BMI 24.2
--- OUTSIDE RECORDS SUMMARY | 2025-04-03 11:49 | XMS_ITS | Encounter Summary ---
Author Organization [employer] Address [address] [place] [address] Care Team Providers Care Routing Machine Operator Name Role Phone Name, Howard BRENNER Primary Care Provider [phone] Eve Serrato PharmD Unavailable [phone] Encounter Details Date Type Department Care Team (Late st Contact Info) Description 05/12/2022 Orders Only [facility] [address] [place] [address] [phone] Arlene Simon LPN Social History Tobacco Use [...] Care Team (Late st Contact Info) Description 04/21/2025 3:15 PM EST Office Visit [facility] [address] [place] [id number] Name, MD Howard [address] [place] [id number] 04/23/2025 1:30 PM EST Medication Management [address] [place] [address] Eve Serrato PharmD [address] [place] [address] 06/11/2025 12:45 PM EST Office Visit [facility] [address] [place] [address] Ting Castillo [address] [place] [address] documented as of this encounter Visit Diagnoses Not on filedocumented in this encounter Care Teams Routing Machine Operator Relationship Specialty Start Date End Date Name, MD Howard [address] [place] [address] PCP - General Family Medicine 03/13/19 Eve Serrato, Aishwarya [address] [place] [address] Pharmacist Pharmacy 03/19/25 documented as of this encounter
--- OUTSIDE RECORDS SUMMARY | 2025-04-03 11:49 | XMS_ITS | Encounter Summary ---
Author Organization [employer] Address [address] [place] [address] 7t h Floor [place] [id number] Care Team Providers Care Manufacturer Agent Name Role Phone Name, Howard BRENNER Primary Care Provider [phone] Eve Serrato PharmD Unavailable [phone] Encounter Details Date Type Department Care Team (Latest Contact Info) Description 09/29/2020 Abstract [facility] CONVERSIONS Dental, Provider, DDS Social History [...] Description 04/21/2025 3:15 PM EST Office Visit [facility] MEDICINE [address] [place] [phone] Name, MD Howard [address] [place] [address] 04/23/2025 1:30 PM EST Medication Management [facility] MEDICINE [address] [place] [address] Eve Serrato, PharmD [address] [place] [address] 06/11/2025 12:45 PM EST Office Visit [facility] ADULT DENTAL [address] [place] [address] Ting Castillo [address] [place] [address] documented as of this encounter Visit Diagnoses Not on filedocumented in this encounter Care Teams Manufacturer Agent Relationship Specialty Start Date End Date Name, MD Howard [address] [place] [address] PCP - General Family Medicine 03/13/19 Eve Serrato, Aishwarya [address] [place] [address] Pharmacist Pharmacy 03/19/25 documented as of this encounter
--- OUTSIDE RECORDS SUMMARY | 2025-04-03 11:49 | XMS_ITS | Encounter Summary ---
Author Organization [employer] Address [address] [facility] 7t [place] [address] Care Team Providers Care Turret Press Operator Name Role Phone Name, Howard BRENNER Primary Care Provider [phone] Eve Serrato PharmD Unavailable [phone] Encounter Details Date Type Department Care Team ([facility] Contact Info) Description 06/01/2022 Orders Only [facility] MED & PEDS [address] [place], [place] [phone] Cynthia Yun LPN Social History Tobacco Use [...] Department Care Team (Late Contact Info) Description 04/21/2025 3:15 PM EST Office Visit [address] [phone] Name, MD Howard [address] [place] [address] 04/23/2025 1:30 PM EST Medication Management [address] [place] [address] PuiaEve, PharmD [address] [place] [address] 06/11/2025 12:45 PM EST Office Visit [facility] ADULT DENTAL [address] [place] [address] Royer Castilloaris [address] [place] [address] documented as of this encounter Procedures Procedure [...] AM EST Narrative 07/04/2022 6:18 PM EST [address] [address] XRay Report Signed Patient: Kimberly Randhawa MR#: [id number] : 1950 Acct:[id number] Age/Sex: 71 / F ADM Date: 06/29/22 Loc: HO.XRAY Attending Dr: Rubin Arguello MD Ordering Physician: Rubin Arguello MD Date of Service: 06/29/22 Procedure(s): XR ribs LT 2V Accession Number(s): [id number] cc: Rubin Arguello MD EXAMINATION: XR RIBS, [...] MD in OV> 07/04/221814 DD/ 26 TD/TT: Tricot Knitting Machine Operator: JOVITA Procedure Note Donotuseinterpreter, Image - 10/09/[address] [address] XRay Report Signed Patient: Marlena Randhawa#: [id number] : 1950cct:[id number] Age/Sex: 71 / FADM Date: 06/29/22 Loc: HO.MERLE Attending Dr: Rubin Arguello MD Ordering Physician: Rubin Arguello MD Date of Service: 06/29/22 Procedure(s): XR ribs LT 2V Accession Number(s): [id number] cc: Rubin Arguello MD EXAMINATION: XR RIBS, [...] MD in OV> 07/04/221814 DD/ 26 TD/TT: Tricot Knitting Machine Operator: JOVITA [facility] External Provider IMG XR PROCEDURES Edited Result - Final * XR Cervical Spine 5 View (06/29/2022 11:27 AM EST) Anatomical Region Laterality Modality Spine, C-spine Radiographic Lucrecia ging 06/29/2022 11:2 7 AM EST Narrative 07/04/2022 8:39 PM EST [address] [address] XRay Report Signed Patient: Kimberly Randhawa MR#: [id number] : 1950 Acct:[id number] Age/Sex: 71 / F ADM Date: 06/29/22 Loc: HO.XRAY Attending Dr: Rubin Arguello MD Ordering Physician: Rubin Arguello MD Date of Service: 06/29/22 Procedure(s): XR cervical spine 5V Accession Number(s): [id number] cc: Rubin Arguello MD EXAMINATION: XR CERVICAL [...] MD in OV> 07/04/222035 DD/ 1127 TD/TT: Tricot Knitting Machine Operator: JOVITA Procedure Note Donotuseinterpreter, Image - 07/04/[address] [address] XRay Report Signed Patient: Kimberly RandhawaMR#: [id number] : 1950cct:[id number] Age/Sex: 71 / FADM Date: 06/29/22 Loc: HO.XRAY Attending Dr: Rubin Arguello MD Ordering Physician: Rubin Arguello MD Date of Service: 06/29/22 Procedure(s): XR cervical spine 5V Accession Number(s): [id number] cc: Rubin Arguello MD EXAMINATION: XR CERVICAL [...] MD in OV> 07/04/222035 DD/ 1127 TD/TT: Tricot Knitting Machine Operator: JOVITA [facility] External Provider IMG XR PROCEDURES Edited Result - Final documented in this encounter Visit Diagnoses Not on filedocumented in this encounter Care Teams Turret Press Operator Relationship Specialty Start Date End Date Name, MD Howard [address] [place] [address] PCP - General Family Medicine 03/13/19 vEe Serrato PharmD [address] [place] [address] Pharmacist Pharmacy 03/19/25 documented as of this encounter
--- OUTSIDE RECORDS SUMMARY | 2025-04-03 11:49 | XMS_ITS | Clinical Summary ---
Author Organization [employer] [facility] Address [address] [place] [address] Care Team Providers Care Mid Level Clinician Name Role Phone Laura Jones MD Primary [...] Depression Screening 05/21/2024 COVID-19 Vaccine (1 - 2024-2 6 season) 2025 Influenza Vaccine (#1) 2025 03/04/2018 [...] age to complete this topic Care Teams Mid Level Clinician Relationship Specialty Start Date End Date Laura Jones MD [address] [place] [address] PCP - General Internal Medicine 12/14/17
--- OUTSIDE RECORDS SUMMARY | 2025-04-03 11:49 | XMS_ITS | Encounter Summary ---
Author Organization [employer] Address [address] [place] [address] 7t [place] [address] Care Team Providers Care Kettle Cleaner Name Role Phone Name, Howard BRENNER Primary Care Provider [phone] Eve Serrato PharmD Unavailable [phone] Reason for Visit * Reason Onset Date Comments Results 07/03/2022 Encounter Details Date Type Department Care Team ([facility] st Contact Info) Description 07/03/2022 Telephone [facility] MEDICINE [address] [place], [place] [phone] Name, MD Howard [address] [place] [address] Results Social History Tobacco Use Types Packs/Day [...] regarding xray results Please contact pt at [phone] documented in this encounter Plan of Treatment Upcoming Encounters Date Type Department Care Team (Late st Contact Info) Description 04/21/2025 3:15 PM EST Office Visit [facility] MEDICINE [address] [place] [address] Name, MD Howard [address] [place] [address] 04/23/2025 1:30 PM EST Medication Management [facility] MEDICINE [address] [place] [phone] Eve Serrato, PharmD [address] [place] [address] 06/11/2025 12:45 PM EST Office Visit [facility] ADULT DENTAL [address] [place] [address] Anna, Ting [address] [place] [address] documented as of this encounter Visit Diagnoses Not on filedocumented in this encounter Additional Health Concerns Assessment Noted Time PHQ-9 Depression Total Score: 0 06/19/19 23 2:59 PM EST documented as of this encounter Care Teams Kettle Cleaner Relationship Specialty Start Date End Date Name, MD Howard [address] [place] [address] PCP - General Family Medicine 03/13/19 Eve Serrato PharmD [address] [place] [address] Pharmacist Pharmacy 03/19/25 documented as of this encounter
--- OUTSIDE RECORDS SUMMARY | 2025-04-03 11:49 | XMS_ITS | Encounter Summary ---
Author Organization [employer] Address [address] [facility] 7t [place] [address] Care Team Providers Care Machine Stoppage Frequency Checker Name Role Phone Name, Howard BRENNER Primary Care Provider [phone] Eve Serrato PharmD Unavailable [phone] Encounter Details Date Type Department Care Team (Late st Contact Info) Description 11/27/2023 Orders Only [facility] [address] [place], [place] [phone] Provider, MD Alon Social History Tobacco Use [...] is your housing situation today? 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 08/27/[address] you [...] Description 04/21/2025 3:15 PM EST Office Visit [facility] MEDICINE [address] [place] [address] Name, MD Howard [address] [place] [address] 04/23/2025 1:30 PM EST Medication Management [facility] MED[facility]INE [address] [place] [address] Puia Eve, PharmD [address] [place] [address] 06/11/2025 12:45 PM EST Office Visit [facility] ADULT DENTAL [address] [place] [address] Anna, Ting [address] [place] [address] documented as of this encounter Procedures Procedure [...] documented as of this encounter Care Teams Machine Stoppage Frequency Checker Relationship Specialty Start Date End Date Name, MD Howard [address] [place] [address] PCP - General Family Medicine 03/13/19 Eve Serrato, Aishwarya [address] [place] [address] Pharmacist Pharmacy 03/19/25 documented as of this encounter
--- OUTSIDE RECORDS SUMMARY | 2025-04-03 11:49 | XMS_ITS | Clinical Summary ---
Author Organization [employer] Address [address] [facility] 7t [place] [address] Care Team Providers Care Laborer/Key Man Name Role Phone Name, Howard BRENNER Primary Care Provider [phone] Eve Serrato PharmD Unavailable [phone] Allergies Active Allergy Reactions Criticality Noted Date Comments Sulfa Antibiotics Anaphylaxis High 05/03/2015 Dulaglutide Diarrhea,Vomiting 06/17/2024 Medications * This document contains information received from the source organization and may not represent a complete record from that organization. [employer] (TRUEdraw Lancing Device) [facility] [place] Use to test blood sugar 3 to 4 times per day 1 each 023 Active clotrimazole (Lotrimin) 1 % vaginal creamIndications: Vulvovaginal Candidiasis Insert one applicator per vagina at bedtime for 7 nights 45 g 025 Active Lancets (OneTouch Delica Plus [id number]) [facility] [place] TEST BLOOD SUGAR THREE OR FOUR TIMES DAILY 100 each 11 025 Active OneTouch Ultra Test test strip TEST BLOOD SUGAR 3 TO 4 TIMES PER DAY 100 strip 11 025 Active Blood Pressure kit Use once a day 1 kit 025 Active losartan (Cozaar) 100 MG tabletIndications :Hypertension, unspecified type TAKE 1 TABLET BY MOUTH EVERY MORNING 90 tablet 3 025 Active atorvastatin (Lipitor) 40 MG tabletIndications :High cholesterol TAKE 1 TABLET BY MOUTH AT BEDTIME 90 tablet 3 025 Active metFORMIN (Glucophage) 1000 MG tablet TAKE 1 TABLET BY MOUTH TWICE DAILY IN THE MORNING AND AT BEDTIME WITH FOOD 180 tablet 3 025 Active clopidogrel (Plavix) 75 MG tablet TAKE 1 TABLET BY MOUTH EVERY MORNING 90 tablet 1 Active Multiple Vitamin (Multivitamin) tablet TAKE 1 TABLET BY MOUTH EVERY MORNING 90 tablet 1 Active acetaminophen (Tylenol 8 Hour) 650 MG ER tablet Take 1 tablet (650 mg) by mouth every 8 (eight) hours if needed for mild pain. Do not crush, chew, or split. 60 tablet 2 025 2025 Active Diclofenac Sodium (Voltaren) 1 % gelIndications:Ch ronic neck pain Apply once a day to the affected area 150 g 2 Active naproxen (Naprosyn) 500 MG tablet TAKE 1 TABLET BY MOUTH TWICE DAILY IN THE MORNING AND AT BEDTIME NEEDED FOR MILD OR MODERATE PAIN 30 tablet Active gabapentin (Neurontin) 600 MG tabletIndications :Diabetic polyneuropathy associated with type 2 diabetes mellitus (HCC) Take 1 tablet (600 mg) by mouth at bedtime. 30 tablet 2 025 2025 Active Additional Information Patient taking differently:600 mg OralNightly PRN, Reason: encoruaged to take daily as precribed for best effect, Reported on 03/19/2025 baclofen (Lioresal) 10 MG tablet TAKE 1 TABLET BY MOUTH THREE TIMES DAILY IN THE MORNING, AT NOON, AND AT BEDTIME NEEDED FOR MUSCLE SPASMS 60 tablet 2 Active atenolol (Tenormin) 25 MG tabletIndications :Hypertension, unspecified type TAKE 1 TABLET BY MOUTH EVERY MORNING 90 tablet 1 Active amLODIPine (Norvasc) 5 MG tablet TAKE 1 TABLET BY MOUTH EVERY MORNING 90 tablet 1 Active pantoprazole (ProtoNix) 40 MG EC tabletIndications :Heartburn TAKE 1 TABLET BY MOUTH EVERY MORNING 90 tablet 1 Active Blood Glucose Monitoring Suppl (ONE TOUCH ULTRA 2) w/Device kitIndications:Ty pe 2 diabetes mellitus with hyperglycemia, with long-term current use of insulin ([facility]) TEST BLOOD SUGAR TWICE DAILY 1 kit Active ketorolac (Acular) 0.5 % ophthalmic solution INSTILL 1 DROP IN THE AFFECTED EYE THREE TIMES DAILY STARTING 2 DAYS BEFORE SURGERY AND CONTINUE DIRECTED Active linaGLIPtin (Tradjenta) 5 MG tabletIndications :Type 2 diabetes mellitus with hyperglycemia, with long-term current use of insulin (HCC) Take 1 tablet (5 mg) by mouth Once per day. 30 tablet 5 Active Blood Glucose Monitoring Suppl (ONE TOUCH ULTRA 2) w/Device kit TEST BLOOD SUGAR TWICE DAILY 1 kit 024 2024 Discontinued glipiZIDE XL (Glucotrol XL) 2.5 MG 24 hr tablet TAKE 1 TABLET BY MOUTH EVERY DAY IN THE MORNING. DO NOT BREAK, CRUSH, DISSOLVE OR CHEW 30 tablet 11 024 2024 Discontinued clotrimazole-beta methasone (Lotrisone) cream Apply 1 Application. topically if needed in the morning, at noon, and at bedtime (itch). 2024 Discontinued(M ed list cleanup (will not trigger notification to Pharmacy)) meloxicam (Mobic) 7.5 MG tablet Take 1 tablet by mouth if needed at bedtime for pain. 2024 Discontinued(M ed list cleanup (will not trigger notification to Pharmacy)) glipiZIDE XL (Glucotrol XL) 2.5 MG 24 hr tablet TAKE 1 TABLET BY MOUTH IN THE MORNING DO NOT BREAK, CRUSH, DISSOLVE OR CHEW 30 tablet 11 2024 Discontinued(T herapy completed) Active Problems Problem Noted Date Diagnosed Date [...] Pt will be transported by her to [facility] ER. Diabetic polyneuropathy 08/27/2023 Assessment [...] organization. Date Type Department Care Team Description 03/29/2025 Telephone [facility] [address] [place] [address] Cynthia Morales, DO Results 03/20/2025 Abstract [facility] [address] [place] [address] Name, MD Howard 03/19/2025 Travel 03/11/2025 Refill [facility] [address] [place], [place] [phone] Name, MD Howard Type 2 diabetes mellitus with hyperglycemia, with long-term current use of insulin ([facility]) 03/09/2025 Refill [facility] [address] [place] [address] Howard Lovett MD 03/04/2025 Refill [facility] [address] [place] [address] Howard Lovett MD Hypertension, unspecified type; Heartburn 02/22/2025 Refill [facility] [address] [place] [address] Cynthia Morales DO 02/05/2025 10:15 AM EDT Office Visit [facility] [address] [place] [address] Graciela Dailey MD Type 2 diabetes mellitus with hyperglycemia, with long-term current use of insulin (CMS/HCC) (Primary Dx); Preop examination; Diabetic polyneuropathy associated with type 2 diabetes mellitus (CMS/HCC); Right wrist pain 02/05/2025 Travel 02/04/2025 Telephone [facility] [address] [place] [address] Howard Lovett MD Chart Prep 02/02/[address] [address] Eve Serrato, PharmD 01/22/2025 1:45 PM EDT Office Visit [address] [address] Maddie Null FNP Type 2 diabetes mellitus with other specified complication, without long-term current use of insulin (CMS/HCC) (Primary Dx); Health care maintenance; Anxiety 01/22/2025 Travel 01/21/2025 Telephone [facility] [address] [place] [address] Howard Lovett MD Chart Prep 01/20/2025 Telephone [facility] [address] [place] [address] Howard Lovett MD pre op 01/14/2025 Patient Outreach [facility] [address] [place] [address] Howard Lovett MD Pre-visit Planning (SDOH negative, Tobacco screening negative. ) 01/07/2025 Refill [facility] [address] [place] [address] Cynthia Morales DO from Last 3 Months Immunizations Immunization Administration Dates Next Due Influenza injectable quadriv alent IIV4 with preservative 03/13/2017,05/03/2015 Influenza, High Dose Seasona l, Preservative Free 03/31/2019,03/04/2018 Influenza, seasonal, injecta ble, preservative free 02/10/2016 Pfizer Covid-19 Vaccine 12+ 06/13/2021, 1,12/01/2020 Pneumococcal Conjugate PCV 13 03/31/2019 Pneumococcal Polysaccharide [...] Description 04/21/2025 3:15 PM EST Office Visit [facility] [address] [place] [address] Name, MD Howard [address] [place] [address] 04/23/2025 1:30 PM EST Medication Management [facility] [address] [place] [address] PuiaEve, PharmD [address] [place] [address] 06/11/2025 12:45 PM EST Office Visit [facility] ADULT DENTAL [address] [place] [address] Ting Castillo [address] [place] [address] Health Maintenance Due Date Last Done Comments CT Colonography 1950 FIT DNA/Cologuard 1950 FIT 1950 FOBT 1950 Sigmoidoscopy 1950 Hepatitis C Screening 1970 Zoster Vaccines (1 of 2) 2002 Colonoscopy 10/25/2020 10/26/2015 Colorectal Cancer Screening 10/25/2020 Pneumococcal Vaccine: 50+ Years (3 of 3 - PCV20 or PCV21) 03/31/2024 03/31/2019, 03/13/2017 Diabetes: Foot Exam 08/26/2024 08/27/2023, 08/27/2023, 08/27/2023, Additional history exists COVID-19 Vaccine ( season) 2025 06/13/2021, 12/28/2020, 12/01/2020 Influenza Vaccine (#1) 2025 9, 03/04/2018, 03/13/2017, Additional history exists Diabetes: Hemoglobin A1C 04/23/2025 025, 06/17/2024, 02/12/2024, [...] Screening 01/22/2026 01/22/2025 Tobacco Screening 02/05/2026 02/05/2025 Eye Exam 03/03/2027 03/03/2025, 03/02/2023 RSV Patients and Patients Aged 60 years or older (1 - 1-dose 75+ series) 11/30/2027 HIB [...] Name Priority Date/Time Associated Diagnosis Comments HM DIABETES EYE EXAM Routine 03/03/2025 EMG Routine 01/27/2025 Right leg pain POCT GLYCATED HEMOGLOBIN, TOTAL Routine 01/22/2025 1:56 PM EDT Type 2 diabetes mellitus with other specified complication, without long-term current use of insulin ([facility]) POCT GLUCOSE Routine 01/22/2025 1:55 PM EDT Type 2 diabetes mellitus with other specified complication, without long-term current use of insulin ([facility]) PROPHYLAXIS - ADULT Routine 11/28/2024 1 0:00 [...] complication, without long-term current use of insulin ([facility]/HCC) LIPID PANEL, STANDARD Routine 06/27/2024 9:19 AM EST Type 2 diabetes mellitus with other specified complication, without long-term current use of insulin (CMS/HCC) BI MAMMOGRAM SCREENING TOMOSYNTHESIS BILATERAL Routine 08/31/2023 1:20 PM EDT INTRAORAL - COMPLETE SERIES OF RADIOGRAPHIC IMAGES Routine 07/13/2022 11:00 AM EST Dental plaque on multiple teeth HM COLONOSCOPY Routine 10/26/2015 10:13 AM EDT from Last 3 Months or Most Recently Relevant to Health Maintenance Results * Diabetes Eye Exam (03/03/2025) Eye Exam Normal Normal Comment:no ocular complicati ons Howard Lovett MD HEALTH MAINTENANCE Final Result * EMG (01/27/2025) Cynthia Morales DO NEUROLOGY ORDERABLES Final R esult * (ABNORMAL) POCT Hgb A1c (01/22/2025 1:56 PM EDT) Hemoglobin A1C 8.2(A) 4.0 - 5.7 % QC Media Lot # [id number] Lot# Expiration Date 47, Blood 01/22/2025 1:56 PM EDT us Maddie Null GLASS FITTER POINT OF CARE TEST ENTER/EDIT ORDERABLES Final Result * POCT Glucose (01/22/2025 1:55 PM EDT) Glucose Blood, POC 161 60 - 200 mg/dL QC Media Lot # [id number] Lot# Expiration Date ,519,362 Blood Capillary blood specimen / Unknown 01/22/2025 1:55 PM EDT us Maddie Null GLASS FITTER POINT OF CARE TEST ENTER/EDIT ORDERABLES Final Result * Albumin, Random Urine W/Creatinine (06/27/2024 9:19 AM EST) Creatinine, Urine 58.67 mg/dL [facility] Microalbumin Urine 11.0 mg/L [facility] Microalbum Creatinine Ratio Ur 18.7 <30 ug/mg cr [facility] Comment:Albumin/Creatinine R atio Reference Ranges: Normal: < 30 ug/mg creatinine Microalbuminuria: 30 - 300 ug/mg creatinineClinical Albuminuria: > 300 ug/mg creatinine Urine (Urine, Random) 06/27/2024 9:19 AM EST 06/27/2024 11:52 AM EST us Howard Lovett MD LAB URINE ORDERABLES Final Resul t [facility] [address] [place] [phone] * Lipid Panel, Standard (06/27/2024 9:19 AM EST) Triglycerides 129 <150 mg/dL [facility] Comment:Desirable Triglyceri de: less than 150 mg/dLBorderline High Triglyceride 150-199 mg/dLHigh Triglyceride: 200-499 mg/dLVery High Triglyceride: greater than or equal to 5OO mg/dL Cholesterol 153 <200 mg/dL [facility] Comment:Desirable Cholestero l: less than 200 mg/dLBorderline High Cholesterol: 200-239 mg/dLHigh Cholesterol: greater than 239 mg/dL LDL Cholesterol Calculated 60 <100 mg/dL [facility] Comment:Desirable LDL: less than 100 mg/dLNear Optimal/Above Optimal LDL: 110- 129 mg/dLBorderline High LDL: 130-159 mg/dLHigh LDL: 160-189 mg/dLVery High LDL: greater than or equal to 190 mg/dL HDL Cholesterol 68 >40 mg/dL [facility] Comment:Desirable HDL: great er than 40 mg/dL Note: This HDL assay may give artificially low results in patients with liver disease. Blood Venous blood specimen / Unknown 06/27/2024 9:19 AM EST 06/27/2024 11:30 AM EST us Howard Lovett MD LAB BLOOD ORDERABLES Final Resul t [facility] [address] [place] [phone] * BI Mammogram Screening Tomosynthesis Bilateral (08/31/2023 1:20 PM EDT) Anatomical Region Laterality Modality Breast Bilateral Mammography 08/31/2023 1:20 PM EDT Narrative 09/27/2023 10:[address] [place] [address] Mammography Report Signed Patient: Kimberly Randhawa MR#: [id number] : 1950 Acct:[id number] Age/Sex: 72 / F ADM Date: 08/31/23 Loc: HO.MAMMO Attending Dr: Kelsie Simpson CNM Ordering Physician: Kelsie Simpson CNM Results: 2Beni gn Findings Date of Service: 08/31/23 Follow Up: 1 Year From [facility] Mammogram Procedure(s): MM tomosynthesis screening BI Accession Number(s): [id number] cc: Rubin Arguello MD; Kelsie Simpson CNM [...] in OV> 09/27/23 2216 DD/ 1320 TD/TT: Court Administrator: Procedure Note Donotuseinterpreter, Image - 09/27/2023 [facility] [address] [place], [place] [address] Mammography Report Signed Patient: Marlena Randhawa#: [id number] : 3Acct:[id number] Age/Sex: 72 / FADM Date: 08/31/23 Loc: AMRITA Attending Dr: Kelsie Simpson CNM Ordering Physician: Kelsie Simpsonesults: 2Beni gn Findings Date of Service: 08/31/23Follow Up: 1 Year From [facility] Mammogram Procedure(s): MM tomosynthesis screening BI Accession Number(s): [id number] cc: Rubin Arguello MD; Kelsie Simpson CNM [...] in OV> 09/27/23 2216 DD/ 1320 TD/TT: Court Administrator: [facility] External Provider IMG BI PROCEDURES Edited Result - Final * Hm Colonoscopy (10/26/2015 10:13 AM EDT) Colonoscopy Normal Normal Narrative Radha Henry - 10/26/2015 10:13 AM EDT Recommended 5 year follow up Historical Provider HEALTH MAINTENANCE Final Result from Last 3 Months or Most Recently Relevant to Health Maintenance Insurance [facility] < 65 [facility] DENTAL - HSN FULL (MEDICAID) [facility] Care Teams Laborer/Key Man Relationship Specialty Start Date End Date Name, MD Howard [address] [place], [place] [phone] PCP - General Family Medicine 03/13/19 Eve Serrato, PharmD [address] [place], [place] [phone] Pharmacist Pharmacy 03/19/25
--- OUTSIDE RECORDS SUMMARY | 2025-04-03 11:49 | XMS_ITS | Encounter Summary ---
Author Organization [employer] Address [address] [place] [address] 7t h Floor [place] [id number] Care Team Providers Care College Teacher Name Role Phone Name, Howard BRENNER Primary Care Provider [phone] Eve Serrato PharmD Unavailable [phone] Encounter Details Date Type Department Care Team (Latest Contact Info) Description 10/13/2021 Abstract [facility] CONVERSIONS Dental, Provider, DDS Social History [...] Description 04/21/2025 3:15 PM EST Office Visit [facility] MEDICINE [address] [place] [address] Name, MD Howard [address] [place] [address] 04/23/2025 1:30 PM EST Medication Management [facility] [address] [place] [address] Eve Serrato, PharmD [address] [place] [address] 06/11/2025 12:45 PM EST Office Visit [facility] ADULT DENTAL [address] [place] [address] Ting Castillo [address] [place] [address] documented as of this encounter Visit Diagnoses Not on filedocumented in this encounter Care Teams College Teacher Relationship Specialty Start Date End Date Name, MD Howard [address] [place] [phone] PCP - General Family Medicine 03/13/19 Eve Serrato, Aishwarya [address] [place] [address] Pharmacist Pharmacy 03/19/25 documented as of this encounter
--- OUTSIDE RECORDS SUMMARY | 2025-04-03 11:50 | XMS_ITS | Encounter Summary ---
Author Organization [employer] Address [address] [facility] 7t h Floor [place] [phone] Care Team Providers Care Ethanol Operations Manager Name Role Phone Name, Howard BRENNER Primary Care Provider [phone] Eve Serrato PharmD Unavailable [phone] Reason for Referral * Imaging (Routine) - Canceled Specialty Diagnoses / Procedures Referred By Contac t Referred To Contact Radiology Diagnoses Right leg pain Abnormal nerve conduction studies Procedures MR Lumbar Spine w/o Contrast Cynthia Morales DO [address] [place] [address] Phone: tel: fax: [address] Phone: tel: fax: Referral ID Status Reason Start Date Expiration Date V isits Requested Visits Authorized [id number] Canceled 03/29/2025 03/29/2026 1 1 Reason for Visit * Reason Onset Date Comments Results 03/29/2025 Encounter Details Date Type Department Care Team (Late st Contact Info) Description 03/29/2025 Telephone [facility] [address] [place], [place] [phone] Cynthia Morales DO [address] [place], [place] [phone] Results Social History Tobacco Use Types Packs/Day [...] encounter Miscellaneous Notes * Telephone Encounter - Ioana Roy RN - 03/30/2025 2:02 PM EST TC placed to patient [phone] in regards to below message. Patient reports she had 2 MRI's completed last week at [facility] which were ordered by Dr. Victor (from the [facility] treatment center). Patient reports she received a call that she had a nerve issue and a disc issue and would be referredto NS for further evaluation. Patient inquiring if she needs to complete this MRI as well. Patient advised RN would call [facility] to obtain MRI results and return call to patient regarding the need to complete this MRI. TC placed to [facility] [phone] who confirms the patient did indeed have an MRI of her lumbar spinelast week and an MRI of a sacrum/coccyx. RN requested they fax the results to [phone] to be placed in the chart. TC placed to patient [phone] to inform she does NOT need to complete MRI ordered by Dr. Morales as she had the same MRI ordered by an alternative provider already which was completed. Patient advised to f/u with NS as directed. Patient verbalized understanding. * Telephone Encounter - Cynthia Morales DO - 03/29/2025 5:26 PM EST Please advise pt that her nerve testing shows signs of Right lower lumbar radiculopathy. Will referfor MRI L-spine for further evaluation. Thank you! documented in this encounter Plan of Treatment Upcoming Encounters Date Type Department Care Team (Late st Contact Info) Description 04/21/2025 3:15 PM EST Office Visit [facility] [address] [place] [phone] Name, MD Howard [address] [place] [address] 04/23/2025 1:30 PM EST Medication Management [facility] [address] [place] [address] Eve Serrato, PharmD [address] [place] [address] 06/11/2025 12:45 PM EST Office Visit [facility] ADULT DENTAL [address] [place] [address] Ting Castillo [address] [place] [address] Scheduled Orders Name Type Priority Associated Diagnoses Orde r Schedule MR Lumbar Spine w/o Contrast Imaging Routine Right leg pain Abnormal nerve conduction studies Expected: 03/29/2025, Expires: 03/29/2026 documented as of this encounter Visit Diagnoses Diagnosis Right leg pain- Primary Pain in soft tissues of limb Abnormal nerve conduction studies documented in this encounter Additional Health Concerns Assessment Noted Time PHQ-9 Depression Total Score: 9 01/23/20 25 2:28 PM EDT documented as of this encounter Care Teams Ethanol Operations Manager Relationship Specialty Start Date End Date Name, MD Howard [address] [place] [address] PCP - General Family Medicine 03/13/19 Eve Serrato PharmD [address] [place] [address] Pharmacist Pharmacy 03/19/25 documented as of this encounter
--- OUTSIDE RECORDS SUMMARY | 2025-04-03 11:50 | XMS_ITS | Clinical Summary ---
Author Organization [facility] Address [address] [facility] [address] [place] [address] Phone Care Team Providers Care Senior Energy Trader Name Role Phone Name, Howard BRENNER Primary Care Provider [phone] Allergies Active Allergy Reactions Criticality Noted Date [...] of blood transfusion See media for documentation Buddhist Type 2 diabetes mellitus without complications 0 [...] patient's age to complete this topic IPV VACCINES Aged Out No longer eligi ble [...] Date/Time Associated Diagnosis Comments BASIC METABOLIC PANEL (BMP) STAT 11/20/2023 5:06 PM EDT from Last 3 Months or Most Recently Relevant to Health Maintenance Results * (ABNORMAL) Basic metabolic panel (11/20/2023 5:06 PM EDT) SODIUM 141 133 - 146 mmol/L [facility] CHLORIDE 104 96 - 108 mmol/L [facility] POTASSIUM 3.6 3.3 - 5.1 mmol/L [facility] CO2 25 21 - 35 mmol/L [facility] BUN 14 6 - 19 mg/dL [facility] CREATININE 0.50 0.5 - 1.5 mg/dL [facility] GLUCOSE 241(H) 70 - 99 mg/dL [facility] CALCIUM 9.5 8.4 - 10.3 mg/dL [facility] EGFR 101 >59 mL/min/1.7 3m2 [facility] Comment:Estimated glomerular filtration rate calculated using the CKD-EPI refit equation. ANION GAP 16 10 - 20 mmol/L [facility] Blood 11/20/2023 5:06 PM EDT 11/20/2023 5:18 PM EDT us Kaleb Snow MD LAB BLOOD BKR ORDERABLES Final Result Performing Organization Address City/State/[facility] Co de Phone Number [facility] [address] [place] [address] from Last 3 Months or Most Recently Relevant to Health Maintenance Insurance [facility] MEDICARE REPLACEMENT [facility] NET PARTIAL MEDICARE PART A & [facility] MEDIC[facility] REPLACEMENT [facility] PARTIAL MEDICARE PART A & [facility] MEDICARE REPLACEMENT [facility] PARTIAL MEDICARE PART A & [facility] [place] [id number] [place] [address] PARTIAL MEDICARE PART A & B [facility] MEDICARE [facility]PLACEMENT [facility] PARTIAL MEDICARE PART A & [facility] MEDICARE REPLACEMENT [facility] PARTIAL MEDICARE PART A & B [facility] QMB Advance Directives For more information, please contact: [phone] (9AM - 5PM [facility], Sunday-Sunday) Documents on File Type Date Recorded Patient Supervisor Microbiology Technologists Expl anation Healthcare Proxy 01/29/2024 HEALTHCARE PROXY 01/29/2024 Care Teams Senior Energy Trader Relationship Specialty Start Date End Date Name, MD Howard [address] [place] [id number] PCP - General 09/01/23 Additional Source Comments The information contained in this document represents components of the legal health record. It is not the complete legal health record.[facility]
--- OUTSIDE RECORDS SUMMARY | 2025-04-03 11:50 | XMS_ITS | Encounter Summary ---
Author Organization [employer] Address [address] [facility] 7t [place] [address] Care Team Providers Care Cushion Mat Maker Name Role Phone Name, Howard BRENNER Primary Care Provider [phone] Eve Serrato PharmD Unavailable [phone] Encounter Details Date Type Department Care Team (Late Contact Info) Description 10/23/2022 Abstract [facility] MED[facility] [address] [place] [address] [phone] Name, MD Howard [address] [place] [address] Social History Tobacco Use Types Packs/Day Years [...] Description 04/21/2025 3:15 PM EST Office Visit [facility] [address] [place] [address] [place] [address] Name, MD Howard [address] [place] [address] 04/23/2025 1:30 PM EST Medication Management [facility] MED[facility] [address] [place] [address] Eve Serrato PharmD [address] [place] [address] 06/11/2025 12:45 PM EST Office Visit [facility] ADULT [facility]AL 230 [facility] [place] [address] Ting Castillo [address] [place] [address] documented as of this encounter Procedures Procedure [...] documented as of this encounter Care Teams Cushion Mat Maker Relationship Specialty Start Date End Date Name, [place] [address] PCP - General Family Medicine 03/13/19 Eve Serrato PharmD [place] Pharmacist Pharmacy 03/19/25 documented as of this encounter
--- OUTSIDE RECORDS SUMMARY | 2025-04-03 11:50 | XMS_ITS | Encounter Summary ---
Author Organization [facility] Address [address] [facility] [address] [place] [address] Phone Care Team Providers Care Accountant Supervisor Name Role Phone Name, Howard BRENNER Primary Care Provider [phone] Encounter Details Date Type Department Care Team (Late st Contact Info) Description 01/30/2024 Procedure Pass OR Admitting Dept - Virtual Department 30 [place] [address] Social History Tobacco Use Types Packs/Day Years [...] on filedocumented in this encounter Care Teams Accountant Supervisor Relationship Specialty Start Date End Date Name, MD Howard 230 [place] [address] PCP - General 09/01/23 documented as of this encounter Additional Source Comments The information contained in this document represents components of the legal health record. It is not the complete legal health record.[facility]
--- OUTSIDE RECORDS SUMMARY | 2025-04-03 11:50 | XMS_ITS | Encounter Summary ---
Author Organization [facility] Address [address] [place] [address] Phone Care Team Providers Care Granite Polisher Machine Name Role Phone Name, Howard BRENNER Primary Care Provider [phone] Encounter Details Date Type Department Care Team (Late st Contact Info) Description 11/20/2023 Procedure Pass [facility] [place], Ct Scan - [address] [address] Social History Tobacco Use Types Packs/Day Years [...] 4:40 PM EDT Claudia Felix RN * [place] Suicide Severity Rating Scale (Screener/Recent Self-Report) Question [...] on filedocumented in this encounter Care Teams Granite Polisher Machine Relationship Specialty Start Date End Date Name, MD Howard [address] [place] [address] PCP - General 09/01/23 documented as of this encounter Additional Source Comments The information contained in this document represents components of the legal health record. It is not the complete legal health record.[facility]
== END 2025-04-03 10:29 | disposition home or self-care (01) ==
LOC: HO.PMC 10:01
PROVIDERS: PCP Internal Medicine Geriatric Medicine; Visit Provider Nurse Practitioner Family
DX: M54.16 Radiculopathy, lumbar region (principal); M51.369 Other intervertebral disc degeneration, lumbar region without mention of lumbar back pain or lower extremity pain; M54.50 Low back pain, unspecified; M48.062 Spinal stenosis, lumbar region with neurogenic claudication; M47.817 Spondylosis without myelopathy or radiculopathy, lumbosacral region
CPT/HCPCS: 99213; G2211

== ENCOUNTER → 2025-04-03 10:00 | Outpatient (BNVA) | payer OTHER, SELFPAY | PROVIDERS: PCP Internal Medicine Geriatric Medicine; Visit Provider Nurse Practitioner Family | DX: Z71.2 Person consulting for explanation of examination or test findings (principal); M54.16 Radiculopathy, lumbar region; M51.369 Other intervertebral disc degeneration, lumbar region without mention of lumbar back pain or lower extremity pain; M54.50 Low back pain, unspecified; M48.062 Spinal stenosis, lumbar region with neurogenic claudication; M47.817 Spondylosis without myelopathy or radiculopathy, lumbosacral region | CPT/HCPCS: 99212 ==

== ENCOUNTER 2025-05-19 08:24 | Outpatient (REF) | payer OTHER, SELFPAY ==
--- NOTE | 2025-05-19 08:26 | EMG_ITS ---
Chief complaint: Right upper extremity numbness Referred by: Joe Lovett MD Procedure done: NCS and EMG of right upper extremity Right median and ulnar motor studies were performed. Right median and ulnar mixed sensory and radial sensory study was performed and needle examination was performed. Findings: Right median motor distal latencies was [id number] early prolonged. Similar pattern was noted with median mixed study with significant reduction of amplitude and slowing of conduction velocity. Impression: Moderately severe right median neuropathy across carpal tunnel [place] [address] [facility]
--- OUTSIDE RECORDS SUMMARY | 2025-05-19 09:59 | XMS_ITS | Encounter Summary ---
Author Organization [employer] Address [address] [facility] 7t [place] [address] Care Team Providers Care Washing Machine Installer Name Role Phone Name, Howard BRENNER Primary Care Provider [phone] Eve Serrato PharmD Unavailable [phone] Encounter Details Date Type Department Care Team (Late st Contact Info) Description 11/27/2023 Orders Only [facility] 230 [place], [place] [phone] Provider, MD Alon Social History Tobacco Use [...] Care Team (Late st Contact Info) Description 06/09/2025 2:30 PM EST Medication Management [facility] MEDICINE 230 [place] [address] Eve Serrato, PharmD 230 [place] [address] 06/11/2025 12:45 PM EST Office Visit [facility] ADULT DENTAL 230 [place] [address] Anna, Ting 230 [place] [address] documented as of this encounter Procedures Procedure [...] documented as of this encounter Care Teams Washing Machine Installer Relationship Specialty Start Date End Date Name, MD Howard 230 [place] [address] PCP - General Family Medicine 03/13/19 Eve Serrato, PharmD [address] [place] [address] Pharmacist Pharmacy 03/19/25 documented as of this encounter
--- OUTSIDE RECORDS SUMMARY | 2025-05-19 09:59 | XMS_ITS | Encounter Summary ---
Author Organization [employer] Address [address] [place] [address] 7t [place] [address] Care Team Providers Care Coat Finisher Name Role Phone Name, Howard BRENNER Primary Care Provider [phone] Eve Serrato PharmD Unavailable [phone] Reason for Visit * Reason Onset Date Comments Results 07/03/2022 Encounter Details Date Type Department Care Team (Late st Contact Info) Description 07/03/2022 Telephone [facility] MEDICINE 230 [place], [place] [phone] Name, MD Howard 230 [place] [address] Results Social History Tobacco Use Types Packs/Day [...] regarding xray results Please contact pt at [phone] documented in this encounter Plan of Treatment Upcoming Encounters Date Type Department Care Team (Late st Contact Info) Description 06/09/2025 2:30 PM EST Medication Management [facility] MEDICINE 230 [place] [address] Eve Serrato, PharmD 230 [place] [address] 06/11/2025 12:45 PM EST Office Visit [facility] ADULT DENTAL 230 [place] [address] Ting Castillo 230 [place] [address] documented as of this encounter Visit Diagnoses Not on filedocumented in this encounter Additional Health Concerns Assessment Noted Time PHQ-9 Depression Total Score: 0 06/19/19 23 2:59 PM EST documented as of this encounter Care Teams Coat Finisher Relationship Specialty Start Date End Date Name, MD Howard 230 [place] [address] PCP - General Family Medicine 03/13/19 Eve Serrato PharmD 230 [place] [address] Pharmacist Pharmacy 03/19/25 documented as of this encounter
--- OUTSIDE RECORDS SUMMARY | 2025-05-19 09:59 | XMS_ITS | Encounter Summary ---
Author Organization [employer] Address [address] [place] [address] 7[address] [place] [address] Care Team Providers Care Interpretative Dancer Name Role Phone Name, Howard BRENNER Primary Care Provider [phone] Eve Serrato PharmD Unavailable [phone] Encounter Details Date Type Department Care Team (Latest Contact Info) Description 09/29/2020 Abstract [facility] CONVERSION[facility] Dental, Provider, DDS Social History Tobacco [...] 2:30 PM EST Medication Management [facility] MEDICINE 230 [place] [address] Eve Serrato, PharmD 230 [place] [address] 06/11/2025 12:45 PM EST Office Visit [facility] ADULT DENTAL 230 [place] [address] Anna, Ting 230 [place] [address] documented as of this encounter Visit Diagnoses Not on filedocumented in this encounter Care Teams Interpretative Dancer Relationship Specialty Start Date End Date Name, MD Howard 230 [place] [address] PCP - General Family Medicine 03/13/19 Eve Serrato, JaseD [address] [place] [address] [place] [address] Pharmacist Pharmacy 03/19/25 documented as of this encounter
--- OUTSIDE RECORDS SUMMARY | 2025-05-19 09:59 | XMS_ITS | Encounter Summary ---
Author Organization [employer] Address [address] [facility] 7t [place] [address] Care Team Providers Care Warehouse Operations Associate Name Role Phone Name, Howard BRENNER Primary Care Provider [phone] Eve Serrato PharmD Unavailable [phone] Encounter Details Date Type Department Care Team (Late st Contact Info) Description 04/21/2025 Orders Only [facility] 230 [place], [place] [phone] Provider, MD Alon Chronic bilateral low back pain with right-sided sciatica Social History Tobacco Use Types Packs/Day Years [...] Description 06/09/2025 2:30 PM EST Medication Management [facility] 230 [place] [address] Eve Serrato PharmD 230 [place] [address] 06/11/2025 12:45 PM EST Office Visit [facility] ADULT DENTAL 230 [place] [address] Ting Castillo 230 [place] [address] documented as of this encounter Goals Goal Patient Goal Type Associated Problems Recent Progress Patient-Stated? Author Help patients manage their type 2 diabetes Care Plan Help patients manage their type 2 diabetes No Ana Borrero [place] Weekly blood pressure task Care Plan Weekly blood pressure task No Ana Borrero [place] Help patients manage their type 2 diabetes Care Plan Help patients manage their type 2 diabetes No Ana Borrero [place] Patient has chronic kidney disease Care Plan Patient has chronic kidney disease No Ana Borrero [place] Help patients manage their type 2 diabetes Care Plan Help patients manage their type 2 diabetes No Ana Borrero [place] Patient has diabetic neuropathy Care Plan Patient has diabetic neuropathy No Ana Borrero MA Weekly blood pressure task Care Plan Weekly blood pressure task No Ana Borrero MA Weekly blood pressure task Care Plan Weekly blood pressure task No Cristofer-R eyes, Ana, [place] Patient has chronic kidney disease Care Plan Patient has chronic kidney disease No Cristofer-R eyes, Ana, [place] Patient has chronic kidney disease Care Plan Patient has chronic kidney disease No Cristofer-R eyes, Ana, [place] Patient has diabetic neuropathy Care Plan Patient has diabetic neuropathy No Cristofer-R eyes, Ana, [place] Patient has diabetic neuropathy Care Plan Patient has diabetic neuropathy No Cristofer-R eyes, Ana, [place] Weekly blood pressure task Care Plan Weekly blood pressure task No Zana Plascencia MA Weekly blood pressure task Care Plan Weekly blood pressure task No Zana Plascencia MA Weekly blood pressure task Care Plan Weekly blood pressure task No Zana Plascencia [place] Patient has chronic kidney disease Care Plan Patient has chronic kidney disease No Zana Plascencia [place] Patient has chronic kidney disease Care Plan Patient has chronic kidney disease No Zana Plascencia [place] Patient has chronic kidney disease Care Plan Patient has chronic kidney disease No Zana Plascencia [place] Patient has diabetic neuropathy Care Plan Patient has diabetic neuropathy No Zana Plascencia [place] Patient has diabetic neuropathy Care Plan Patient has diabetic neuropathy No Zana Plascencia [place] Patient has diabetic neuropathy Care Plan Patient has diabetic neuropathy No Zana Plascencia MA Weekly blood pressure task Care Plan Weekly blood pressure task No Zana Plascencia MA Weekly blood pressure task Care Plan Weekly blood pressure task No Zana Plascencia MA Weekly blood pressure task Care Plan Weekly blood pressure task No Zana Plascencia [place] Patient has chronic kidney disease Care Plan Patient has chronic kidney disease No Zana Plascencia MA Patient has chronic kidney disease Care Plan Patient has chronic kidney disease No Zana Plascencia MA Patient has chronic kidney disease Care Plan Patient has chronic kidney disease No Zana Plascencia MA Patient has diabetic neuropathy Care Plan Patient has diabetic neuropathy No Zana Plascencia MA Patient has diabetic neuropathy Care Plan Patient has diabetic neuropathy No Zana Plascencia [place] Patient has diabetic neuropathy Care Plan Patient has diabetic neuropathy No Zana Plascencia MA Weekly blood pressure task Care Plan Weekly blood pressure task No Eve Serrato PharmD Weekly blood pressure task Care Plan Weekly blood pressure task No Puia, Eve, PharmD Weekly blood pressure task Care Plan Weekly blood pressure task No Puia, Eve, PharmD Patient has chronic kidney disease Care Plan Patient has chronic kidney disease No Puia, Eve, PharmD Patient has chronic kidney disease Care Plan Patient has chronic kidney disease No Puia, Eve, PharmD Patient has chronic kidney disease Care Plan Patient has chronic kidney disease No Puia, Eve, PharmD Patient has diabetic neuropathy Care Plan Patient has diabetic neuropathy No Puia, Eve, PharmD Patient has diabetic neuropathy Care Plan Patient has diabetic neuropathy No Puia, Eve, PharmD Patient has diabetic neuropathy Care Plan Patient has diabetic neuropathy No Puia, Eve, PharmD documented as of this encounter Procedures Procedure Name Priority Date/Time Associated Diagnosis Comments AMB REFERRAL TO FAMILY PRACTICE Routine 04/03/2025 Chronic bilateral low back pain with right-sided sciatica documented in this encounter Results * [facility] (04/03/2025) [facility] MAMMAL KEEPER OUTPATIENT REFERRAL ORDERABLE S Final Result documented in this encounter Visit Diagnoses Diagnosis Chronic bilateral low back pain with right-sided sciatica documented in this encounter Additional Health Concerns Active Problems Noted Date Diagnosed Date Help patients manage their type 2 diabetes 04/13 Weekly blood pressure task 04/13/2025 Help patients manage their type 2 diabetes 04/13 Patient has chronic kidney disease 04/13/2025 Help patients manage their type 2 diabetes 04/13 Patient has diabetic neuropathy 04/13/2025 Weekly blood pressure task 04/13/2025 Weekly blood pressure task 04/13/2025 Patient has chronic kidney disease 04/13/2025 Patient has chronic kidney disease 04/13/2025 Patient has diabetic neuropathy 04/13/2025 Patient has diabetic neuropathy 04/13/2025 Weekly blood pressure task 04/20/2025 Weekly blood pressure task 04/20/2025 Weekly blood pressure task 04/20/2025 Patient has chronic kidney disease 04/20/2025 Patient has chronic kidney disease 04/20/2025 Patient has chronic kidney disease 04/20/2025 Patient has diabetic neuropathy 04/20/2025 Patient has diabetic neuropathy 04/20/2025 Patient has diabetic neuropathy 04/20/2025 Weekly blood pressure task 04/20/2025 Weekly blood pressure task 04/20/2025 Weekly blood pressure task 04/20/2025 Patient has chronic kidney disease 04/20/2025 Patient has chronic kidney disease 04/20/2025 Patient has chronic kidney disease 04/20/2025 Patient has diabetic neuropathy 04/20/2025 Patient has diabetic neuropathy 04/20/2025 Patient has diabetic neuropathy 04/20/2025 Weekly blood pressure task 04/21/2025 Weekly blood pressure task 04/21/2025 Weekly blood pressure task 04/21/2025 Patient has chronic kidney disease 04/21/2025 Patient has chronic kidney disease 04/21/2025 Patient has chronic kidney disease 04/21/2025 Patient has diabetic neuropathy 04/21/2025 Patient has diabetic neuropathy 04/21/2025 Patient has diabetic neuropathy 04/21/2025 Assessment Noted Time PHQ-9 Depression Total Score: 9 01/23/20 25 2:28 PM EDT documented as of this encounter Care Teams Warehouse Operations Associate Relationship Specialty Start Date End Date Name, MD Howard 230 [place] [address] PCP - General Family Medicine 03/13/19 Eve Serrato PharmD 230 [place] [address] Pharmacist Pharmacy 03/19/25 documented as of this encounter
--- OUTSIDE RECORDS SUMMARY | 2025-05-19 09:59 | XMS_ITS | Encounter Summary ---
Author Organization [employer] Address [address] [facility] 7t h Floor [place] [id number] Care Team Providers Care Home Care Liaison Name Role Phone Name, Howard BRENNER Primary Care Provider [phone] Eve Serrato PharmD Unavailable [phone] Encounter Details Date Type Department Care Team (Late st Contact Info) Description 05/12/2022 Orders Only [facility] 230 [place], [place] [phone] Arlene Simon LPN Social History Tobacco Use [...] Description 06/09/2025 2:30 PM EST Medication Management [facility] MEDICINE 230 [place] [address] Eve Serrato, PharmD 230 [place] [address] 06/11/2025 12:45 PM EST Office Visit [facility] ADULT DENTAL 230 [place] [address] Ting Castillo 230 [place] [address] documented as of this encounter Visit Diagnoses Not on filedocumented in this encounter Care Teams Home Care Liaison Relationship Specialty Start Date End Date Name, MD Howard 230 [place] [address] PCP - General Family Medicine 03/13/19 Eve Serrato, JaseD 230 [place], [place] [phone] Pharmacist Pharmacy 03/19/25 documented as of this encounter
--- OUTSIDE RECORDS SUMMARY | 2025-05-19 09:59 | XMS_ITS | Encounter Summary ---
Author Organization [facility] Address [address] [facility] [address] [place] [address] Phone Care Team Providers Care Supervisor Home Economics Name Role Phone Name, Howard BRENNER Primary Care Provider [phone] Encounter Details Date Type Department Care Team ([facility] st Contact Info) Description 11/20/2023 Procedure Pass [facility], Ct Scan - [address] [address] Social History Tobacco Use Types Packs/Day Years [...] filedocumented in this encounter Care Teams Supervisor Home Economics Relationship Specialty Start Date End Date Name, MD Howard 230 [place] [address] PCP - General 09/01/23 documented as of this encounter Additional Source Comments The information contained in this document represents components of the legal health record. It is not the complete legal health record.[facility]
--- OUTSIDE RECORDS SUMMARY | 2025-05-19 09:59 | XMS_ITS | Encounter Summary ---
Author Organization [employer] Address [address] [facility] 7t [place] [address] Care Team Providers Care Metalizing Machine Operator Name Role Phone Name, Howard BRENNER Primary Care Provider [phone] Eve Serrato PharmD Unavailable [phone] Encounter Details Date Type Department Care Team (Late Contact Info) Description 06/01/2022 Orders Only [facility] [address] [place], [place] [phone] Cynthia Yun LPN Social History Tobacco Use [...] Department Care Team (Late Contact Info) Description 06/09/2025 2:30 PM EST Medication Management [facility] MEDICINE 230 [place], [place] [phone] Eve Serrato, PharmD 230 [place] [address] 06/11/2025 12:45 PM EST Office Visit [facility] ADULT DENTAL 230 [place] [address] Royer Castilloaris 230 [place] [address] documented as of this encounter Procedures Procedure [...] AM EST Narrative 07/04/2022 6:18 PM EST [facility] [address] [place] [address] XRay Report Signed Patient: Kimberly Randhawa MR#: [id number] : 1950 Acct:[id number] Age/Sex: 71 / F ADM Date: 06/29/22 Loc: HO.XRAY Attending Dr: Rubin Arguello MD Ordering Physician: Rubin Arguello MD Date of Service: 06/29/22 Procedure(s): XR ribs LT 2V Accession Number(s): [id number] cc: Rubin Arguello MD EXAMINATION: XR RIBS, [...] in OV> 07/04/22 1815 DD/ 1127 TD/TT: Public Welfare Worker: JOVITA Procedure Note Donotuseinterpreter, Image - 10/09/[address] [address] XRay Report Signed Patient: Kimberly RandhawaMR#: [id number] : 1950cct:[id number] Age/Sex: 71 / FADM Date: 06/29/22 Loc: HO.XRAY Attending Dr: Rubin Arguello MD Ordering Physician: Rubin Arguello MD Date of Service: 06/29/22 Procedure(s): XR ribs LT 2V Accession Number(s): [id number] cc: Rubin Arguello MD EXAMINATION: XR RIBS, [...] in OV> 07/04/22 1815 DD/ 1127 TD/TT: Public Welfare Worker: JOVITA us [facility] External Provider IMG XR PROCEDURES Edited Result - Final * XR Cervical Spine 5 View (06/29/2022 11:27 AM EST) Anatomical Region Laterality Modality Spine, C-spine Radiographic Lucrecia ging 06/29/2022 11:2 7 AM EST Narrative 07/04/2022 8:39 PM EST [address] [address] XRay Report Signed Patient: Kimberly Randhawa MR#: [id number] : 1950 Acct:[id number] Age/Sex: 71 / F ADM Date: 06/29/22 Loc: JACQUELYN Attending Dr: Rubin Arguello MD Ordering Physician: Rubin Arguello MD Date of Service: 06/29/22 Procedure(s): XR cervical spine 5V Accession Number(s): [id number] cc: Rubin Arguello MD EXAMINATION: XR CERVICAL [...] [place] MD in OV> 07/04/222035 DD/ TD/TT: Public Welfare Worker: OJVITA Procedure Note Donotuseinterpreter, Image - 07/04/[address] [address] XRay Report Signed Patient: Marlena Randhawa#: [id number] : 1950cct:[id number] Age/Sex: 71 / FADM Date: 06/29/22 Loc: JACQUELYN Attending Dr: Rubin Arguello MD Ordering Physician: Rubin Arguello MD Date of Service: 06/29/22 Procedure(s): XR cervical spine 5V Accession Number(s): [id number] cc: Rubin Arguello MD EXAMINATION: XR CERVICAL [...] MD in OV> 07/04/222035 DD/ 1127 TD/TT: Public Welfare Worker: JOVITA [facility] Provider Result Type Result Stat [facility] External Provider IMG XR PROCEDURES Edited Result - Final documented in this encounter Visit Diagnoses Not on filedocumented in this encounter Care Teams Metalizing Machine Operator Relationship Specialty Start Date End Date Name, MD Howard 230 [place] [address] PCP - General Family Medicine 03/13/19 Eve Serrato, JaseD 230 [place] [address] Pharmacist Pharmacy 03/19/25 documented as of this encounter
--- OUTSIDE RECORDS SUMMARY | 2025-05-19 09:59 | XMS_ITS | Encounter Summary ---
Author Organization [employer] Address 75 [facility] 7[address] [place] [address] Care Team Providers Care Kennel Worker Name Role Phone Name, Howard BRENNER Primary Care Provider [phone] Eve Serrato PharmD Unavailable [phone] Encounter Details Date Type Department Care Team (Late Contact Info) Description 10/23/2022 Abstract [facility] MEDICINE [address] [place] [address] [phone] Name, MD Howard [address] [place] [address] Social History Tobacco Use Types Packs/Day Years [...] Description 06/09/2025 2:30 PM EST Medication Management [facility] MEDICINE [address] [place] [address], [place] [address] Eve Serrato PharmD 230 [place] [address] 06/11/2025 12:45 PM EST Office Visit [facility] ADULT DENTAL 230 [place] [address] Ting Castillo 230 [place] [address] documented as of this encounter Procedures Procedure Name Priority Date/Time Associated Diagnosis Comments COLONOSCOPY Routine 10/26/2015 10:13 AM EDT documented in this encounter Results * Colonoscopy (10/26/2015 10:13 AM EDT) Colonoscopy Normal Normal Narrative Elaine Radha - 10/26/2015 10:13 AM EDT Recommended 5 year follow up Historical Provider HEALTH MAINTENANCE Final Result documented in this encounter Visit Diagnoses Not on filedocumented in this encounter Additional Health Concerns Assessment Noted Time PHQ-9 Depression Total Score: 0 06/19/19 23 2:59 PM EST documented as of this encounter Care Teams Kennel Worker Relationship Specialty Start Date End Date Name, MD Howard [address] [place] [address] PCP - General Family Medicine 03/13/19 Eve Serrato, Aishwarya [address] [place] [address] [phone] Pharmacist Pharmacy 03/19/25 documented as of this encounter
--- OUTSIDE RECORDS SUMMARY | 2025-05-19 09:59 | XMS_ITS | Clinical Summary ---
Author Organization [employer] Address [address] [facility] 7[address] [place] [address] Care Team Providers Care Tire Repairman Name Role Phone Name, Howard BRENNER Primary Care Provider [phone] Eve Serrato PharmD Unavailable [phone] Allergies Active Allergy Reactions Criticality Noted Date Comments Sulfa Antibiotics Anaphylaxis High 05/03/2015 Dulaglutide Diarrhea,Vomiting 06/17/2024 Medications * This document contains information received from the source organization and may not represent a complete record from that organization. [employer] (TRUEdraw Lancing Device) [facility] [place] Use to test blood sugar 3 to 4 times per day 1 each 023 Active clotrimazole (Lotrimin) 1 % vaginal creamIndications :Vulvovaginal Candidiasis Insert one applicator per vagina at bedtime for 7 nights 45 g 025 Active Lancets (OneTouch Delica Plus [id number]) [facility] TEST BLOOD SUGAR THREE OR FOUR TIMES DAILY 100 each 11 05/07/20 25 2:15 PM EST 025 Active OneTouch Ultra Test test strip TEST BLOOD SUGAR 3 TO 4 TIMES PER DAY 100 strip 11 025 Active Blood Pressure kit Use once a day 1 kit 025 Active losartan (Cozaar) 100 MG tabletIndication s:Hypertension, unspecified type TAKE 1 TABLET BY MOUTH EVERY MORNING 90 tablet 3 025 Active atorvastatin (Lipitor) 40 MG tabletIndication s:High cholesterol TAKE 1 TABLET BY MOUTH AT BEDTIME 90 tablet 3 025 Active metFORMIN (Glucophage) 1000 MG tablet TAKE 1 TABLET BY MOUTH TWICE DAILY IN THE MORNING AND AT BEDTIME WITH FOOD 180 tablet 3 025 Active acetaminophen (Tylenol 8 Hour) 650 MG ER tablet Take 1 tablet (650 mg) by mouth every 8 (eight) hours if needed for mild pain. Do not crush, chew, or split. 60 tablet 2 025 2025 Active Diclofenac Sodium (Voltaren) 1 % gelIndications:C hronic neck pain Apply once a day to the affected area 150 g 2 Active naproxen (Naprosyn) 500 MG tablet TAKE 1 TABLET BY MOUTH TWICE DAILY IN THE MORNING AND AT BEDTIME NEEDED FOR MILD OR MODERATE PAIN 30 tablet 025 Active gabapentin (Neurontin) 600 MG tabletIndication s:Diabetic polyneuropathy associated with type 2 diabetes mellitus (HCC) Take 1 tablet (600 mg) by mouth at bedtime. 30 tablet 2 05/07/20 25 2:15 PM EST 2025 Active Additional Information Patient taking differently:600 mg OralNightly PRN, Reason: encoruaged to take daily as precribed for best effect, Reported on 04/21/2025 baclofen (Lioresal) 10 MG tablet TAKE 1 TABLET BY MOUTH THREE TIMES DAILY IN THE MORNING, AT NOON, AND AT BEDTIME NEEDED FOR MUSCLE SPASMS 60 tablet 2 Active atenolol (Tenormin) 25 MG tabletIndication s:Hypertension, unspecified type TAKE 1 TABLET BY MOUTH EVERY MORNING 90 tablet 1 05/07/20 25 2:15 PM EST 025 Active amLODIPine (Norvasc) 5 MG tablet TAKE 1 TABLET BY MOUTH EVERY MORNING 90 tablet 1 Active pantoprazole (ProtoNix) 40 MG EC tabletIndication s:Heartburn TAKE 1 TABLET BY MOUTH EVERY MORNING 90 tablet 1 05/07/20 25 2:15 PM EST 025 Active Blood Glucose Monitoring Suppl (ONE TOUCH ULTRA 2) w/Device kitIndications:T ype 2 diabetes mellitus with hyperglycemia, with long-term current use of insulin ([facility]) TEST BLOOD SUGAR TWICE DAILY 1 kit Active ketorolac (Acular) 0.5 % ophthalmic solution INSTILL 1 DROP IN THE AFFECTED EYE THREE TIMES DAILY STARTING 2 DAYS BEFORE SURGERY AND CONTINUE DIRECTED 10/17/2 025 Active DULoxetine (Cymbalta) [address] Bill ns:Other chronic pain Take 1 capsule (30 mg) by mouth 2 times daily. Do not crush or chew. 60 capsule 11 04/13/20 25 3:49 PM EST 025 2025 Active Multiple Vitamin (Multivitamin) tablet TAKE 1 TABLET BY MOUTH EVERY MORNING 90 tablet 1 05/07/20 25 2:15 PM EST Active clopidogrel (Plavix) 75 MG tablet TAKE 1 TABLET BY MOUTH EVERY MORNING 90 tablet 1 Active Tirzepatide (Mounjaro) 5 MG/0.5ML solution auto-injectorInd ications:Type 2 diabetes mellitus with other specified complication, without long-term current use of insulin ([facility]) Inject 5 mg under the skin 1 (one) time per week. INJECT ONE PEN (=5 MG) SUBCUTANEOUSLY ONCE A WEEK 2 mL 2 Active clopidogrel (Plavix) 75 MG tablet TAKE 1 TABLET BY MOUTH EVERY MORNING 90 tablet 1 025 2024 Discontinued Multiple Vitamin (Multivitamin) tablet TAKE 1 TABLET BY MOUTH EVERY MORNING 90 tablet 1 025 2024 Discontinued linaGLIPtin (Tradjenta) 5 MG tabletIndication s:Type 2 diabetes mellitus with hyperglycemia, with long-term current use of insulin ([facility]) Take 1 tablet (5 mg) by mouth Once per day. 30 tablet 5 025 2024 Discontinued(I neffective) Tirzepatide (Mounjaro) 2.5 MG/0.5ML solution auto-injectorInd ications:Type 2 diabetes mellitus with other specified complication, without long-term current use of insulin ([facility]) Inject 2.5 mg under the skin 1 (one) time per week. Start 2.5 mg weekly x 4 weeks, then increase to 5 mg weekly x 4 weeks, then 7.5 mg weekly 2 mL 04/22/20 25 10:54 AM EST 025 2024 Discontinued Active Problems Problem Noted Date Diagnosed Date Type 2 diabetes mellitus wit h hyperglycemia, [...] Problem Noted Date Diagnosed Date Resolved Date Preop examination 02/05/2025 05/07/2025 Assessment & Plan (02/05/2025 1:38 PM EDT): RCRI score is 1 which means she has a 1.1% risk Patient was instructed to be n.p.o. after midnight for the procedure Patient was instructed to take her blood pressure medications the morning of the procedure with a small sip of water Surgery should proceed as scheduled Accidental fall 07/18/2022 10/12/2022 Contusion of rib [...] organization. Date Type Department Care Team Description 05/18/2025 Refill [facility] [address] [place] [address] Howard Lovett MD Type 2 diabetes mellitus with other specified complication, without long-term current use of insulin (HCC) 05/07/[address] [address] Howard Lovett MD 04/30/2025 Refill [facility] [address] [place], [place] [phone] Cristina Tompkins NP 04/21/2025 3:15 PM EST Office Visit [address] [address] Howard Lovett MD Type 2 diabetes mellitus with other specified complication, without long-term current use of insulin (HCC) (Primary Dx); Neuropathic pain of right hand; Vaccine refused by patient 04/21/2025 Travel 04/21/2025 Orders Only [facility] [address] [place] [address] Provider, MD Alon Chronic bilateral low back pain with right-sided sciatica 04/20/[address] [address] Howard Lovett MD Chart Prep 04/13/2025 9:45 AM EST Office Visit [address] [address] Thurman Janay [facility] Chronic bilateral low back pain with right-sided sciatica (Primary Dx); Other chronic pain; Type 2 diabetes mellitus with other specified complication, without long-term current use of insulin (HCC); Essential hypertension 04/13/2025 Travel 03/29/[address] [address] Cynthia Morales, DO Results 03/20/[address] [address] Howard Lovett MD 03/19/2025 Travel 03/11/2025 Refill [facility] [address] [place], [place] [phone] Howard Lovett MD Type 2 diabetes mellitus with hyperglycemia, with long-term current use of insulin (HCC) 03/09/2025 Refill [facility] [address] [place] [address] Name, MD Howard 03/04/2025 Refill [facility] [address] [place] [address] Name, MD Howard Hypertension, unspecified type; Heartburn 02/22/2025 Refill [facility] [address] [place] [address] Cynthia Morales DO from Last 3 Months [...] Reading Time Taken Comments Blood Pressure 132/62 04/21/2025 3:09 PM EST Pulse 85 04/21/2025 3:09 PM EST Temperature 35.9 C (96.7 F) 04/21/2025 3:09 PM EST Respiratory Rate 14 04/21/2025 3:09 PM EST Oxygen Saturation 97% 04/21/2025 3:09 PM EST Inhaled Oxygen Concentration - - Weight 54.8 kg (120 lb 12.8 oz) 04/21/2025 3:09 PM EST Height 149.9 cm (4' 11 ) 04/21/2025 3:09 PM EST Body Mass Index 24.4 04/21/2025 3:09 PM EST Plan of Treatment Upcoming Encounters Date Type Department Care Team (Late st Contact Info) Description 06/09/2025 2:30 PM EST Medication Management [facility] [address] [place] [address] Eve Serrato, PharmD [address] [place] [address] 06/11/2025 12:45 PM EST Office Visit [facility] [address] [place] [address] Ting Castillo [address] [place] [address] Health Maintenance Due Date Last Done Comments [...] 2025 9, 03/04/2018, 03/13/2017, Additional history exists DTaP/Tdap/Td Vaccines (2 - Td or Tdap) 05/03/2025 05/03/2015 Dental Oral Exam 06/01/2025 11/28/2024, 03/2023, 07/13/2022, Additional history exists Dental Prophylaxis 06/01/2025 11/28/2024, 0 05/29/2024, 10/29/2023, Additional history exists Diabetes: Urine Protein Screening 06/27/2025 06/27/2024, 04/23/2023, 01/05/2021, Additional history exists Lipid Panel 06/27/2025 06/27/2024, 04/0 01/2024, 06/21/2022, Additional history exists Dental X-Ray: Full Mouth 07/14/2025 07/13/2022 Diabetes: Hemoglobin A1C 07/20/2025 025, 01/22/2025, 06/17/2024, Additional history exists Depression Monitoring 07/22/2025 01/22/2025, 025 Mammogram 08/30/2025 08/31/2023, 04/0 05/2021, 08/19/2021, Additional history exists Dental X-Ray: Bitewings 2025 11/29/19, 05/29/2024, 07/13/2022 SDOH Screening 01/14/2026 01/14/2025 Alcohol/Substance Use Screening 01/22/2026 01/22/2025 Tobacco Screening 04/21/2026 04/21/2025 Eye Exam 03/03/2027 03/03/2025, 03/02/2023 RSV Patients [...] on patient's age to complete this topic Goals Goal Patient Goal Type Associated Problems Recent Progress Patient-Stated? Author Help patients manage their type 2 diabetes Care Plan Help patients manage their type 2 diabetes No Ana Borrero MA Weekly blood pressure task Care Plan Weekly blood pressure task No Ana Borrero MA Help patients manage their type 2 diabetes Care Plan Help patients manage their type 2 diabetes No Jered eyesAna MA Patient has chronic kidney disease Care [...] blood pressure task No Ana Borrero [place] Patient has chronic kidney disease Care Plan Patient has chronic kidney disease No Cristofer-R eyes, Ana, [place]FFERY Patient has chronic kidney disease Care Plan Patient has chronic kidney disease No Cristofer-R eyes, Ana, [place] Patient has diabetic neuropathy Care Plan Patient has diabetic neuropathy No Cristofer-R eyes, Ana, [place] Patient has diabetic neuropathy Care Plan Patient has diabetic neuropathy No Cristofer-R eyes, AnaJEFFERY pace Weekly blood pressure task Care Plan Weekly [...] Care Plan Weekly blood pressure task No PuiaMaximilianoEve, PharmD Weekly blood pressure task Care Plan Weekly blood pressure task No Puia Eve, PharmD Weekly blood pressure task Care [...] has diabetic neuropathy No Puia, Eve, PharmD Weekly blood pressure task Care Plan Weekly blood pressure task No Marce Cano RN Weekly blood pressure task Care Plan Weekly blood pressure task No Marce Cano RN Weekly blood pressure task Care Plan Weekly blood pressure task No Marce Cano RN Patient has chronic kidney disease Care Plan Patient has chronic kidney disease No Marce Cano RN Patient has chronic kidney disease Care Plan Patient has chronic kidney disease No Marce Cano RN Patient has chronic kidney disease Care Plan Patient has chronic kidney disease No Marce Cano RN Patient has diabetic neuropathy Care Plan Patient has diabetic neuropathy No Marce Cano RN Patient has diabetic neuropathy Care Plan Patient has diabetic neuropathy No Marce Cano RN Patient has diabetic neuropathy Care Plan Patient has diabetic neuropathy No Marce Cano RN Weekly blood pressure task Care Plan Weekly blood pressure task No Kesha Lancaster LMFAYE Weekly blood pressure task Care Plan Weekly blood pressure task No Kesha Lancaster LMFAYE Weekly blood pressure task Care Plan Weekly blood pressure task No TonnyKesha LMFAYE Patient has chronic kidney disease Care Plan Patient has chronic kidney disease No TonnyKesha LMFAYE Patient has chronic kidney disease Care Plan Patient has chronic kidney disease No TonnyKesha LMFAYE Patient has chronic kidney disease Care Plan Patient has chronic kidney disease No TonnyKesha LMFAYE Patient has diabetic neuropathy Care Plan Patient has diabetic neuropathy No TonnyKesha LMFAYE Patient has diabetic neuropathy Care Plan Patient has diabetic neuropathy No TonnyKesha LMFAYE Patient has diabetic neuropathy Care Plan Patient has diabetic neuropathy No TonnyKesha LMFAYE Weekly blood pressure task Care Plan Weekly blood pressure task No Cynthia Yun LPN Weekly blood pressure task Care Plan Weekly blood pressure task No JamaCynthia franz LPN Weekly blood pressure task Care Plan Weekly blood pressure task No JamaCynthia LPN Patient has chronic kidney disease Care Plan Patient has chronic kidney disease No JamaCynthia franz LPN Patient has chronic kidney disease Care Plan Patient has chronic kidney disease No JamaCynthia franz LPN Patient has chronic kidney disease Care Plan Patient has chronic kidney disease No JamaCynthia franz [employer]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 Patient has diabetic neuropathy Care Plan Patient has diabetic neuropathy No JamaCynthia franz LPN Patient has diabetic neuropathy Care Plan Patient has diabetic neuropathy No JamaCynthia franz LPN Patient has diabetic neuropathy Care Plan Patient has diabetic neuropathy No Cynthia Yun LPN Procedures Procedure Name Priority Date/Time Associated Diagnosis Comments POCT GLYCATED HEMOGLOBIN, TOTAL Routine 04/21/2025 3:11 PM EST Type 2 diabetes mellitus with other specified complication, without long-term current use of insulin ([facility]) POCT GLUCOSE (CPT-06835) Routine 04/21/2025 3:10 PM EST Type 2 diabetes mellitus with other specified complication, without long-term current use of insulin ([facility]) AMB REFERRAL TO FAMILY PRACTICE Routine 04/03/2025 Chronic bilateral low back pain with right-sided sciatica HM DIABETES EYE EXAM Routine 03/03/2025 PROPHYLAXIS - ADULT Routine 11/28/2024 1 0:00 [...] of insulin ([facility]/HCC) LIPID PANEL, STANDARD Routine 06/27/2024 9:19 AM EST Type 2 diabetes mellitus with other specified complication, without long-term current use of insulin ([facility]) BI MAMMOGRAM SCREENING TOMOSYNTHESIS BILATERAL Routine 08/31/2023 1:20 PM EDT INTRAORAL - COMPLETE SERIES OF RADIOGRAPHIC IMAGES Routine 07/13/2022 11:00 AM EST Dental plaque on multiple teeth HM COLONOSCOPY Routine 10/26/2015 10:13 AM EDT from Last 3 Months or Most Recently Relevant to Health Maintenance Results * (ABNORMAL) POCT Hgb A1c (04/21/2025 3:11 PM EST) Hemoglobin A1C 8.4(A) 4.0 - 5.7 % QC Media Lot # [id number] Lot# Expiration Date 51,227 Blood 04/21/2025 3:11 PM EST Result Dallin Lovett MD POINT OF CARE TEST ENTER/EDIT OR DERABLES Final Result * (ABNORMAL) POCT Glucose (04/21/2025 3:10 PM EST) Glucose Blood, POC 217(A) 60 - 200 mg/dL QC Media Lot # [id number] Lot# Expiration Date 7,726 Blood Capillary blood specimen / Unknown 04/21/2025 3:10 PM EST Result Dallin Lovett MD POINT OF CARE TEST ENTER/EDIT OR DERABLES Final Result * [facility] (04/03/2025) Result [facility] FIBROUS PLASTERER OUTPATIENT REFERRAL ORDERABLE S Final Result * Diabetes Eye Exam (03/03/2025) Eye Exam Normal Normal Comment:no ocular complicati ons Result Dallin Lovett MD HEALTH MAINTENANCE Final Result * Albumin, Random Urine W/Creatinine (06/27/2024 9:19 AM EST) Creatinine, Urine 58.67 mg/dL [facility] Microalbumin Urine 11.0 mg/L [facility] Microalbum Creatinine Ratio Ur 18.7 <30 ug/mg cr [facility] Comment:Albumin/Creatinine R atio Reference Ranges: Normal: < 30 ug/mg creatinine Microalbuminuria: 30 - 300 ug/mg creatinineClinical Albuminuria: > 300 ug/mg creatinine Urine (Urine, Random) 06/27/2024 9:19 AM EST 06/27/2024 11:52 AM EST us Howard Lovett MD LAB URINE ORDERABLES Final Resul t [facility] [address] [place] [phone] * Lipid Panel, Standard (06/27/2024 9:19 AM EST) Triglycerides 129 <150 mg/dL [facility] Comment:Desirable Triglyceri de: less than 150 mg/dLBorderline High Triglyceride 150-199 mg/dLHigh Triglyceride: 200-499 mg/dLVery High Triglyceride: greater than or equal to 5OO mg/dL Cholesterol 153 <200 mg/dL [facility] Comment:Desirable Cholestero l: less than 200 mg/dLBorderline High Cholesterol: 200-239 mg/dLHigh Cholesterol: greater than 239 mg/dL LDL Cholesterol Calculated 60 <100 mg/dL [facility] Comment:Desirable LDL: less than 100 mg/dLNear Optimal/Above Optimal LDL: 110- 129 mg/dLBorderline High LDL: 130-159 mg/dLHigh LDL: 160-189 mg/dLVery High LDL: greater than or equal to 190 mg/dL HDL Cholesterol 68 >40 mg/dL [facility] Comment:Desirable HDL: great er than 40 mg/dL Note: This HDL assay may give artificially low results in patients with liver disease. Blood Venous blood specimen / Unknown 06/27/2024 9:19 AM EST 06/27/2024 11:30 AM EST us Howard Lovett MD LAB BLOOD ORDERABLES Final Resul t [facility] [address] [place] [address] [phone] * BI Mammogram Screening Tomosynthesis Bilateral (08/31/2023 1:20 PM EDT) Anatomical Region Laterality Modality Breast Bilateral Mammography 08/31/2023 1:20 PM EDT Narrative 09/27/2023 10:20 PM EDT [facility] [address] [place] [address] Mammography Report Signed Patient: Kimberly Randhawa MR#: [id number] : 1950 Acct:[id number] Age/Sex: 72 / F ADM Date: 08/31/23 Loc: HO.MAMMO Attending Dr: Kelsie Simpson CNM Ordering Physician: Kelsie Simpson CNM Results: 2Beni gn Findings Date of Service: 08/31/23 Follow Up: 1 Year From Orig ina Mammogram Procedure(s): MM tomosynthesis screening BI Accession Number(s): [id number] cc: Rubin Arguello MD; Kelsie Simpson CNM [...] in OV> 09/27/23 2216 DD/ 1320 TD/TT: Nurse Auditor: Procedure Note Donotilaninterpreter, Image - 09/27/20[facility] [address] [place], [place] [address] Mammography Report Signed Patient: Marlena Randhawa#: [id number] : 3Acct:[id number] Age/Sex: 72 / FADM Date: 08/31/23 Loc: AMRITA Attending Dr: Kelsie Simpson CNM Ordering Physician: Kelsie Simpsonesults: 2Beni gn Findings Date of Service: 08/31/23Follow Up: 1 Year From Orig inal Mammogram Procedure(s): MM tomosynthesis screening BI Accession Number(s): [id number] cc: Rubin Arguello MD; Kelsie Simpson CNM [...] in OV> 09/27/23 2216 DD/ 1320 TD/TT: Nurse Auditor: [facility] External Provider IMG BI PROCEDURES Edited Result - Final * Hm Colonoscopy (10/26/2015 10:13 AM EDT) Colonoscopy Normal Normal Narrative Radha Henry - 10/26/2015 10:13 AM EDT Recommended 5 year follow up Historical Provider HEALTH MAINTENANCE Final Result from Last 3 Months or Most Recently Relevant to Health Maintenance Additional Health Concerns Active Problems Noted Date [...] neuropathy 04/21/2025 Patient has diabetic neuropathy 04/21/2025 Weekly blood pressure task 05/07/2025 Weekly blood pressure task 05/07/2025 Weekly blood pressure task 05/07/2025 Patient has chronic kidney disease 05/07/2025 Patient has chronic kidney disease 05/07/2025 Patient has chronic kidney disease 05/07/2025 Patient has diabetic neuropathy 05/07/2025 Patient has diabetic neuropathy 05/07/2025 Patient has diabetic neuropathy 05/07/2025 Weekly blood pressure task 05/18/2025 Weekly blood pressure task 05/18/2025 Weekly blood pressure task 05/18/2025 Patient has chronic kidney disease 05/18/2025 Patient has chronic kidney disease 05/18/2025 Patient has chronic kidney disease 05/18/2025 Patient has diabetic neuropathy 05/18/2025 Patient has diabetic neuropathy 05/18/2025 Patient has diabetic neuropathy 05/18/2025 Weekly blood pressure task 05/19/2025 Weekly blood pressure task 05/19/2025 Weekly blood pressure task 05/19/2025 Patient has chronic kidney disease 05/19/2025 Patient has chronic kidney disease 05/19/2025 Patient has chronic kidney disease 05/19/2025 Patient has diabetic neuropathy 05/19/2025 Patient has diabetic neuropathy 05/19/2025 Patient has diabetic neuropathy 05/19/2025 Insurance [facility] STANDARD [facility] [employer] OPTIONS (HMO D-SNP) DENTAL - HSN FULL (MEDICAID) Care Teams Tire Repairman Relationship Specialty Start Date End Date Name, MD Howard [address] [place] [address] PCP - General Family Medicine 03/13/19 Eve Serrato, PharmD [address] [place] [phone] Pharmacist Pharmacy 03/19/25
--- OUTSIDE RECORDS SUMMARY | 2025-05-19 09:59 | XMS_ITS | Clinical Summary ---
Author Organization [facility] Address [address] [facility] [address] [place] [address] Phone Care Team Providers Care Thread Laster Name Role Phone Name, Howard BRENNER Primary Care Provider [phone] Allergies Active Allergy Reactions Criticality Noted Date [...] of blood transfusion See media for documentation Uatsdin Type 2 diabetes mellitus without complications 0 [...] EDT) SODIUM 141 133 - 146 mmol/L [facility] CHLORIDE 104 96 - 108 mmol/L [facility] POTASSIUM 3.6 3.3 - 5.1 mmol/L [facility] CO2 25 21 - 35 mmol/L [facility] BUN 14 6 - 19 mg/dL [facility] CREATININE 0.50 0.5 - 1.5 mg/dL [facility] GLUCOSE 241(H) 70 - 99 mg/dL [facility] CALCIUM 9.5 8.4 - 10.3 mg/dL [facility] EGFR 101 >59 mL/min/1.7 3m2 [facility] Comment:Estimated glomerular filtration rate calculated using the CKD-EPI refit equation. ANION GAP 16 10 - 20 mmol/L [facility] Blood 11/20/2023 5:06 PM EDT 11/20/2023 5:18 PM EDT us Kaleb Snow MD LAB BLOOD BKR ORDERABLES Final Result Performing Organization Address City/State/[facility] Co de Phone Number [facility] [address] [place], [place] [phone] from Last 3 Months or Most Recently Relevant to Health Maintenance Insurance [facility] MEDICARE REPLACEMENT NET PARTIAL MEDICARE PART A & [facility] MEDICARE REPLACEMENT [facility] PARTIAL MEDICARE PART A & B Member Subscriber Plan / Payer (Ef fective 2017-Present) Name:Elvira VegasovaKimberly Member ID:[id number] Relation to Subscriber:Self Name:Kimberly Randhawa Subscriber ID:[id number] Payer ID:[id number] Group ID:Not on file Type:Medicare Address: [facility] [employer] [facility] [employer] [facility] [address] [place] [address] [facility] MEDICARE REPLACEMENT [facility] PARTIAL MEDICARE PART A & [facility] MEDICARE REPLACEMENT [facility] PARTIAL MEDICARE PART A & [facility] MEDICARE REPLACEMENT [facility] PARTIAL MEDICARE PART A & [facility] AARP MEDICARE REPLACEMENT [facility] PARTIAL MEDICARE PART A & B [facility] Q[employer] Advance Directives For more information, please contact: [phone] (9AM - 5PM [facility], Sunday-Sunday) Documents on File Type Date Recorded Patient Master [employer] Healthcare Proxy 01/29/2024 HEALTHCARE PROXY 01/29/2024 Care Teams Thread Laster Relationship Specialty Start Date End Date Name, MD Howard [address] [place] [id number] PCP - General 09/01/23 Additional Source Comments The information contained in this document represents components of the legal health record. It is not the complete legal health record.[facility]
--- OUTSIDE RECORDS SUMMARY | 2025-05-19 09:59 | XMS_ITS | Encounter Summary ---
Author Organization [employer] Address [address] [place] [address] Care Team Providers Care Plate Put In Worker Name Role Phone Name, Howard BRENNER Primary Care Provider Eve Serrato PharmD Unavailable [phone] Reason for Visit * Reason Comments Med Refill Encounter Details Date Type Department Care Team (Late st Contact Info) Description 05/18/2025 Refill [facility] MEDICINE [address] [place], [place] [id number] Name, MD Howard [address] [place] [address] Type 2 diabetes mellitus with other specified complication, without long-term current use of insulin (HCC) Social [...] Description 06/09/2025 2:30 PM EST Medication Management [facility] MEDICINE [address] [place] [address] Eve Serrato, PharmD [address] [place] [address] 06/11/2025 12:45 PM EST Office Visit [facility] ADULT DENTAL [address] [place] [address] Anna, Ting [address] [place] [address] documented as of this encounter Goals Goal [...] pressure task No Cristofer-R eyes, [place], [place] Weekly blood [...] Patient has diabetic neuropathy No Cristofer-R eyes, [place]an, [place] Patient has diabetic neuropathy Care Plan Patient has diabetic neuropathy No Cristofer-R eyes, JEFFERY Perez Weekly blood pressure task Care Plan Weekly [...] Plan Weekly blood pressure task No Puia, Eev, PharmD Weekly blood pressure task Care Plan [...] Care Plan Weekly blood pressure task No TonnyKesha, LMHC Weekly blood pressure task Care Plan Weekly blood pressure task No TonnyKesha LMHC Weekly blood pressure task Care Plan Weekly blood pressure task No TonnyKesha, LMHC Patient has chronic kidney disease Care Plan Patient has chronic kidney disease No TonnyKesha, LMHC Patient has chronic kidney disease Care Plan Patient has chronic kidney disease No TonnyKesha, LMHC Patient has chronic kidney disease Care Plan Patient has chronic kidney disease No Tonny, Kesha, LMHC Patient has diabetic neuropathy Care Plan Patient has diabetic neuropathy No Kesha Lancaster LMHC Patient has diabetic neuropathy Care Plan Patient has diabetic neuropathy No Kesha Lancaster LMHC Patient has diabetic neuropathy Care Plan Patient has diabetic neuropathy No Kesha Lancaster LMHC documented as of this encounter Visit Diagnoses Diagnosis Type 2 diabetes mellitus with other specified complication, without long-term current use of insulin (HCC) documented [...] neuropathy 05/18/2025 Patient has diabetic neuropathy 05/18/2025 Assessment Noted Time PHQ-9 Depression Total Score: 9 01/23/20 25 2:28 PM EDT documented as of this encounter Care Teams Plate Put In Worker Relationship Specialty Start Date End Date Name, MD Howard [address] [place] [address] PCP - General Family Medicine 03/13/19 Eve Serrato PharmD [address] [place] [address] Pharmacist Pharmacy 03/19/25 documented as of this encounter
--- OUTSIDE RECORDS SUMMARY | 2025-05-19 09:59 | XMS_ITS | Encounter Summary ---
Author Organization [employer] Address [address] [place] [address] [address] [place] [address] Care Team Providers Care Coordinator Integrated Marketing Name Role Phone Name, Hwoard BRENNER Primary Care Provider [phone] Eve Serrato PharmD Unavailable [phone] Encounter Details Date Type Department Care Team (Latest Contact Info) Description 10/13/2021 Abstract [facility] CONVERSIONS Dental, Provider, DDS Social [...] Description 06/09/2025 2:30 PM EST Medication Management [facility] MEDICINE [address] [place] [address] Eve Serrato, PharmD [address] [place] [address] 06/11/2025 12:45 PM EST Office Visit [facility] ADULT DENTAL [address] [place] [address] Anna, Ting [address] [place] [address] documented as of this encounter Visit Diagnoses Not on filedocumented in this encounter Care Teams Coordinator Integrated Marketing Relationship Specialty Start Date End Date Name, MD Howard [address] [place] [address] PCP - General Family Medicine 03/13/19 Eve Serrato, JaseD [address] [place] [address] [place] [address] Pharmacist Pharmacy 03/19/25 documented as of this encounter
--- OUTSIDE RECORDS SUMMARY | 2025-05-19 09:59 | XMS_ITS | Clinical Summary ---
Author Organization [facility] Address [address] [place] [address] Care Team Providers Care Inspector Floor Name Role Phone Laura Jones MD Primary [...] on file Sexual Orientation Not on file Plan of Treatment Health Maintenance Due Date [...] age to complete this topic Care Teams Inspector Floor Relationship Specialty Start Date End Date Laura Jones MD [address] [place] [address] PCP - General Internal Medicine 12/14/17
--- OUTSIDE RECORDS SUMMARY | 2025-05-19 09:59 | XMS_ITS | Encounter Summary ---
Author Organization [facility] Address [address] [place] [address] Phone Care Team Providers Care Compliance Assistant Name Role Phone Name, Howard BRENNER Primary Care Provider [phone] Encounter Details Date Type Department Care Team ([facility] st Contact Info) Description 01/30/2024 Procedure Pass [place] Admitting Dept - Virtual Department [address] [place] [address] Social History Tobacco Use Types Packs/Day Years [...] on filedocumented in this encounter Care Teams Compliance Assistant Relationship Specialty Start Date End Date Name, MD Howard [address] [place] [address] PCP - General 09/01/23 documented as of this encounter Additional Source Comments The information contained in this document represents components of the legal health record. It is not the complete legal health record.[facility]
== END 2025-05-19 08:25 | disposition home or self-care (01) ==
LOC: HO.NEURO 08:24
PROVIDERS: PCP Internal Medicine Geriatric Medicine; Visit Provider Internal Medicine Geriatric Medicine
DX: M79.2 Neuralgia and neuritis, unspecified (principal); R20.0 Anesthesia of skin; R20.2 Paresthesia of skin
CPT/HCPCS: 95886; 95909

== ENCOUNTER → 2025-05-19 08:26 | Outpatient (BNV) | payer OTHER, SELFPAY | PROVIDERS: PCP Internal Medicine Geriatric Medicine; Visit Provider Psychiatry & Neurology Neurology | DX: G56.01 Carpal tunnel syndrome, right upper limb (principal) | CPT/HCPCS: 95886; 95909 ==